=== PATIENT | female | born 1940 | race Caucasian/White ===

== ENCOUNTER 2018-01-15 01:34 | Outpatient (CLI) | payer MEDICARE, BC, SELFPAY ==
[2018-01-15 11:22] LABS: ALT 21 U/L (12-78); AST 21 U/L (15-37); Albumin 3.5 g/dL (3.4-5.0); Alkaline Phosphatase 111 U/L (46-116); Anion Gap 8.7 mmol/L (3-11); BUN 13 mg/dL (7-18); Bilirubin, Total 0.8 mg/dL (0.2-1.0); CO2 27.3 mmol/L (21.0-32.0); CREATININE 0.79 mg/dL (0.55-1.02); Calcium 8.6 mg/dL (8.5-10.1); Chloride 107 mmol/L (98-107); Cholesterol 233 mg/dL (50-200); Glucose 110 mg/dL (70-100); HDL Cholesterol 85 mg/dL (40-60); LDL CHOLESTEROL 132 mg/dL (<100); Sodium 143 mmol/L (136-145); Total Protein 6.5 g/dL (6.4-8.2); Triglyceride 128 mg/dL (30-150)
== END 2018-01-15 01:54 ==
DX: I10 Essential (primary) hypertension (principal)
CPT/HCPCS: 36415; 80053; 80061; 83721

== ENCOUNTER 2018-05-09 16:13 | Emergency (ER) | payer MEDICARE, BC, SELFPAY ==
--- NOTE | 2018-05-09 16:25 | DI.RAD_ITS ---
SYMPTOM/DIAGNOSIS: FELL, PAIN LEFT KNEE: There is a comminuted fracture involving both tibial plateaus. There is significant displacement as well as depression of the lateral tibial plateau. A hemarthrosis is seen. There appears to be involvement of the tibial spines. IMPRESSION: Comminuted tibial plateau fractures.
--- NOTE | 2018-05-09 16:28 | ED.GENADUL_ITS ---
Discharge Plan Disposition Patient Disposition: HOME Condition: Fair Discharge Details Chief Complaint: Orthopedic Clinical Impression: Closed fracture of left tibial plateau Reason For Visit: [place] Primary Care Provider: Tootie Rodriguez ED Provider: Mily Sarabia Home Meds and New Rx's Prescriptions: New oxycodone 5 mg tablet 5 mg PO Q6H PRN (Reason: pain) Qty: 7 RF: 0 Continued sertraline [Zoloft] 50 mg tablet 75 mg PO DAILY Qty: 135 RF: 4 metronidazole [MetroCream] 0.75 % cream 1 applic Topical BID Qty: 1 RF: 3 losartan 25 mg tablet 25 mg PO DAILY Qty: 90 RF: 3 losartan 50 mg tablet 50 mg PO DAILY Qty: 90 RF: 3 betamethasone, augmented 0.05 % cream 1 applic Topical every other day Qty: 1 RF: 0 oxybutynin chloride 10 mg tablet extended release 24hr 10 mg PO DAILY Qty: 90 RF: 3 vitamin B complex [B-Complex] 1 EACH tablet 1 ea PO DAILY PRNRF: 0 multivitamin 1 EACH capsule 1 ea PO DAILY RF: 0 ibuprofen 600 MG tablet 600 mg PO tid prn Qty: 90 RF: 3 levalbuterol tartrate 15 GM HFA aerosol inhaler 2 puff Inhalation Q6H PRN Qty: 1 RF: 3 Discharge Instructions Instructions: Leg Fracture (ED) Additional Instructions: Encourage rest, ice, elevation. Tylenol and/or ibuprofen as needed for discomfort. You may augment this with oxycodone as prescribed. Please take this medication only as prescribed and keep it in a safe place. Keep knee immobilized until reevaluated by orthopedics. Please use walker and remain nonweightbearing. Please call orthopedics tomorrow to schedule follow-up appointment. If you develop new or worsening symptoms seek care urgently once again. Referrals: Tootie Rodriguez NP [Primary Care Provider] - Bernard Kline MD [ [facility] STAFF PHYSICIAN] - Medical Decision Making Patient is a 78 year old female presenting today, brought in via EMS, with c/c of left knee pain. Reports that she was going down stairs and caught my foot. States that the knee went backward and she had a sudden onset of severe left knee pain. States that after this incident she fell, denies other injury at the time of the incident. Remembers the fall, no LOC, no head trauma. Denies pain in neck or back. History of ACL reputure without repair on left knee, no previous surgeries. Endorses nausea initially but associates this with the discomfort. Remaining exam without significant abnormality, ligamentous exam held off at this point secondary to discomfort. Will give Tylenol and Ibuprofen, obtain imaging and reexamine. Patient has history of hypertension, alcohol abuse (drinks about 1 bottle of wine per night), OA, stress incontinence, hypertenisve retinopathy, depression, bilateral hip replacements. XR reviewed by radiologist: FINDINGS: Bones/joints: Comminuted fracture of the proximal tibia with extension into the medial and lateral tibial plateau. The findings are most severe in the lateral tibial plateau where there is a 7 mm of subchondral bone step-off. Soft tissues: Moderate to large lipohemarthrosis. IMPRESSION: Comminuted fracture proximal tibia with extension into the medial and lateral tibial plateaus. Consulted with Dr. Kline. He did do the patient's previous hip replacements and who the patient prefers to follow-up with. He did asked that we obtain a CT scan, I mobilized the patient and have her remain nonweightbearing with follow- up in the office CT reviewed by radiologist: FINDINGS: There is a large lipohemarthrosis. There is a severely comminuted fracture of the lateral tibial plateau with sloped depression of the mid and posterior aspect of the lateral tibial plateau with approximately 6 mm of depression of the posterior lateral tibial plateau rim. The fracture extends into the proximal tibiofibular joint which is otherwise intact. There is extension of fracture into the tibial spines and the lateral aspect of the medial tibial plateau. There is mild generalized osteopenia. There are minimal degenerative arthritic changes within the patellofemoral joint. IMPRESSION: Severely comminuted fracture of the lateral tibial plateau with depression and extension into the proximal tibiofibular joint. There is fracture extension into the tibial spines and the lateral edge of the medial tibial plateau. Discussed these findings with the patient. We will follow the plan as outlined by Dr. Kline with knee immobilizer. She does have access to a walker. 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 Encourage rest, ice, elevation. Tylenol and/or ibuprofen as needed for discomfort. Patient has oxycodone at home that she may take tonight. Reports she only has a few tabs left, I will prescribe her further to help her with her acute pain in the next few days. She will contact Dr. Kline's office tomorrow to schedule follow-up appointment. All of her questions and concerns were addressed and she is in agreement this plan. HPI General Mode of arrival: EMS . Date/Time Provider Initiated Documentation: 05/09/18 16:25 . Limitations to Documentation: no limitations . Information obtained by: patient and EMS . History of Present Illness 78 year old F presents to the emergency department with the chief complaint of left knee pain, described as moderate, Quality is described as aching, and is l ocalized to the left and lower extremity. Patient reports no radiation. Patient started experiencing this minute(s) and it has been constant. Immobilization improves symptom(s), Movement worsens symptoms . Patient notes no other symptoms.; denies chest pain, cough, diaphoresis, fever/chills, headaches, nausea/vomiting (reports initially nauseated, has since resolved), rash, shortness of breath, syncope and weakness. Patient did receive the following treatments prior to arrival, splint (applied by EMS) Related Data Home Medications Medication Instructions Recorded Confirmed multivitamin 1 ea PO DAILY 10/10/12 03/15/18 vitamin B complex [B-Complex] 1 ea PO DAILY PRN 10/10/12 03/15/18 ibuprofen 600 mg PO tid prn #90 tab-cap 11/04/14 03/15/18 levalbuterol tartrate 2 puff INHALATION Q6H PRN #1 01/10/17 03/15/18 inhaler betamethasone, augmented 0.05 % 1 applic TOPICAL every other day 01/16/18 03/15/18 topical cream #1 tube losartan 25 mg tablet 25 mg PO DAILY #90 tab 01/16/18 03/15/18 losartan 50 mg tablet 50 mg PO DAILY #90 tab-cap 01/16/18 03/15/18 metronidazole 0.75 % topical cream 1 applic TOPICAL BID #1 tube 01/16/18 03/15/18 sertraline 50 mg tablet 75 mg PO DAILY #135 tab-cap 01/16/18 03/15/18 oxybutynin chloride ER 10 mg 10 mg PO DAILY #90 tab 03/15/18 03/15/18 tablet,extended release 24 hr oxycodone 5 mg PO Q6H PRN #7 tab 05/09/18 Previous Rx's Medication Instructions Recorded levalbuterol tartrate 2 puff INHALATION Q6H PRN #1 01/10/17 inhaler betamethasone, augmented 0.05 % 1 applic TOPICAL every other day 01/16/18 topical cream #1 tube losartan 25 mg tablet 25 mg PO DAILY #90 tab 01/16/18 losartan 50 mg tablet 50 mg PO DAILY #90 tab-cap 01/16/18 metronidazole 0.75 % topical cream 1 applic TOPICAL BID #1 tube 01/16/18 sertraline 50 mg tablet 75 mg PO DAILY #135 tab-cap 01/16/18 oxybutynin chloride ER 10 mg 10 mg PO DAILY #90 tab 03/15/18 tablet,extended release 24 hr oxycodone 5 mg PO Q6H PRN #7 tab 05/09/18 Allergies Allergy/AdvReac Type Severity Reaction Status Date / Time morphine Allergy Severe ITCHING Verified 03/15/18 13:13 propoxyphene AdvReac Severe HALLUCINATI Verified 03/15/18 13:13 ONS naproxen AdvReac Intermediate RETAINS Verified 03/15/18 13:13 FLUID Review of Systems Constitutional Reports as per HPI, Denies chills, Denies fatigue, Denies fever(s), Denies headache(s) and Denies weakness Eyes Reports as per HPI, Denies blurry vision, Denies change in vision and Denies loss of vision ENT Denies headache(s) Cardiovascular Reports as per HPI Respiratory Reports as per HPI and Denies cough Gastrointestinal Reports as per HPI, Denies abdominal pain, Denies nausea and Denies vomiting Genitourinary Reports urinary incontinence (chronic, unchanged. Hx stress incontinence) Musculoskeletal Reports as per HPI and Denies tingling Integumentary/Breasts Reports as per HPI, Denies rash and Denies wounds Neurologic Denies headache(s), Denies loss of vision, Denies tingling and Denies weakness Endocrine Denies fatigue [facility] Medical History Alcohol abuse Eye Procedure([facility] [place] - Dr. Ruiz) fluid... HTN (hypertension) Osteoarthritis Surgical History Abdominal hysterectomy (~1973) Appendectomy (~1973) Biopsy of breast Colonoscopy - IV Sedation (01/25/16) Tonsillectomy and adenoidectomy Total replacement of hip (07/03/14) Total replacement of hip (11/12/14) Social History household members: other details: 4 current occupational status: retired pets and animals: Yes pets and animals: cat(s) and dog(s) frequency: 5-6 times per week duration: < 15 minutes/day Smoking/Tobacco Use Status: Former Tobacco Use quit date: 05/01/97 passive smoking exposure: No alcohol intake: current alcohol intake frequency: a few times a week Alcohol type: wine substance use type: does not use wendi/lutheran: Anabaptism special wendi needs: No Exam Const General: cooperative, healthy appearing, comfortable, no acute distress, well developed and well groomed Nutritional Appearance: average body habitus and well nourished Orientation: alert and awake [facility] Head: normal to inspection, no palpable skull fracture, normocephalic and atraumatic Ears: hearing grossly normal bilaterally General nose exam: external nose normal Eyes General: appearance normal, both eyes and all related structures Neck Neck: normal visual inspection, full ROM, no lymphadenopathy, no meningeal signs, trachea midline and supple Chest Chest: normal inspection of the chest, normal palpation of entire chest wall, no crepitus and no localized rib tenderness Resp Effort & Inspection: normal respiratory effort, able to speak in complete sentences and no respiratory distress Auscultation: clear to auscultation bilaterally, no rales, no rhonchi and no wheezes Cardio Rate: regular rate Rhythm: regular rhythm Heart Sounds: S1 normal and S2 normal GI Inspection: normal to inspection, no abdominal wall ecchymosis, no edema and non-distended Palpation: soft, no hepatosplenomegaly, not firm, no guarding, no pulsatile masses, not rigid and nontender Auscultation: normal bowel sounds Back/Spine/Pelvis Back: no CVA tenderness Cervical Spine: normal cervical lordosis and cervical ROM normal Thoracic/Lumbar Spine: thoracic and lumbar spine normal to inspection, thoraco- lumbar ROM normal, No thoraco-lumbar ROM limited, No thoraco-lumbar spasm and No thoracic spinal tenderness Pelvis: no pain with anterior-posterior compression and no pain with lateral compression Skin Trauma: abrasion (superficial inferior left knee, appears old. Patient reports 1 month old) Neuro General: alert and awake Cranial Nerves: CN's II-XI intact bilaterally Cognition: normal cognition Speech: speech normal Gait: normal gait Motor: muscle tone normal throughout Sensory Exam: no sensory deficits noted Extrem General: no pedal edema, no calf tenderness and abnormal gait (nonambulatory since fall) Left lower extremity: normal capillary refill, hip/thigh Details: normal ROM (test is limited secondary to knee pain and knee trauma); no tenderness, no swelling and no deformity, knee Details: abnormal to inspection (effusion, no erythema or warmth) Details: knee not obviously dislocated, patella not obviously dislocated and not erythematous, tenderness (diffuse discomfort) and swelling (effusion); ROM abnormal (limited secondary to pain), lower leg Details: normal to inspection, ankle Details: normal to inspection and foot Details: normal capillary refill, normal to inspection, toes with normal ROM, no edema and vascular exam Details: dorsalis pedis pulse present, posterior tibial pulse present and normal capillary refill; no tenderness; abnormal ROM, no edema and joint enlargement noted (effusion left knee) Psych Appearance: grossly normal and well kempt Mental Status: mental status grossly normal Speech and Movement: speech and movement normal
[2018-05-09] MEDS: Acetaminophen 500 MG TAB 1000 MG PO (16:55)
[2018-05-09] MEDS: Ibuprofen 600 MG TAB PO (16:55)
--- NOTE | 2018-05-09 17:34 | DI.VRAD_ITS ---
EXAM: XR Left Knee, 4 or more Views EXAM DATE/TIME: 05/09/2018 4:28 PM CLINICAL HISTORY: 78 years old, female; Injury or trauma; Fall; Initial encounter; Blunt trauma; Knee; Left TECHNIQUE: XR Left knee 4 or more views. COMPARISON: No relevant prior studies available. FINDINGS: Bones/joints: Comminuted fracture of the proximal tibia with extension into the medial and lateral tibial plateau. The findings are most severe in the lateral tibial plateau where there is a 7 mm of subchondral bone step-off. Soft tissues: Moderate to large lipohemarthrosis. IMPRESSION: Comminuted fracture proximal tibia with extension into the medial and lateral tibial plateaus. Dictated and Authenticated by: Amanuel Meade MD. Ordering:LEA Minor MD
--- NOTE | 2018-05-09 18:09 | DI.CT_ITS ---
SYMPTOMS/DIAGNOSIS: TIBIA FRACTURE CT OF THE LEFT KNEE: Comparison is made with plain films performed earlier the same day. There is a markedly comminuted fracture involving both tibial plateaus and the tibial spines. There is significant displacement as well as significant depression of the fracture fragments in the lateral tibial plateau. There is approximately 5-6 mm of depression greatest posteriorly of the lateral tibial plateau. The fracture extends inferiorly to the metaphyseal region of the proximal tibia near the tibiofibular joint. There is some comminution at the tibial spines. There is depression of the medial tibial plateau. The patella and distal femur appear intact. A hematosis is noted. The bones appear osteoporotic. IMPRESSION: Markedly comminuted depressed fracture involving both tibial plateaus, lateral greater than medial as well as tibial spines.
--- NOTE | 2018-05-09 18:26 | DI.VRAD_ITS ---
EXAM: CT Left Lower Extremity Without IV Contrast, Knee EXAM DATE/TIME: 05/09/2018 5:50 PM CLINICAL HISTORY: 78 years old, female; Injury or trauma; Fall; Initial encounter; Fracture, traumatic; Other: Comminuted fracture proximal tibia with extension into the medial and lateral tibial plateaus; Left TECHNIQUE: CT of the Left lower extremity without intravenous contrast was performed. Exam focused on the knee. Coronal and sagittal reformatted images were created and reviewed. COMPARISON: CR XR knee LT 4V AP,lat,robert,pat 05/09/2018 5:03 PM FINDINGS: There is a large lipohemarthrosis. There is a severely comminuted fracture of the lateral tibial plateau with sloped depression of the mid and posterior aspect of the lateral tibial plateau with approximately 6 mm of depression of the posterior lateral tibial plateau rim. The fracture extends into the proximal tibiofibular joint which is otherwise intact. There is extension of fracture into the tibial spines and the lateral aspect of the medial tibial plateau. There is mild generalized osteopenia. There are minimal degenerative arthritic changes within the patellofemoral joint. IMPRESSION: Severely comminuted fracture of the lateral tibial plateau with depression and extension into the proximal tibiofibular joint. There is fracture extension into the tibial spines and the lateral edge of the medial tibial plateau. Dictated and Authenticated by: Amanuel Meade MD. Ordering:LEA Minor MD
== END 2018-05-09 19:50 | disposition home or self-care (01) ==
PROVIDERS: Emergency Provider Physician Assistant
DX: S82.145A Nondisplaced bicondylar fracture of left tibia, initial encounter for closed fracture (principal); W19.XXXA Unspecified fall, initial encounter; I10 Essential (primary) hypertension
CPT/HCPCS: 99284; 73564; 73700; 99283; L1830

== ENCOUNTER → 2018-05-15 12:52 | Outpatient (BNVA) | payer MEDICARE, BC, SELFPAY | PROVIDERS: Visit Provider Orthopaedic Surgery | DX: S82.142A Displaced bicondylar fracture of left tibia, initial encounter for closed fracture (principal); W10.0XXA Fall (on)(from) escalator, initial encounter; I10 Essential (primary) hypertension | CPT/HCPCS: 99211; 99213 ==

== ENCOUNTER 2018-05-16 14:52 | Inpatient (IN) | payer MEDICARE, BC, SELFPAY ==
[2018-05-16] VITALS (13 sets, daily range): BP systolic 137–189; BP diastolic 72–131; PULSE 85–99; RESP 17–23; TEMP 36.5–38.2; O2SAT 93–98
[2018-05-16] MEDS: Lactated Ringers 1,000 ML 80 ML IV ×2 (09:54→15:55)
[2018-05-16] MEDS: Scopolamine 1 MG/3 DAYS PATCH TD (10:57)
[2018-05-16] MEDS: Bupivacaine 0.5% Pres-Free 30 ML VIAL (11:22)
[2018-05-16] MEDS: Bupivacaine LIPOSOME/PF 133 MG/10 ML VIAL IJ (11:22)
--- NOTE | 2018-05-16 13:15 | DI.RAD_ITS ---
SYMPTOMS/DIAGNOSIS: LEFT TIBIAL PLATEAU FRACTURE C-ARM FLUOROSCOPY OF THE LEFT KNEE: Fluoroscopy Time: 105.5 sec Fluoroscopy was provided in the OR for Dr. Kline. Hard copy images show placement of hardware in the proximal tibia for fixation of the previously noted tibial plateau fractures. The alignment is improved.
[2018-05-16] MEDS: fentaNYL 100 MCG/2 ML VIAL IVP ×2 (14:56→15:09)
[2018-05-16] MEDS: Acetaminophen 500 MG TAB 1000 MG PO (15:37)
[2018-05-16] MEDS: Ketorolac 15 MG/ML VIAL IVP (15:39)
[2018-05-16] MEDS: Normal Saline Flush 10 ML SYR IV ×3 (15:50→22:46)
[2018-05-16] MEDS: HYDROmorphone 2 MG/ML VIAL IVP (15:50)
--- NOTE | 2018-05-16 16:11 | ROE_ITS ---
DATE OF PROCEDURE: May 16, 2018 PREOPERATIVE DIAGNOSIS: Comminuted bicondylar tibial plateau fracture. POSTOPERATIVE DIAGNOSIS: Same. PROCEDURE: Open reduction and internal fixation with allograft bone grafting. SURGEON: Bernard Kline M.D. SHEET HEATER HELPER: Vesta Young PA-C ANESTHESIA: Femoral nerve block followed by general via LMA by Jerman Albarran CRNA PREP: ChloraPrep. INDICATIONS: This patient is one week status post a fall in the home where she sustained a bicondyla r tibial plateau fracture. There was significant lateral plateau depression of approximately 9 mm. There was also a minimally displaced fracture of the posterior medial condyle. The patient had a his tory of previous ACL injury many years ago. She was seen in the Emergency Department and had a CT sc an done. I recommended no initial treatment to minimize morbidity associated with surgery in the imm ediate post-fracture period. I saw her in the office yesterday, approximately six days post fracture and she was doing well. She had good skin perfusion. There were no fracture blisters. There was n o unusual swelling. I recommended repair of the fracture. I explained to the patient that this frac ture is associated with posttraumatic arthritis but that the option of allowing the fracture to heal and then performing a total knee arthroplasty had significant complications over a primary arthroplas ty. The risks and benefits were discussed. She understood and wished to proceed. Because of the vo id that would be created by the impaction of the articular surface back to its original position ther e would be a void and, therefore, I have recommended the use of allograft. OPERATIVE PROCEDURE: She was left in the Day Surgery holding area and the left leg was marked. She underwent femoral nerve blockade and then general anesthesia via LMA. Two grams of Ancef were given as a prophylactic antibiotic. The left lower extremity was prepped with ChloraPrep from the toes to the groin and a tourniquet was applied to the proximal thigh. A Carias catheter was inserted under st erile technique. The urine appeared normal. After prepping the left leg and doing the appropriate time-out, the tourniquet was inflated after a p rior exsanguination of the limb using gravity drainage. A standard anterior approach was made to all ow the performance of a total knee arthroplasty through the same incision if she were to require so i n the future. After incising the skin, the subcutaneous tissue was incised as part of the skin incis ion so as to prevent devascularizing subcutaneous tissues. The C-arm image intensifier was brought i nto position and percutaneously I placed a screw over the posterolateral femoral condyle. This was d one from the anterior and posterior direction under image intensifier control. This reduced the frac ture of the posteromedial fragment. I then disimpacted the fracture site by incising through the coronary ligaments of the lateral menisc us. This allowed some visualization of the lateral compartment. I then, under fluoroscopic control, used a bone tamp to tap the depressed articular fragments of the plateau back into their position. This was buttressed with bone grafts harvested from allograft femoral head. This filled the voids. I then used a T-plate which was a 3.5-mm plate with raft screws placed proximally. The plate was fir st precontoured to the lateral tibial condyle and secured into position with two nonlocking screws. Then raft screws which were locking were placed. This reduced the depression. Bone graft was harves ruthann further from the allograft to fill in any voids in addition to the structural allograft that was utilized. The wound was then irrigated. Hemostasis was under control after the tourniquet was defla ruthann. Tranexamic acid was placed topically and intraarticularly. The anterior compartment fascia was repaired with sutures of #1 Vicryl. The IT band and lateral reti naculum were repaired with #1 Vicryl. The subcutaneous tissues were repaired with #2-0 Vicryl and th e skin was closed with nylon suture in near-far far-near retention technique. Sterile bandages were applied consisting of Xeroform gauze, 4x4s, 6-inch conforming gauze bandage, followed by 6-inch Franklin w rap, and a commercial knee immobilizer with a Cryo/Cuff. The patient had an excellent dorsalis pedis pulse. Blood loss was minimal. She was taken to the Recovery Room in satisfactory condition with her knee immobilizer locked in comp lete extension and allowing 30 degrees of flexion.
[2018-05-16] MEDS: POTASSIUM CHLORIDE/0.9% NACL 1,000 ML 100 MEQ IV (16:41)
--- NOTE | 2018-05-16 17:59 | NUR.NOTE ---
Nursing Note: This patient arrived from PACU via stretcher and was admitted to room 208 on Med/Surg at 1612
[2018-05-16] MEDS: oxyCODONE 5 mg/Acetaminophen 325 mg TAB PO ×2 (18:50→20:06)
[2018-05-16] MEDS: Ibuprofen 600 MG TAB PO (22:02)
[2018-05-16] MEDS: fentaNYL 100 MCG/2 ML VIAL 50 MCG IVP (22:45)
[2018-05-17] VITALS (7 sets, daily range): BP systolic 144–176; BP diastolic 70–84; PULSE 87–98; RESP 17–24; TEMP 37.3–37.9; O2SAT 93–99
[2018-05-17] MEDS: oxyCODONE 5 mg/Acetaminophen 325 mg TAB PO ×4 (00:22→16:03)
[2018-05-17] MEDS: Ibuprofen 600 MG TAB PO ×3 (04:47→16:00)
[2018-05-17 06:48] LABS: HCT 35.4 % (36.0-46.0); HGB 11.6 g/dL (12.0-15.5); Mean Corp. HGB Concentration 32.8 g/dL (32.0-36.0); Mean Corpuscular Hemoglobin 30.9 pg (27.0-33.0); Mean Corpuscular Volume 94.1 fL (80-95); Mean Platelet Volume 10.3 fL (8.0-11.0); Platelet Count 203 x1000/uL (130-400); RBC 3.76 m/cumm (4.00-5.20); RBC Distribution Width 13.3 % (11.7-14.6); White Blood Cell Count 7.55 k/cumm (4.4-10.8)
[2018-05-17 07:04] LABS: Anion Gap 9.2 mmol/L (3-11); BUN 13 mg/dL (7-18); CO2 27.8 mmol/L (21.0-32.0); CREATININE 0.98 mg/dL (0.55-1.02); Calcium 8.3 mg/dL (8.5-10.1); Chloride 107 mmol/L (98-107); Estimated GFR 54.89 (mL/min/1.73m2); Glucose 147 mg/dL (70-100); Potassium 3.3 mmol/L (3.5-5.1); Sodium 144 mmol/L (136-145)
--- NOTE | 2018-05-17 08:08 | W.PM.PROGNOT ---
Date of Service Date of service: 05/17/18 Time of Service: 08:08 Assessment and Plan (1) Tibial plateau fracture, left: Current visit: No Status: Acute Overall satisfactory progress following comminuted tibial plateau fracture involving both condyles. No evidence of compartment syndrome. CBC and electrolytes are essentially within normal limits with exception of very mildly depressed potassium level. Surgical findings were reviewed with patient. We will continue with IV fluids until taking p.o. fully. She is also needing 1 more dose of antibiotic she will get up with PT nonweightbearing on the left with a walker Qualifiers: Encounter type: initial encounter Fracture type: closed Qualified Code(s): S82.142A - Displaced bicondylar fracture of left tibia, initial encounter for closed fracture Subjective Interval history since last seen: Patient reports having a difficult night last night mainly because of pain control. Nursing staff advised me that I could not prescribe the higher dose of fentanyl because it was considered conscious sedation. Exam Extrem Other: She has no unusual swelling in left foot or ankle note neurovascular exam of the left foot is intact. There is no increased pain with range of motion of the ankle. Patient is alert oriented and is coherent. Objective Objective Clinical Data: Abnormal lab results 05/17/18 05/17/18 Range/Units 06:20 06:20 RBC 3.76 L (4.00-5.20) m/cumm Hgb 11.6 L (12.0-15.5) g/dL Hct 35.4 L (36.0-46.0) % Potassium 3.3 L (3.5-5.1) mmol/L Glucose 147 H (70-100) mg/dL Calcium 8.3 L (8.5-10.1) mg/dL Vital Signs Temperature 99.1 F 05/17/18 05:20 Temperature Source Tympanic 05/17/18 05:20 Pulse 98 H 05/17/18 05:20 Pulse Rhythm Regular 05/17/18 05:20 Respiratory Rate 20 05/17/18 05:20 Respiratory Effort Non-Labored 05/17/18 05:20 Respiratory Depth Normal 05/17/18 05:20 Respiratory Pattern Normal 05/17/18 05:20 Blood Pressure 171/84 H 05/17/18 05:20 Pulse Oximetry 98 05/17/18 08:06 Respiratory End-tidal CO2 43 05/16/18 16:07 Oxygen Delivery Method Room Air 05/17/18 08:06 Oxygen Flow Rate 0 05/17/18 08:06 Pain Level 3 05/17/18 06:06 Comment 05/16/18 23:36 Intake & Output 05/16/18 05/16/18 05/17/18 11:59 23:59 11:59 Intake Total 100 / 3841.000 3741.000 / 3841.000 139.5 / 139.5 Output Total 1050 / 1700 1450 / 1450 Balance 100 / 2141.000 2691.000 / 2141.000 -1310.5 / -1310.5 Weight 185 lb 3.013 oz Intake: IV 100 / 2521.000 2421.000 / 2521.000 139.5 / 139.5 Oral 1320 / 1320 Output: Urine 1050 / 1700 1450 / 1450 Other: Urine Color Yellow Pale Yellow Yellow Urine Appearance Clear Clear Clear Emesis Description None Laboratory Results WBC 7.55 k/cumm (4.4-10.8) 05/17/18 06:20 RBC 3.76 m/cumm (4.00-5.20) L 05/17/18 06:20 Hgb 11.6 g/dL (12.0-15.5) L 05/17/18 06:20 Hct 35.4 % (36.0-46.0) L 05/17/18 06:20 MCV 94.1 fL (80-95) 05/17/18 06:20 MCH 30.9 pg (27.0-33.0) 05/17/18 06:20 MCHC 32.8 g/dL (32.0-36.0) 05/17/18 06:20 RDW 13.3 % (11.7-14.6) 05/17/18 06:20 Plt Count 203 x1000/uL (130-400) 05/17/18 06:20 MPV 10.3 fL (8.0-11.0) 05/17/18 06:20 Sodium 144 mmol/L (136-145) 05/17/18 06:20 Potassium 3.3 mmol/L (3.5-5.1) L 05/17/18 06:20 Chloride 107 mmol/L (98-107) 05/17/18 06:20 Carbon Dioxide 27.8 mmol/L (21.0-32.0) 05/17/18 06:20 Anion Gap 9.2 mmol/L (3-11) 05/17/18 06:20 BUN 13 mg/dL (7-18) 05/17/18 06:20 Creatinine 0.98 mg/dL (0.55-1.02) 05/17/18 06:20 Estimated GFR/1.73 m2 54.89 (mL/min/1.73m2) 05/17/18 06:20 Glucose 147 mg/dL (70-100) H 05/17/18 06:20 Calcium 8.3 mg/dL (8.5-10.1) L 05/17/18 06:20
[2018-05-17] MEDS: Losartan 25 MG TAB 75 MG PO (08:48)
[2018-05-17] MEDS: Pantoprazole 40 MG TABCR PO (08:48)
[2018-05-17] MEDS: Sertraline 50 MG TAB PO (08:48)
[2018-05-17] MEDS: Multivitamin w/Minerals TAB 1 TAB PO (08:49)
[2018-05-17] MEDS: Hydrochlorothiazide 25 MG TAB PO (08:49)
--- NOTE | 2018-05-17 09:35 | PHARADMIT ---
Addendum entered by Eros Contreras III 05/18/18 12:32: Pharmacy Note Subjective Patient exxperiencing pain post-op, making sleep difficult. Objective VS-OK Pain:01/08 No new labs No BM yet Assessment Ancef post-op completed, no med carmen Plan Working with PT Original Note: Admission Pharmacy Clinical Review L TIBIAL PLATEAU FRACTURE Code Status Full Code Current Weight Wgt- 84 kg Renally Cleared and Narrow Therapeutic Index Meds CrCl~ 62 mL/min Meds-OK QTc Value / Action Taken QTc-440 NA BP Control, Fever BP- 171/84 Meds- OK Electrolytes reviewed Na- 144 K+3.3 DVT Prophylaxis none Opiate Usage / Scheduled Bowel Regimen Ordered Yes Yes Plt/SCr for Heparin / Enoxaparin Plts-203 SCr-0.98 INR for Warfarin NA H/H stable, WBC/Bands H&H- 11.6/35.4 WBC- 7.55 Antibiotic appropriateness Ancef Cultures and Sensitivities none Surgical ABX d/c within 24 hr Yes DM control / Insulin Dosing BG- 147 Heart Failure (Check EF%) (XOCHITL's, B-Block, Diuretics) HCTZ, Losartan IV to PO Switch No Home Meds Reviewed Yes Home Meds Not Ordered Metrocream, Detrol-LA Comments
--- NOTE | 2018-05-17 10:43 | PT.INIE ---
Date of service: 05/17/18 Time of Service: 10:30 PT Notes Inpatient Physical Therapy Evaluation Date: May Referring Doctor: Dr. Kline PT Orders: PT CONSULT: s/p ORIF left tibial plateau fracture. Up in chair today, then non weight bearing on left with walker. Knee immobilizer set from 0 degrees of extension to 30 degrees of flexion Precautions: fall precautions Patient Profile/Admitting Diagnosis: Patient sustained a tibial plateau fracture status post fall down bottom step at home on 09 May. Underwent ORIF on May 16, [address] Kline. Orders for up in chair today than nonweightbearing on left with walker with knee immobilizer set from 0 degrees of extension to 30 degrees flexion. PMHX: ETOH abuse, HTN, OA, bilateral total hip replacements in 2014 Social History/Home Situation: Patient lives in a multilevel home. Currently set up on the first floor. She has 1 step into her bedroom and then 1 step into her dwelling. No grab bars for assistance. She does reside in a multilevel home and her goal is to return to her upper level for her bedroom but currently is able to be set up on the first floor due to limited mobility issues. She resides with her granddaughter and her 2 great grandsons. Current Functional Limitations: Ambulation, functional mobility, bed mobility, stair negotiation Equipment Owned/DME: Entered walker, 4 wheeled walker, shower chair, raised toilet seat. Subjective: 'I have not had my pain medication yet. I anticipate me to be become lightheaded with transfers. Would rather hold off until my pain meds have been administered.' Objective: At start of initial evaluation patient lying supine in hospital bed with head of bed at 40 degrees. Has knee immobilizer in place with Cryo/Cuff on the leg. General Observation: Catheter IV in right dorsal hand. Mental Status: Alert and orientated x3 Person, place and time Pain: 7/10 at rest in bed ROM: Right Upper Extremity: WFL Left Upper Extremity: WFL Right Lower Extremity: WFL Left Lower Extremity: Knee extension 10 degrees from neutral. Knee flexion 20 degrees. Hip abduction 30 degrees AA, ankle PF and DF WFL. Strength: Right Upper Extremity: 4+/5 throughout Left Upper Extremity: 4+/5 throughout Right Lower Extremity: 4/5 throughout Left Lower Extremity: Hip flexion 3+/5 with complaints of knee pain. Quad and hamstring not assessed. Sensation: Intact to light touch throughout the left foot and ankle. Bed Mobility/Transfers: Supine to sit: Min assist x1 with assistance to lower left lower extremity to the floor. Head of bed at 30 degrees. Sit to stand: Min assist x1 with verbal cues for hand placements to a front wheeled walker. Bed mobility: Min assist X1 for repositioning of left lower extremity Stand to sit: Min assist x1 for placement of left lower extremity and verbal cues for hand placement. Gait: To be tested tomorrow Balance: Static Sitting: Normal Dynamic Sitting: Normal Static Standing: Fair Dynamic Standing: Fair Special Tests: Mobility Limitations Standardized Measure [facility] 6 clicks Basic Mobility Inpatient Short Form: Raw Score: 12 Standardized Score: 35.33 CMS Score: 68.66% CMS Modifier: CL Informed Consent/Education: Patient instructed in purpose of PT consult and plan of care. Also educated in home program focusing on ankle pumps, glutes sets and quad sets. She performed 10 repetitions of each 2 sets Assessment: Patient is a 78 year old female referred to physical therapy services with the diagnosis of status post ORIF left tibial plateau fracture. Patient presents with clinical signs and symptoms consistent with this diagnosis, as demonstrated by the following impairment level findings: 1. Decreased LE strength 2. Decreased UE strength 3. Decreased balance 4. Decreased left knee ROM 5. Decreased activity tolerance Impairments are contributing to the following functional limitations: 1. Unable to independently get in/out of bed 2. Unable to stand independently 3. Unable to ambulate 4. Unable to manage stairs AMPA score. Patient is assessed as Moderate [id number] complexity based on the following: History: as per PMH Examination: Functional limitations as noted above Presentation: evolving Decision Making: moderate complexity Goals: Goals X1 week 1. Supine-Sit : supervision 2. Sit-Supine supervision 3. Sit-Stand supervision with FWW 4. Stand-Sit supervision with FWW 5. Bed-Chair supervision with FWW 6. Chair-Bed supervision with FWW 7. Gait supervision with FWW x 100' 8. Stairs ascend and descend x 1 step with bilat rails, supervision Plan of Care/Treatment Plan: 1-2x/day, 7 days/week x 1 week. Plan of care has been reviewed with the [facility] providing the service under Physical Therapy direction. Initiate Physical Therapy intervention for strengthening, bed mobility, transfers, gait, stairs, balance training, use of assistive device. DISCHARGE RECOMMENDATIONS: Discharge to home with HHPT TREATMENT [place]: [place] [address],10:30 G Codes in the area mobility of walking and moving around: current status [id number] CL; projected status GP G8979- CK. Discharge status (if discharging) GP [id number] CK.
--- NOTE | 2018-05-17 10:53 | IN_ITS ---
Date of service: 05/17/18 Time of Service: 10:30 PT Notes Inpatient Physical Therapy Evaluation Date: May Referring Doctor: Dr. Kline PT Orders: PT CONSULT: s/p ORIF left tibial plateau fracture. Up in chair today, then non weight bearing on left with walker. Knee immobilizer set from 0 degrees of extension to 30 degrees of flexion Precautions: fall precautions Patient Profile/Admitting Diagnosis: Patient sustained a tibial plateau fracture status post fall down bottom step at home on 09 May. Underwent ORIF on May 16, [address] Kline. Orders for up in chair today than nonweightbearing on left with walker with knee immobilizer set from 0 degrees of extension to 30 degrees flexion. PMHX: ETOH abuse, HTN, OA, bilateral total hip replacements in 2014 Social History/Home Situation: Patient lives in a multilevel home. Currently set up on the first floor. She has 1 step into her bedroom and then 1 step into her dwelling. No grab bars for assistance. She does reside in a multilevel home and her goal is to return to her upper level for her bedroom but currently is able to be set up on the first floor due to limited mobility issues. She resides with her granddaughter and her 2 great grandsons. Current Functional Limitations: Ambulation, functional mobility, bed mobility, stair negotiation Equipment Owned/DME: Entered walker, 4 wheeled walker, shower chair, raised toilet seat. Subjective: 'I have not had my pain medication yet. I anticipate me to be become lightheaded with transfers. Would rather hold off until my pain meds have been administered.' Objective: At start of initial evaluation patient lying supine in hospital bed with head of bed at 40 degrees. Has knee immobilizer in place with Cryo/Cuff on the leg. General Observation: Catheter IV in right dorsal hand. Mental Status: Alert and orientated x3 Person, place and time Pain: 7/10 at rest in bed ROM: Right Upper Extremity: WFL Left Upper Extremity: WFL Right Lower Extremity: WFL Left Lower Extremity: Knee extension 10 degrees from neutral. Knee flexion 20 degrees. Hip abduction 30 degrees AA, ankle PF and DF WFL. Strength: Right Upper Extremity: 4+/5 throughout Left Upper Extremity: 4+/5 throughout Right Lower Extremity: 4/5 throughout Left Lower Extremity: Hip flexion 3+/5 with complaints of knee pain. Quad and hamstring not assessed. Sensation: Intact to light touch throughout the left foot and ankle. Bed Mobility/Transfers: Supine to sit: Min assist x1 with assistance to lower left lower extremity to the floor. Head of bed at 30 degrees. Sit to stand: Min assist x1 with verbal cues for hand placements to a front wheeled walker. Bed mobility: Min assist X1 for repositioning of left lower extremity Stand to sit: Min assist x1 for placement of left lower extremity and verbal cues for hand placement. Gait: To be tested tomorrow Balance: Static Sitting: Normal Dynamic Sitting: Normal Static Standing: Fair Dynamic Standing: Fair Special Tests: Mobility Limitations Standardized Measure [facility] 6 clicks Basic Mobility Inpatient Short Form: Raw Score: 12 Standardized Score: 35.33 CMS Score: 68.66% CMS Modifier: CL Informed Consent/Education: Patient instructed in purpose of PT consult and plan of care. Also educated in home program focusing on ankle pumps, glutes sets and quad sets. She performed 10 repetitions of each 2 sets Assessment: Patient is a 78 year old female referred to physical therapy services with the diagnosis of status post ORIF left tibial plateau fracture. Patient presents with clinical signs and symptoms consistent with this diagnosis, as demonstrated by the following impairment level findings: 1. Decreased LE strength 2. Decreased UE strength 3. Decreased balance 4. Decreased left knee ROM 5. Decreased activity tolerance Impairments are contributing to the following functional limitations: 1. Unable to independently get in/out of bed 2. Unable to stand independently 3. Unable to ambulate 4. Unable to manage stairs AMPA score. Patient is assessed as Moderate [id number] complexity based on the following: History: as per PMH Examination: Functional limitations as noted above Presentation: evolving Decision Making: moderate complexity Goals: Goals X1 week 1. Supine-Sit : supervision 2. Sit-Supine supervision 3. Sit-Stand supervision with FWW 4. Stand-Sit supervision with FWW 5. Bed-Chair supervision with FWW 6. Chair-Bed supervision with FWW 7. Gait supervision with FWW x 100' 8. Stairs ascend and descend x 1 step with bilat rails, supervision Plan of Care/Treatment Plan: 1-2x/day, 7 days/week x 1 week. Plan of care has been reviewed with the [facility] providing the service under Physical Therapy direction. Initiate Physical Therapy intervention for strengthening, bed mobility, transfers, gait, stairs, balance training, use of assistive device. DISCHARGE RECOMMENDATIONS: Discharge to home with HHPT TREATMENT [place]: [place] [address],10:30 G Codes in the area mobility of walking and moving around: current status [id number] CL; projected status GP G8979- CK. Discharge status (if discharging) GP G8980 CK.
[2018-05-17] MEDS: POTASSIUM CHLORIDE/0.9% NACL 1,000 ML 30 MEQ IV (13:33)
--- NOTE | 2018-05-17 14:15 | CHAPLAIN ---
Cristine was sitting up in bed when I visited. She told me about her fall and her surgery. She sounds like she has good family supports and realizes she will likely be in for much of the winter, and isn't weight-bearing for a while on her left knee. Cristine said she likes to read, and will know be able to do plenty of that. She asked for large print book, as she said she is also having difficulty with her sight. I was able to find only one large print book in our [employer] library.
--- NOTE | 2018-05-17 15:02 | PT.INTREAT ---
Date of service: 05/17/18 Time of Service: 15:02 PT Notes Inpatient Physical Therapy Treatment Note [facility] Date: 05/17/18 PRECAUTIONS: NWB L, knee immobilizer 0-30 degrees SUBJECTIVE: Cristine requests to get back to bed. OBJECTIVE: PAIN: Patient complained of pain in left knee with transfers and ther ex BED MOBILITY/TRANSFERS Sit-supine: Min A of left lower extremity with HOB flat Sit-stand: CGA Stand-sit: CGA Chair-bed: CGA GAIT Assistive Device: FWW Weight bearing: NWB L Assist: CGA Distance: 5 sidesteps THEREX: Patient completed a lower extremity stabilization program which includes ankle pumps, quad sets, glutes sets. Patient ends with cold pack to left knee. ASSESSMENT: Patient tolerated session with complaints of knee pain. Patient was able to demonstrate a progression in sit<> stand transfers requiring CGA only. Patient would benefit from continued strengthening as well as continued gait and transfer training for improved ability to perform daily functional tasks at a more independent level. PLAN: Continue with PTs POC TREATMENT CODE/TIME: 25 minutes; (9711 0 x 1, 9753 0 x 1)
--- NOTE | 2018-05-17 15:06 | PT.INTREAT ---
Date of service: 05/17/18 Time of Service: 15:06 PT Notes Inpatient Physical Therapy Treatment Note [facility] Date: 05/17/18 PRECAUTIONS: Fall SUBJECTIVE: Jessika states that she is having significant pain in her L knee area. She c/o that her leg is numb as she believes the knee immobilizer is too tight. OBJECTIVE: Knee immobilizer checked by me, does not appear to be fitted too tightly. Nursing notified regarding numbness in leg. PAIN: Significant pain in L knee with transfers, gait, and ther ex BED MOBILITY/TRANSFERS Rolling L/R: [] Supine-sit: [] Sit-supine: [] Sit-stand: [] Stand-sit: [] Bed-Chair: [] Chair-bed: [] GAIT Assistive Device: [] Weight bearing: [] Assist: [] Distance: [] Deviation: [] VITALS: [] THEREX: [] STAIRS:[] ASSESSMENT: [] PLAN: [] TREATMENT CODE/TIME: []
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
--- NOTE | 2018-05-17 17:03 | NUR.NOTE ---
Nursing Note: Patient was back to bed after I had addressed concerns with DR. Kline, He will revisit the report of K being 3.3 tomorrow, and dressing is to be reinfoirced if it continues to strike through , as noted in other documentation. Patient was comfortable in bed with ice on her knee, pain was manangerd at that time, she was encouraged to ask for prn if pain became bothersome
[2018-05-17] MEDS: oxyCODONE 5 MG TAB PO (19:29)
[2018-05-18] MEDS: oxyCODONE 5 MG TAB PO ×4 (00:10→22:47)
[2018-05-18 04:55] VITALS: BP 197/99; PULSE 99; RESP 20; TEMP 38.2; O2SAT 94
--- NOTE | 2018-05-18 08:17 | PT.INTREAT ---
Date of service: 05/18/18 Time of Service: 08:18 PT Notes Inpatient Physical Therapy Treatment Note [facility] Date: 05/18/18 PRECAUTIONS: NWB on L, Knee Immobilizer 0-30 degrees SUBJECTIVE: Cristine states that she was having some pain in the night, however is feeling a little better today. She states my goal is to walk to the bathroom today. OBJECTIVE: PAIN: Patient c/o L knee pain BED MOBILITY/TRANSFERS Supine-sit: SBA Sit-stand: SBA Stand-sit: SBA Bed-Chair: SBA GAIT Assistive Device: FWW Weight bearing: NWB on L Assist: SBA Distance: 5 sides steps Deviation: Refused further gait training due to c/o dizziness THEREX: Patient completed a LE strengthening and stabilization program, as per flow sheet. Patient requires assist with SLR and hip abduction exercises. ASSESSMENT: Patient tolerated session with c/o pain in L knee with transfers and gait training. Patient would benefit from continued gait and transfer training as well as strengthening for improved mobility. PLAN: Continue with PT's POC TREATMENT CODE/TIME: 25 minutes; ([id number], [id number])
[2018-05-18 08:34] VITALS: BP 157/82; PULSE 107; RESP 20; TEMP 37.8; O2SAT 94
--- NOTE | 2018-05-18 09:28 | W.PM.PROGNOT ---
Date of Service Date of service: 05/18/18 Time of Service: 09:28 Assessment and Plan (1) Tibial plateau fracture, left: Current visit: No Status: Acute Patient is status post bicondylar tibial Plateau fracture repair. Postoperative course has been complicated by pain control. Part of this is due to her history of alcohol abuse as a binge drinker. She will metabolize his pain medication quite rapidly. Fentanyl really was so no benefit to her as it was only limited pain relief she is doing better on the oxycodone which she has been increased after being contacted last night by the nursing supervisor solder making. I review the current plan which is to allow her to have the brace unbuckled if she is in the recliner or while in bed. She should have it buckled while doing transfers or during PT the nurses are allowed to change her bandage as needed but there is no active drainage. She will be able to take a shower tomorrow and then discontinue her Carias catheter in her IV as IV medications do not seem to be working for her pain. She can be started on aspirin 81 mg twice daily as a DVT prophylaxis. Her blood pressure was up this morning secondary to her pain and also it was taken prior to getting her Hyzaar. We will follow this along. She is taking a reasonably good diet and will possibly recheck her potassium level in a day or 2 I am not concerned about it because she is not on any medication that could be additional agonist on cardiac receptors. Qualifiers: Encounter type: initial encounter Fracture type: closed Qualified Code(s): S82.142A - Displaced bicondylar fracture of left tibia, initial encounter for closed fracture Subjective Interval history since last seen: Patient had a difficult night last night because of pain. She feels part of it was her own problem and that she fell asleep around 2 AM and did not get any pain medication until this morning when she was placed in the recliner in her room by physical therapy Despite her complaints of pain she has no complaints of numbness or tingling in her left foot she is able to move it actively without any evidence of symptoms of compartmental syndrome. She had some mild breakthrough bleeding on her Franklin bandage but this had not increased and I told the nursing staff to leave it alone until this morning I carefully change all of her bandages today she has minimal drainage on the gauze bandages and the Franklin bandage. There is no evidence of any hematoma. The compartments are soft. The incision line looks good. I adjust her brace so that the medial stay is not engaging fleshy portion of her thigh near the perineum. Exam Extrem Other: No active drainage coming from the left knee incision. Any sterile bandages applied. No evidence of compartmental syndrome. Objective Objective Clinical Data: Vital Signs Temperature 100.0 F H 05/18/18 08:34 Temperature Source Tympanic 05/18/18 08:34 Pulse 107 H 05/18/18 08:34 Pulse Rhythm Regular 05/18/18 04:55 Respiratory Rate 20 05/18/18 08:34 Respiratory Effort Non-Labored 05/18/18 04:55 Respiratory Depth Normal 05/18/18 04:55 Respiratory Pattern Normal 05/18/18 04:55 Blood Pressure 157/82 H 05/18/18 08:34 Pulse Oximetry 94 L 05/18/18 08:34 Respiratory End-tidal CO2 43 05/16/18 16:07 Oxygen Delivery Method Room Air 05/18/18 08:34 Oxygen Flow Rate 0 05/18/18 08:34 Pain Level 9 05/18/18 08:16 Comment 05/18/18 04:55 Intake & Output 05/17/18 05/17/18 05/18/18 11:59 23:59 11:59 Intake Total 917.0 / 1483.5 566.5 / 1483.5 Output Total 1450 / 3550 2100 / 3550 1575 / 1575 Balance -533.0 / -2066.5 -1533.5 / -2066.5 -1575 / -1575 Intake: IV 437.0 / 523.5 86.5 / 523.5 Oral 480 / 960 480 / 960 Output: Urine 1450 / 3550 2100 / 3550 1575 / 1575 Other: Urine Color Yellow Pale Yellow Yellow Urine Appearance Clear Clear Clear Comment no complaints of distension, patient and intact Laboratory Results WBC 7.55 k/cumm (4.4-10.8) 05/17/18 06:20 RBC 3.76 m/cumm (4.00-5.20) L 05/17/18 06:20 Hgb 11.6 g/dL (12.0-15.5) L 05/17/18 06:20 Hct 35.4 % (36.0-46.0) L 05/17/18 06:20 MCV 94.1 fL (80-95) 05/17/18 06:20 MCH 30.9 pg (27.0-33.0) 05/17/18 06:20 MCHC 32.8 g/dL (32.0-36.0) 05/17/18 06:20 RDW 13.3 % (11.7-14.6) 05/17/18 06:20 Plt Count 203 x1000/uL (130-400) 05/17/18 06:20 MPV 10.3 fL (8.0-11.0) 05/17/18 06:20 Sodium 144 mmol/L (136-145) 05/17/18 06:20 Potassium 3.3 mmol/L (3.5-5.1) L 05/17/18 06:20 Chloride 107 mmol/L (98-107) 05/17/18 06:20 Carbon Dioxide 27.8 mmol/L (21.0-32.0) 05/17/18 06:20 Anion Gap 9.2 mmol/L (3-11) 05/17/18 06:20 BUN 13 mg/dL (7-18) 05/17/18 06:20 Creatinine 0.98 mg/dL (0.55-1.02) 05/17/18 06:20 Estimated GFR/1.73 m2 54.89 (mL/min/1.73m2) 05/17/18 06:20 Glucose 147 mg/dL (70-100) H 05/17/18 06:20 Calcium 8.3 mg/dL (8.5-10.1) L 05/17/18 06:20
[2018-05-18] MEDS: Ibuprofen 600 MG TAB PO ×3 (09:31→20:23)
[2018-05-18] MEDS: Multivitamin w/Minerals TAB 1 TAB PO (09:31)
[2018-05-18] MEDS: Sertraline 50 MG TAB PO (09:32)
[2018-05-18] MEDS: Tolterodine 2 MG CAPCR 4 MG PO (09:32)
[2018-05-18] MEDS: Hydrochlorothiazide 25 MG TAB PO (09:32)
[2018-05-18] MEDS: Pantoprazole 40 MG TABCR PO (09:32)
[2018-05-18] MEDS: Docusate Sodium 100 MG CAP PO (09:32)
[2018-05-18] MEDS: Losartan 25 MG TAB 75 MG PO (09:32)
[2018-05-18] MEDS: Acetaminophen 325 MG TAB 650 MG PO ×2 (09:32→13:57)
[2018-05-18 12:00] VITALS: BP 126/63; PULSE 99; RESP 18; TEMP 37.6; O2SAT 94
--- NOTE | 2018-05-18 13:52 | PDOC.CMPRO ---
Care Management Progress Note S/O: Cristine reports her pain is managed though she does not yet feel comfortable. She continues to work with PT/OT and is pleasant in interaction. CM will continue to follow. A: Cristine was admitted to [facility] 05/16/18 for (L) Tibial Plateau FX P: Cristine will discharge home with new orders for [facility] RN/PT/OT. Undetermined if she will require SWB1 stay prior to discharge; PT reports this would be an appropriate option for Cristine. CM will continue to follow.
--- NOTE | 2018-05-18 13:56 | CMPROGNOTE_ITS ---
Care Management Progress Note S/O: Cristine reports her pain is managed though she does not yet feel comfortable. She continues to work with PT/OT and is pleasant in interaction. CM will continue to follow. A: Cristine was admitted to [facility] 05/16/18 for (L) Tibial Plateau FX P: Critsine will discharge home with new orders for [facility]NA RN/PT/OT. Undetermined if she will require SWB1 stay prior to discharge; PT reports this would be an appropriate option for Cristine. CM will continue to follow.
--- NOTE | 2018-05-18 14:32 | PT.INTREAT ---
Date of service: 05/18/18 Time of Service: 14:33 PT Notes Inpatient Physical Therapy Treatment Note [facility] Date: May 18, 2018 PRECAUTIONS:NWB L LE, Knee Immobilizer 0-30 degrees SUBJECTIVE: Cristine states that she is doing well however her pain can go from a 2/10 -10/10 very easily. She would like to get up and go to the bathroom for she really needs to pee. OBJECTIVE: PAIN: Patient c/o L knee pain 2/10 at time of treatment BED MOBILITY/TRANSFERS Supine-sit: SBA Sit-stand: SBA Stand-sit: SBA Bed-Chair: SBA GAIT Assistive Device: FWW Weight bearing: NWB on L Assist: SBA Distance: 25' x2 to bathroom and back to bed. THEREX: Patient completed a LE strengthening and stabilization program, as per flow sheet. Patient requires assist with SLR and hip abduction exercises. ASSESSMENT: Patient tolerated session with c/o pain in L knee with transfers and gait training. Patient would benefit from continued gait and transfer training as well as strengthening for improved mobility. PLAN: Continue with PT's POC TREATMENT CODE/TIME: 30 minutes; ([id number], [id number]) Leanna Amaro, TC
[2018-05-18 15:51] VITALS: BP 142/71; PULSE 86; RESP 18; TEMP 37.5; O2SAT 96
[2018-05-18 20:05] VITALS: BP 129/67; PULSE 92; RESP 18; TEMP 37.5; O2SAT 94
[2018-05-18] MEDS: Aspirin 81 MG CHEW PO (20:23)
[2018-05-19] VITALS (7 sets, daily range): BP systolic 131–182; BP diastolic 62–90; PULSE 83–108; RESP 15–20; TEMP 36.7–37.9; O2SAT 95–98
[2018-05-19] MEDS: oxyCODONE 5 MG TAB PO ×2 (06:00→23:49)
--- NOTE | 2018-05-19 08:20 | W.PM.PROGNOT ---
Date of Service Date of service: 05/19/18 Time of Service: 08:21 Assessment and Plan (1) Tibial plateau fracture, left: Current visit: No Status: Acute Left tibial plateau fracture. Patient is having some nausea related to the narcotics Visco pallor mean patch has worn off I would consider using another scopolamine patch but I would consider first using Zofran to see if that controls the nausea and/or possibly Compazine suppository. Patient may be up to the shower today. Incision may get wet with soap and water and pat the sutures dry and then cover with a light layer of gauze and a single 6 inch Franklin Qualifiers: Encounter type: initial encounter Fracture type: closed Qualified Code(s): S82.142A - Displaced bicondylar fracture of left tibia, initial encounter for closed fracture Subjective Interval history since last seen: Patient is sitting up in a chair and is alert and oriented. She has had some reasonable pain control with the use of oxycodone 10 mg. She has had one episode of restless leg syndrome. She is getting some nausea from the narcotics. Exam Extrem Other: No unusual swelling of the left lower extremity. No neurovascular deficits. He is able to flex the knee 30 degrees and is limited by the brace Objective Objective Clinical Data: Vital Signs Temperature 98.6 F 05/19/18 05:57 Temperature Source Tympanic 05/19/18 05:57 Pulse 83 05/19/18 05:57 Pulse Rhythm Regular 05/18/18 21:05 Respiratory Rate 20 05/19/18 05:57 Respiratory Effort Non-Labored 05/18/18 21:05 Respiratory Depth Normal 05/18/18 21:05 Respiratory Pattern Normal 05/18/18 21:05 Blood Pressure 151/82 H 05/19/18 05:57 Pulse Oximetry 96 05/19/18 05:57 Respiratory End-tidal CO2 43 05/16/18 16:07 Oxygen Delivery Method Room Air 05/19/18 05:57 Oxygen Flow Rate 0 05/19/18 05:57 Pain Level 8 05/19/18 06:00 Comment 05/18/18 04:55 Intake & Output 05/18/18 05/18/18 05/19/18 11:59 23:59 11:59 Intake Total 1451 / 2721 1270 / 2721 Output Total 2024 / 2475 450 / 2475 500 / 500 Balance -574 / 246 820 / 246 -500 / -500 Weight 185 lb 3.013 oz Intake: IV 601 / 601 Oral 850 / 2120 1270 / 2120 Output: Urine 2024 450 / 2475 500 / 500 Other: Urine Color Yellow Yellow Light Doris Dark Doris Urine Appearance Clear Clear Clear Urine Odor None Comment Void x1 in the toilet. No hat in the toilet; RN unable to determine urine output amount. Voiding Methods Toilet Bedside Commode Laboratory Results WBC 7.55 k/cumm (4.4-10.8) 05/17/18 06:20 RBC 3.76 m/cumm (4.00-5.20) L 05/17/18 06:20 Hgb 11.6 g/dL (12.0-15.5) L 05/17/18 06:20 Hct 35.4 % (36.0-46.0) L 05/17/18 06:20 MCV 94.1 fL (80-95) 05/17/18 06:20 MCH 30.9 pg (27.0-33.0) 05/17/18 06:20 MCHC 32.8 g/dL (32.0-36.0) 05/17/18 06:20 RDW 13.3 % (11.7-14.6) 05/17/18 06:20 Plt Count 203 x1000/uL (130-400) 05/17/18 06:20 MPV 10.3 fL (8.0-11.0) 05/17/18 06:20 Sodium 144 mmol/L (136-145) 05/17/18 06:20 Potassium 3.3 mmol/L (3.5-5.1) L 05/17/18 06:20 Chloride 107 mmol/L (98-107) 05/17/18 06:20 Carbon Dioxide 27.8 mmol/L (21.0-32.0) 05/17/18 06:20 Anion Gap 9.2 mmol/L (3-11) 05/17/18 06:20 BUN 13 mg/dL (7-18) 05/17/18 06:20 Creatinine 0.98 mg/dL (0.55-1.02) 05/17/18 06:20 Estimated GFR/1.73 m2 54.89 (mL/min/1.73m2) 05/17/18 06:20 Glucose 147 mg/dL (70-100) H 05/17/18 06:20 Calcium 8.3 mg/dL (8.5-10.1) L 05/17/18 06:20
[2018-05-19] MEDS: Ibuprofen 600 MG TAB PO ×2 (08:51→15:33)
[2018-05-19] MEDS: Losartan 25 MG TAB 75 MG PO (08:51)
[2018-05-19] MEDS: Sertraline 50 MG TAB PO (08:51)
[2018-05-19] MEDS: Hydrochlorothiazide 25 MG TAB PO (08:51)
[2018-05-19] MEDS: Tolterodine 2 MG CAPCR 4 MG PO (08:52)
[2018-05-19] MEDS: Multivitamin w/Minerals TAB 1 TAB PO (08:52)
[2018-05-19] MEDS: Acetaminophen 325 MG TAB 650 MG PO ×2 (08:52→15:33)
[2018-05-19] MEDS: Docusate Sodium 100 MG CAP PO ×2 (08:52→12:23)
[2018-05-19] MEDS: Aspirin 81 MG CHEW PO ×2 (08:52→19:47)
[2018-05-19] MEDS: Pantoprazole 40 MG TABCR PO (08:52)
[2018-05-19] MEDS: Ondansetron 0.8 MG/ML Solution 4 MG PO (10:39)
--- NOTE | 2018-05-19 12:51 | PT.INTREAT ---
Date of service: 05/19/18 Time of Service: 12:52 PT Notes Inpatient Physical Therapy Treatment Note [facility] Date: 05/19/18 PRECAUTIONS:NWB L LE OBJECTIVE: Supine-sit: SBA Sit-supine: SBA Sit-stand: SBA Stand-sit: SBA GAIT Assistive Device: FWW Weight bearing: NWB L LE Assist: CGA Distance: 25ftx2 THEREX: Pt completed supine LE strengthening ther ex as per flow sheet with Assist with SLR and hip abd as per flow sheet. ASSESSMENT: Pt tolerated today's session well she was somewhat tired due to already being up and walking before I arrived. PLAN: Cont as per PT POC. TREATMENT CODE/TIME: 9:55-10:20 (25) INO JUNIOR
[2018-05-19] MEDS: Milk of Magnesia 30 ML CUP PO (13:06)
--- NOTE | 2018-05-19 17:17 | PDOC.CMPRO ---
Care Management Progress Note S/O: Cristine was just settling back into bed and having the cryocuff placed back on her L leg. Animated and very talkative sharing tories about her grandchildren. Her 12 yo grandson would be very willing to help her with small chores when she gets home. Feels she can manage when everyone is at work and school. Has a rollator walker, shower bench and grabber. Says she can reach the microwave and sink. Would prefer to go home with HH services but would consider Swing Bed if needed. A: Cristine was admitted to [facility] 05/16/18 for (L) Tibial Plateau FX P: Cristine will return home when medically cleared for discharge. She does not need any new DME. Will need new HH services forPT/OT.
--- NOTE | 2018-05-19 17:32 | CMPROGNOTE_ITS ---
Care Management Progress Note S/O: Cristine was just settling back into bed and having the cryocuff placed back on her L leg. Animated and very talkative sharing tories about her grandchildren. Her 12 yo grandson would be very willing to help her with small chores when she gets home. Feels she can manage when everyone is at work and school. Has a rollator walker, shower bench and grabber. Says she can reach the microwave and sink. Would prefer to go home with HH services but would consider Swing Bed if needed. A: Cristine was admitted to [facility] 05/16/18 for (L) Tibial Plateau FX P: Cristnie will return home when medically cleared for discharge. She does not need any new DME. Will need new HH services forPT/OT.
[2018-05-20] MEDS: oxyCODONE 5 MG TAB PO ×2 (06:58→22:35)
[2018-05-20] MEDS: Milk of Magnesia 30 ML CUP PO ×2 (06:58→15:08)
[2018-05-20 07:15] VITALS: BP 151/74; PULSE 98; RESP 20; TEMP 37.6; O2SAT 93
[2018-05-20] MEDS: Pantoprazole 40 MG TABCR PO (08:53)
[2018-05-20] MEDS: Tolterodine 2 MG CAPCR 4 MG PO (08:53)
[2018-05-20] MEDS: Losartan 25 MG TAB 75 MG PO (08:53)
[2018-05-20] MEDS: Multivitamin w/Minerals TAB 1 TAB PO (08:53)
[2018-05-20] MEDS: Hydrochlorothiazide 25 MG TAB PO (08:53)
[2018-05-20] MEDS: Aspirin 81 MG CHEW PO ×2 (08:53→20:16)
[2018-05-20] MEDS: Ibuprofen 600 MG TAB PO ×2 (08:53→15:07)
[2018-05-20] MEDS: Sertraline 50 MG TAB PO (08:53)
[2018-05-20] MEDS: Docusate Sodium 100 MG CAP PO ×2 (08:53→15:08)
[2018-05-20] MEDS: Acetaminophen 325 MG TAB 650 MG PO ×2 (08:54→15:07)
--- NOTE | 2018-05-20 09:28 | W.PM.PROGNOT ---
Date of Service Date of service: 05/20/18 Time of Service: 09:28 Assessment and Plan (1) Tibial plateau fracture, left: Current visit: No Status: Acute Tibial plateau fracture left lower extremity slow progress because of continued pain we will continue to keep her on oral oxycodone and encouraging her to take supplementary Tylenol and Ibuprin Qualifiers: Encounter type: initial encounter Fracture type: closed Qualified Code(s): S82.142A - Displaced bicondylar fracture of left tibia, initial encounter for closed fracture Subjective Interval history since last seen: Still complaining of constant continuing pain however slept 5 hours through the night without being awakened Exam Extrem Other: No unusual swelling of the lower leg. Patient just completed tennis is a straight leg raises with PT. Objective Objective Clinical Data: Vital Signs Temperature 99.7 F H 05/20/18 07:15 Temperature Source Tympanic 05/20/18 07:15 Pulse 98 H 05/20/18 07:15 Pulse Rhythm Regular 05/20/18 01:15 Respiratory Rate 20 05/20/18 07:15 Respiratory Effort Non-Labored 05/20/18 01:15 Respiratory Depth Normal 05/20/18 01:15 Respiratory Pattern Normal 05/20/18 01:15 Blood Pressure 151/74 H 05/20/18 07:15 Pulse Oximetry 93 L 05/20/18 07:15 Respiratory End-tidal CO2 43 05/16/18 16:07 Oxygen Delivery Method Room Air 05/20/18 07:15 Oxygen Flow Rate 0 05/20/18 07:15 Pain Level 9 05/20/18 08:54 Comment 05/18/18 04:55 Intake & Output 05/19/18 05/19/18 05/20/18 11:59 23:59 11:59 Intake Total 480 / 960 480 / 960 Output Total 500 / 500 Balance -20 / 460 480 / 460 Intake: Oral 480 / 960 480 / 960 Output: Urine 500 / 500 Other: Urine Color Yellow Yellow Yellow Urine Appearance Clear Clear Clear Urine Odor None Normal Normal Comment Void x1 in the toilet. Void x1 in the toilet. Stool Size Small Small Stool Characteristics Hard Hard Voiding Methods Toilet Toilet Toilet Laboratory Results WBC 7.55 k/cumm (4.4-10.8) 05/17/18 06:20 RBC 3.76 m/cumm (4.00-5.20) L 05/17/18 06:20 Hgb 11.6 g/dL (12.0-15.5) L 05/17/18 06:20 Hct 35.4 % (36.0-46.0) L 05/17/18 06:20 MCV 94.1 fL (80-95) 05/17/18 06:20 MCH 30.9 pg (27.0-33.0) 05/17/18 06:20 MCHC 32.8 g/dL (32.0-36.0) 05/17/18 06:20 RDW 13.3 % (11.7-14.6) 05/17/18 06:20 Plt Count 203 x1000/uL (130-400) 05/17/18 06:20 MPV 10.3 fL (8.0-11.0) 05/17/18 06:20 Sodium 144 mmol/L (136-145) 05/17/18 06:20 Potassium 3.3 mmol/L (3.5-5.1) L 05/17/18 06:20 Chloride 107 mmol/L (98-107) 05/17/18 06:20 Carbon Dioxide 27.8 mmol/L (21.0-32.0) 05/17/18 06:20 Anion Gap 9.2 mmol/L (3-11) 05/17/18 06:20 BUN 13 mg/dL (7-18) 05/17/18 06:20 Creatinine 0.98 mg/dL (0.55-1.02) 05/17/18 06:20 Estimated GFR/1.73 m2 54.89 (mL/min/1.73m2) 05/17/18 06:20 Glucose 147 mg/dL (70-100) H 05/17/18 06:20 Calcium 8.3 mg/dL (8.5-10.1) L 05/17/18 06:20
--- NOTE | 2018-05-20 11:28 | PT.INTREAT ---
Date of service: 05/20/18 Time of Service: 11:29 PT Notes Inpatient Physical Therapy Treatment Note [facility] Date: 05/20/18 PRECAUTIONS:NWB L LE SUBJECTIVE: Pt reports that she is discouraged today. She states that she is experiencing a lot of discomfort today and is already tired of her condition she is in. OBJECTIVE: Sit-stand: SBA Stand-sit: SBA GAIT Assistive Device: FWW Weight bearing: NWB L LE Assist: SBA Distance: 25ft x1 to the rest room and was going to call for nursing when she was finished. THEREX: Pt completed LE strengthening as per flow sheet. Pt did require assist with SLR and hip abd. ASSESSMENT: Pt tolerated today's session fairly well considering her discomfort level. PLAN: Cont as per PT POC. TREATMENT CODE/TIME: 8:45-9:10 (25) INO JUNIOR
[2018-05-20 12:28] VITALS: BP 131/79; PULSE 88; RESP 16; TEMP 37.3; O2SAT 94
--- NOTE | 2018-05-20 14:11 | PDOC.CMPRO ---
Care Management Progress Note S/O: Sitting up in recliner enjoying he lunch. Stated she just got up after a very go 2 hour nap and her pain was under control. Dr. Kline had seen her earlier today and suggested that she would be a good candidate for the Swing Bed program to receive further PT before returning home. She would like to consider it as an option. A: Cristine was admitted to [facility] 05/16/18 for (L) Tibial Plateau FX. Remains acute level of care today P: Cristine will return home when medically cleared for discharge. She does not need any new DME. Will consider Swing Bed or will need new services for PT/OT. Family will transport when medically cleared for discharge.
--- NOTE | 2018-05-20 14:18 | CMPROGNOTE_ITS ---
Care Management Progress Note S/O: Sitting up in recliner enjoying he lunch. Stated she just got up after a very go 2 hour nap and her pain was under control. Dr. Kline had seen her earlier today and suggested that she would be a good candidate for the Swing Bed program to receive further PT before returning home. She would like to consider it as an option. A: Cristine was admitted to [facility] 05/16/18 for (L) Tibial Plateau FX. Remains acute level of care today P: Cristine will return home when medically cleared for discharge. She does not need any new DME. Will consider Swing Bed or will need new services for PT/OT. Family will transport when medically cleared for discharge.
[2018-05-20 15:57] VITALS: BP 153/83; PULSE 102; RESP 17; TEMP 37.3; O2SAT 96
[2018-05-20 20:19] VITALS: BP 173/89; PULSE 111; RESP 18; TEMP 37.7; O2SAT 97
[2018-05-20 23:25] VITALS: BP 146/62; PULSE 86; RESP 19; TEMP 37; O2SAT 94
[2018-05-21 06:30] VITALS: BP 155/78; PULSE 84; RESP 16; TEMP 37.4; O2SAT 95
[2018-05-21] MEDS: Acetaminophen 325 MG TAB 650 MG PO ×2 (07:03→12:05)
[2018-05-21] MEDS: Ibuprofen 600 MG TAB PO ×2 (07:03→12:07)
[2018-05-21 07:43] VITALS: BP 139/75; PULSE 91; RESP 17; TEMP 37.6; O2SAT 96
[2018-05-21] MEDS: Losartan 25 MG TAB 75 MG PO (08:23)
[2018-05-21] MEDS: Docusate Sodium 100 MG CAP PO (08:23)
[2018-05-21] MEDS: Hydrochlorothiazide 25 MG TAB PO (08:23)
[2018-05-21] MEDS: Pantoprazole 40 MG TABCR PO (08:23)
[2018-05-21] MEDS: Aspirin 81 MG CHEW PO (08:23)
[2018-05-21] MEDS: Multivitamin w/Minerals TAB 1 TAB PO (08:23)
[2018-05-21] MEDS: Tolterodine 2 MG CAPCR 4 MG PO (08:23)
[2018-05-21] MEDS: Sertraline 50 MG TAB PO (08:23)
--- NOTE | 2018-05-21 09:39 | PDOC.CMPRO ---
Care Management Progress Note Per MD, Cristine will transfer to [facility] for a few more days of recovery prior to returning home with increased supports.
--- NOTE | 2018-05-21 09:41 | CMPROGNOTE_ITS ---
Care Management Progress Note Per MD, Cristine will transfer to [facility] for a few more days of recovery prior to returning home with increased supports.
--- NOTE | 2018-05-21 10:12 | W.PM.PROGNOT ---
Date of Service Date of service: 05/21/18 Time of Service: 10:12 Assessment and Plan (1) Tibial plateau fracture, left: Current visit: No Status: Acute Patient still requiring assistance and PT to get in and out of bed suggest we go to swing bed level 1 for 2-3 days. Patient understands and agrees discussed this with Alondra Johnson of care management she agrees will create a new account and transfer to swing bed level 1 care Qualifiers: Encounter type: initial encounter Fracture type: closed Qualified Code(s): S82.142A - Displaced bicondylar fracture of left tibia, initial encounter for closed fracture Subjective Interval history since last seen: Patient is feeling better still needs some mild assistance getting in and out of bed Exam Extrem Other: No unusual swelling of her left lower extremity is able to flex and extend the toes and the ankle. Objective Objective Clinical Data: Vital Signs Temperature 99.7 F H 05/21/18 07:43 Temperature Source Tympanic 05/21/18 07:43 Pulse 91 H 05/21/18 07:43 Pulse Rhythm Regular 05/20/18 23:39 Respiratory Rate 17 05/21/18 07:43 Respiratory Effort Non-Labored 05/20/18 23:39 Respiratory Depth Normal 05/20/18 23:39 Respiratory Pattern Normal 05/20/18 23:39 Blood Pressure 139/75 05/21/18 07:43 Pulse Oximetry 96 05/21/18 07:43 Respiratory End-tidal CO2 43 05/16/18 16:07 Oxygen Delivery Method Room Air 05/21/18 07:43 Oxygen Flow Rate 0 05/21/18 07:43 Pain Level 8 05/21/18 07:03 Comment 05/18/18 04:55 Intake & Output 05/20/18 05/20/18 05/21/18 11:59 23:59 11:59 Intake Total 910 / 1630 720 / 1630 Balance 910 / 1630 720 / 1630 Intake: Oral 910 / 1630 720 / 1630 Other: Urine Color Yellow Yellow Yellow Urine Appearance Clear Clear Clear Urine Odor None Comment Void x1 in the toilet. was not able to measure. flushed Stool Size Small Small Stool Characteristics Hard Formed Brown Voiding Methods Toilet Toilet Laboratory Results WBC 7.55 k/cumm (4.4-10.8) 05/17/18 06:20 RBC 3.76 m/cumm (4.00-5.20) L 05/17/18 06:20 Hgb 11.6 g/dL (12.0-15.5) L 05/17/18 06:20 Hct 35.4 % (36.0-46.0) L 05/17/18 06:20 MCV 94.1 fL (80-95) 05/17/18 06:20 MCH 30.9 pg (27.0-33.0) 05/17/18 06:20 MCHC 32.8 g/dL (32.0-36.0) 05/17/18 06:20 RDW 13.3 % (11.7-14.6) 05/17/18 06:20 Plt Count 203 x1000/uL (130-400) 05/17/18 06:20 MPV 10.3 fL (8.0-11.0) 05/17/18 06:20 Sodium 144 mmol/L (136-145) 05/17/18 06:20 Potassium 3.3 mmol/L (3.5-5.1) L 05/17/18 06:20 Chloride 107 mmol/L (98-107) 05/17/18 06:20 Carbon Dioxide 27.8 mmol/L (21.0-32.0) 05/17/18 06:20 Anion Gap 9.2 mmol/L (3-11) 05/17/18 06:20 BUN 13 mg/dL (7-18) 05/17/18 06:20 Creatinine 0.98 mg/dL (0.55-1.02) 05/17/18 06:20 Estimated GFR/1.73 m2 54.89 (mL/min/1.73m2) 05/17/18 06:20 Glucose 147 mg/dL (70-100) H 05/17/18 06:20 Calcium 8.3 mg/dL (8.5-10.1) L 05/17/18 06:20
--- NOTE | 2018-05-21 10:13 | PT.INTREAT ---
Date of service: 05/21/18 Time of Service: 10:13 PT Notes Inpatient Physical Therapy Treatment Note [facility] Date: 05/21/18 PRECAUTIONS: NWB L SUBJECTIVE: Cristine states that she feels that she needs just a couple more days before she can safely return home. OBJECTIVE: PAIN: Patient complains of left knee pain with transfers and ther ex BED MOBILITY/TRANSFERS Supine-sit: I with HOB flat Sit-stand: S Stand-sit: S GAIT Assistive Device: FWW Weight bearing: NWB L Assist: SBA Distance: 40' x2 THEREX: Patient completed a lower extremity strengthening and stabilization program in a supine position, as per flow sheet. Patient was able to perform SLR and hip abduction exercises, actively, without assist. ASSESSMENT: Patient tolerated session with complaints of L knee pain with transfers and ther ex. Patient was able to tolerate a progression in gait distance with FWW support, maintaining NWB status without cueing. Patient would benefit from continued gait training as well as strengthening for improved mobility and gait duration tolerance. PLAN: Continue with PTs POC TREATMENT CODE/TIME: 25 minutes; (9711 0 x 1, 9753 0 x 1)
--- NOTE | 2018-05-21 10:18 | PTTR_ITS ---
Date of service: 05/21/18 Time of Service: 10:13 PT Notes Inpatient Physical Therapy Treatment Note [facility] Date: 05/21/18 PRECAUTIONS: NWB L SUBJECTIVE: Cristine states that she feels that she needs just a couple more days before she can safely return home. OBJECTIVE: PAIN: Patient complains of left knee pain with transfers and ther ex BED MOBILITY/TRANSFERS Supine-sit: I with HOB flat Sit-stand: S Stand-sit: S GAIT Assistive Device: FWW Weight bearing: NWB L Assist: SBA Distance: 40' x2 THEREX: Patient completed a lower extremity strengthening and stabilization program in a supine position, as per flow sheet. Patient was able to perform SL R and hip abduction exercises, actively, without assist. ASSESSMENT: Patient tolerated session with complaints of L knee pain with transfers and ther ex. Patient was able to tolerate a progression in gait distance with FWW support, maintaining NWB status without cueing. Patient would benefit from continued gait training as well as strengthening for improved mobility and gait duration tolerance. PLAN: Continue with PTs POC TREATMENT CODE/TIME: 25 minutes; (9711 0 x 1, 9753 0 x 1)
--- NOTE | 2018-05-21 11:43 | NUR.NOTE ---
Nursing Note: 1140: pt transferred to room 208 to room 218. pt ambulatory to room with PT and walker. pt belongings transferred with pt. continue to monitor.
--- NOTE | 2018-05-21 11:46 | PT.INDS ---
Date of service: 05/21/18 Time of Service: 11:15 PT Notes Date: May 21, 2018 Referring Doctor: Dr. Kline PT Orders: PT CONSULT: s/p ORIF left tibial plateau fracture. Up in chair today, then non weight bearing on left with walker. Knee immobilizer set from 0 degrees of extension to 30 degrees of flexion Treatment Dates: 05/17/18 - 05/21/18 Precautions: fall precautions Patient Profile/Admitting Diagnosis: Patient sustained a tibial plateau fracture status post fall down bottom step at home on 09 May. Underwent ORIF on May 16, [address] Kline. Orders for nonweightbearing on left with walker with knee immobilizer set from 0 degrees of extension to 30 degrees flexion. She has participated in PT intervention 1-2x/day for 5 days, and has demonstrated improvements in mobility, although continues to require assistance for household distance ambulation and self-care, requiring continued rehabilitation on Swing Bed status. PMHX: ETOH abuse, HTN, OA, bilateral total hip replacements in 2014 Social History/Home Situation: Patient lives in a multilevel home. Currently set up on the first floor. She has 1 step into her bedroom and then 1 step into her dwelling. No grab bars for assistance. She does reside in a multilevel home and her goal is to return to her upper level for her bedroom but currently is able to be set up on the first floor due to limited mobility issues. She resides with her granddaughter and her 2 great grandsons. Current Functional Limitations: Ambulation, functional mobility, bed mobility, stair negotiation Equipment Owned/DME: Entered walker, 4 wheeled walker, shower chair, raised toilet seat. Subjective: Cristine states that she's feeling well today. Objective: General Observation: No lines. Left LE in XOCHITL wrap and hinged brace locked 0-30 degrees. Mental Status: Alert and orientated x3 Person, place and time Pain: 5/10 at rest in bed ROM: Right Upper Extremity: WFL Left Upper Extremity: WFL Right Lower Extremity: WFL Left Lower Extremity: Knee extension 10 degrees from neutral. Knee flexion 20 degrees. Hip abduction 30 degrees AA, ankle PF and DF WFL. Strength: Right Upper Extremity: 4+/5 throughout Left Upper Extremity: 4+/5 throughout Right Lower Extremity: 4/5 throughout Left Lower Extremity: Resisted strength assessment not performed due to post-op precautions. Sensation: Intact to light touch throughout the left foot and ankle. Bed Mobility/Transfers: Supine to sit: independent with Head of bed at 30 degrees. Sit to stand: independent, NWB LLE Stand to sit: independent, NWB LLE Gait: Independent with WW and brace x 15' for toileting (NWB LLE). Patient tolerates 50' of ambulation with WW and left knee brace with CG, NWB LLE. Balance: Static Sitting: Normal Dynamic Sitting: Normal Static Standing: Fair Dynamic Standing: Fair Special Tests: Mobility Limitations Standardized Measure [facility] AM-PAC 6 clicks Basic Mobility Inpatient Short Form: Raw Score: 22 Standardized Score: 53.28 CMS Score: 21% CMS Modifier: CJ Informed Consent/Education: Patient instructed in purpose of PT consult and plan of care. She was cleared for independent ambulation in her room with use of knee brace and WW, maintaining NWB LLE> Assessment: Patient is a 78 year old female who has been participating in physical therapy intervention 1-2x/day for 5 days for rehabilitation following ORIF due to left tibial plateau fracture. Patient has made gains in mobility, although continues to require assistance with household distance ambulating, and requires continued PT intervention on Swing Bed status for rehabilitation prior to returning to independent living. She currently demonstrates the following impairment level findings: 1. Decreased LE strength 2. Decreased UE strength 3. Decreased balance 4. Decreased left knee ROM 5. Decreased activity tolerance Impairments are contributing to the following functional limitations: 1. Unable to ambulate household distances 2. Unable to manage stairs AMPA score 21% deficit. Patient is assessed as Low 02668 complexity based on the following: History: Healthy and independent 78 year old female, 5 days s/p ORIF for tibial plateau fracture Examination: Functional limitations as noted above Presentation: stable Decision Making: low complexity Goals: Goals X1 week 1. Supine-Sit : supervision (MET) 2. Sit-Supine supervision(MET) 3. Sit-Stand supervision with FWW(MET) 4. Stand-Sit supervision with FWW(MET) 5. Bed-Chair supervision with FWW(MET) 6. Chair-Bed supervision with FWW(MET) 7. Gait supervision with FWW x 100' (PROGRESSING TOWARD) 8. Stairs ascend and descend x 1 step with bilat rails, supervision (NOT MET) Plan of Care/Treatment Plan: Patient to transition to swing bed level of care. She will be discharged from PT services in acute setting, with referral for further PT intervention on Swing Bed status for short term rehabilitation prior to returning home. 1-2x/day, 7 days/week x 1 week. Plan of care has been reviewed with the SALES ORDER ADMINISTRATOR providing the service under Physical Therapy direction. Initiate Physical Therapy intervention for strengthening, bed mobility, transfers, gait, stairs, balance training, use of assistive device. DISCHARGE RECOMMENDATIONS: Discharge to home with HHPT TREATMENT CODE/TIME: 11:15-11:50 (no charges for this document- see SB eval for charges related to evaluation)
--- NOTE | 2018-05-21 14:13 | NUR.NOTE ---
Nursing Note: 1015: pt from acute to SB1 at this time.
--- NOTE | 2018-05-22 10:52 | DSE_ITS ---
DS: Diagnosis Discharge Diagnosis (1) Tibial plateau fracture, left: Start date: 05/16/18 Status: Acute Asessment and Plan: Patient is admitted postoperatively for left tibial plateau fracture. She underwent open reduction internal fixation under spinal anesthesia supplemented with femoral nerve blockade. Allograft was used to fill the void from the fracture. Patient was maintained on intravenous antibiotics for 24 hours consisting of Ancef 2 g every 6 hours. Her Carias catheter was maintained for 48 hours and then discontinued with no dysuria. She made slow progress with difficult pain control for the first 72 hours postoperatively. It was felt by 05/21/2017 that she would need some additional days of physical therapy but she was making progress she was maintained in a hinged knee immobilizer splint with a range of motion from 0 degrees to 30 degrees of flexion. She was maintained on aspirin 81 mg twice daily for DVT prophylaxis. She did not show any signs of infection of her incision. Her blood pressure was under somewhat labile control secondary to her pain elevating it but towards the end of her acute care stay it was relatively stable Discharge Plan Disposition Patient Disposition: [facility] SWING BED LEVEL 1 Condition: Improving Discharge Details Reason For Visit: LEFT TIBIAL PLATEAU FRACTURE Admit Date/Time: 05/21/18 10:31 Admit Provider: Bernard Kline Attending Provider: Bernard Kline Primary Care Provider: Tootie Rodriguez Hospital Course Hospital Course: Postoperative course complicated by pain and the need for antinausea medication. The patient was allergic to morphine and therefore was tried on fentanyl which was ineffective for her she did respond the oxycodone and regular doses she received daily physical therapy nonweightbearing on the left with a walker with her knee immobilizer splint in 0 degrees of extension to 30 degrees of flexion. Home Meds and New Rx's Prescriptions: No Action sertraline [Zoloft] 50 mg tablet 75 mg PO DAILY Qty: 135 RF: 4 metronidazole [MetroCream] 0.75 % cream 1 applic Topical BID Qty: 1 RF: 3 losartan 25 mg tablet 25 mg PO DAILY Qty: 90 RF: 3 losartan 50 mg tablet 50 mg PO DAILY Qty: 90 RF: 3 betamethasone, augmented 0.05 % cream 1 applic Topical every other day Qty: 1 RF: 0 oxybutynin chloride 10 mg tablet extended release 24hr 10 mg PO DAILY Qty: 90 RF: 3 vitamin B complex [B-Complex] 1 EACH tablet 1 ea PO DAILY PRNRF: 0 multivitamin 1 EACH capsule 1 ea PO DAILY RF: 0 ibuprofen 600 MG tablet 600 mg PO tid prn Qty: 90 RF: 3 levalbuterol tartrate 15 GM HFA aerosol inhaler 2 puff Inhalation Q6H PRN Qty: 1 RF: 3 oxycodone 5 mg tablet 5 mg PO Q6H PRN (Reason: pain) Qty: 7 RF: 0 Discharge Instructions Activity:: Activity as Tolerated Equipment/Supplies:: Walker Diet:: As Tolerated DS: Data Vitals/I&O Vitals and I&O: Vital Signs Temperature 98.8 F 05/22/18 08:34 Temperature Source Tympanic 05/22/18 08:34 Pulse 97 H 05/22/18 08:34 Pulse Rhythm Regular 05/22/18 09:07 Respiratory Rate 18 05/22/18 08:34 Respiratory Effort 05/22/18 09:07 Respiratory Depth Normal 05/22/18 09:07 Respiratory Pattern Normal 05/22/18 09:07 Blood Pressure 139/76 05/22/18 08:34 Pulse Oximetry 95 05/22/18 08:34 Oxygen Delivery Method Room Air 05/22/18 08:34 Oxygen Flow Rate 0 05/22/18 08:34 Pain Level 8 05/22/18 09:01 Intake & Output 05/21/18 05/21/18 05/22/18 11:59 23:59 11:59 Intake Total 240 / 240 0 / 0 Balance 240 / 240 0 / 0 Weight 185 lb 3.01 oz Intake: Oral 240 / 240 0 / 0 Other: Urine Appearance Clear Clear Comment pt voids independently Stool Size Large Stool Characteristics Soft Formed Voiding Methods Toilet PFSH Social History household members: other details: 4 current occupational status: retired pets and animals: Yes pets and animals: cat(s) and dog(s) frequency: 5-6 times per week duration: < 15 minutes/day Smoking/Tobacco Use Status: Former Tobacco Use quit date: 05/01/97 passive smoking exposure: No alcohol intake: current alcohol intake frequency: a few times a week Alcohol type: wine substance use type: does not use wendi/spiritism: Pentecostalism special wendi needs: No
--- NOTE | 2018-05-23 10:34 | W.PM.PROGNOT ---
Date of Service Date of service: 05/23/18 Time of Service: 10:34 Assessment and Plan (1) Tibial plateau fracture, left: Current visit: No Status: Acute Satisfactory post op course. Discharge home tomorrow. Continue p.o asa 81 mg for dvt prophylaxis. Qualifiers: Encounter type: initial encounter Fracture type: closed Qualified Code(s): S82.142A - Displaced bicondylar fracture of left tibia, initial encounter for closed fracture Subjective Interval history since last seen: Generally doing well. Brace adjusted by physical therapy Exam Extrem Other: P,T reports no problems with incison. Mild temp to 99.0 Objective Objective Clinical Data: Vital Signs Temperature 99.7 F H 05/21/18 07:43 Temperature Source Tympanic 05/21/18 07:43 Pulse 91 H 05/21/18 07:43 Pulse Rhythm Regular 05/20/18 23:39 Respiratory Rate 17 05/21/18 07:43 Respiratory Effort Non-Labored 05/20/18 23:39 Respiratory Depth Normal 05/20/18 23:39 Respiratory Pattern Normal 05/20/18 23:39 Blood Pressure 139/75 05/21/18 07:43 Pulse Oximetry 96 05/21/18 07:43 Respiratory End-tidal CO2 43 05/16/18 16:07 Oxygen Delivery Method Room Air 05/21/18 07:43 Oxygen Flow Rate 0 05/21/18 07:43 Pain Level 2 05/21/18 12:07 Comment 05/18/18 04:55 Laboratory Results WBC 7.55 k/cumm (4.4-10.8) 05/17/18 06:20 RBC 3.76 m/cumm (4.00-5.20) L 05/17/18 06:20 Hgb 11.6 g/dL (12.0-15.5) L 05/17/18 06:20 Hct 35.4 % (36.0-46.0) L 05/17/18 06:20 MCV 94.1 fL (80-95) 05/17/18 06:20 MCH 30.9 pg (27.0-33.0) 05/17/18 06:20 MCHC 32.8 g/dL (32.0-36.0) 05/17/18 06:20 RDW 13.3 % (11.7-14.6) 05/17/18 06:20 Plt Count 203 x1000/uL (130-400) 05/17/18 06:20 MPV 10.3 fL (8.0-11.0) 05/17/18 06:20 Sodium 144 mmol/L (136-145) 05/17/18 06:20 Potassium 3.3 mmol/L (3.5-5.1) L 05/17/18 06:20 Chloride 107 mmol/L (98-107) 05/17/18 06:20 Carbon Dioxide 27.8 mmol/L (21.0-32.0) 05/17/18 06:20 Anion Gap 9.2 mmol/L (3-11) 05/17/18 06:20 BUN 13 mg/dL (7-18) 05/17/18 06:20 Creatinine 0.98 mg/dL (0.55-1.02) 05/17/18 06:20 Estimated GFR/1.73 m2 54.89 (mL/min/1.73m2) 05/17/18 06:20 Glucose 147 mg/dL (70-100) H 05/17/18 06:20 Calcium 8.3 mg/dL (8.5-10.1) L 05/17/18 06:20
== END 2018-05-21 12:12 | disposition swing bed (61) | DRG 494 ==
LOC: PDS 15:56 → MS 15:57
PROVIDERS: Admitting Provider Orthopaedic Surgery; Visit Provider Orthopaedic Surgery
PROC: 0QUH0KZ Supplement Left Tibia with Nonautologous Tissue Substitute, Open Approach (ICD-10-PCS; CPT 27536; principal; 2018-05-16 10:00)
DX: S82.142A Displaced bicondylar fracture of left tibia, initial encounter for closed fracture (principal); W10.9XXA Fall (on) (from) unspecified stairs and steps, initial encounter; R11.0 Nausea; T40.605A Adverse effect of unspecified narcotics, initial encounter; F32.9 Major depressive disorder, single episode, unspecified; I10 Essential (primary) hypertension
CPT/HCPCS: 27536; 36415; 76000; 76942; 80048; 85027; 97110; 97162; 97530; NC; 73590; 93005; 93010; J0171; J0690; J1100; J1885; J2250; J2405; J3010; J3490; J8597; L1833

== ENCOUNTER 2018-05-21 10:31 | Inpatient (IN) | payer MEDICARE, BC, SELFPAY ==
--- NOTE | 2018-05-21 11:02 | CM.SBPSYCH ---
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 She reports her grand-daughter and two great grandsons reside with her. Her grand-daughter is a student, one grandson is a freshmen at and the other, a seventh grader at [employer]. Cristine is independent with all ADLs prior to fall and tibial fracture and will now be NWB for at least four weeks per her report. - Prior to Admission Living Arrangements/Environment Prior to Admission:: Cristine resides in her own home in [place], [place]. Her grand-daughter and two great grandsons reside with her. - Work History Employment Status:: Retired [employer]:: RN - : No [place] Spouse: No - Benefits Financial: Medicare, Commerical - Latter-Day Religious Affliation: Confucianist - Advance Directives for Healthcare Advance Directives for Healthcare: Advance Directives Advance Directive Agent: Yahaira Wayne, alternate: Anita Sotelo - Medical History PAST MEDICAL HISTORY/PAST SURGICAL HISTORY:: Alcohol abuse, HTN, Osteoarthritis, abdominal hysterectomy, appendectomy, breast biopsy, colonscopy, tonsillectomy and adenoidectomy, bilat total hip replacements. General Health:: Good Past Psychiatric Treatment:: None - Admission Data Reason for Swing Bed Admission:: PT/OT to support safe discharge planning as Cristine will be NWB on L leg for an extended period of time; requires further support with transfers and strengthening Discharge Plan:: Home with VNA supports. Assessment: Few further days of recovery, education and strengthening-prior to home with VNA supports. Cap Inspector: Alondra Johnson Date Assessment was completed:: 05/21/18
--- NOTE | 2018-05-21 13:48 | PHARADMIT ---
Addendum entered by Mihaela Mahoney 05/22/18 10:58: Patient is working with PT and OT HR-97 other VS okay no labs no med changes so far today Original Note: PT CHANGED TO SWINGBED STATUS Patient changed to swingbed to continue working with PT for 2-3days per progress note HR-91 Tmax-37.6 no labs following information is from pt's acute stay: PETER BAE Female : 1940 Emr# [id number] 05/17/18 09:35 - Pharmacy Review by Eros Contreras III Acct Num: [id number] : 1940 Patient Age: 78 Addendum entered by Eros Contreras III 05/18/18 12:32: Pharmacy Note Subjective Patient exxperiencing pain post-op, making sleep difficult. Objective VS-OK Pain:01/08 No new labs No BM yet Assessment Ancef post-op completed, no med chaneges Plan Working with PT Original Note: Admission Pharmacy Clinical Review L TIBIAL PLATEAU FRACTURE Code Status Full Code Current Weight Wgt- 84 kg Renally Cleared and Narrow Therapeutic Index Meds CrCl~ 62 mL/min Meds-OK QTc Value / Action Taken QTc-440 NA BP Control, Fever BP- 171/84 Meds- OK Electrolytes reviewed Na- 144 K+3.3 DVT Prophylaxis none Opiate Usage / Scheduled Bowel Regimen Ordered Yes Yes Plt/SCr for Heparin / Enoxaparin Plts-203 SCr-0.98 INR for Warfarin NA H/H stable, WBC/Bands H&H- 11.6/35.4 WBC- 7.55 Antibiotic appropriateness Ancef Cultures and Sensitivities none Surgical ABX d/c within 24 hr Yes DM control / Insulin Dosing BG- 147 Heart Failure (Check EF%) (XOCHITL's, B-Block, Diuretics) HCTZ, Losartan IV to PO Switch No Home Meds Reviewed Yes Home Meds Not Ordered Metrocream, Detrol-LA Comments
--- NOTE | 2018-05-21 14:33 | CMSA_ITS ---
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 She reports her grand- daughter and two great grandsons reside with her. Her grand-daughter is a student, one grandson is a freshmen at and the other, a seventh grader at [employer]. Cristine is independent with all ADLs prior to fall and tibial fracture and will now be NWB for at least four weeks per her report. - Prior to Admission Living Arrangements/Environment Prior to Admission:: Cristine resides in her own home in [place], [place]. Her grand-daughter and two great grandsons reside with her. 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 General Health:: Good Past Psychiatric Treatment:: None - Admission Data Reason for Swing Bed Admission:: PT/OT to support safe discharge planning as Cristine will be NWB on L leg for an extended period of time; requires further support with transfers and strengthening Discharge Plan:: Home with VNA supports. Assessment: Few further days of recovery, education and strengthening-prior to home with VNA supports. Industrial Mechanic: Alondra Johnson Date Assessment was completed:: 05/21/18
--- NOTE | 2018-05-21 14:33 | CM.SWINGPC ---
- If Service Date Differs Date of service: 05/21/18 Time of Service: 14:33 Swingbed Plan of Care Plan of care: SWING BED PROGRAM ACTIVITIES/DISCHARGE PLAN OF CARE ACTIVITIES PLAN Date: 05/21/18 Identified Need: Gait stability, Strengthening, Transfer education, Practice Self Care needs upon discharge Intervention/Plan: Ongoing PT/OT Initials: [facility] DISCHARGE PLAN Date: 05/21/18 Identified Need: VNA Supports upon discharge-increased service supports. Intervention/Plan: New Orders; notification of pending orders prior to discharge. Initials: ROSIE
--- NOTE | 2018-05-21 15:30 | OT.INIE ---
Occupational Therapy Notes Inpatient Occupational Therapy Evaluation Date: 05/21/18 Referring Doctor: Bernard Kline MD OT Orders: (L) tibial plateau fx ADLs Precautions: Fall Precautions PATIENT PROFILE/ADMITTING DIAGNOSIS: Pt is a 78 year old female who was admitted to [facility] s/p (L) tibial plateau fx. Past Medical History: ETOH abuse, HTN, OA, bilateral total hip replacements in 2014 Social History/Home Situation: Patient sustained a tibial plateau fracture status post fall down bottom step at home on 09 May 2018. Underwent ORIF on May 16, [address] Kline. Orders for nonweightbearing on left with walker with knee immobilizer set from 0 degrees of extension to 30 degrees flexion. 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 She is currently under SWING bed rehabilitation status. Equipment owned/DME: FWW, 4 wheeled walker, shower chair, raised toilet seat. SUBJECTIVE: Pt was sitting in chair when OT arrived she was agreeable to OT session. She reports that she is going later on to have a shower and will wait for bathing routine until then. OBJECTIVE: General Observation: (I) functional mobility in room cleared per PT. Pleasant and answers questions appropriately. Mental Status: A&Ox3 Pain: no c/o pain ROM: RUE AROM WNL L UE AROM WNL STRENGTH: RUE 4+/5 throughout LUE 4+/5 throughout BALANCE: Static sitting Normal Dynamic Sitting Normal SPECIAL TESTS: Daily Activity Limitations Standardized Measure [facility] AM -PAC ?6 clicks? Daily Activity Inpatient Short Form: Raw score: 21 Standardized score: 44.27 CMS score: 32.79% CMS modifier: CJ INFORMED CONSENT/EDUCATION: Pt instructed in purpose of OT Consult and plan of care. ASSESSMENT: Patient is a 78-year-old female referred to occupational therapy services with diagnosis of s/p ORIF left tibial plateau fracture. Patient presents with clinical signs and symptoms consistent with dx, as demonstrated by the following impairment level findings/functional limitations: Decreased functional activity tolerance due to weight bearing status, functional ambulation with FWW, decreased (I) with LE dressing, decreased (I) with bathing routine. AMPAC score 21, CMS score 32.79% Patient is assessed as a Low 87217 complexity based on the following: History: See Above Examination: See Above Presentation: Evolving Decision Making: AMPAC score 21, CMS score 32.79% GOALS Goals x1 week 1. Dressing-Pt will be able to perform LE dressing with min (A) for (B) socks, shoes and pants. 2. Bathing- Pt will be able to perform bathing routine in shower (I) 3. Toileting- Pt will be able to perform toileting routine on toilet (I) PLAN OF CARE/TREATMENT PLAN: 1x/day, 5 days/ week x 1week Initiate Occupational Therapy Services for bathing, dressing, grooming, toileting, eating, transfer training. DISCHARGE RECOMMENDATIONS Discharge home with home OT when medically cleared per MD. TREATMENT TIME/MINUTES/CODES 84249 IE 20 minutes (11:50) G Codes in the area of self- : washing oneself, toileting, dressing, eating and drinking, current status GO [id number] CJ projected status GO [id number]. Discharge status (if discharging) GO [id number]. Roseline Marie OTR/L [facility]
--- NOTE | 2018-05-21 15:38 | OTIE_ITS ---
Occupational Therapy Notes Inpatient Occupational Therapy Evaluation Date: 05/21/18 Referring Doctor: Bernard Kline MD OT Orders: (L) tibial plateau fx ADLs Precautions: Fall Precautions PATIENT PROFILE/ADMITTING DIAGNOSIS: Pt is a 78 year old female who was [facility] s/p (L) tibial plateau fx. Past Medical History: ETOH abuse, HTN, OA, bilateral total hip replacements in 2014 Social History/Home Situation: Patient sustained a tibial plateau fracture status post fall down bottom step at home on 09 May 2018. Underwent ORIF on May 16, [address] Kline. Orders for nonweightbearing on left with walker with knee immobilizer set from 0 degrees of extension to 30 degrees flexion. 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 She is currently under SWING bed rehabilitation status. Equipment owned/DME: FWW, 4 wheeled walker, shower chair, raised toilet seat. SUBJECTIVE: Pt was sitting in chair when OT arrived she was agreeable to OT session. She reports that she is going later on to have a shower and will wait for bathing routine until then. OBJECTIVE: General Observation: (I) functional mobility in room cleared per PT. Pleasant and answers questions appropriately. Mental Status: A&Ox3 Pain: no c/o pain ROM: RUE AROM WNL L UE AROM WNL STRENGTH: RUE 4+/5 throughout LUE 4+/5 throughout BALANCE: Static sitting Normal Dynamic Sitting Normal SPECIAL TESTS: Daily Activity Limitations Standardized Measure [facility] AM -PAC ?6 clicks? Daily Activity Inpatient Short Form: Raw score: 21 Standardized score: 44.27 CMS score: 32.79% CMS modifier: CJ INFORMED CONSENT/EDUCATION: Pt instructed in purpose of OT Consult and plan of care. ASSESSMENT: Patient is a 78-year-old female referred to occupational therapy services with diagnosis of s/p ORIF left tibial plateau fracture. Patient presents with clinical signs and symptoms consistent with dx, as demonstrated by the following impairment level findings/functional limitations: Decreased functional activity tolerance due to weight bearing status, functional ambulation with FWW, decreased (I) with LE dressing, decreased (I) with bathing routine. AMPAC score 21, CMS score 32.79% Patient is assessed as a Low 52683 complexity based on the following: History: See Above Examination: See Above Presentation: Evolving Decision Making: AMPAC score 21, CMS score 32.79% GOALS Goals x1 week 1. Dressing-Pt will be able to perform LE dressing with min (A) for (B) socks, shoes and pants. 2. Bathing- Pt will be able to perform bathing routine in shower (I) 3. Toileting- Pt will be able to perform toileting routine on toilet (I) PLAN OF CARE/TREATMENT PLAN: 1x/day, 5 days/ week x 1week Initiate Occupational Therapy Services for bathing, dressing, grooming, toileting, eating, transfer training. DISCHARGE RECOMMENDATIONS Discharge home with home OT when medically cleared per MD. TREATMENT TIME/MINUTES/CODES 81723 IE 20 minutes (11:50) G Codes in the area of self- : washing oneself, toileting, dressing, eating and drinking, current status GO G8987 CJ projected status GO [id number]. Discharge status (if discharging) GO [id number]. Roseline Marie OTR/L [facility]
[2018-05-21 15:40] VITALS: BP 133/70; PULSE 87; RESP 18; TEMP 37.2; O2SAT 96
[2018-05-21] MEDS: Acetaminophen 325 MG TAB 650 MG PO (17:59)
[2018-05-21] MEDS: Ibuprofen 600 MG TAB PO (18:00)
[2018-05-21] MEDS: Aspirin 81 MG CHEW PO (20:28)
[2018-05-21] MEDS: oxyCODONE 5 MG TAB PO (22:51)
[2018-05-22 03:42] VITALS: BP 161/79; PULSE 83; RESP 16; TEMP 36.4; O2SAT 96
--- NOTE | 2018-05-22 08:03 | PT.INIE ---
Date of service: 05/22/18 Time of Service: 11:50 PT Notes Date: May 21, 2018 Referring Doctor: Dr. Kline PT Orders: PT CONSULT: s/p ORIF left tibial plateau fracture. Up in chair today, then non weight bearing on left with walker. Knee immobilizer set from 0 degrees of extension to 30 degrees of flexion Precautions: fall precautions Patient Profile/Admitting Diagnosis: Patient sustained a tibial plateau fracture status post fall down bottom step at home on 09 May. Underwent ORIF on May 16, [address] Kline. Orders for nonweightbearing on left with walker with knee immobilizer set from 0 degrees of extension to 30 degrees flexion. She has participated in PT intervention 1-2x/day for 5 days, and has demonstrated improvements in mobility, although continues to require assistance for household distance ambulation and self-care, requiring continued rehabilitation on Swing Bed status. PMHX: ETOH abuse, HTN, OA, bilateral total hip replacements in 2014 Social History/Home Situation: Patient lives in a multilevel home. Currently set up on the first floor. She has 1 step into her bedroom and then 1 step into her dwelling. No grab bars for assistance. She does reside in a multilevel home and her goal is to return to her upper level for her bedroom but currently is able to be set up on the first floor due to limited mobility issues. She resides with her granddaughter and her 2 great grandsons. Current Functional Limitations: Ambulation, functional mobility, bed mobility, stair negotiation Equipment Owned/DME: Entered walker, 4 wheeled walker, shower chair, raised toilet seat. Subjective: Cristine states that she's feeling well today. Objective: General Observation: No lines. Left LE in XOCHITL wrap and hinged brace locked 0-30 degrees. Mental Status: Alert and orientated x3 Person, place and time Pain: 5/10 at rest in bed ROM: Right Upper Extremity: WFL Left Upper Extremity: WFL Right Lower Extremity: WFL Left Lower Extremity: Knee extension 10 degrees from neutral. Knee flexion 20 degrees. Hip abduction 30 degrees AA, ankle PF and DF WFL. Strength: Right Upper Extremity: 4+/5 throughout Left Upper Extremity: 4+/5 throughout Right Lower Extremity: 4/5 throughout Left Lower Extremity: Resisted strength assessment not performed due to post-op precautions. Sensation: Intact to light touch throughout the left foot and ankle. Bed Mobility/Transfers: Supine to sit: independent with Head of bed at 30 degrees. Sit to stand: independent, NWB LLE Stand to sit: independent, NWB LLE Gait: Independent with WW and brace x 15' for toileting (NWB LLE). Patient tolerates 50' of ambulation with WW and left knee brace with CG, NWB LLE. Balance: Static Sitting: Normal Dynamic Sitting: Normal Static Standing: Fair Dynamic Standing: Fair Special Tests: Mobility Limitations Standardized Measure [facility] AM-PAC 6 clicks Basic Mobility Inpatient Short Form: Raw Score: 22 Standardized Score: 53.28 CMS Score: 21% CMS Modifier: CJ Informed Consent/Education: Patient instructed in purpose of PT consult and plan of care. She was cleared for independent ambulation in her room with use of knee brace and WW, maintaining NWB LLE> Assessment: Patient is a 78 year old female who has been participating in physical therapy intervention 1-2x/day for 5 days for rehabilitation following ORIF due to left tibial plateau fracture. Patient has made gains in mobility, although continues to require assistance with household distance ambulating, and requires continued PT intervention on Swing Bed status for rehabilitation prior to returning to independent living. She currently demonstrates the following impairment level findings: 1. Decreased LE strength 2. Decreased UE strength 3. Decreased balance 4. Decreased left knee ROM 5. Decreased activity tolerance Impairments are contributing to the following functional limitations: 1. Unable to ambulate household distances 2. Unable to manage stairs AMPA score 21% deficit. Patient is assessed as Low 10018 complexity based on the following: History: Healthy and independent 78 year old female, 5 days s/p ORIF for tibial plateau fracture Examination: Functional limitations as noted above Presentation: stable Decision Making: low complexity Goals: Goals X1 week 1. Supine-Sit : supervision (MET) 2. Sit-Supine supervision(MET) 3. Sit-Stand supervision with FWW(MET) 4. Stand-Sit supervision with FWW(MET) 5. Bed-Chair supervision with FWW(MET) 6. Chair-Bed supervision with FWW(MET) 7. Gait supervision with FWW x 100' (PROGRESSING TOWARD) 8. Stairs ascend and descend x 1 step with bilat rails, supervision (NOT MET) Plan of Care/Treatment Plan: Patient to transition to swing bed level of care. She will be discharged from PT services in acute setting, with referral for further PT intervention on Swing Bed status for short term rehabilitation prior to returning home. 1-2x/day, 7 days/week x 1 week. Plan of care has been reviewed with the [employer] [employer] providing the service under Physical Therapy direction. Initiate Physical Therapy intervention for strengthening, bed mobility, transfers, gait, stairs, balance training, use of assistive device. DISCHARGE RECOMMENDATIONS: Discharge to home with HHPT after short rehab stay TREATMENT CODE/TIME: 11:15-11:50 ([id number])
[2018-05-22 08:34] VITALS: BP 139/76; PULSE 97; RESP 18; TEMP 37.1; O2SAT 95
[2018-05-22] MEDS: Pantoprazole 40 MG TABCR PO (09:00)
[2018-05-22] MEDS: Ibuprofen 600 MG TAB PO ×2 (09:00→15:48)
[2018-05-22] MEDS: Multivitamin w/Minerals TAB 1 TAB PO (09:01)
[2018-05-22] MEDS: Aspirin 81 MG CHEW PO ×2 (09:01→19:27)
[2018-05-22] MEDS: Losartan 25 MG TAB 75 MG PO (09:01)
[2018-05-22] MEDS: Hydrochlorothiazide 25 MG TAB PO (09:01)
[2018-05-22] MEDS: Acetaminophen 325 MG TAB 650 MG PO ×3 (09:01→19:31)
[2018-05-22] MEDS: Tolterodine 2 MG CAPCR 4 MG PO (09:02)
[2018-05-22] MEDS: Sertraline 50 MG TAB PO (09:02)
--- NOTE | 2018-05-22 10:48 | OT.INTREAT ---
Date of service: 05/22/18 Time of Service: 09:50 Occupational Therapy Notes Occupational Therapy Inpatient Treatment Note Date: 05/22/18 PRECAUTIONS: NWB (L) LE, fall risk SUBJECTIVE: Pt was sitting in chair she reports that she is nervous about her showering routine when she returns home. She states that a home health nurse there to (A) would be helpful. OBJECTIVE: PAIN:c/o pain but states her pain medication is kicking in so she doesn't feel as sore. FUNCTIONAL MOBILITY Sit-stand: S, FWW Stand-sit: s, FWW Bathroom-Chair: s, FWW Chair-Bathroom: S, FWW GROOMING: Standing at sink pt was able to perform teeth brushing (I) with min vc for weight bearing. TOILETING: Device: Toilet with grab bars with min vc for functional mobility with walker and movement/ functional activity tolerance within the bathroom Assist: (I) ASSESSMENT: Pt demonstrates increased (I) in toileting and grooming routines. She presents with some anxiety about performing her showering routine at home and OT educated pt on how to perform this while following WB precautions. OT will train pt in technique at next session. Pt would benefit from continued skilled OT intervention for progression of training in showering transfer and routine. PLAN: Progression of transferring into tub/shower combination with increased (I) OT recommends Home Health OT when pt is medically cleared per MD to (A) with showering routine at home. TREATMENT CODES/TIME: [id number], 27 minutes (09:50) Roseline Marie OTR/[facility]
--- NOTE | 2018-05-22 10:58 | DSE_ITS ---
DS: Diagnosis Discharge Diagnosis (1) Tibial plateau fracture, left: Start date: 05/16/18 Status: Acute Asessment and Plan: Patient is admitted postoperatively for left tibial plateau fracture. She underwent open reduction internal fixation under spinal anesthesia supplemented with femoral nerve blockade. Allograft was used to fill the void from the fracture. Patient was maintained on intravenous antibiotics for 24 hours consisting of Ancef 2 g every 6 hours. Her Carias catheter was maintained for 48 hours and then discontinued with no dysuria. She made slow progress with difficult pain control for the first 72 hours postoperatively. It was felt by 05/21/2017 that she would need some additional days of physical therapy but she was making progress she was maintained in a hinged knee immobilizer splint with a range of motion from 0 degrees to 30 degrees of flexion. She was maintained on aspirin 81 mg twice daily for DVT prophylaxis. She did not show any signs of infection of her incision. Her blood pressure was under somewhat labile control secondary to her pain elevating it but towards the end of her acute care stay it was relatively stable Discharge Plan Disposition Patient Disposition: [facility] SWING BED LEVEL 1 Condition: Improving Discharge Details Reason For Visit: LEFT TIBIAL PLATEAU FRACTURE Admit Date/Time: 05/21/18 10:31 Admit Provider: Bernard Kline Attending Provider: Bernard Kline Primary Care Provider: Tootie Rodriguez Hospital Course Hospital Course: Postoperative course complicated by pain and the need for antinausea medication. The patient was allergic to morphine and therefore was tried on fentanyl which was ineffective for her she did respond the oxycodone and regular doses she received daily physical therapy nonweightbearing on the left with a walker with her knee immobilizer splint in 0 degrees of extension to 30 degrees of flexion. Home Meds and New Rx's Prescriptions: No Action sertraline [Zoloft] 50 mg tablet 75 mg PO DAILY Qty: 135 RF: 4 metronidazole [MetroCream] 0.75 % cream 1 applic Topical BID Qty: 1 RF: 3 losartan 25 mg tablet 25 mg PO DAILY Qty: 90 RF: 3 losartan 50 mg tablet 50 mg PO DAILY Qty: 90 RF: 3 betamethasone, augmented 0.05 % cream 1 applic Topical every other day Qty: 1 RF: 0 oxybutynin chloride 10 mg tablet extended release 24hr 10 mg PO DAILY Qty: 90 RF: 3 vitamin B complex [B-Complex] 1 EACH tablet 1 ea PO DAILY PRNRF: 0 multivitamin 1 EACH capsule 1 ea PO DAILY RF: 0 ibuprofen 600 MG tablet 600 mg PO tid prn Qty: 90 RF: 3 levalbuterol tartrate 15 GM HFA aerosol inhaler 2 puff Inhalation Q6H PRN Qty: 1 RF: 3 oxycodone 5 mg tablet 5 mg PO Q6H PRN (Reason: pain) Qty: 7 RF: 0 Discharge Instructions Activity:: Activity as Tolerated Equipment/Supplies:: Walker Diet:: As Tolerated DS: Data Vitals/I&O Vitals and I&O: Vital Signs Temperature 98.8 F 05/22/18 08:34 Temperature Source Tympanic 05/22/18 08:34 Pulse 97 H 05/22/18 08:34 Pulse Rhythm Regular 05/22/18 09:07 Respiratory Rate 18 05/22/18 08:34 Respiratory Effort 05/22/18 09:07 Respiratory Depth Normal 05/22/18 09:07 Respiratory Pattern Normal 05/22/18 09:07 Blood Pressure 139/76 05/22/18 08:34 Pulse Oximetry 95 05/22/18 08:34 Oxygen Delivery Method Room Air 05/22/18 08:34 Oxygen Flow Rate 0 05/22/18 08:34 Pain Level 8 05/22/18 09:01 Intake & Output 05/21/18 05/21/18 05/22/18 11:59 23:59 11:59 Intake Total 240 / 240 0 / 0 Balance 240 / 240 0 / 0 Weight 185 lb 3.01 oz Intake: Oral 240 / 240 0 / 0 Other: Urine Appearance Clear Clear Comment pt voids independently Stool Size Large Stool Characteristics Soft Formed Voiding Methods Toilet PFSH Social History household members: other details: 4 current occupational status: retired pets and animals: Yes pets and animals: cat(s) and dog(s) frequency: 5-6 times per week duration: < 15 minutes/day Smoking/Tobacco Use Status: Former Tobacco Use quit date: 05/01/97 passive smoking exposure: No alcohol intake: current alcohol intake frequency: a few times a week Alcohol type: wine substance use type: does not use wendi/judaism: Denominational special wendi needs: No
--- NOTE | 2018-05-22 11:26 | PT.INTREAT ---
Date of service: 05/22/18 Time of Service: 10:25 PT Notes Inpatient Physical Therapy Treatment Note [facility] Date: May 22, 2018 PRECAUTIONS:NWB L LE SUBJECTIVE: Cristine reports that she has 2 small steps to enter her home. She is nervous in regards to this. Once she is in her home everything is on one level. She reports that she is sick of hurting. OBJECTIVE: PAIN: 07/08 BED MOBILITY/TRANSFERS Supine-sit: I Sit-supine: I Sit-stand:I, FWW Stand-sit: I, FWW Bed-Chair: I, FWW GAIT Assistive Device: FWW Weight bearing: NWB Left LE Assist: CG Distance: 10 ft to wheelchair for did not want to fatigue prior to completing stairs. Deviation: I in room THEREX: Held on therex via patient request. Will complete in pm STAIRS:Completed 3 steps up/down with use of bilateral railing, CG ASSESSMENT: Cristine did very well with stair negotiation however currently does not have railing at home. She had great UE strength to complete the stairs with use of railings. Feel that if she had support at home with one person on each side of her she would be able to get into her home without difficulty. Recommended use of a wheelchair at home however patient notes that this would not be work due to small spaces. PLAN: Continue with current POC keeping her as strong as we can prior to discharge home via MD order. TREATMENT CODE/TIME: 82262; 20 minutes, 10:25-10:45 Leanna Amaro, TC
--- NOTE | 2018-05-22 12:57 | W.PM.PROGNOT ---
Date of Service Date of service: 05/22/18 Time of Service: 12:57 Assessment and Plan (1) Tibial plateau fracture, left: Current visit: No Status: Acute Gradually improving. Discharge 05/24/18. Patient will have home health p.t. Qualifiers: Encounter type: initial encounter Fracture type: closed Qualified Code(s): S82.142A - Displaced bicondylar fracture of left tibia, initial encounter for closed fracture Subjective Interval history since last seen: Generally feeling better. Able to go to the bathroom independently. Exam Extrem Other: No unusual swelling. Knee brace adjusted. Patient took shower yesterday and wound was benign. Objective Objective Clinical Data: Vital Signs Temperature 98.8 F 05/22/18 08:34 Temperature Source Tympanic 05/22/18 08:34 Pulse 97 H 05/22/18 08:34 Pulse Rhythm Regular 05/22/18 09:07 Respiratory Rate 18 05/22/18 08:34 Respiratory Effort 05/22/18 09:07 Respiratory Depth Normal 05/22/18 09:07 Respiratory Pattern Normal 05/22/18 09:07 Blood Pressure 139/76 05/22/18 08:34 Pulse Oximetry 95 05/22/18 08:34 Oxygen Delivery Method Room Air 05/22/18 08:34 Oxygen Flow Rate 0 05/22/18 08:34 Pain Level 8 05/22/18 09:01 Intake & Output 05/21/18 05/22/18 05/22/18 23:59 11:59 23:59 Intake Total 240 / 240 0 / 0 Balance 240 / 240 0 / 0 Intake: Oral 240 / 240 0 / 0 Other: Urine Appearance Clear Clear Comment pt voids independently Stool Size Large Stool Characteristics Soft Formed Voiding Methods Toilet
--- NOTE | 2018-05-22 15:03 | PT.INNT ---
Date of service: 05/22/18 Time of Service: 15:03 PT Notes 05/22/18 Patient refused afternoon PT session stating that she has been up since 8;00 this morning and her leg is starting to bother her.
[2018-05-22 16:07] VITALS: BP 127/71; PULSE 91; RESP 18; TEMP 37.6; O2SAT 96
--- NOTE | 2018-05-22 18:38 | PDOC.CMPRO ---
Care Management Progress Note Cristine continues to make gains and could discharge by the end of the week per MD. She will have new referrals for [facility]/PT/OT, possible RN-undetermined at this time. Cristine reported having family support planned for after , she shared support people and requested coordination support with contacting a friend to place grab bars as well as possible lift assist into her home as she does not yet have railings on her stairs. She reported feeling confident she could manage once inside her home. She will have MOW to begin after discharge as well.
[2018-05-22] MEDS: oxyCODONE 5 MG TAB PO (22:21)
[2018-05-22 23:30] VITALS: BP 133/70; PULSE 92; RESP 17; TEMP 37.3; O2SAT 94
[2018-05-23] MEDS: Ibuprofen 600 MG TAB PO ×3 (02:02→14:21)
[2018-05-23 07:35] VITALS: BP 153/74; PULSE 88; RESP 18; TEMP 36.9; O2SAT 97
[2018-05-23] MEDS: Sertraline 50 MG TAB PO (09:20)
[2018-05-23] MEDS: Losartan 25 MG TAB 75 MG PO (09:20)
[2018-05-23] MEDS: Tolterodine 2 MG CAPCR 4 MG PO (09:20)
[2018-05-23] MEDS: Multivitamin w/Minerals TAB 1 TAB PO (09:20)
[2018-05-23] MEDS: Hydrochlorothiazide 25 MG TAB PO (09:20)
[2018-05-23] MEDS: Acetaminophen 325 MG TAB 650 MG PO ×2 (09:20→18:35)
[2018-05-23] MEDS: Pantoprazole 40 MG TABCR PO (09:20)
[2018-05-23] MEDS: Aspirin 81 MG CHEW PO ×2 (09:21→19:28)
--- NOTE | 2018-05-23 09:30 | OT.INDS ---
Date of service: 05/23/18 Time of Service: 08:50 Occupational Therapy Notes Occupational Therapy Inpatient Discharge Summary Date: 05/23/18 Referring Doctor: Bernard Kline MD OT Orders: (L) tibial plateau fx ADLs Precautions: Fall Precautions Dates of Service: 05/21/18-05/23/18 PATIENT PROFILE/ADMITTING DIAGNOSIS: Pt is a 78 year old female who was admitted to [facility] s/p (L) tibial plateau fx. Past Medical History: ETOH abuse, HTN, OA, bilateral total hip replacements in 2014 Social History/Home Situation: Patient sustained a tibial plateau fracture status post fall down bottom step at home on 09 May 2018. Underwent ORIF on May 16, [address] Kline. Orders for nonweightbearing on left with walker with knee immobilizer set from 0 degrees of extension to 30 degrees flexion. 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 She is currently under SWING bed rehabilitation status. Equipment owned/DME: FWW, 4 wheeled walker, shower chair, raised toilet seat. SUBJECTIVE: Pt was sitting in chair when OT arrived she was agreeable to OT session. She reports that she is going home tomorrow. She has complaints of (R) arm pain which she states is an old injury. She feels that she is feeling (I) with ADLs at this time. OBJECTIVE: General Observation: (I) functional mobility in room cleared per PT. Pleasant and answers questions appropriately. Mental Status: A&Ox3 Pain: c/o pain in (R) arm, (L) knee due to fx ROM: RUE AROM WNL L UE AROM WNL STRENGTH: RUE 4+/5 throughout LUE 4+/5 throughout Dressing: Upper body (I) Lower body Min (A) Hair (I) FWW standing at sink Teeth (I) FWW standing at sink Toileting (I) on toilet Bathing- sitting on shower bench (I) with performing bathing routine. Pt educated and trained in transferring into shower/tub combination. Written and illustrated handouts provided to pt. BALANCE: Static sitting Normal Dynamic Sitting Normal SPECIAL TESTS: Daily Activity Limitations Standardized Measure [facility] ?6 clicks? Daily Activity Inpatient Short Form: Raw score: 21 Standardized score: 44.27 CMS score: 32.79% CMS modifier: CJ INFORMED CONSENT/EDUCATION: Pt instructed in purpose of OT Consult and plan of care. ASSESSMENT: Patient is a 78-year-old female referred to occupational therapy services with diagnosis of s/p ORIF left tibial plateau fracture. She was seen for 3 OT sessions. She is demonstrating increased (I) in ADL/IADL routines and was educated about transferring into tub/shower combination at home with FWW. Pt verbalizes understanding to this. She feels that she is definitely going to need home health OT which OT recommends. OT recommends that pt return home when medically cleared per MD. GOALS Goals x1 week 1. Dressing-Pt will be able to perform LE dressing with min (A) for (B) socks, shoes and pants. (Per pt report she is able to perform this and has hip kit adaptive equipment at home to perform this.) 2. Bathing- Pt will be able to perform bathing routine in shower (I) (MET) 3. Toileting- Pt will be able to perform toileting routine on toilet (I) (MET) PLAN OF CARE/TREATMENT PLAN: Pt to be discharged home when medically cleared per MD. DISCHARGE RECOMMENDATIONS Discharge home with home OT when medically cleared per MD. Recommend Home Health OT home evaluation Grab bars for bathroom TREATMENT TIME/MINUTES/CODES [id number], 21 minutes G Codes in the area of self- : washing oneself, toileting, dressing, eating and drinking, current status GO [id number] CJ projected status GO [id number]. Discharge status (if discharging) GO [id number]. Roseline Marie OTR/[facility]
--- NOTE | 2018-05-23 10:34 | PGE_ITS ---
Date of Service Date of service: 05/23/18 Time of Service: 10:34 Assessment and Plan (1) Tibial plateau fracture, left: Current visit: No Status: Acute Satisfactory post op course. Discharge home tomorrow. Continue p.o asa 81 mg for dvt prophylaxis. Qualifiers: Encounter type: initial encounter Fracture type: closed Qualified Code(s): S82.142A - Displaced bicondylar fracture of left tibia, initial encounter for closed fracture Subjective Interval history since last seen: Generally doing well. Brace adjusted by physical therapy Exam Extrem Other: P,T reports no problems with incison. Mild temp to 99.0 Objective Objective Clinical Data: Vital Signs Temperature 99.7 F H 05/21/18 07:43 Temperature Source Tympanic 05/21/18 07:43 Pulse 91 H 05/21/18 07:43 Pulse Rhythm Regular 05/20/18 23:39 Respiratory Rate 17 05/21/18 07:43 Respiratory Effort Non-Labored 05/20/18 23:39 Respiratory Depth Normal 05/20/18 23:39 Respiratory Pattern Normal 05/20/18 23:39 Blood Pressure 139/75 05/21/18 07:43 Pulse Oximetry 96 05/21/18 07:43 Respiratory End-tidal CO2 43 05/16/18 16:07 Oxygen Delivery Method Room Air 05/21/18 07:43 Oxygen Flow Rate 0 05/21/18 07:43 Pain Level 2 05/21/18 12:07 Comment 05/18/18 04:55 Laboratory Results WBC 7.55 k/cumm (4.4-10.8) 05/17/18 06:20 RBC 3.76 m/cumm (4.00-5.20) L 05/17/18 06:20 Hgb 11.6 g/dL (12.0-15.5) L 05/17/18 06:20 Hct 35.4 % (36.0-46.0) L 05/17/18 06:20 MCV 94.1 fL (80-95) 05/17/18 06:20 MCH 30.9 pg (27.0-33.0) 05/17/18 06:20 MCHC 32.8 g/dL (32.0-36.0) 05/17/18 06:20 RDW 13.3 % (11.7-14.6) 05/17/18 06:20 Plt Count 203 x1000/uL (130-400) 05/17/18 06:20 MPV 10.3 fL (8.0-11.0) 05/17/18 06:20 Sodium 144 mmol/L (136-145) 05/17/18 06:20 Potassium 3.3 mmol/L (3.5-5.1) L 05/17/18 06:20 Chloride 107 mmol/L (98-107) 05/17/18 06:20 Carbon Dioxide 27.8 mmol/L (21.0-32.0) 05/17/18 06:20 Anion Gap 9.2 mmol/L (3-11) 05/17/18 06:20 BUN 13 mg/dL (7-18) 05/17/18 06:20 Creatinine 0.98 mg/dL (0.55-1.02) 05/17/18 06:20 Estimated GFR/1.73 m2 54.89 (mL/min/1.73m2) 05/17/18 06:20 Glucose 147 mg/dL (70-100) H 05/17/18 06:20 Calcium 8.3 mg/dL (8.5-10.1) L 05/17/18 06:20 CC:
--- NOTE | 2018-05-23 12:27 | PT.INTREAT ---
Date of service: 05/23/18 Time of Service: 12:27 PT Notes Inpatient Physical Therapy Treatment Note [facility] Date: 05/23/18 PRECAUTIONS: NWB on L SUBJECTIVE: Cristine states that she is tired today. OBJECTIVE: PAIN: No c/o pain BED MOBILITY/TRANSFERS/GAIT: Refused other Sit-Supine: I with HOB flat THEREX: Patient completed a LE strengthening and stabilization program, as per flow sheet. She tolerated the addition of SAQ from 0-30 degrees, well, without complaint. SELF-CARE: Educated patient in donning/doffing DonJoy brace, as well as in adjusting and positioning brace to fit properly. ASSESSMENT: Patient tolerated session without complaints of pain. Patient demonstrated good understanding in management of DonJoy brace. PLAN: Continue with PTs POC TREATMENT CODE/TIME: 25 minutes; ([id number], [id number])
--- NOTE | 2018-05-23 13:09 | PDOC.CMPRO ---
Care Management Progress Note Cristine was working on transferring back into bed when CM entered the room. Cristine requested this editorial writer to ask PT; Kathleen to observe her transfer; CM agreed. CM relayed coordination information; lift assist scheduled for 1330 05/24/18. Cristine reported her sister was connecting with their rod pointer to place grab bars where needed. CM reviewed discharge plan; Cristine will discharge home with new orders for VNA: [facility]/PT/OT as well as having new MOW. Anticipate Cristine will discharge home as soon as tomorrow; 05/24/18.
--- NOTE | 2018-05-23 15:19 | CMPROGNOTE_ITS ---
Care Management Progress Note Cristine was working on transferring back into bed when CM entered the room. Cristine requested this sba underwriter to ask PT; Kathleen to observe her transfer; CM agreed. CM relayed coordination information; lift assist scheduled for 1330 05/24/18. Cristine reported her sister was connecting with their director of physical education to place grab bars where needed. CM reviewed discharge plan; Cristine will discharge home with new orders for VNA: [facility]/PT/OT as well as having new MOW. Anticipate Cristine will discharge home as soon as tomorrow; 05/24/18.
--- NOTE | 2018-05-23 16:02 | CHAPLAIN ---
Cristine was sitting up in her chair when I visited, and she She was happy to tell me that she's being discharged tomorrow with Care Management making plans for her to have assistance getting into her house. Once she is in, she said she will be fine getting around. She likes to read and said that will help her relax when she is home.
[2018-05-23 16:05] VITALS: BP 148/77; PULSE 84; RESP 18; TEMP 37.4; O2SAT 97
--- NOTE | 2018-05-23 16:09 | PT.INNT ---
Date of service: 05/23/18 Time of Service: 16:09 PT Notes 05/23/18 Refused afternoon PT session, stating that she is very tired and that she is going to take a nap and does not want to be bothered. Will attempt to resume PT services tomorrow morning.
[2018-05-23 19:33] VITALS: TEMP 36.8
[2018-05-24 01:23] VITALS: BP 145/85; PULSE 88; RESP 18; TEMP 37.2; O2SAT 95
[2018-05-24] MEDS: Ibuprofen 600 MG TAB PO ×2 (01:29→07:58)
[2018-05-24] MEDS: oxyCODONE 5 MG TAB PO ×2 (01:29→11:38)
[2018-05-24] MEDS: Losartan 25 MG TAB 75 MG PO (07:58)
[2018-05-24] MEDS: Aspirin 81 MG CHEW PO (07:58)
[2018-05-24] MEDS: Multivitamin w/Minerals TAB 1 TAB PO (07:58)
[2018-05-24] MEDS: Acetaminophen 325 MG TAB 650 MG PO (07:58)
[2018-05-24] MEDS: Tolterodine 2 MG CAPCR 4 MG PO (07:59)
[2018-05-24] MEDS: Hydrochlorothiazide 25 MG TAB PO (07:59)
[2018-05-24] MEDS: Pantoprazole 40 MG TABCR PO (07:59)
[2018-05-24] MEDS: Sertraline 50 MG TAB PO (07:59)
--- NOTE | 2018-05-24 08:03 | W.PM.PROGNOT ---
Date of Service Date of service: 05/24/18 Time of Service: 08:04 Assessment and Plan (1) Tibial plateau fracture, left: Current visit: No Status: Acute S/P orif tibial plateau fracture. Patient will be discharged home today with home health aids and home health physical therapy. Her sister will be picking her up. [facility] will assist in getting her up stairs. She will be havving grab bars placed so that outpatient appointments can be made. Follow-up in 1 week for repeat x-ray and suture removal. Post discharge medications discussed, including citracal with vit D and asa 81 mg bid for DVT prophylaxis. Qualifiers: Encounter type: initial encounter Fracture type: closed Qualified Code(s): S82.142A - Displaced bicondylar fracture of left tibia, initial encounter for closed fracture Subjective Interval history since last seen: Gradually improving. Having a difficult time being comfortable at night while trying to llie on her side. Sh is advised she can loosen the brace or pad it as needed. 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 Exam Extrem Other: Temperatures have ranged from 98.2-99. No unusual pain or swelling. Objective Objective Clinical Data: Vital Signs Temperature 99.0 F 05/24/18 01:23 Temperature Source Tympanic 05/24/18 01:23 Pulse 88 05/24/18 01:23 Pulse Rhythm Regular 05/24/18 05:00 Respiratory Rate 18 05/24/18 01:23 Respiratory Effort Non-Labored 05/24/18 05:00 Respiratory Depth Normal 05/24/18 05:00 Respiratory Pattern Normal 05/24/18 05:00 Blood Pressure 145/85 H 05/24/18 01:23 Pulse Oximetry 95 05/24/18 01:23 Oxygen Delivery Method Room Air 05/24/18 01:23 Oxygen Flow Rate 0 05/24/18 01:23 Pain Level 5 05/24/18 07:58 Comment 05/24/18 01:23 Intake & Output 05/23/18 05/23/18 05/24/18 11:59 23:59 11:59 Intake Total 240 / 720 480 / 720 Balance 240 / 720 480 / 720 Intake: Oral 240 / 720 480 / 720 Other: Comment PT VOIDED INDEP IN ROOM AND FLUSHES pt using the bathroom independently pt using the bathroom independently, urine not measured. Voiding Methods Toilet Toilet Toilet
--- NOTE | 2018-05-24 08:11 | W.PM.DS.N ---
Date of service: 05/24/18 Time of Service: 08:12 DS: Diagnosis Discharge Diagnosis (1) Tibial plateau fracture, left: Status: Acute Discharge Plan Disposition Patient Disposition: HOME Condition: Improving Discharge Details Reason For Visit: LEFT TIBIAL PLATEAU FRACTURE Admit Date/Time: 05/21/18 10:31 Admit Provider: Bernard Kline Attending Provider: Bernard Kline Primary Care Provider: Tootie Rodriguez Hospital Course Hospital Course: Patient was maintained in swing bed level 1 from 05/21/2018 until 05/24/2018, she was maintained on aspirin 81 mg twice daily for DVT prophylaxis. She made gradual progression through activities of daily living including independently able to get out of bed and toilet. She had no signs of urinary tract infection or dysuria. She was able to shower and her wound had a benign appearance. She was maintained in a Donjoy brace set from complete extension to 30 degrees of flexion. As the wound heals will gradually increase her range of motion. She will be nonweightbearing on the left with use of her walker. Home Meds and New Rx's Prescriptions: No Action sertraline [Zoloft] 50 mg tablet 75 mg PO DAILY Qty: 135 RF: 4 metronidazole [MetroCream] 0.75 % cream 1 applic Topical BID Qty: 1 RF: 3 losartan 25 mg tablet 25 mg PO DAILY Qty: 90 RF: 3 losartan 50 mg tablet 50 mg PO DAILY Qty: 90 RF: 3 betamethasone, augmented 0.05 % cream 1 applic Topical every other day Qty: 1 RF: 0 oxybutynin chloride 10 mg tablet extended release 24hr 10 mg PO DAILY Qty: 90 RF: 3 vitamin B complex [B-Complex] 1 EACH tablet 1 ea PO DAILY PRNRF: 0 multivitamin 1 EACH capsule 1 ea PO DAILY RF: 0 ibuprofen 600 MG tablet 600 mg PO tid prn Qty: 90 RF: 3 levalbuterol tartrate 15 GM HFA aerosol inhaler 2 puff Inhalation Q6H PRN Qty: 1 RF: 3 oxycodone 5 mg tablet 5 mg PO Q6H PRN (Reason: pain) Qty: 7 RF: 0 Discharge Instructions Additional Instructions: Use your walker for balance and prevent falls. While standing still you may rest your foot on the ground but do not step through on your left foot. You may loosen the straps of your brace at nighttime for sleeping but while ambulatory always keep the brace on prevent reinjury if he should slip or fall. He may get your wounds wet in the shower with soap and water gently pat the stitches dry and cover with gauze or a layer of dressingnette. Take your regular medications as before. In addition take aspirin 81 mg twice daily with food to help prevent blood clot. Take Citracal with vitamin D 630 mg with 500 international units of vitamin D twice daily. This is available [id number]. Take regular doses of Tylenol and ibuprofen to help control the pain. For more serious pain, take oxycodone 5-10 mg every 6 hours. [facility] regulations limit the amount that may be prescribed. Home health nursing will be checking in on you at your home. Follow-up in [address] Kline for suture removal repeat radiographs and advancement of the range of motion in your brace Activity:: Activity as Tolerated Equipment/Supplies:: Walker Diet:: As Tolerated Discharge Orders Discharge Orders: Discharge Order (Routine); Ordered 05/24/18 Ordered By: Bernard Kline DS: Data Vitals/I&O Vitals and I&O: Vital Signs Temperature 99.0 F 05/24/18 01:23 Temperature Source Tympanic 05/24/18 01:23 Pulse 88 05/24/18 01:23 Pulse Rhythm Regular 05/24/18 05:00 Respiratory Rate 18 05/24/18 01:23 Respiratory Effort Non-Labored 05/24/18 05:00 Respiratory Depth Normal 05/24/18 05:00 Respiratory Pattern Normal 05/24/18 05:00 Blood Pressure 145/85 H 05/24/18 01:23 Pulse Oximetry 95 05/24/18 01:23 Oxygen Delivery Method Room Air 05/24/18 01:23 Oxygen Flow Rate 0 05/24/18 01:23 Pain Level 5 05/24/18 07:58 Comment 05/24/18 01:23 Intake & Output 05/23/18 05/23/18 05/24/18 11:59 23:59 11:59 Intake Total 240 / 720 480 / 720 Balance 240 / 720 480 / 720 Intake: Oral 240 / 720 480 / 720 Other: Comment PT VOIDED INDEP IN ROOM AND FLUSHES pt using the bathroom independently pt using the bathroom independently, urine not measured. Voiding Methods Toilet Toilet Toilet [facility] Social History household members: other details: 4 current occupational status: retired pets and animals: Yes pets and animals: cat(s) and dog(s) frequency: 5-6 times per week duration: < 15 minutes/day Smoking/Tobacco Use Status: Former Tobacco Use quit date: 05/01/97 passive smoking exposure: No alcohol intake: current alcohol intake frequency: a few times a week Alcohol type: wine substance use type: does not use wendi/episcopal: [employer] special wendi needs: No
--- NOTE | 2018-05-24 08:21 | PDOC.HHF2F ---
1. Encounter Date and Reason I certify that PETER BAE was seen by Bernard Kline MD on 05/24/18 and that I had a [id number] encounter with this patient that meets the physician face to face encounter requirements. 2. Clinical Findings Supporting Skilled Need and Homebound Status I certify that home health services are medically necessary, include either intermittent assisted and/or physical/speech therapy, and that this patient is homebound in that absences from the home require considerable and taxing effort and are infrequent or of short duration, or are attributable to the need to receive medical care. [X] (a) Attached documentation from encounter provides clinical findings supporting skilled need and homebound status (including what assistance patient requires to leave the home). The encounter with the patient was in whole, or in part, for the following medical condition, which is the primary reason for home health care: LEFT TIBIAL PLATEAU FRACTURE Penitentiary:Patient has history of etoh abuse and is limited in ADL's from her current injury. Make sure she is compliant in use of 81 mg aspirin and taking her meds properly. Her blood pressures dwere quite labile during her hospital stay. Physical Therapy:Non weight bearing on left with walker in a patient with a new onset tibial plateau fracture and is s/p bilateral total hips Speech Therapy: Homebound: 3. Certification and Authentication I certify that I composed the above information based on my clinical judgement relating to this patient's medical condition and, if applicable, clinical findings communicated to me by the NPP or inpatient physician who performed the Home Health Referral. All further orders will be obtained through (Community Based Physician - PCP)
--- NOTE | 2018-05-24 08:24 | HHF2F_ITS ---
1. Encounter Date and Reason I certify that PETER BAE was seen by Bernard Kline MD on 05/24/18 and that I had a [id number] encounter with this patient that meets the physician face to face encounter requirements. 2. Clinical Findings Supporting Skilled Need and Homebound Status I certify that home health services are medically necessary, include either intermittent chcf and/or physical/speech therapy, and that this patient is homebound in that absences from the home require considerable and taxing effort and are infrequent or of short duration, or are attributable to the need to receive medical care. [X] (a) Attached documentation from encounter provides clinical findings supporting skilled need and homebound status (including what assistance patient requires to leave the home). The encounter with the patient was in whole, or in part, for the following medical condition, which is the primary reason for home health care: LEFT TIBIAL PLATEAU FRACTURE Residential:Patient has history of etoh abuse and is limited in ADL's from her current injury. Make sure she is compliant in use of 81 mg aspirin and taking her meds properly. Her blood pressures dwere quite labile during her hospital stay. Physical Therapy:Non weight bearing on left with walker in a patient with a new onset tibial plateau fracture and is s/p bilateral total hips Speech Therapy: Homebound: 3. Certification and Authentication I certify that I composed the above information based on my clinical judgement relating to this patient's medical condition and, if applicable, clinical findings communicated to me by the NPP or inpatient physician who performed the Home Health Referral. All further orders will be obtained through (Community Based Physician - PCP)
[2018-05-24 08:25] VITALS: BP 158/74; PULSE 93; RESP 18; TEMP 37; O2SAT 95
--- NOTE | 2018-05-24 09:41 | PDOC.CMDIS ---
LACE Index Scoring Tool - Questions: Length of Stay (in days): 4 - 6 Acuity (Admit via E.D.?): No E.D. Visits: 1 - Answers: Total Score: 5 Risk of Readmission: Low Risk Care Management Discharge Reason for Hospitalization: Left Tibial Plateau Fracture Discharge Plan: Cristine will discharge home with new orders for VNA RN/PT/OT. She will follow up with Dr. Kline and her PCP as well as her plan of care including activity restrictions and medication recommendations. Cristine will have MOW to begin after discharge as well as family support. She has contacted a private contractor to help with grab bar installation. CM supported coordination of lift assist with [facility] [employer] at Cristine's home at 1330. She will transport via private vehicle with her sister. Patient/Family Education Needs: Review discharge instructions, discuss Ask Me Three. Services Needed at Discharge: Home Delivered Meals, Home Health Care Services (RN/PT/OT)
--- NOTE | 2018-05-24 11:16 | PT.INDS ---
Date of service: 05/24/18 Time of Service: 10:00 PT Notes Date: May 21, 2018 Referring Doctor: Dr. Kline PT Orders: PT CONSULT: s/p ORIF left tibial plateau fracture. Up in chair today, then non weight bearing on left with walker. Knee immobilizer set from 0 degrees of extension to 30 degrees of flexion Precautions: fall precautions Treatment dates: 05/21? Patient Profile/Admitting Diagnosis: Patient sustained a tibial plateau fracture status post fall down bottom step at home on 09 May. Underwent ORIF on May 16, [address] Kline. Orders for nonweightbearing on left with walker with knee immobilizer set from 0 degrees of extension to 30 degrees flexion. She has participated in PT intervention 1-2x/day for 4 days, and has demonstrated improvements in mobility and safety, sufficient to allow for safe return home. PMHX: ETOH abuse, HTN, OA, bilateral total hip replacements in 2014 Social History/Home Situation: Patient lives in a multilevel home. Currently set up on the first floor. She has 1 step into her bedroom and then 1 step into her dwelling. No grab bars for assistance. She does reside in a multilevel home and her goal is to return to her upper level for her bedroom but currently is able to be set up on the first floor due to limited mobility issues. She resides with her granddaughter and her 2 great grandsons. Current Functional Limitations: Ambulation, functional mobility, bed mobility, stair negotiation Equipment Owned/DME: Entered walker, 4 wheeled walker, shower chair, raised toilet seat. Subjective: Cristine states that her knee is feeling good. She is having problems with her right elbow, stating that using her walker seems to be exacerbated an old issue. She is anxious to return home later today. Objective: General Observation: No lines. Left LE in XOCHITL wrap and hinged brace locked 0-30 degrees. Mental Status: Alert and orientated x3 Person, place and time ROM: Right Upper Extremity: WFL Left Upper Extremity: WFL Right Lower Extremity: WFL Left Lower Extremity: Knee extension 10 degrees from neutral. Knee flexion 20 degrees. Hip abduction 30 degrees AA, ankle PF and DF WFL. Strength: Right Upper Extremity: 4+/5 throughout Left Upper Extremity: 4+/5 throughout Right Lower Extremity: 4/5 throughout Left Lower Extremity: Resisted strength assessment not performed due to post-op precautions. Bed Mobility/Transfers: Supine to sit: independent with Head of bed at 30 degrees. Sit to stand: independent, NWB LLE Stand to sit: independent, NWB LLE Gait: Independent with WW and brace x 15' for toileting (NWB LLE). Patient tolerates 50' of ambulation with WW and left knee brace with CG, NWB LLE (performed 05/21/18; patient has ambulated only short distances since then due to refusal of longer distance ambulation) Balance: Static Sitting: Normal Dynamic Sitting: Normal Static Standing: Fair Dynamic Standing: Fair STAIRS: Patient was instructed in stair management with bilat rails, NWB LLE, which she performed with CG. Treatment: Today's session consisted of review of patient's home exercise program. Patient completed 10 repetitions of each of the following: Ankle pumps, quad sets, glutes sets, pelvic tilts. She is instructed in home completion of each. She demonstrates a single SLR, which she was also encouraged to continue independently at home. She declines further therex or ambulation. Total treatment time: 15 minutes Assessment: Patient is a 78 year old female who has been participating in physical therapy intervention 1-2x/day for 4 days for rehabilitation following ORIF due to left tibial plateau fracture. Patient has made gains in mobility and independence, sufficient to allow for safe transition back home. At this point, she is appropriate for DC from PT services in acute care setting, with recommendation for further intervention through home health services. Goals: Goals X1 week 1. Supine-Sit : supervision (MET) 2. Sit-Supine supervision(MET) 3. Sit-Stand supervision with FWW(MET) 4. Stand-Sit supervision with FWW(MET) 5. Bed-Chair supervision with FWW(MET) 6. Chair-Bed supervision with FWW(MET) 7. Gait supervision with FWW x 100' (Patient refuses) 8. Stairs ascend and descend x 1 step with bilat rails, supervision (progressing toward, with patient performing with CG only) Plan of Care/Treatment Plan: DC from PT in acute setting DISCHARGE RECOMMENDATIONS: Discharge to home with HHPT TREATMENT CODE/TIME: 15 minutes ([id number])
== END 2018-05-24 13:05 | disposition home or self-care (01) | DRG 561 ==
PROVIDERS: Admitting Provider Orthopaedic Surgery; Visit Provider Orthopaedic Surgery
DX: S82.142D Displaced bicondylar fracture of left tibia, subsequent encounter for closed fracture with routine healing (principal); W10.9XXD Fall (on) (from) unspecified stairs and steps, subsequent encounter; I10 Essential (primary) hypertension; F32.9 Major depressive disorder, single episode, unspecified; Z98.890 Other specified postprocedural states
CPT/HCPCS: 97110; 97116; 97161; 97165; 97530; 97535; NC

== ENCOUNTER 2018-06-07 10:48 | Outpatient (CLI) | payer MEDICARE, BC, SELFPAY ==
--- NOTE | 2018-06-07 10:44 | DI.RAD_ITS ---
SYMPTOMS/DIAGNOSIS: S/P SURGERY LEFT KNEE: Two views were obtained and show plate and screw fixation of the proximal tibia with no gross interval change in alignment of the fracture fragments in comparison with examination of May 16, which was an intraoperative study.
== END 2018-06-07 11:08 ==
PROVIDERS: Visit Provider Orthopaedic Surgery
DX: S82.142D Displaced bicondylar fracture of left tibia, subsequent encounter for closed fracture with routine healing (principal); X58.XXXD Exposure to other specified factors, subsequent encounter
CPT/HCPCS: 73560

== ENCOUNTER 2018-06-21 15:57 | Outpatient (CLI) | payer MEDICARE, BC, SELFPAY ==
--- NOTE | 2018-06-21 11:35 | DI.RAD_ITS ---
SYMPTOMS/DIAGNOSIS: F/U SURGERY LEFT KNEE: Two views. Comparison is 06/07/18. There is again seen a sideplate and screws transfixing the tibial plateau fractures. No change in alignment of the orthopedic hardware or fracture components is noted. No new fractures or dislocations are appreciated.
== END 2018-06-21 16:17 ==
PROVIDERS: Visit Provider Orthopaedic Surgery
DX: S82.142D Displaced bicondylar fracture of left tibia, subsequent encounter for closed fracture with routine healing; W10.9XXD Fall (on) (from) unspecified stairs and steps, subsequent encounter
CPT/HCPCS: 73560

== ENCOUNTER 2018-07-19 14:40 | Outpatient (CLI) | payer MEDICARE, BC, SELFPAY ==
--- NOTE | 2018-07-19 10:49 | DI.RAD_ITS ---
SYMPTOMS/DIAGNOSIS: F/U SURGERY LEFT KNEE: The patient is status post plate and screw fixation of a fracture of the proximal tibia. When compared with the previous images, the fracture fragments remain in excellent position. Orthopedic hardware in place.
== END 2018-07-19 15:00 ==
PROVIDERS: Visit Provider Orthopaedic Surgery
DX: S82.142A Displaced bicondylar fracture of left tibia, initial encounter for closed fracture (principal); X58.XXXA Exposure to other specified factors, initial encounter
CPT/HCPCS: 73560

== ENCOUNTER → 2018-08-23 10:14 | Outpatient (BNVA) | payer MEDICARE, BC, SELFPAY | PROVIDERS: Visit Provider Orthopaedic Surgery | DX: S82.142A Displaced bicondylar fracture of left tibia, initial encounter for closed fracture (principal); X58.XXXA Exposure to other specified factors, initial encounter | CPT/HCPCS: 99211; 99213 ==

== ENCOUNTER → 2018-11-06 10:39 | Outpatient (BNVA) | payer MEDICARE, BC, SELFPAY | PROVIDERS: Visit Provider Orthopaedic Surgery | DX: S82.142D Displaced bicondylar fracture of left tibia, subsequent encounter for closed fracture with routine healing; X58.XXXD Exposure to other specified factors, subsequent encounter | CPT/HCPCS: 99211; 99212 ==

== ENCOUNTER 2020-02-07 03:47 | Outpatient (CLI) | payer MEDICARE, BC, SELFPAY ==
[2020-02-07 13:18] LABS: ALT 24 U/L (14-59); AST 20 U/L (15-37); Albumin 3.6 g/dL (3.4-5.0); Alkaline Phosphatase 116 U/L (46-116); Anion Gap 9.5 mmol/L (3-11); BUN 17 mg/dL (7-18); Bilirubin, Total 0.9 mg/dL (0.2-1.0); CO2 28.5 mmol/L (21.0-32.0); CREATININE 0.86 mg/dL (0.55-1.02); Chloride 106 mmol/L (98-107); GGT 35 U/L (5-55); Glucose 111 mg/dL (74-106); Sodium 144 mmol/L (136-145); Total Protein 6.5 g/dL (6.4-8.2)
[2020-02-07 14:38] LABS: Hemoglobin A1C 5.7 % (<5.7)
== END 2020-02-07 04:07 ==
DX: I10 Essential (primary) hypertension (principal); R73.09 Other abnormal glucose; F10.20 Alcohol dependence, uncomplicated; M19.90 Unspecified osteoarthritis, unspecified site; N39.3 Stress incontinence (female) (male)
CPT/HCPCS: 36415; 80053; 82977; 83036

== ENCOUNTER 2021-02-02 03:24 | Outpatient (CLI) | payer MEDICARE, BC, SELFPAY ==
[2021-02-02 12:37] LABS: Hemoglobin A1C 5.8 % (<5.7)
[2021-02-02 12:40] LABS: ALT 23 U/L (14-59); AST 21 U/L (15-37); Albumin 3.5 g/dL (3.4-5.0); Alkaline Phosphatase 103 U/L (46-116); Anion Gap 5.7 mmol/L (3-11); BUN 16 mg/dL (7-18); Bilirubin, Total 0.7 mg/dL (0.2-1.0); CO2 30.3 mmol/L (21.0-32.0); CREATININE 0.9 mg/dL (0.55-1.02); Calcium 8.8 mg/dL (8.5-10.1); Chloride 107 mmol/L (98-107); Glucose 108 mg/dL (74-106); Potassium 4.3 mmol/L (3.5-5.1); Sodium 143 mmol/L (136-145); Total Protein 6.5 g/dL (6.4-8.2)
== END 2021-02-02 03:25 | disposition home or self-care (01) ==
LOC: LOS 03:25
DX: I10 Essential (primary) hypertension (principal); R73.01 Impaired fasting glucose; F10.10 Alcohol abuse, uncomplicated; F32.9 Major depressive disorder, single episode, unspecified
CPT/HCPCS: 36415; 80053; 83036

== ENCOUNTER 2021-03-26 18:43 | Outpatient (REF) | payer MEDICARE, BC, SELFPAY ==
[2021-03-26 19:33] LABS: Bilirubin Negative (Negative); Blood Large (Negative); Clarity Cloudy (Clear); Glucose Negative (Negative); Ketones Trace mg/dL (Negative); Leukocyte Esterase Small (Negative); Nitrite Positive (Negative); Specific Gravity 1.025 (1.005-1.025)
[2021-03-26 19:43] LABS: Bacteria Many HPF (Negative); C & S Indicated? Yes; Crystals Negative HPF (Negative); Epithelial Cells Negative HPF (Negative); Mucus Negative (Negative); RBC >50 HPF (0-2); WBC >50 HPF (0-5)
== END 2021-03-26 18:44 | disposition home or self-care (01) ==
LOC: LBN 18:43
PROVIDERS: Visit Provider Nurse Practitioner Family
DX: N39.0 Urinary tract infection, site not specified (principal)
CPT/HCPCS: 87077; 81003; 81015; 87086; 87186

== ENCOUNTER 2021-06-14 14:20 | Emergency (ER) | payer MEDICARE, BC, SELFPAY ==
[2021-06-14 14:34] VITALS: BP 184/89; PULSE 89; RESP 16; TEMP 36.2; O2SAT 98
--- NOTE | 2021-06-14 14:45 | DI.RAD_ITS ---
Exam(s) XR HAND RT COMPLETE EXAM: XR HAND RT COMPLETE CLINICAL HISTORY: fall with lateral injury. TECHNIQUE: 2D digital imaging was performed. COMPARISON: CR RIGHT HAND COMPLETE from 01/15/2013 FINDINGS: There is a subacute appearing fracture in the proximal half of the proximal phalanx of the 5th finger with mild angulation. No radiopaque foreign body. Advanced degenerative changes are noted in the DIP joints. IMPRESSION: There is a fracture in the proximal half of the proximal phalanx of the 5th finger. This may not be acute. Probable subacute. DATA REPOSITORY: RADIATION DOSE DELIVERED:
--- NOTE | 2021-06-14 15:49 | ED.GENADUL_ITS ---
Discharge Plan Disposition Patient Disposition: HOME Condition: Stable Discharge Details Clinical Impression: Fracture of proximal phalanx of digit of right hand Primary Care Provider: Tootie Rodriguez ED Provider: Phillip Sam Home Meds and New Rx's Prescriptions: Continued betamethasone, augmented 0.05 % cream 1 applic Topical every other day Qty: 1 3RF Rx Instructions: Apply sparingly to forehead eruption every other day as needed to reduce inflammation. losartan 100 mg tablet 100 mg PO DAILY Qty: 90 3RF acamprosate 333 mg tablet,delayed release (DR/EC) 333 mg PO BID Qty: 60 6RF Rx Instructions: administer with mid-day and evening meals nystatin 100,000 unit/gram powder 1 applic topical QID Qty: 60 1RF phenazopyridine [Pyridium] 100 mg tablet 100 mg PO TID PRN (Reason: pain) Qty: 6 0RF Rx Instructions: May take 1 tab every 8 hours for bladder spasms metronidazole [MetroCream] 0.75 % cream 1 applic Topical BID Qty: 1 3RF amlodipine 2.5 mg tablet 2.5 mg PO BID Qty: 180 3RF vitamin B complex [B-Complex] 1 EACH tablet 1 ea PO DAILY PRN0RF Label Comments: 11/12/14 takes when drinking multivitamin 1 EACH capsule 1 ea PO DAILY 0RF ibuprofen 600 MG tablet 600 mg PO tid prn Qty: 90 3RF sertraline [Zoloft] 50 mg tablet 75 mg PO DAILY Qty: 135 4RF Discharge Instructions Instructions: Finger Fracture (ED) Additional Instructions: Please keep splinting on until you see orthopedist. You have been placed on the orthopedic follow-up list but if you do not hear from them in the next couple days please call their office for arrangement of follow-up appointment. You may continue to take ibuprofen as needed for discomfort and feel free to return for any new or significant worsening of your symptoms. Referrals: [facility] [Provider Group] Discharge Data Discharge Date/Time-TO BE ENTERED AT DEPARTURE: 06/14/21 16:07 Medical Decision Making Patient reports slip and fall with right hand injury 10 days ago. Physical exam shows no to minimal rotation but angulation towards the ulnar aspect. Patient does have tenderness to the proximal fifth phalanx Radiological imaging shows proximal phalanx fracture with radiologist stating that subacute which correlates to injury 10 days ago. Patient placed in boxer splint and placed on orthopedic list for follow-up. HPI General Mode of arrival: ambulatory . Date/Time Provider Initiated Documentation: 06/14/21 14:41 . Limitations to Documentation: no limitations . Information obtained by: patient . History of Present Illness 81 year old F presents to the emergency department with the chief complaint of Fall with injury to hand little finger, described as moderate, with intensity rated at 5. Quality is described as aching, and is localized to the right and upper extremity. Patient reports no radiation. Patient started experiencing this day(s) (10) and it has been constant. improves with Rest improves symptom(s), Movement worsens symptoms . Patient notes no other symptoms.. Patient did receive the following treatments prior to arrival, NSAID Related Data Home Medications Medication Instructions Recorded Confirmed multivitamin 1 ea PO DAILY 10/10/12 06/14/21 vitamin B complex (B-Complex) 1 ea PO DAILY PRN 10/10/12 06/14/21 ibuprofen 600 mg tablet 600 mg PO tid prn #90 tab-cap 11/04/14 06/14/21 metronidazole 0.75 % topical cream 1 applic TOPICAL BID #1 tube 01/15/19 06/14/21 (MetroCream) betamethasone, augmented 0.05 % 1 applic TOPICAL every other day 01/23/20 06/14/21 topical cream #1 tube sertraline 50 mg tablet (Zoloft) 75 mg PO DAILY #135 tab-cap 01/13/21 06/14/21 losartan 100 mg tablet 100 mg PO DAILY #90 tab 01/25/21 06/14/21 acamprosate 333 mg tablet,delayed 333 mg PO BID #60 tab 02/06/21 06/14/21 release phenazopyridine 100 mg tablet 100 mg PO TID PRN #6 tab 03/26/21 06/14/21 (Pyridium) nystatin 100,000 unit/gram topical 1 applic TOPICAL QID #60 g 04/13/21 06/14/21 powder amlodipine 2.5 mg tablet 2.5 mg PO BID #180 tab 05/25/21 06/14/21 Previous Rx's Medication Instructions Recorded metronidazole 0.75 % topical cream 1 applic TOPICAL BID #1 tube 01/15/19 (MetroCream) betamethasone, augmented 0.05 % 1 applic TOPICAL every other day 01/23/20 topical cream #1 tube sertraline 50 mg tablet (Zoloft) 75 mg PO DAILY #135 tab-cap 01/13/21 losartan 100 mg tablet 100 mg PO DAILY #90 tab 01/25/21 acamprosate 333 mg tablet,delayed 333 mg PO BID #60 tab 02/06/21 release phenazopyridine 100 mg tablet 100 mg PO TID PRN #6 tab 03/26/21 (Pyridium) nystatin 100,000 unit/gram topical 1 applic TOPICAL QID #60 g 04/13/21 powder amlodipine 2.5 mg tablet 2.5 mg PO BID #180 tab 05/25/21 Allergies Allergy/AdvReac Type Severity Reaction Status Date / Time morphine Allergy Severe ITCHING Verified 06/14/21 14:38 propoxyphene AdvReac Severe HALLUCINATI Verified 06/14/21 14:38 ONS naproxen AdvReac Intermediate RETAINS Verified 06/14/21 14:38 FLUID General Stated Complaint: Orthopedic JAELYN: 4 Review of Systems Cardiovascular Cardiovascular: Denies syncope Musculoskeletal Musculoskeletal: Reports as per HPI, Denies numbness and Denies tingling Integumentary/Breasts Skin/Breast: Denies rash, Denies sores and Denies wounds Neurologic Neurologic: Denies syncope, Denies numbness and Denies tingling PFSH All Active Problems (Updated 06/14/21 @ 15:52 by Phillip Sam NP) Fracture of proximal phalanx of digit of right hand (Acute) Grief (Chronic) Vaginitis and vulvovaginitis in diseases classified elsewhere (Acute) Immunization due (Acute) Vulval edema (Acute) Elevated fasting glucose (Acute) Alcohol intake above recommended sensible limits (Acute) Breast lump (Acute 01/09/12) History of appendectomy (Acute) History of total right hip replacement (Acute 11/12/14) Status post abdominal hysterectomy (Acute) Status post breast biopsy (Acute) Status post tonsillectomy and adenoidectomy (Acute) Sensory hearing loss, bilateral (Acute) Macular edema (Acute ~09/14/18) 09/14/18 [facility] [place]- Tibial plateau fracture, left (Acute 05/10/18) Osteoarthritis (Acute) RIGHT HAND AND EROSIONS MEDIAL ASPECT 5TH MCP right hip-mild to moderate-03/2009 Stress incontinence (Acute) Rosacea (Acute) Hypertensive retinopathy of both eyes (Acute) 04/28/15; [facility] Hypertension goal BP (blood pressure) < 140/80 (Acute 08/10/15) Family hx-breast malignancy (Acute) HX of right breast biopsy-neg. Depressive disorder (Acute 01/09/12) Taking Sertraline 75mg QD for her depression. Symptoms are stable. Denies SI. She agrees to reach out if symptoms change. F/U in 2 months as this time of year is often difficult. Cystoid macular degeneration of right eye (Acute) 04/28/15; [facility] Cough (Acute 04/26/17) Central retinal vein occlusion of right eye (Acute) 04/28/15; [facility] Alcohol abuse (Acute 08/10/15) No change. Weeks of abstinence rotating with binges. We have discussed the long term acute care registered nurse affect on many occasions. She has resources to call upon if she chooses. Monitor. Age-related nuclear cataract, bilateral (Acute) 04/28/15; [facility] Osteoarthritis of left hip (Acute 07/02/14) Hip joint replacement status (Acute 07/02/14) H/O surgical procedure (Chronic) A. Abdominal hysterectomy with subsequent appendectomy (ovaries spared) B. T&A C. Right breast lumpectomy (benign) Depression (Chronic) Alcohol dependence (Chronic) Screening for colorectal cancer (Acute) Medical History Alcohol abuse Eye Procedure([facility] [place] - Dr. Ruiz) fluid... fluid where it should not be HTN (hypertension) Osteoarthritis Surgical History Abdominal hysterectomy (~1973) HAS OVARIES H/O UTERINE FIBROIDS Appendectomy (~1973) Biopsy of breast Colonoscopy - IV Sedation (01/25/16) Tonsillectomy and adenoidectomy Total replacement of hip (07/03/14) Left Total replacement of hip (11/12/14) DR. MATUTE; RIGHT Family History Mother , AGE 93 Myocardial infarction Heart disease Father , age 84 Cancer Sister Essential hypertension Hyperlipidemia Breast cancer X 3 Maternal Grandfather , age 80 Heart disease Paternal Grandfather , AGE 58 No problems noted. Maternal Grandmother , age 68 Stroke Paternal Grandmother , AGE 84 No problems noted. Social History Smoking/Tobacco Use Status: Former Tobacco Use Quit Date: 05/01/97 Second Hand Exposure: Yes Smoking risk assessment performed?: Yes Alcohol Intake: current Alcohol Intake frequency: 3 or more drinks per day Alcohol type: wine Drug use: Never Substance use type: does not use Caregiver/Support person: No Household members: none Housing: house Communication Needs: Hard of Hearing and Corrective Lenses Do you need help understanding health information?: Rarely Pets and animals: Yes Pets and animals: cat(s) Sexually active: No Do you think of yourself as: straight/heterosexual Current gender identity: female What is your relationship status?: How often do you talk on the phone with friends or family?: three or more times per week How often do you get together with friends or relatives?: twice per week How often do you attend jehovah's witness or mosque services?: 4 or more times per year Do you belong to any clubs or organized social groups?: no Panel score (0-1 are the most socially isolated patients): 2 Duration: 15-30 minutes/day Frequency: 5-6 times per week Nan/Zoroastrianism: Mu-Ism Special ann needs: No Seatbelt use: always Drive intox or ride w/intox pickup driver: No Exam Const General: cooperative, no acute distress and not ill appearing Orientation: alert, awake and oriented x3 Resp Effort & Inspection: normal respiratory effort, able to speak in complete sentences and no respiratory distress Cardio Rate: regular rate Rhythm: regular rhythm Pulses: radial pulses present Skin General skin exam: no rashes or lesions noted Neuro General: patient alert, patient awake and patient oriented x3 Sensory Exam: no sensory deficits noted Extrem General: normal exam except as noted Right upper extremity: hand Details: normal capillary refill, neuromotor exam normal, neurosensory exam normal, tenderness Location: of the 5th digit Location: at the proximal phalanx, abnormal ROM of finger Details: unable to flex Location: of the 5th digit (Partial flexion is noted but not full rom), swelling Location: of the dorsal hand Location: over the ulnar aspect and of the 5th digit and ecchymosis Location: of the dorsal hand Location: over the ulnar aspect and of the 5th digit Course Vital Signs Vital signs: Vital Signs Temperature 36.2 C L 06/14/21 14:34 Pulse 89 06/14/21 14:34 Respiratory Rate 16 06/14/21 14:34 Blood Pressure 184/89 H 06/14/21 14:34 Pulse Oximetry 98 06/14/21 14:34 Temperature 36.2 C L 06/14/21 14:34 Temperature Source Skin 06/14/21 14:34 Pulse 89 06/14/21 14:34 Respiratory Rate 16 06/14/21 14:34 Respiratory Effort 06/14/21 14:34 Blood Pressure 184/89 H 06/14/21 14:34 Blood Pressure Position Sitting 06/14/21 14:34 Pulse Oximetry 98 06/14/21 14:34 Oxygen Delivery Method Room Air 06/14/21 14:34 Oxygen Flow Rate 0 06/14/21 14:34 Pain Level 4 06/14/21 14:34 PAWSS Have you Been Recently Intoxicated or Drunk Within the Last 30 days?: Yes Have you Ever Experienced Previous Episodes of Alcohol Withdrawal?: No Have you ever Experienced Withdrawal Seizures?: No Have you ever Experienced Delirium Tremens(DT)s?: No Have you ever undergone Alcohol Rehabilitation Treatment (i.e, inpt ot outpatient treatment programs)?: No Have you ever Experienced Blackouts?: Yes Have you ever Combined Alcohol with other Downers within the last 90 days?: No Have you ever Combined Alcohol with any other Substance of Abuse during the last 90 days?: No Positive Blood Alcohol level on Presentation? [PCS.BAL]: No Evidence of Increased Autonomic Activity (i.e. HR>120, tremor, sweating, agitation, nausea)?: No Result: 2
[2021-06-14] MEDS: Ibuprofen 600 MG TAB PO (15:55)
--- NOTE | 2021-06-14 17:34 | NUR.NOTE ---
splint put on by provider.Nursing Note:
== END 2021-06-14 16:07 | disposition home or self-care (01) ==
PROVIDERS: Emergency Provider Nurse Practitioner Family
DX: S62.616A Displaced fracture of proximal phalanx of right little finger, initial encounter for closed fracture (principal); W18.39XA Other fall on same level, initial encounter
CPT/HCPCS: 29125; 99283; 73130

== ENCOUNTER 2021-06-23 09:19 | Outpatient (CLI) | payer MEDICARE, BC, SELFPAY ==
--- NOTE | 2021-06-23 09:00 | DI.RAD_ITS ---
Exam(s) XR FINGER RT LITTLE EXAM: XR FINGER RT LITTLE CLINICAL HISTORY: right little finger fracture. TECHNIQUE: 2D digital imaging was performed. COMPARISON: CR XR HAND RT COMPLETE from 06/14/2021 FINDINGS: BONES: No change in the alignment of the fracture of the proximal phalanx. Mild callus formation. N o bony destructive lesion is seen. JOINTS: No dislocation present. Degenerative changes greatest at the distal interphalangeal joint. SOFT TISSUE: No foreign body. IMPRESSION: Healing fracture of the proximal phalanx. No change in alignment. DATA REPOSITORY: RADIATION DOSE DELIVERED:
== END 2021-06-23 09:20 | disposition home or self-care (01) ==
LOC: DIORS 09:20
PROVIDERS: Visit Provider Physician Assistant
DX: S62.619D Displaced fracture of proximal phalanx of unspecified finger, subsequent encounter for fracture with routine healing (principal); W19.XXXA Unspecified fall, initial encounter
CPT/HCPCS: 99213; 73140

== ENCOUNTER 2021-06-26 11:38 | Emergency (ER) | payer MEDICARE, BC, SELFPAY ==
[2021-06-26 11:47] VITALS: BP 173/95; PULSE 82; RESP 14; TEMP 36.8; O2SAT 97
--- NOTE | 2021-06-26 12:00 | DI.RAD_ITS ---
Exam(s) XR TIB/FIB LT XR ANKLE LT COMPLETE XR KNEE LT 3V AP,LAT,JOANNA EXAM: XR TIB/FIB LT and XR ankle left complete and XR knee left CLINICAL HISTORY: fall, pain, hardware. TECHNIQUE: 2D digital imaging was performed of the left tibia and fibula. Eight images were obtained . AP and lateral views were obtained. COMPARISON: CR XR knee LT 2V AP,lat from 07/19/2018 FINDINGS: BONES: There is an acute nondisplaced fracture of the tip of the medial malleolus. There is an obliq ue nondisplaced fracture of the lateral malleolus. The ankle mortise appears well maintained. There is an old healed lateral tibial plateau fracture. Side plates and screws are seen in the proximal t ibia. No bony destructive lesion is seen. There is a small knee joint effusion. There is an entheso phyte at the superior patella. SOFT TISSUE: There is soft tissue swelling about the ankle, lateral greater than medial. IMPRESSION: 1. Acute nondisplaced fractures involving both the medial and lateral malleoli. There is associated soft tissue swelling about the ankle. 2. No other acute fracture or dislocation. 3. Small knee joint effusion. DATA REPOSITORY: RADIATION DOSE DELIVERED:
--- NOTE | 2021-06-26 14:29 | DI.VRAD_ITS ---
PROCEDURE INFORMATION: Exam: XR Left Tibia and Fibula Exam date and time: 06/26/2021 12:08 PM Age: 81 years old Clinical indication: Other: Fall, pain; Prior surgery; Surgery date: 6+ months; Surgery type: Orif left tib fib may 2017; Additional info: Didn't repeat images to include ankle joint due to having ankle exam too. TECHNIQUE: Imaging protocol: XR Left tibia and fibula. Views: 2 views. COMPARISON: OT XR tib/fib LT 05/16/2018 1:13 PM FINDINGS: Bones/joints: Status post ORIF proximal tibia. The distal tibia and fibula are not completely included on this exam. See separate ankle report. There is no evidence for acute fracture. Lateral compartment degenerative changes noted. Soft tissues: Normal. IMPRESSION: Status post ORIF proximal tibia. No evidence for fracture. Dictated and Authenticated by: Mahi Caldera MD. Ordering:NGUYỄN Gregory MD
--- NOTE | 2021-06-26 14:31 | DI.VRAD_ITS ---
PROCEDURE INFORMATION: Exam: XR Left Ankle Exam date and time: 06/26/2021 12:08 PM Age: 81 years old Clinical indication: Other: Fall, pain; Additional info: Didn't repeat images to include ankle joint due to having ankle exam too. TECHNIQUE: Imaging protocol: XR Left ankle. Views: 3 or more views. COMPARISON: CR XR TIB/FIB LT 06/26/2021 2:02 PM FINDINGS: Bones/joints: See Soft tissues finding. Soft tissues: There appears to be a subtle avulsion fracture of the medial malleolus with soft tissue swelling. There is lateral malleolar soft tissue swelling with a nondisplaced distal fibular fracture. There may be some very mild widening of the ankle mortise, uncertain chronicity. There are mild degenerative changes present. IMPRESSION: Distal fibular and tibial fractures, nondisplaced. Dictated and Authenticated by: Mahi Caldera MD. Ordering:NGUYỄN Gregory MD
--- NOTE | 2021-06-26 14:34 | DI.VRAD_ITS ---
PROCEDURE INFORMATION: Exam: XR Left Knee Exam date and time: 06/26/2021 12:08 PM Age: 81 years old Clinical indication: Other: Pain, fall; Prior surgery; Surgery date: 6+ months; Surgery type: Orif left tib fib may 2017; Additional info: Didn't repeat images to include ankle joint due to having ankle exam too. TECHNIQUE: Imaging protocol: XR Left knee. Views: 3 views. COMPARISON: CR XR knee LT 2V AP,lat 07/19/2018 10:54 AM FINDINGS: Bones/joints: Status post ORIF lateral tibia. There are associated lateral degenerative changes. Alignment is anatomic without evidence for acute fracture. Minimal joint effusion present. Soft tissues: Normal. IMPRESSION: No evidence for fracture. Dictated and Authenticated by: Mahi Caldera MD. Ordering:NGUYỄN Gregory MD
--- NOTE | 2021-06-26 14:57 | W.ED.GENAD ---
Discharge Plan Disposition Patient Disposition: HOME Condition: Stable Discharge Details Clinical Impression: Bimalleolar ankle fracture Primary Care Provider: Tootie Rodriguez ED Provider: Bri Simmons Home Meds and New Rx's Prescriptions: New hydrocodone-acetaminophen 5-325 mg tablet 1 tab PO Q12H PRNQty: 8 0RF Continued betamethasone, augmented 0.05 % cream 1 applic Topical every other day Qty: 1 3RF Rx Instructions: Apply sparingly to forehead eruption every other day as needed to reduce inflammation. losartan 100 mg tablet 100 mg PO DAILY Qty: 90 3RF nystatin 100,000 unit/gram powder 1 applic topical QID Qty: 60 1RF metronidazole [MetroCream] 0.75 % cream 1 applic Topical BID Qty: 1 3RF amlodipine 2.5 mg tablet 2.5 mg PO BID Qty: 180 3RF vitamin B complex [B-Complex] 1 EACH tablet 1 ea PO DAILY PRN0RF Label Comments: 11/12/14 takes when drinking multivitamin 1 EACH capsule 1 ea PO DAILY 0RF ibuprofen 600 MG tablet 600 mg PO tid prn Qty: 90 3RF sertraline [Zoloft] 50 mg tablet 75 mg PO DAILY Qty: 135 4RF Discharge Instructions Instructions: Leg Fracture (ED) Additional Instructions: You must follow-up with orthopedics on Monday Ambulates with your walking boot Take pain medication as needed, use caution as this medication is addictive, do not drive while taking this medication Ice, elevate Return earlier should you have new or worsening complaints Referrals: Wilfredo Nova MD [ [facility] STAFF PHYSICIAN] - Discharge Data Discharge Date/Time-TO BE ENTERED AT DEPARTURE: 06/26/21 15:58 Medical Decision Making Patient has a rolling walker at home, she feels comfortable discharge home and requests discharge home She is placed in a long boot after discussion with Dr. Nova, orthopedist given patient bimalleolar fracture on x-ray At this time I think patient is stable for discharge home, she is ambulatory with steady gait with assistive devices and feels comfortable with discharge She is given a very small amount of opiate analgesia and will return immediately should she have new or worsening complaints She is placed on orthopedic follow-up list and instructed to call them on Monday if she does not hear from them at that time Her tib-fib x-ray does not show evidence of acute abnormality and her knee x-ray is within normal limits with operative hardware previously placed intact her radiology interpretation in my review She is not under the influence of any alcohol at time of my clinical assessment stable for discharge Medical Records Medical records reviewed: Yes I reviewed the patient's medical records. HPI General Date/Time Provider Initiated Documentation: 06/26/21 11:59. HPI Narrative: This 81-year female with history of alcoholism, hypertension, depression presents status post fall on ice yesterday. Patient states she was able to ambulate her injury. She is that she woke this morning she has pain into her left lower leg and ankle. She denies any additional injuries. She specifically denies any head injury or loss of consciousness. She denies any diminished sensation to the affected extremity. She has had prior surgery to her lower leg. Denies history of coagulopathy. Was not under the influence of alcohol when the event occurred per patient. Denies any abdominal pain, chest pain, shortness of breath, dizziness, head injury, loss of consciousness, nausea, vomiting. Related Data Home Medications Medication Instructions Recorded Confirmed multivitamin 1 ea PO DAILY 10/10/12 06/26/21 vitamin B complex (B-Complex) 1 ea PO DAILY PRN 10/10/12 06/26/21 ibuprofen 600 mg tablet 600 mg PO tid prn #90 tab-cap 11/04/14 06/26/21 metronidazole 0.75 % topical cream 1 applic TOPICAL BID #1 tube 01/15/19 06/26/21 (MetroCream) betamethasone, augmented 0.05 % 1 applic TOPICAL every other day 01/23/20 06/26/21 topical cream #1 tube sertraline 50 mg tablet (Zoloft) 75 mg PO DAILY #135 tab-cap 01/13/21 06/26/21 losartan 100 mg tablet 100 mg PO DAILY #90 tab 01/25/21 06/26/21 nystatin 100,000 unit/gram topical 1 applic TOPICAL QID #60 g 04/13/21 06/26/21 powder amlodipine 2.5 mg tablet 2.5 mg PO BID #180 tab 05/25/21 06/26/21 hydrocodone 5 mg-acetaminophen 325 1 tab PO Q12H PRN #8 tab 06/26/21 mg tablet Previous Rx's Medication Instructions Recorded metronidazole 0.75 % topical cream 1 applic TOPICAL BID #1 tube 01/15/19 (MetroCream) betamethasone, augmented 0.05 % 1 applic TOPICAL every other day 01/23/20 topical cream #1 tube sertraline 50 mg tablet (Zoloft) 75 mg PO DAILY #135 tab-cap 01/13/21 losartan 100 mg tablet 100 mg PO DAILY #90 tab 01/25/21 nystatin 100,000 unit/gram topical 1 applic TOPICAL QID #60 g 04/13/21 powder amlodipine 2.5 mg tablet 2.5 mg PO BID #180 tab 05/25/21 hydrocodone 5 mg-acetaminophen 325 1 tab PO Q12H PRN #8 tab 06/26/21 mg tablet Allergies Allergy/AdvReac Type Severity Reaction Status Date / Time morphine Allergy Severe ITCHING Verified 06/26/21 11:50 propoxyphene AdvReac Severe HALLUCINATI Verified 06/26/21 11:50 ONS naproxen AdvReac Intermediate RETAINS Verified 06/26/21 11:50 FLUID General Stated Complaint: Orthopedic JAELYN: 3 Review of Systems All systems reviewed & are unremarkable except as noted in HPI and below PFSH All Active Problems (Updated 06/26/21 @ 15:16 by NATAN Dale) Fracture of proximal phalanx of digit of right hand (Acute) Bimalleolar ankle fracture (Acute) Grief (Chronic) Vaginitis and vulvovaginitis in diseases classified elsewhere (Acute) Immunization due (Acute) Vulval edema (Acute) Elevated fasting glucose (Acute) Alcohol intake above recommended sensible limits (Acute) Breast lump (Acute 01/09/12) History of appendectomy (Acute) History of total right hip replacement (Acute 11/12/14) Status post abdominal hysterectomy (Acute) Status post breast biopsy (Acute) Status post tonsillectomy and adenoidectomy (Acute) Sensory hearing loss, bilateral (Acute) Macular edema (Acute ~09/14/18) 09/14/18 [facility] Tibial plateau fracture, left (Acute 05/10/18) Osteoarthritis (Acute) RIGHT HAND AND EROSIONS MEDIAL ASPECT 5TH MCP right hip-mild to moderate-03/2009 Stress incontinence (Acute) Rosacea (Acute) Hypertensive retinopathy of both eyes (Acute) 04/28/15; [facility] Hypertension goal BP (blood pressure) < 140/80 (Acute 08/10/15) Family hx-breast malignancy (Acute) HX of right breast biopsy-neg. Depressive disorder (Acute 01/09/12) Taking Sertraline 75mg QD for her depression. Symptoms are stable. Denies SI. She agrees to reach out if symptoms change. F/U in 2 months as this time of year is often difficult. Cystoid macular degeneration of right eye (Acute) 04/28/15; [facility] Cough (Acute 04/26/17) Central retinal vein occlusion of right eye (Acute) 04/28/15; [facility] Alcohol abuse (Acute 08/10/15) No change. Weeks of abstinence rotating with binges. We have discussed the alf affect on many occasions. She has resources to call upon if she chooses. Monitor. Age-related nuclear cataract, bilateral (Acute) 04/28/15; [facility] Osteoarthritis of left hip (Acute 07/02/14) Hip joint replacement status (Acute 07/02/14) H/O surgical procedure (Chronic) A. Abdominal hysterectomy with subsequent appendectomy (ovaries spared) B. T&A C. Right breast lumpectomy (benign) Depression (Chronic) Alcohol dependence (Chronic) Screening for colorectal cancer (Acute) Medical History Alcohol abuse Eye Procedure([facility] - Dr. Ruiz) fluid... fluid where it should not be HTN (hypertension) Osteoarthritis Surgical History Abdominal hysterectomy (~1973) HAS OVARIES H/O UTERINE FIBROIDS Appendectomy (~1973) Biopsy of breast Colonoscopy - IV Sedation (01/25/16) Tonsillectomy and adenoidectomy Total replacement of hip (07/03/14) Left Total replacement of hip (11/12/14) DR. MATUTE; RIGHT Family History Mother , AGE 93 Myocardial infarction Heart disease Father , age 84 Cancer Sister Essential hypertension Hyperlipidemia Breast cancer X 3 Maternal Grandfather , age 80 Heart disease Paternal Grandfather , AGE 58 No problems noted. Maternal Grandmother , age 68 Stroke Paternal Grandmother , AGE 84 No problems noted. Social History Smoking/Tobacco Use Status: Former Tobacco Use Quit Date: 05/01/97 Second Hand Exposure: Yes Smoking risk assessment performed?: Yes Alcohol Intake: current Alcohol Intake frequency: 3 or more drinks per day Alcohol type: wine Drug use: Never Substance use type: does not use Caregiver/Support person: No Household members: none Housing: house Communication Needs: Hard of Hearing and Corrective Lenses Do you need help understanding health information?: Rarely Pets and animals: Yes Pets and animals: cat(s) Sexually active: No Do you think of yourself as: straight/heterosexual Current gender identity: female What is your relationship status?: How often do you talk on the phone with friends or family?: three or more times per week How often do you get together with friends or relatives?: twice per week How often do you attend jainism or restorationist services?: 4 or more times per year Do you belong to any clubs or organized social groups?: no Panel score (0-1 are the most socially isolated patients): 2 Duration: 15-30 minutes/day Frequency: 5-6 times per week Ann/Taoism: Shinto Special ann needs: No Seatbelt use: always Drive intox or ride w/intox horse and wagon driver: No Do you feel safe at home: Yes Exam Const General: cooperative, no acute distress and does not appear intoxicated Orientation: alert and oriented x3 HENMT Head: normal to inspection Other: Uvula midline, no hemotympanum, no visible evidence of trauma, no scalp or bony tenderness Eyes Pupils: PERRL EOM: EOM intact bilaterally Neck Other: No midline tenderness, no visible evidence of trauma Chest Chest: normal inspection of the chest Other: No palpable tenderness or ecchymosis Resp Effort & Inspection: normal respiratory effort Other: No evidence of trauma, no crepitus Cardio Rate: regular rate Rhythm: regular rhythm GI Other: No abdominal tenderness or visible evidence of trauma Back/Spine/Pelvis Other: No visible evidence of trauma, no tenderness to thoracic or lumbar spine Skin General skin exam: no rashes or lesions noted Neuro General: patient alert and patient oriented x3 Other: GCS 15, alert and oriented x4, strength and sensation intact distally Extrem Other: Tenderness, ecchymosis to left lateral ankle, swelling, distal pulses intact, sensation intact Mild tenderness to proximal knee, no visible evidence of trauma No tenderness to left foot Course Vital Signs Vital signs: Vital Signs Temperature 36.8 C 06/26/21 11:47 Pulse 82 06/26/21 11:47 Respiratory Rate 14 06/26/21 11:47 Blood Pressure 173/95 H 06/26/21 11:47 Pulse Oximetry 97 06/26/21 11:47 Temperature 36.8 C 06/26/21 11:47 Temperature Source Temporal Artery Scan 06/26/21 11:47 Pulse 82 06/26/21 11:47 Respiratory Rate 14 06/26/21 11:47 Respiratory Effort Non-Labored 06/26/21 11:52 Blood Pressure 173/95 H 06/26/21 11:47 Blood Pressure Position Sitting 06/26/21 11:47 Pulse Oximetry 97 06/26/21 11:47 Oxygen Delivery Method Room Air 06/26/21 11:47 Oxygen Flow Rate 0 06/26/21 11:47 Pain Level 6 06/26/21 11:47 PAWSS Have you Been Recently Intoxicated or Drunk Within the Last 30 days?: No Have you Ever Experienced Previous Episodes of Alcohol Withdrawal?: No Have you ever Experienced Withdrawal Seizures?: No Have you ever Experienced Delirium Tremens(DT)s?: No Have you ever undergone Alcohol Rehabilitation Treatment (i.e, inpt ot outpatient treatment programs)?: No Have you ever Experienced Blackouts?: Yes Have you ever Combined Alcohol with other Downers within the last 90 days?: No Have you ever Combined Alcohol with any other Substance of Abuse during the last 90 days?: No Positive Blood Alcohol level on Presentation? [PCS.BAL]: No Evidence of Increased Autonomic Activity (i.e. HR>120, tremor, sweating, agitation, nausea)?: No Result: 1
--- NOTE | 2021-06-26 18:31 | NUR.NOTE ---
consult request faxed to [facility]/Bri Villalobos also spoken to Dr. Nova
--- NOTE | 2021-07-04 13:53 | NUR.NOTE ---
Nursing Note: Accessed patient chart to get more information for [facility]. Lisbeth Dia
== END 2021-06-26 15:58 | disposition home or self-care (01) ==
PROVIDERS: Emergency Provider Physician Assistant
DX: S82.842A Displaced bimalleolar fracture of left lower leg, initial encounter for closed fracture (principal); M25.562 Pain in left knee; W00.0XXA Fall on same level due to ice and snow, initial encounter
CPT/HCPCS: 29125; 73562; 99284; 73590; 73610; 99283

== ENCOUNTER 2021-07-05 14:34 | Outpatient (CLI) | payer MEDICARE, BC, SELFPAY ==
--- NOTE | 2021-07-05 13:30 | DI.RAD_ITS ---
Exam(s) XR ANKLE LT 2V EXAM: XR ANKLE LT 2V INDICATION: follow up. COMPARISON: CR,XR XR ANKLE LT COMPLETE from 06/26/2021 TECHNIQUE: 2D digital imaging was performed. AP and lateral views. FINDINGS: There has been no change in the alignment of the distal fibular fracture and fracture at the tip of t he medial malleolus. No new abnormalities. DATA REPOSITORY: RADIATION DOSE DELIVERED:
--- NOTE | 2021-07-05 13:45 | DI.RAD_ITS ---
Exam(s) XR FINGER RT LITTLE EXAM: XR FINGER RT LITTLE INDICATION: follow up. COMPARISON: No exams were available for comparison TECHNIQUE: 2D digital imaging was performed. Three views. FINDINGS: There has been no change in the alignment of the previously noted fracture at the base of the proxima l phalanx of the little finger. There is increased callus formation indicating continued healing. A dvanced degenerative changes of the interphalangeal joints of the fingers are again noted. No new ab normalities. DATA REPOSITORY: RADIATION DOSE DELIVERED:
== END 2021-07-05 14:35 | disposition home or self-care (01) ==
LOC: DIORS 14:35
PROVIDERS: Visit Provider Physician Assistant Surgical
DX: S62.616D Displaced fracture of proximal phalanx of right little finger, subsequent encounter for fracture with routine healing (principal); S82.842D Displaced bimalleolar fracture of left lower leg, subsequent encounter for closed fracture with routine healing; W00.9XXD Unspecified fall due to ice and snow, subsequent encounter
CPT/HCPCS: 99214; 73140; 73600

== ENCOUNTER 2021-08-02 15:48 | Outpatient (CLI) | payer MEDICARE, BC, SELFPAY ==
--- NOTE | 2021-08-02 13:45 | DI.RAD_ITS ---
Exam(s) XR ANKLE LT 2V EXAM: XR ANKLE LT 2V CLINICAL HISTORY: fu L BIMALLEOLAR ANKLE FRACTURE. TECHNIQUE: 2D digital imaging was performed. COMPARISON: CR XR ANKLE LT 2V from 07/05/2021 FINDINGS: Two views Previously described fractures of the medial and lateral malleoli are again noted. Minimal healing. No further displacement. Talar dome unremarkable. Inferior calcaneal spur again noted. IMPRESSION: DATA REPOSITORY: RADIATION DOSE DELIVERED:
--- NOTE | 2021-08-02 13:45 | DI.RAD_ITS ---
Exam(s) XR FINGER RT LITTLE EXAM: XR FINGER RT LITTLE CLINICAL HISTORY: F/U R LITTLE FINGER FRACTURE. TECHNIQUE: 2D digital imaging was performed. COMPARISON: CR XR FINGER RT LITTLE from 07/05/2021 FINDINGS: 3 views There is no change in the alignment at the fracture site at the base of the proximal phalanx of the 5 th finger. Further increase callus formation is noted at the fracture site. Original fracture line is barely visible. No further displacement nor angulation. Degenerative changes in the interphalang eal joints again noted. IMPRESSION: DATA REPOSITORY: RADIATION DOSE DELIVERED:
== END 2021-08-02 15:49 | disposition home or self-care (01) ==
LOC: DIORS 15:49
PROVIDERS: Referring Provider Student in an Organized Health Care Education/Training Program; Visit Provider Physician Assistant Surgical
DX: S82.842D Displaced bimalleolar fracture of left lower leg, subsequent encounter for closed fracture with routine healing; W00.9XXD Unspecified fall due to ice and snow, subsequent encounter; S62.616D Displaced fracture of proximal phalanx of right little finger, subsequent encounter for fracture with routine healing; X58.XXXD Exposure to other specified factors, subsequent encounter
CPT/HCPCS: 99214; 73140; 73600

== ENCOUNTER 2022-01-12 11:06 | Outpatient (REF) | payer MEDICARE, BC, SELFPAY ==
--- NOTE | 2022-01-12 10:50 | CER_PTH ---
PATIENT: Cristine Pinon LOC: [facility] U#:[id number] AGE/SX: 81/F ROOM: RE01/12/[address]: Karen Lux : 1940 BED: DIS: 01/12/2022 SPEC #: [id number] RECD: 01/12/22 12:48 STATUS: CITLALY REQ #: [id number] JESSE: 01/12/22 10:[address]: Karen Lux DEPT: Surgical Specimen RECD BY: Bri Driscoll ENTERED: 01/12/22 12:49 SP TYPE: BUDDY OSORIO DR: Tootie Rodriguez APRN Tissues: 1 - CERVICAL BIOPSY 2 - CERVICAL BIOPSY Procedures: SKIN LEVEL 4 Comments: [id number]
== END 2022-01-12 11:07 | disposition home or self-care (01) ==
LOC: LBN 11:06
PROVIDERS: Visit Provider Obstetrics & Gynecology Gynecology
DX: L98.8 Other specified disorders of the skin and subcutaneous tissue (principal); N76.89 Other specified inflammation of vagina and vulva; L28.0 Lichen simplex chronicus
CPT/HCPCS: 88305

== ENCOUNTER 2022-02-14 20:03 | Inpatient (IN) | payer MEDICARE, BC, SELFPAY ==
[2022-02-14] VITALS (159 sets, daily range): BP systolic 76–130; BP diastolic 36–69; PULSE 88–111; RESP 19–40; TEMP 37.1; O2SAT 92–98
--- NOTE | 2022-02-14 20:15 | DI.CT_ITS ---
Exam(s) CT ABDOMEN PELVIS W EXAM: CT ABDOMEN PELVIS W CLINICAL HISTORY: n/v and abdominal pain TECHNIQUE: Imaging Protocol: Axial computed tomography images with coronal and sagittal reformatted images were created and reviewed CONTRAST MATERIAL: Intravenous: Omnipaque 350 Contrast volume:100 mL Oral: No COMPARISON: No exams were available for comparison FINDINGS: ABDOMEN: Lung Bases: Small hiatal hernia. Liver: Normal density. There is a tiny hypodensity in the posterior segment of the right lobe of the liver. It is too small for further characterization but likely reflects a small cyst. Portal, Superior Mesenteric, and Splenic Veins: Unremarkable. Gallbladder and Biliary Tract: No radiodense calculus or dilation. Pancreas: Normal density, no abnormal calcifications or inflammatory process. Spleen: Normal. Adrenals: No masses seen. Kidneys: There is a 2 x 1.9 cm hypodense nodule in the medial aspect of the midpole of the right kidn ey. It does not meet the criteria for a simple cysts. The left kidney is enlarged and shows delayed enhancement. There is infiltration of the perirenal soft tissues. There is dilatation of the left renal collecting system down to the level of the urinary bladder. The bladder is obscured by artifac t from the patient's bilateral total hip replacements. There is a question of a stone near the left UVJ. No intrarenal stones are seen. Abdominal Aorta: Abdominal portion non-dilated. Atherosclerosis is present. Bowel: No evidence of bowel obstruction. There is mild wall thickening in loops of proximal small gracy wel and mild fluid-filled loops of distal small bowel are noted. This may represent an infectious or inflammatory enteritis. There is no evidence of appendicitis. There is diverticulosis seen in the descending and sigmoid colon, but no evidence of acute diverticulitis. Peritoneal Cavity: No ascites, collection or mesenteric inflammatory response. No free air. Lymph Nodes: Within normal limits. Bones: Within normal limits for the patient's age. There are bilateral total hip arthroplasties. Soft Tissues: Unremarkable. PELVIS: Bladder: There is diffuse thickening of the wall of the urinary bladder. Large portions of the bladd er are obscured due to artifact from the patient's bilateral total hip arthroplasties. Reproductive Organs: There is a 5.3 x 3.5 cm cyst in the right adnexa. It appears to be ovarian in o rigin. Lymph Nodes: Within normal limits. Bones: Within normal limits for the patient's age. IMPRESSION: 1. Moderate left hydroureteronephrosis. Obstructing stone, mass or stricture at the distal left uret er is suspected. This area is obscured by artifact from the patient's bilateral total hip arthroplas ties. 2. Thickening of the wall of the urinary bladder. This may be due to underdistention. Inflammatory infectious cystitis cannot be excluded. Please correlate clinically. 3. Mild wall thickening in loops of small bowel with fluid-filled small bowel loops which are mildly dilated. No transition point is seen. Infectious or inflammatory enteritis should be considered. P lease correlate clinically. 4. 5.3 x 3.5 cm right adnexal cyst which is likely ovarian. Ultrasound follow-up in 6-12 months is r ecommended. (Linares et al, 2020). 5. 2.1 x 1.9 hypodense nodule in the medial aspect of the right kidney. It is not be in the criteria for a simple cyst. Follow-up with renal ultrasound and or MRI of the kidneys without and with contr ast is recommended. This is an unexpected finding. Unexpected findings RADIATION DOSE DELIVERED: 850.62mGy.cm Total DLP DATA REPOSITORY: All CT scans at this facility are submitted to the National Radiology Data Registry (NRDR) Dose Index Registry (DIR) with the [employer] (ACR). RADIATION OPTIMIZATION: All CT scans at this facility use at least one of these dose optimization te chniques: automated exposure control; mA and/or kV adjustment per patient size (includes targeted exa ms where dose is matched to clinical indication); or iterative reconstruction.
[2022-02-14 20:28] LABS: BE (Venous) -4 mmol/L (-2-3); HCO3 (Venous) 22 mmol/L (23-28); O2 Sat (Venous) 74 %; TCO2 (Venous) 20 mmol/L (24-29); pCO2 (Venous) 37 mmHg (41-51); pH (Venous) 7.37 (7.31-7.41); pO2 (Venous) 41 mmHg
--- NOTE | 2022-02-14 20:29 | W.ED.GENAD ---
Discharge Plan Disposition Patient Disposition: HOME Condition: Stable Discharge Details Chief Complaint: Nausea/Vomit/Diar Clinical Impression: Hypokalemia, Hydronephrosis, left, Hypomagnesemia, Nausea & vomiting Primary Care Provider: Tootie Rodriguez ED Provider: Gavino Cruz Home Meds and New Rx's Prescriptions: No Action sertraline 100 mg tablet 100 mg PO DAILY Qty: 90 3RF naltrexone 50 mg tablet 50 mg PO DAILY Qty: 90 0RF betamethasone dipropionate 0.05 % ointment 1 applic topical BID PRN (Reason: skin irritation) Qty: 45 4RF Rx Instructions: apply tiny amount to tip of middle finger. apply that amount on entire vulva. metronidazole [MetroCream] 0.75 % cream 1 applic Topical BID Qty: 1 3RF amlodipine 2.5 mg tablet 2.5 mg PO BID Qty: 180 3RF vitamin B complex [B-Complex] 1 EACH tablet 1 ea PO DAILY PRN Label Comments: 11/12/14 takes when drinking multivitamin 1 EACH capsule 1 ea PO DAILY ibuprofen 600 MG tablet 600 mg PO tid prn Qty: 90 clotrimazole-betamethasone 1-0.05 % cream See Rx Instructions .ROUTE .COMPLEX Qty: 15 2RF Dose Instruction: APPLY 1 GRAM TOPICALLY TWO TIMES A DAY Rx Instructions: APPLY 1 GRAM TOPICALLY TWO TIMES A DAY losartan 100 mg tablet 100 mg PO DAILY Qty: 90 3RF Medical Decision Making 81 yo female with prior hysterectomy, htn, who comes in with ems with n/v and abdominal pain since Monday. She states she has not been able to keep anything down and feels dehydrated prompting her to come to the ED tonight. She denies chest pain, dyspnea, can't think of anything that makes the symptoms better or worse. She arrives stable speaking in full sentences caox4. She has a distended appearing abdomen and she states she feels more distended then usual, has llq tenderness, no ruq tenderness. Given her n/v and pain will obtain labs to evaluate for pancreatitis and also ct to evaluate for possible sbo among other pathologies. labs show gfr just over 30, mag 1.6, Na 132, K of 2.7. CT shows enteritis vs colitis and also left hydronephrosis with likely stone and possible stricture left distal ureter. Nursing just obtain catheter urine specimen, no fever or leukocytosis so doubt sepsis. She is still not taking po and doesn't feel comfortable going home which I feel is reasonable given electrolyte abnormalities and not taking po along with kidney stone. Will discuss with hospitalist about admission Differential Diagnosis Differential Diagnosis: sbo, gastroenteritis, pancreatitis Medical Records Medical records reviewed: Yes I reviewed the patient's medical records. Imaging Data Radiologic Study: Attestation: I personally reviewed and interpreted this imaging study as follows: Imaging: CT Scan Radiologist's impression: IMPRESSION: 1. Moderate left hydroureteronephrosis. 2. Obstructing stone or stricture at the distal left ureter suspected, obscured by streak artifact. 3. Collapsed urinary bladder. Correlate for any concern of urinary tract infection. 4. Borderline dilated loops of small bowel, without a distinct transition point. Ileus/enteritis suspected. 5. Right ovarian cyst. Ultrasound follow-up in 6-12 months is recommended. (Reference: Vijay) Lab Data Lab results reviewed: Yes I reviewed the patient's lab results. HPI General Mode of arrival: EMS. Date/Time Provider Initiated Documentation: 02/14/22 20:22. Limitations to Documentation: no limitations. Information obtained by: patient. History of Present Illness 81 year old F presents to the emergency department with the chief complaint of n/v, described as moderate, Patient started experiencing this day(s) (2) and it has been intermittent. No relieving factors improve symptom(s), No exacerbating factors reported . Patient notes denies chest pain. Patient did receive the following treatments prior to arrival, none Related Data Home Medications Medication Instructions Recorded Confirmed multivitamin 1 ea PO DAILY 10/10/12 02/14/22 vitamin B complex (B-Complex 1 ea PO DAILY PRN 10/10/12 02/14/22 tablet) ibuprofen 600 mg tablet 600 mg PO tid prn #90 tab-caps 11/04/14 02/14/22 metronidazole 0.75 % topical cream 1 applic topical BID #1 tube 01/15/19 02/14/22 (MetroCream) amlodipine 2.5 mg tablet 2.5 mg PO BID #180 tabs 05/25/21 02/14/22 betamethasone dipropionate 0.05 % 1 applic topical BID PRN skin 10/01/21 02/14/22 topical ointment irritation #45 grams clotrimazole-betamethasone 1 See Rx Instructions .Route 12/29/21 02/14/22 %-0.05 % topical cream .COMPLEX #15 grams losartan 100 mg tablet 100 mg PO DAILY #90 tabs 01/10/22 02/14/22 naltrexone 50 mg tablet 50 mg PO DAILY #90 tabs 01/27/22 02/14/22 sertraline 100 mg tablet 100 mg PO DAILY #90 tab-caps 01/27/22 02/14/22 Previous Rx's Medication Instructions Recorded metronidazole 0.75 % topical cream 1 applic topical BID #1 tube 01/15/19 (MetroCream) amlodipine 2.5 mg tablet 2.5 mg PO BID #180 tabs 05/25/21 betamethasone dipropionate 0.05 % 1 applic topical BID PRN skin 10/01/21 topical ointment irritation #45 grams clotrimazole-betamethasone 1 See Rx Instructions .Route 12/29/21 %-0.05 % topical cream .COMPLEX #15 grams losartan 100 mg tablet 100 mg PO DAILY #90 tabs 01/10/22 naltrexone 50 mg tablet 50 mg PO DAILY #90 tabs 01/27/22 sertraline 100 mg tablet 100 mg PO DAILY #90 tab-caps 01/27/22 Allergies Allergy/AdvReac Type Severity Reaction Status Date / Time morphine Allergy Severe ITCHING Verified 02/14/22 20:15 propoxyphene AdvReac Severe HALLUCINATI Verified 02/14/22 20:15 ONS naproxen AdvReac Intermediate RETAINS Verified 02/14/22 20:15 FLUID General Stated Complaint: Nausea/Vomit/Diar JAELYN: 3 Review of Systems All systems reviewed & are unremarkable except as noted in HPI and below Constitutional Constitutional: Denies chills, Denies fever(s) and Denies weakness Cardiovascular Cardiovascular: Denies chest pain and Denies dyspnea Respiratory Respiratory: Denies cough and Denies dyspnea Genitourinary Genitourinary: Denies dysuria Musculoskeletal Musculoskeletal: Denies joint swelling Neurologic Neurologic: Denies weakness PFSH All Active Problems (Updated 01/27/22 @ 15:24 by Mala Clark NP) Essential hypertension (Acute) History of biopsy (Acute) 12/2021. 2 punch biopsies of vulva obtained. Grief (Chronic) Vaginitis and vulvovaginitis in diseases classified elsewhere (Acute) Immunization due (Acute) Vulval edema (Acute) Elevated fasting glucose (Acute) Alcohol intake above recommended sensible limits (Acute) Breast lump (Acute 01/09/12) History of appendectomy (Acute) History of total right hip replacement (Acute 11/12/14) Status post abdominal hysterectomy (Acute) Status post breast biopsy (Acute) Status post tonsillectomy and adenoidectomy (Acute) Sensory hearing loss, bilateral (Acute) Macular edema (Acute ~09/14/18) 09/14/18 [facility]- Tibial plateau fracture, left (Acute 05/10/18) Osteoarthritis (Acute) RIGHT HAND AND EROSIONS MEDIAL ASPECT 5TH MCP right hip-mild to moderate-03/2009 Stress incontinence (Acute) Rosacea (Acute) Hypertensive retinopathy of both eyes (Acute) 04/28/15; [facility] Hypertension goal BP (blood pressure) < 140/80 (Acute 08/10/15) Family hx-breast malignancy (Acute) HX of right breast biopsy-neg. Depressive disorder (Acute 01/09/12) Taking Sertraline 75mg QD for her depression. Symptoms are stable. Denies SI. She agrees to reach out if symptoms change. F/U in 2 months as this time of year is often difficult. Cystoid macular degeneration of right eye (Acute) 04/28/15; [facility] Cough (Acute 04/26/17) Central retinal vein occlusion of right eye (Acute) 04/28/15; [facility] Alcohol abuse (Acute 08/10/15) No change. Weeks of abstinence rotating with binges. We have discussed the [place] [facility] affect on many occasions. She has resources to call upon if she chooses. Monitor. Age-related nuclear cataract, bilateral (Acute) 04/28/15; [facility] Osteoarthritis of left hip (Acute 07/02/14) Hip joint replacement status (Acute 07/02/14) H/O surgical procedure (Chronic) A. Abdominal hysterectomy with subsequent appendectomy (ovaries spared) B. T&A C. Right breast lumpectomy (benign) Depression (Chronic) Alcohol dependence (Chronic) Screening for colorectal cancer (Acute) Medical History Alcohol abuse Eye Procedure([facility] - Dr. Weissgold) fluid... fluid where it should not be HTN (hypertension) Osteoarthritis Surgical History Abdominal hysterectomy (~1973) HAS OVARIES H/O UTERINE FIBROIDS Appendectomy (~1973) Biopsy of breast Colonoscopy - IV Sedation (01/25/16) Tonsillectomy and adenoidectomy Total replacement of hip (07/03/14) Left Total replacement of hip (11/12/14) DR. MATUTE; RIGHT Family History Mother , AGE 93 Myocardial infarction Heart disease Father , age 84 Cancer Sister Essential hypertension Hyperlipidemia Breast cancer X 3 Maternal Grandfather , age 80 Heart disease Paternal Grandfather , AGE 58 No problems noted. Maternal Grandmother , age 68 Stroke Paternal Grandmother , AGE 84 No problems noted. Social History Smoking/Tobacco Use Status: Former Tobacco Use Quit Date: 05/01/97 Second Hand Exposure: Yes Smoking risk assessment performed?: Yes Alcohol Intake: current Alcohol Intake frequency: 0-2 drinks per day Alcohol type: wine Drug use: Never Substance use type: does not use Details: drinks a bottle of wine every night Caregiver/Support person: No Household members: none Housing: house Communication Needs: Hard of Hearing and Corrective Lenses Do you need help understanding health information?: Rarely Pets and animals: Yes Pets and animals: cat(s) Sexually active: No Do you think of yourself as: straight/heterosexual Current gender identity: female What is your relationship status?: How often do you talk on the phone with friends or family?: three or more times per week How often do you get together with friends or relatives?: twice per week How often do you attend taoist or muslim services?: 4 or more times per year Do you belong to any clubs or organized social groups?: no Panel score (0-1 are the most socially isolated patients): 2 Duration: 15-30 minutes/day Frequency: 5-6 times per week Ann/Orthodox: Scientology Special ann needs: No Seatbelt use: always Drive intox or ride w/intox [employer] hazmat tanker driver: No Do you feel safe at home: Yes History History 3 Para 1 Hx # Term Pregnancies Multiple births Hx # Pregnancies Ectopic pregnancies AB induced Hx Number of Living Children AB spontaneous 2 Exam Const General: no acute distress Orientation: alert HENMT Head: normal to inspection Ears: external ears normal General nose exam: external nose normal Mouth: moist mucous membranes Eyes General: appearance normal, both eyes and all related structures Neck Neck: normal visual inspection Resp Effort & Inspection: normal respiratory effort and able to speak in complete sentences Cardio Rate: regular rate GI Palpation: tender Skin General skin exam: no rashes or lesions noted Neuro General: patient alert and patient oriented x3 Extrem General: normal to inspection Psych Mental Status: mental status grossly normal Course Vital Signs Vital signs: Vital Signs Temperature 37.1 C 02/14/22 20:00 Pulse 111 H 02/14/22 20:00 Respiratory Rate 34 H 02/14/22 20:00 Pulse Oximetry 97 02/14/22 20:00 Temperature 37.1 C 02/14/22 20:00 Temperature Source Oral 02/14/22 20:00 Pulse 111 H 02/14/22 20:00 Respiratory Rate 34 H 02/14/22 20:00 Respiratory Effort 02/14/22 20:00 Pulse Oximetry 97 02/14/22 20:00 Oxygen Delivery Method Room Air 02/14/22 20:00 Oxygen Flow Rate 0 02/14/22 20:00 Pain Level 3 02/14/22 20:00 Lab/Test Results Lab/Test Results: 02/14/22 19:55 Blood Blood Culture - Pending 02/14/22 19:55 Blood Blood Culture - Pending PAWSS Have you Ever Experienced Previous Episodes of Alcohol Withdrawal?: No Have you ever Experienced Withdrawal Seizures?: No Have you ever Experienced Delirium Tremens(DT)s?: No Have you ever undergone Alcohol Rehabilitation Treatment (i.e, inpt ot outpatient treatment programs)?: No Have you ever Experienced Blackouts?: Yes Have you ever Combined Alcohol with other Downers within the last 90 days?: No Have you ever Combined Alcohol with any other Substance of Abuse during the last 90 days?: No Positive Blood Alcohol level on Presentation? [PCS.BAL]: No Evidence of Increased Autonomic Activity (i.e. HR>120, tremor, sweating, agitation, nausea)?: No Result: 1
[2022-02-14 20:30] LABS: Abs Immature Grans 0.04 10^3/uL (0.0-0.06); HCT 35.8 % (36.0-46.0); HGB 12.2 g/dL (11.2-15.7); MCH 31.6 pg (27.0-33.0); MCHC 34.1 % (32.0-36.0); MCV 93 fL (80-95); MPV 10.2 fL (8.0-11.0); Platelet Count 104 10^3/uL (130-400); RBC 3.86 10^6/uL (3.93-5.22); RDW 12.5 % (11.7-14.6); RDW-SD 43.3 fL; WBC 6.49 10^3/uL (4.4-10.8)
[2022-02-14] MEDS: Normal Saline 1,000 ML 1000 ML IV ×2 (20:35→23:08)
[2022-02-14 20:54] LABS: ALT 24 U/L (14-59); AST 28 U/L (15-37); Albumin 2.5 g/dL (3.4-5.0); Alkaline Phosphatase 248 U/L (46-116); Anion Gap 11.6 mmol/L (3-11); BUN 25 mg/dL (7-18); CO2 22.4 mmol/L (21.0-32.0); CREATININE 1.6 mg/dL (0.55-1.02); Calcium 8.7 mg/dL (8.5-10.1); Chloride 98 mmol/L (98-107); Glucose 174 mg/dL (74-106); Lipase 68 U/L (73-393); Magnesium 1.6 mg/dL (1.8-2.4); Sodium 132 mmol/L (136-145); Total Protein 6.5 g/dL (6.4-8.2)
[2022-02-14 20:57] LABS: Potassium 2.7 mmol/L (3.5-5.1)
[2022-02-14 21:03] LABS: COVID-19 PCR Negative (Negative); Influenza A PCR Negative (Negative); Influenza B PCR Negative (Negative); RSV PCR Negative (Negative)
[2022-02-14 21:08] LABS: Bilirubin, Direct 0.6 mg/dL (0.0-0.2)
[2022-02-14 21:11] LABS: Absolute Lymphocyte Count 0.13 10^3/uL (1.2-3.4); Absolute Monocyte Count 0.19 10^3/uL (0.1-0.8); Bands % 14; Diff Comment Manual Differential; Metamyelocytes % 1; RBC Morphology Normal
[2022-02-14] MEDS: Omnipaque 350 MG/ML 100 ML BTL IJ (21:16)
[2022-02-14] MEDS: ACETAMINOPHEN 1,000 MG/100 ML BTL 400 MG IVPB (21:23)
--- NOTE | 2022-02-14 21:50 | DI.VRAD_ITS ---
PROCEDURE INFORMATION: Exam: CT Abdomen And Pelvis With Contrast Exam date and time: 02/14/2022 9:10 PM Age: 81 years old Clinical indication: Other: N/v abdominal pain TECHNIQUE: Imaging protocol: Computed tomography of the abdomen and pelvis with contrast. Radiation optimization: All CT scans at this facility use at least one of these dose optimization techniques: automated exposure control; mA and/or kV adjustment per patient size (includes targeted exams where dose is matched to clinical indication); or iterative reconstruction. Contrast material: OMNIPAQUE 350; Contrast volume: 100 ml; Contrast route: INTRAVENOUS (IV); COMPARISON: CR PELVIS AP 02/19/2015 2:01 PM FINDINGS: Lungs: Lung bases are clear. Liver: Normal. No mass. Gallbladder and bile ducts: Normal. No calcified stones. No ductal dilation. Pancreas: Normal. No ductal dilation. Spleen: Normal. No splenomegaly. Adrenal glands: Normal. No mass. Kidneys and ureters: Moderate left hydronephrosis and perinephric fat stranding. Delayed enhancement noted in the left kidney, compared to the right. Left ureter is mildly dilated. Stomach and bowel: Collapsed stomach. Fluid-filled loops of small bowel measure up to 3.0 cm diameter. Unremarkable terminal ileum. Moderate diverticulosis noted in the colon. Appendix: No evidence of appendicitis. Intraperitoneal space: Unremarkable. No free air. No significant fluid collection. Vasculature: Moderate vascular calcifications noted. Moderate plaque and stenosis noted in the left renal artery. Lymph nodes: Unremarkable. No enlarged lymph nodes. Urinary bladder: Collapsed. Gant appear thick and irregular. Reproductive: The uterus is surgically absent. A 5.2 x 3.8 cm cyst is present in the right ovary. Bones/joints: Bilateral hip replacements are noted, causing extensive streak artifact observed at the pelvis, and obscuring the ureteral vesicular junctions. No compression fractures are observed. No anterolisthesis or retrolisthesis. Moderate multilevel degenerative disc disease and facet arthropathy noted. Soft tissues: Unremarkable. IMPRESSION: 1. Moderate left hydroureteronephrosis. 2. Obstructing stone or stricture at the distal left ureter suspected, obscured by streak artifact. 3. Collapsed urinary bladder. Correlate for any concern of urinary tract infection. 4. Borderline dilated loops of small bowel, without a distinct transition point. Ileus/enteritis suspected. 5. Right ovarian cyst. Ultrasound follow-up in 6-12 months is recommended. (Reference: Vijay) REFERENCES: Vijay et al. Management of Incidental Adnexal Findings on CT and MRI: A White Paper of the ACR Incidental Findings Committee, J Am [facility] Radiol. 2019;17(2):248-254. Dictated and Authenticated by: Gavino Parekh MD. Ordering:SAIMA Mancia MD
--- NOTE | 2022-02-14 22:19 | HPE_ITS ---
Date of service: 02/14/22 Time of Service: 22:19 Assessment and Plan Assessment and plan (1) Hydronephrosis due to obstruction of ureter: Start date: 02/14/22 Status: Acute Assessment and plan: This is an 81-year-old lady with a couple day history of abdominal discomfort which appears to be secondary to hydronephrosis and renal lithiasis though she was not having true renal colic by history. She will be admitted for IV hydration and Flomax orally along with Rocephin IV pending urology consultation if she does not pass the left distal ureteral stone. Also there is some concern of possible stricture and not having a stone which also will require urology evaluation. She is a full code. (2) Acute dehydration: Start date: 02/14/22 Status: Acute Assessment and plan: Gentle IV hydration watch for fluid overload. This may also help patient passed stone in left distal ureter. Trend labs. (3) Hypokalemia: Start date: 02/14/22 Status: Acute (4) Hypomagnesemia: Status: Acute Assessment and plan: Replete potassium and trend labs. (5) Alcohol abuse: Status: Chronic Assessment and plan: Patient has history of alcohol use and does drink daily which may contribute to her electrolyte abnormalities. History of Present Illness History of Present Illness Chief Complaint: Nausea and vomiting with diarrhea and abdominal pain Narrative: This is an 81-year-old female patient came to the ED after having a couple days of abdominal discomfort with nausea and vomiting as well as loose stools. She was unable to keep any down that this prompted her to report to the ED for e valuation. She does not have any chest pain or shortness of breath and had no hematemesis. She denies any fever. Her abdomen was a bit distended and has some left lower quadrant tenderness. She had no upper abdominal discomfort. She also endorses some slight flank discomfort though no true renal colic. Evaluation in the ED did reveal left hydronephrosis with likely stone possible stricture in the left distal ureter. She was placed on Rocephin and IV hydration with admission for further evaluation and possible urology consultation. She does not have any fever or increased WBC and urinalysis was pending at admission. She denies any previous kidney stones. She denies any dysuria or gross hematuria. Review of Systems Narrative: 13 point review of systems otherwise unrevealing or stable. Patient did have some slight sweatiness though no fever and also did have some slight rigors. PFSH All Active Problems Urinary tract infection (Acute) Gram-negative bacteremia (Acute) Hypokalemia (Acute) Hydronephrosis due to obstruction of ureter (Acute) Hypomagnesemia (Acute) Hypoglycemia (Acute) Acute dehydration (Acute) Essential hypertension (Acute) History of biopsy (Acute) 12/2021. 2 punch biopsies of vulva obtained. Grief (Chronic) Vaginitis and vulvovaginitis in diseases classified elsewhere (Acute) Immunization due (Acute) Vulval edema (Acute) Elevated fasting glucose (Acute) Alcohol intake above recommended sensible limits (Acute) Breast lump (Acute 01/09/12) History of appendectomy (Acute) History of total right hip replacement (Acute 11/12/14) Status post abdominal hysterectomy (Acute) Status post breast biopsy (Acute) Status post tonsillectomy and adenoidectomy (Acute) Sensory hearing loss, bilateral (Acute) Macular edema (Acute ~09/14/18) 09/14/18 [facility] [place] Tibial plateau fracture, left (Acute 05/10/18) Osteoarthritis (Acute) RIGHT HAND AND EROSIONS MEDIAL ASPECT 5TH MCP right hip-mild to moderate-03/2009 Stress incontinence (Acute) Rosacea (Acute) Hypertensive retinopathy of both eyes (Acute) 04/28/15; [facility] Hypertension goal BP (blood pressure) < 140/80 (Acute 08/10/15) Family hx-breast malignancy (Acute) HX of right breast biopsy-neg. Depressive disorder (Acute 01/09/12) Taking Sertraline 75mg QD for her depression. Symptoms are stable. Denies SI. She agrees to reach out if symptoms change. F/U in 2 months as this time of year is often difficult. 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 Weeks of abstinence rotating with binges. 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 She has resources to call upon if she chooses. Monitor. Age-related nuclear cataract, bilateral (Acute) 04/28/15; [facility] Osteoarthritis of left hip (Acute 07/02/14) Hip joint replacement status (Acute 07/02/14) H/O surgical procedure (Chronic) A. Abdominal hysterectomy with subsequent appendectomy (ovaries spared) B. T&A C. Right breast lumpectomy (benign) Depression (Chronic) Alcohol dependence (Chronic) Screening for colorectal cancer (Acute) Medical History Alcohol abuse Eye Procedure([facility] - Dr. Ruiz) fluid... fluid where it should not be HTN (hypertension) Osteoarthritis Surgical History Abdominal hysterectomy (~1973) HAS OVARIES H/O UTERINE FIBROIDS Appendectomy (~1973) Biopsy of breast Colonoscopy - IV Sedation (01/25/16) Tonsillectomy and adenoidectomy Total replacement of hip (07/03/14) Left Total replacement of hip (11/12/14) DR. MATUTE; RIGHT Family History Mother , AGE 93 Myocardial infarction Heart disease Father , age 84 Cancer Sister Essential hypertension Hyperlipidemia Breast cancer X 3 Maternal Grandfather , age 80 Heart disease Paternal Grandfather , AGE 58 No problems noted. Maternal Grandmother , age 68 Stroke Paternal Grandmother , AGE 84 No problems noted. Social History Smoking/Tobacco Use Status: Former Tobacco Use Quit Date: 05/01/97 Second Hand Exposure: Yes Smoking risk assessment performed?: Yes Alcohol Intake: current Alcohol Intake frequency: 0-2 drinks per day Alcohol type: wine Drug use: Never Substance use type: does not use Details: drinks a bottle of wine every night Caregiver/Support person: No Household members: none Housing: house Communication Needs: Hard of Hearing and Corrective Lenses Do you need help understanding health information?: Rarely Pets and animals: Yes Pets and animals: cat(s) Sexually active: No Do you think of yourself as: straight/heterosexual Current gender identity: female What is your relationship status?: How often do you talk on the phone with friends or family?: three or more times per week How often do you get together with friends or relatives?: twice per week How often do you attend rastafari or episcopal services?: 4 or more times per year Do you belong to any clubs or organized social groups?: no Panel score (0-1 are the most socially isolated patients): 2 Duration: 15-30 minutes/day Frequency: 5-6 times per week Ann/Religious: Gnosticism Special ann needs: No Seatbelt use: always Drive intox or ride w/intox starting gate driver: No Do you feel safe at home: Yes History History 3 Para 1 Hx # Term Pregnancies Multiple births Hx # Pregnancies Ectopic pregnancies AB induced Hx Number of Living Children AB spontaneous 2 Meds Allergies and Home Medications Allergies Allergy/AdvReac Type Severity Reaction Status Date / Time morphine Allergy Severe ITCHING Verified 02/14/22 20:15 propoxyphene AdvReac Severe HALLUCINATI Verified 02/14/22 20:15 ONS naproxen AdvReac Intermediate RETAINS Verified 02/14/22 20:15 FLUID Home Medications Medication Instructions Recorded Confirmed Type multivitamin 1 ea PO DAILY 10/10/12 02/14/22 History vitamin B complex (B-Complex 1 ea PO DAILY PRN 10/10/12 02/14/22 History tablet) ibuprofen 600 mg tablet 600 mg PO tid prn #90 tab-caps 11/04/14 02/14/22 History metronidazole 0.75 % topical cream 1 applic topical BID #1 tube 01/15/19 02/14/22 Rx ([facility]) amlodipine 2.5 mg tablet 2.5 mg PO BID #180 tabs 05/25/21 02/14/22 Rx betamethasone dipropionate 0.05 % 1 applic topical BID PRN skin 10/01/21 02/14/22 Rx topical ointment irritation #45 grams clotrimazole-betamethasone 1 See Rx Instructions .Route 12/29/21 02/14/22 Rx %-0.05 % topical cream .COMPLEX #15 grams losartan 100 mg tablet 100 mg PO DAILY #90 tabs 01/10/22 02/14/22 Rx naltrexone 50 mg tablet 50 mg PO DAILY #90 tabs 01/27/22 02/14/22 Rx sertraline 100 mg tablet 100 mg PO DAILY #90 tab-caps 01/27/22 02/14/22 Rx Exam Narrative Exam Narrative: General: Patient appears older than stated age, alert and oriented x3 and in m oderate distress being sweaty but having no discomfort. HEENT: Normocephalic, eyes with pupils equal and reactive to light symmetrically with sclera anicteric. Oropharynx with dry mucosa. Neck: Supple without JVD. Back: Kyphotic without CVA tenderness. Lungs: Fair aeration and clear to auscultation and percussion. Breast: Exam deferred. Heart: Tachycardic rate and regular rhythm with no appreciable murmur or gallop. Abdomen: Obese contour, soft and nontender to palpation with only slight discom fort to palpation of the left lower quadrant without guarding or rebound. No palpable hepatosplenomegaly. Bowel sounds positive in all quadrants. Genitalia/rectal: Exam deferred. Extremities: Without clubbing, cyanosis or grossly pitting edema. Skin: Normal color, warm and dry. Neuro: Cranial nerves II to XII grossly intact, no focal motor deficits and no tremor. Psych: Normal affect and mood. No abnormal thought processes. Remote and recent memory grossly intact. Results Imaging Imaging Studies: Exam: CT Abdomen And Pelvis With Contrast Exam date and time: 02/14/2022 9:10 PM Age: 81 years old Clinical indication: Other: N/v abdominal pain TECHNIQUE: Imaging protocol: Computed tomography of the abdomen and pelvis with contrast. Radiation optimization: All CT scans at this facility use at least one of these dose optimization techniques: automated exposure control; mA and/or kV adjustment per patient size (includes targeted exams where dose is matched to clinical indication); or iterative reconstruction. Contrast material: OMNIPAQUE 350; Contrast volume: 100 ml; Contrast route: INTRAVENOUS (IV);? COMPARISON: CR PELVIS AP 02/19/2015 2:01 PM FINDINGS: Lungs: Lung bases are clear. Liver: Normal. No mass. Gallbladder and bile ducts: Normal. No calcified stones. No ductal dilation. Pancreas: Normal. No ductal dilation. Spleen: Normal. No splenomegaly. Adrenal glands: Normal. No mass. Kidneys and ureters: Moderate left hydronephrosis and perinephric fat stranding. Delayed enhancement noted in the left kidney, compared to the right. Left ureter is mildly dilated. Stomach and bowel: Collapsed stomach. Fluid-filled loops of small bowel measure up to 3.0 cm diameter. Unremarkable terminal ileum. Moderate diverticulosis noted in the colon. Appendix: No evidence of appendicitis. Intraperitoneal space: Unremarkable. No free air. No significant fluid collection. Vasculature: Moderate vascular calcifications noted. Moderate plaque and stenosis noted in the left renal artery. Lymph nodes: Unremarkable. No enlarged lymph nodes. Urinary bladder: Collapsed. Gant appear thick and irregular. Reproductive: The uterus is surgically absent. A 5.2 x 3.8 cm cyst is present in the right ovary. Bones/joints: Bilateral hip replacements are noted, causing extensive streak artifact observed at the pelvis, and obscuring the ureteral vesicular junctions. No compression fractures are observed. No anterolisthesis or retrolisthesis. Moderate multilevel degenerative disc disease and facet arthropathy noted. Soft tissues: Unremarkable. IMPRESSION: 1. Moderate left hydroureteronephrosis. 2. Obstructing stone or stricture at the distal left ureter suspected, obscured by streak artifact. 3. Collapsed urinary bladder. Correlate for any concern of urinary tract infection. 4. Borderline dilated loops of small bowel, without a distinct transition point. Ileus/enteritis suspected. 5. Right ovarian cyst. Ultrasound follow-up in 6-12 months is recommended. (Reference: Vijay) Labs Result diagrams: 02/15/22 05:20 02/15/22 13:10 Labs: Laboratory Results - last 24 hr 02/14/22 02/14/22 02/14/22 20:15 20:15 20:15 WBC RBC Hgb Hct MCV MCH MCHC RDW Plt Count MPV Immature Gran % Neutrophils % Band Neutrophils % Lymphocytes % Monocytes % Eosinophils % Basophils % Metamyelocytes % Nucleated RBC % Absolute Neutrophils Absolute Lymphocytes Absolute Monocytes Absolute Eosinophils Absolute Basophils RBC Morphology VBG pH VBG pCO2 VBG pO2 VBG HCO3 VBG Total CO2 VBG O2 Saturation VBG Base Excess VBG Lactate 3.0 H* Sodium 132 L Potassium 2.7 L* Chloride 98 Carbon Dioxide 22.4 Anion Gap 11.6 H BUN 25 H Creatinine 1.6 H Est GFR (CKD-EPI 2020) 32.20 Glucose 174 H Calcium 8.7 Magnesium 1.6 L Total Bilirubin 1.0 Conjugated Bilirubin AST 28 ALT 24 Alkaline Phosphatase 248 H Total Protein 6.5 Albumin 2.5 L Lipase 68 COVID-19 Source Not Applicable SARS-CoV-2 (PCR) Negative Influenza Type A (PCR) Negative Influenza Type B (PCR) Negative RSV (PCR) Negative 02/14/22 02/14/22 02/14/22 20:15 20:15 20:15 WBC 6.49 RBC 3.86 L Hgb 12.2 Hct 35.8 L MCV 93 MCH 31.6 MCHC 34.1 RDW 12.5 Plt Count 104 L MPV 10.2 Immature Gran % 0.0 Neutrophils % 80.0 Band Neutrophils % 14 Lymphocytes % 2.0 Monocytes % 3.0 Eosinophils % 0.0 Basophils % 0.0 Metamyelocytes % 1 Nucleated RBC % 0.0 Absolute Neutrophils 6.10 Absolute Lymphocytes 0.13 L Absolute Monocytes 0.19 Absolute Eosinophils 0.00 Absolute Basophils 0.00 RBC Morphology Normal VBG pH 7.37 VBG pCO2 37 L VBG pO2 41 VBG HCO3 22 L VBG Total CO2 20 L VBG O2 Saturation 74 VBG Base Excess -4 L VBG Lactate Sodium Potassium Chloride Carbon Dioxide Anion Gap BUN Creatinine Est GFR (CKD-EPI 2020) Glucose Calcium Magnesium Total Bilirubin 1.0 Conjugated Bilirubin 0.6 H AST ALT Alkaline Phosphatase Total Protein Albumin Lipase COVID-19 Source SARS-CoV-2 (PCR) Influenza Type A (PCR) Influenza Type B (PCR) RSV (PCR) Last Vital Signs Temp 37.1 C 02/14/22 20:00 Pulse 103 H 02/14/22 21:48 Resp 30 H 02/14/22 21:59 BP 110/67 02/14/22 21:48 Pulse Ox 93 02/14/22 21:59 PAWSS Have you Ever Experienced Previous Episodes of Alcohol Withdrawal?: No Have you ever Experienced Withdrawal Seizures?: No Have you ever Experienced Delirium Tremens(DT)s?: No Have you ever undergone Alcohol Rehabilitation Treatment (i.e, inpt ot outpatient treatment programs)?: No Have you ever Experienced Blackouts?: Yes Have you ever Combined Alcohol with other Downers within the last 90 days?: No Have you ever Combined Alcohol with any other Substance of Abuse during the last 90 days?: No Positive Blood Alcohol level on Presentation? [PCS.BAL]: No Evidence of Increased Autonomic Activity (i.e. HR>120, tremor, sweating, agitation, nausea)?: No Result: 1
[2022-02-14] MEDS: POTASSIUM CHLORIDE 10 MEQ/100 ML BAG 100 MEQ IVPB (22:27)
[2022-02-14 22:35] LABS: Bilirubin Negative (Negative); Blood Moderate (Negative); Clarity Cloudy (Clear); Glucose Negative (Negative); Ketones Negative (Negative); Leukocyte Esterase Small (Negative); Nitrite Negative (Negative)
[2022-02-14 22:37] LABS: ETHANOL BLOOD < 3.0 mg/dL (<10)
[2022-02-14 22:42] LABS: INR 1.2 (0.9-1.1); Prothrombin Time 12.3 sec (9.3-11.0)
[2022-02-14 22:44] LABS: Bacteria Moderate HPF (Negative); C & S Indicated? C&S Done As Ordered; Casts 0-2 Fine Granular LPF (Negative); Crystals Negative HPF (Negative); Epithelial Cells Rare HPF (Negative); Mucus Negative (Negative); Other Cells Rare Renal (Negative); WBC 20-50 HPF (0-5)
[2022-02-14] MEDS: Ondansetron 4 MG/2 ML VIAL IVP (22:47)
[2022-02-14] MEDS: MAGNESIUM SULFATE 4 GM/100 ML BAG IVPB (22:49)
[2022-02-14] MEDS: cefTRIAXone 2 GM/50 ML BAG IVPB (23:24)
[2022-02-15] VITALS (268 sets, daily range): BP systolic 91–139; BP diastolic 46–98; PULSE 82–133; RESP 14–35; TEMP 36.6–37.8; O2SAT 80–98; BMI 33.3
[2022-02-15] MEDS: POTASSIUM CHLORIDE 10 MEQ/100 ML BAG 100 MEQ IVPB (00:18)
--- NOTE | 2022-02-15 00:23 | SUR.PHASEI ---
Pt w/ transient episodes of hypotension s/p initial 1L NS bolus (SBP <90mmHg and MAP <55) MD Roxana aware. Per MD another 1L NS bolus administered and will continue to monitor in ER to determine if pt suitable for placement on Med/surg floor or requires further escalation of care for stabilization.
[2022-02-15] MEDS: Prochlorperazine 10 MG/2 ML VIAL 5 MG IVP (02:27)
[2022-02-15] MEDS: POTASSIUM CHLORIDE/0.9% NACL 1,000 ML 125 MEQ IV ×3 (03:45→20:39)
[2022-02-15] MEDS: ACETAMINOPHEN 1,000 MG/100 ML BTL 400 MG IVPB (04:04)
[2022-02-15] MEDS: Ondansetron 4 MG/2 ML VIAL IM ×2 (04:08→20:44)
[2022-02-15] MEDS: Normal Saline Flush 10 ML SYR IVP ×2 (04:09→14:14)
[2022-02-15 06:24] LABS: Abs Immature Grans 0.03 10^3/uL (0.0-0.06); Absolute Lymphocyte Count 0.06 10^3/uL (1.2-3.4); HCT 32.6 % (36.0-46.0); MCH 31.3 pg (27.0-33.0); MCHC 33.7 % (32.0-36.0); MCV 93 fL (80-95); MPV 11.4 fL (8.0-11.0); RBC 3.51 10^6/uL (3.93-5.22); RDW 12.8 % (11.7-14.6); RDW-SD 43.9 fL; WBC 2.87 10^3/uL (4.4-10.8)
[2022-02-15 06:34] LABS: INR 1.2 (0.9-1.1); Prothrombin Time 11.9 sec (9.3-11.0)
[2022-02-15 06:53] LABS: ALT 21 U/L (14-59); AST 29 U/L (15-37); Albumin 2.2 g/dL (3.4-5.0); Alkaline Phosphatase 278 U/L (46-116); Anion Gap 12.3 mmol/L (3-11); BUN 27 mg/dL (7-18); CO2 19.7 mmol/L (21.0-32.0); CREATININE 1.8 mg/dL (0.55-1.02); Calcium 8.2 mg/dL (8.5-10.1); Chloride 100 mmol/L (98-107); Estimated GFR 27.78 (mL/min/1.73m2); Glucose 154 mg/dL (74-106); Magnesium 2.4 mg/dL (1.8-2.4); PHOSPHORUS 2.9 mg/dL (2.6-4.7); Potassium 3.3 mmol/L (3.5-5.1); Sodium 132 mmol/L (136-145)
[2022-02-15 07:03] LABS: *AMPHETAMINES SCREEN URINE Negative (Negative); *BARBITURATES SCREEN URINE Negative (Negative); *BENZODIAZEPINES SCREEN URINE Negative (Negative); Cannabinoids THC Negative (Negative); Cocaine Screen,Urine Negative (Negative); METHADONE URINE SCREEN Negative (Negative); OPIATES URINE SCREEN Negative (Negative)
[2022-02-15 07:07] LABS: Tricyclic Antidepressants Negative (Negative)
[2022-02-15 07:46] LABS: Absolute Monocyte Count 0.06 10^3/uL (0.1-0.8); Absolute Neutrophil Count 2.38 10^3/uL (1.2-6.7); Bands % 17; Diff Comment Manual Differential; Metamyelocytes % 10; Myelocytes % 3; RBC Morphology Normal
[2022-02-15 07:49] LABS: Platelet Count 68 10^3/uL (130-400)
--- NOTE | 2022-02-15 07:53 | UCONE_ITS ---
Date of service: 02/15/22 Time of Service: 07:53 Assessment and Plan Assessment and plan (1) Hydronephrosis due to obstruction of ureter: Status: Acute Assessment and plan: With her temperature increasing overnight I am concerned that she may be moving toward sepsis. I am recommending that we place a left ureteral stent to relieve her obstruction/hydronephrosis. Once her acute illness has improved, we can make a return to the operating room for ureteroscopy to address the stone. History of Present Illness History of Present Illness Chief Complaint: Left hydronephrosis Narrative: This is an 82-year-old woman who presented to the emergency department with a complaint of lower abdominal and back pain for the past 4 days. She began having nausea and vomiting over the past 24 hours which prompted her visit to the emergency department. As part of her evaluation, she was found to be hypokalemic. A CT scan demonstrates left hydronephrosis and hydroureter. She has bilateral hip prostheses, so imaging of the distal ureter was difficult. It is suspected that she has an obstructing lesion such as a stone in the left distal ureter. At the time of admission, she was afebrile, but overnight her temperature has gone up and she has become more tachycardic. She is on ceftriaxone and blood and urine cultures are pending. Review of Systems Constitutional Constitutional: Denies chills Cardiovascular Cardiovascular: Denies chest pain at rest, Denies syncope and Denies irregular heart rhythm Respiratory Respiratory: Denies hemoptysis Gastrointestinal Gastrointestinal: Reports abdominal pain, Reports bloating, Reports nausea and Reports vomiting Neurologic Neurologic: Denies syncope and Denies convulsions PFSH All Active Problems (Updated 02/14/22 @ 22:25 by Brien Kyle) Hypokalemia (Acute) Hydronephrosis due to obstruction of ureter (Acute) Hypomagnesemia (Acute) Hypoglycemia (Acute) Acute dehydration (Acute) Essential hypertension (Acute) History of biopsy (Acute) 12/2021. 2 punch biopsies of vulva obtained. Grief (Chronic) Vaginitis and vulvovaginitis in diseases classified elsewhere (Acute) Immunization due (Acute) Vulval edema (Acute) Elevated fasting glucose (Acute) Alcohol intake above recommended sensible limits (Acute) Breast lump (Acute 01/09/12) History of appendectomy (Acute) History of total right hip replacement (Acute 11/12/14) Status post abdominal hysterectomy (Acute) Status post breast biopsy (Acute) Status post tonsillectomy and adenoidectomy (Acute) Sensory hearing loss, bilateral (Acute) Macular edema (Acute ~09/14/18) 09/14/18 [facility] Tibial plateau fracture, left (Acute 05/10/18) Osteoarthritis (Acute) RIGHT HAND AND EROSIONS MEDIAL ASPECT 5TH MCP right hip-mild to moderate-03/2009 Stress incontinence (Acute) Rosacea (Acute) Hypertensive retinopathy of both eyes (Acute) 04/28/15; [facility] Hypertension goal BP (blood pressure) < 140/80 (Acute 08/10/15) Family hx-breast malignancy (Acute) HX of right breast biopsy-neg. Depressive disorder (Acute 01/09/12) Taking Sertraline 75mg QD for her depression. Symptoms are stable. Denies SI. She agrees to reach out if symptoms change. F/U in 2 months as this time of year is often difficult. Cystoid macular degeneration of right eye (Acute) 04/28/15; [facility] Cough (Acute 04/26/17) Central retinal vein occlusion of right eye (Acute) 04/28/15; [facility] Alcohol abuse (Acute 08/10/15) No change. Weeks of abstinence rotating with binges. We have discussed the [place] affect on many occasions. She has resources to call upon if she chooses. Monitor. Age-related nuclear cataract, bilateral (Acute) 04/28/15; [facility] Osteoarthritis of left hip (Acute 07/02/14) Hip joint replacement status (Acute 07/02/14) H/O surgical procedure (Chronic) A. Abdominal hysterectomy with subsequent appendectomy (ovaries spared) B. T&A C. Right breast lumpectomy (benign) Depression (Chronic) Alcohol dependence (Chronic) Screening for colorectal cancer (Acute) Medical History Alcohol abuse Eye Procedure([facility] - Dr. Ruiz) fluid... fluid where it should not be HTN (hypertension) Osteoarthritis Surgical History Abdominal hysterectomy (~1973) HAS OVARIES H/O UTERINE FIBROIDS Appendectomy (~1973) Biopsy of breast Colonoscopy - IV Sedation (01/25/16) Tonsillectomy and adenoidectomy Total replacement of hip (07/03/14) Left Total replacement of hip (11/12/14) DR. MATUTE; RIGHT Family History Mother , AGE 93 Myocardial infarction Heart disease Father , age 84 Cancer Sister Essential hypertension Hyperlipidemia Breast cancer X 3 Maternal Grandfather , age 80 Heart disease Paternal Grandfather , AGE 58 No problems noted. Maternal Grandmother , age 68 Stroke Paternal Grandmother , AGE 84 No problems noted. Social History Smoking/Tobacco Use Status: Former Tobacco Use Quit Date: 05/01/97 Second Hand Exposure: Yes Smoking risk assessment performed?: Yes Alcohol Intake: current Alcohol Intake frequency: 0-2 drinks per day Alcohol type: wine Drug use: Never Substance use type: does not use Details: drinks a bottle of wine every night Caregiver/Support person: No Household members: none Housing: house Communication Needs: Hard of Hearing and Corrective Lenses Do you need help understanding health information?: Rarely Pets and animals: Yes Pets and animals: cat(s) Sexually active: No Do you think of yourself as: straight/heterosexual Current gender identity: female What is your relationship status?: How often do you talk on the phone with friends or family?: three or more times per week How often do you get together with friends or relatives?: twice per week How often do you attend yazdanism or bahai services?: 4 or more times per year Do you belong to any clubs or organized social groups?: no Panel score (0-1 are the most socially isolated patients): 2 Duration: 15-30 minutes/day Frequency: 5-6 times per week Ann/Quaker: Buddhism Special ann needs: No Seatbelt use: always Drive intox or ride w/intox bus van driver: No Do you feel safe at home: Yes History History 3 Para 1 Hx # Term Pregnancies Multiple births Hx # Pregnancies Ectopic pregnancies AB induced Hx Number of Living Children AB spontaneous 2 Exam Const General: cooperative Orientation: alert, awake and oriented x3 GI Palpation: soft, not rigid and tender (left lower quadrant) Results Last Vital Signs Temp 37.8 C H 02/15/22 04:04 Pulse 99 H 02/15/22 03:25 Resp 23 02/15/22 03:25 BP 114/70 02/15/22 03:11 Pulse Ox 95 02/15/22 03:25 Labs Result diagrams: 02/15/22 05:20 02/15/22 05:20 Labs: Laboratory Results - last 24 hr 02/14/22 02/14/22 02/14/22 20:15 20:15 20:15 WBC RBC Hgb Hct MCV MCH MCHC RDW Plt Count MPV Immature Gran % Neutrophils % Band Neutrophils % Lymphocytes % Monocytes % Eosinophils % Basophils % Metamyelocytes % Myelocytes % Nucleated RBC % Absolute Neutrophils Absolute Lymphocytes Absolute Monocytes Absolute Eosinophils Absolute Basophils RBC Morphology PT INR VBG pH VBG pCO2 VBG pO2 VBG HCO3 VBG Total CO2 VBG O2 Saturation VBG Base Excess VBG Lactate 3.0 H* Sodium 132 L Potassium 2.7 L* Chloride 98 Carbon Dioxide 22.4 Anion Gap 11.6 H BUN 25 H Creatinine 1.6 H Est GFR (CKD-EPI 2020) 32.20 Glucose 174 H Calcium 8.7 Phosphorus Magnesium 1.6 L Total Bilirubin 1.0 Conjugated Bilirubin AST 28 ALT 24 Alkaline Phosphatase 248 H Total Protein 6.5 Albumin 2.5 L Lipase 68 Urine Color Urine Clarity Urine pH Ur Specific [place] Urine Protein Urine Ketones Urine Blood Urine Nitrite Urine Bilirubin Urine Urobilinogen Ur Leukocyte Esterase Urine RBC Urine WBC Ur Epithelial Cells Urine Crystals Urine Bacteria Urine Casts Urine Mucus Urine Other Ur Culture Indicated? Urine Glucose Urine Opiates Screen Urine Methadone Screen Ur Barbiturates Screen Ur Tricyclics Screen Ur Amphetamines Screen U Benzodiazepines Scrn Urine Cocaine Screen Ur THC Screen Ethyl Alcohol COVID-19 Source Not Applicable SARS-CoV-2 (PCR) Negative Influenza Type A (PCR) Negative Influenza Type B (PCR) Negative RSV (PCR) Negative 02/14/22 02/14/22 02/14/22 20:15 20:15 20:15 WBC 6.49 RBC 3.86 L Hgb 12.2 Hct 35.8 L MCV 93 MCH 31.6 MCHC 34.1 RDW 12.5 Plt Count 104 L MPV 10.2 Immature Gran % 0.0 Neutrophils % 80.0 Band Neutrophils % 14 Lymphocytes % 2.0 Monocytes % 3.0 Eosinophils % 0.0 Basophils % 0.0 Metamyelocytes % 1 Myelocytes % Nucleated RBC % 0.0 Absolute Neutrophils 6.10 Absolute Lymphocytes 0.13 L Absolute Monocytes 0.19 Absolute Eosinophils 0.00 Absolute Basophils 0.00 RBC Morphology Normal PT INR VBG pH 7.37 VBG pCO2 37 L VBG pO2 41 VBG HCO3 22 L VBG Total CO2 20 L VBG O2 Saturation 74 VBG Base Excess -4 L VBG Lactate Sodium Potassium Chloride Carbon Dioxide Anion Gap BUN Creatinine Est GFR (CKD-EPI 2020) Glucose Calcium Phosphorus Magnesium Total Bilirubin 1.0 Conjugated Bilirubin 0.6 H AST ALT Alkaline Phosphatase Total Protein Albumin Lipase Urine Color Urine Clarity Urine pH Ur Specific [place] Urine Protein Urine Ketones Urine Blood Urine Nitrite Urine Bilirubin Urine Urobilinogen Ur Leukocyte Esterase Urine RBC Urine WBC Ur Epithelial Cells Urine Crystals Urine Bacteria Urine Casts Urine Mucus Urine Other Ur Culture Indicated? Urine Glucose Urine Opiates Screen Urine Methadone Screen Ur Barbiturates Screen Ur Tricyclics Screen Ur Amphetamines Screen U Benzodiazepines Scrn Urine Cocaine Screen Ur THC Screen Ethyl Alcohol COVID-19 Source SARS-CoV-2 (PCR) Influenza Type A (PCR) Influenza Type B (PCR) RSV (PCR) 02/14/22 02/14/22 02/14/22 20:15 22:19 22:21 WBC RBC Hgb Hct MCV MCH MCHC RDW Plt Count MPV Immature Gran % Neutrophils % Band Neutrophils % Lymphocytes % Monocytes % Eosinophils % Basophils % Metamyelocytes % Myelocytes % Nucleated RBC % Absolute Neutrophils Absolute Lymphocytes Absolute Monocytes Absolute Eosinophils Absolute Basophils RBC Morphology PT 12.3 H INR 1.2 H VBG pH VBG pCO2 VBG pO2 VBG HCO3 VBG Total CO2 VBG O2 Saturation VBG Base Excess VBG Lactate Sodium Potassium Chloride Carbon Dioxide Anion Gap BUN Creatinine Est GFR (CKD-EPI 2020) Glucose Calcium Phosphorus Magnesium Total Bilirubin Conjugated Bilirubin AST ALT Alkaline Phosphatase Total Protein Albumin Lipase Urine Color Yellow Urine Clarity Cloudy Urine pH 6.0 Ur Specific [place] 1.010 Urine Protein 30 H Urine Ketones Negative Urine Blood Moderate H Urine Nitrite Negative Urine Bilirubin Negative Urine Urobilinogen 2.0 H Ur Leukocyte Esterase Small H Urine RBC 5-10 H Urine WBC 20-50 H Ur Epithelial Cells Rare Urine Crystals Negative Urine Bacteria Moderate Urine Casts 0-2 Fine Granular Urine Mucus Negative Urine Other Rare Renal Ur Culture Indicated? C&S Done As Ordered Urine Glucose Negative Urine Opiates Screen Urine Methadone Screen Ur Barbiturates Screen Ur Tricyclics Screen Ur Amphetamines Screen U Benzodiazepines Scrn Urine Cocaine Screen Ur THC Screen Ethyl Alcohol < 3.0 COVID-19 Source SARS-CoV-2 (PCR) Influenza Type A (PCR) Influenza Type B (PCR) RSV (PCR) 02/15/22 02/15/22 02/15/22 04:00 05:20 05:20 WBC 2.87 L RBC 3.51 L Hgb 11.0 L Hct 32.6 L MCV 93 MCH 31.3 MCHC 33.7 RDW 12.8 Plt Count 68 L MPV 11.4 H Immature Gran % See Differential Neutrophils % 66.0 Band Neutrophils % 17 Lymphocytes % 2.0 Monocytes % 2.0 Eosinophils % 0.0 Basophils % 0.0 Metamyelocytes % 10 Myelocytes % 3 Nucleated RBC % 0.0 Absolute Neutrophils 2.38 Absolute Lymphocytes 0.06 L Absolute Monocytes 0.06 L Absolute Eosinophils 0.00 Absolute Basophils 0.00 RBC Morphology Normal PT INR VBG pH VBG pCO2 VBG pO2 VBG HCO3 VBG Total CO2 VBG O2 Saturation VBG Base Excess VBG Lactate Sodium 132 L Potassium 3.3 L Chloride 100 Carbon Dioxide 19.7 L Anion Gap 12.3 H BUN 27 H Creatinine 1.8 H Est GFR (CKD-EPI 2020) 27.78 Glucose 154 H Calcium 8.2 L Phosphorus Magnesium 2.4 Total Bilirubin 1.0 Conjugated Bilirubin AST 29 ALT 21 Alkaline Phosphatase 278 H Total Protein 6.0 L Albumin 2.2 L Lipase Urine Color Urine Clarity Urine pH Ur Specific [place] Urine Protein Urine Ketones Urine Blood Urine Nitrite Urine Bilirubin Urine Urobilinogen Ur Leukocyte Esterase Urine RBC Urine WBC Ur Epithelial Cells Urine Crystals Urine Bacteria Urine Casts Urine Mucus Urine Other Ur Culture Indicated? Urine Glucose Urine Opiates Screen Negative Urine Methadone Screen Negative Ur Barbiturates Screen Negative Ur Tricyclics Screen Negative Ur Amphetamines Screen Negative U Benzodiazepines Scrn Negative Urine Cocaine Screen Negative Ur THC Screen Negative Ethyl Alcohol COVID-19 Source SARS-CoV-2 (PCR) Influenza Type A (PCR) Influenza Type B (PCR) RSV (PCR) 02/15/22 02/15/22 05:20 05:20 WBC RBC Hgb Hct MCV MCH MCHC RDW Plt Count MPV Immature Gran % Neutrophils % Band Neutrophils % Lymphocytes % Monocytes % Eosinophils % Basophils % Metamyelocytes % Myelocytes % Nucleated RBC % Absolute Neutrophils Absolute Lymphocytes Absolute Monocytes Absolute Eosinophils Absolute Basophils RBC Morphology PT 11.9 H INR 1.2 H VBG pH VBG pCO2 VBG pO2 VBG HCO3 VBG Total CO2 VBG O2 Saturation VBG Base Excess VBG Lactate Sodium Potassium Chloride Carbon Dioxide Anion Gap BUN Creatinine Est GFR (CKD-EPI 2020) Glucose Calcium Phosphorus 2.9 Magnesium Total Bilirubin Conjugated Bilirubin AST ALT Alkaline Phosphatase Total Protein Albumin Lipase Urine Color Urine Clarity Urine pH Ur Specific [place] Urine Protein Urine Ketones Urine Blood Urine Nitrite Urine Bilirubin Urine Urobilinogen Ur Leukocyte Esterase Urine RBC Urine WBC Ur Epithelial Cells Urine Crystals Urine Bacteria Urine Casts Urine Mucus Urine Other Ur Culture Indicated? Urine Glucose Urine Opiates Screen Urine Methadone Screen Ur Barbiturates Screen Ur Tricyclics Screen Ur Amphetamines Screen U Benzodiazepines Scrn Urine Cocaine Screen Ur THC Screen Ethyl Alcohol COVID-19 Source SARS-CoV-2 (PCR) Influenza Type A (PCR) Influenza Type B (PCR) RSV (PCR)
[2022-02-15] MEDS: Thiamine 100 MG TAB PO (09:06)
[2022-02-15] MEDS: amLODIPine 2.5 MG TAB PO (09:06)
[2022-02-15] MEDS: Folic Acid 1 MG TAB PO (09:06)
[2022-02-15] MEDS: Losartan 50 MG TAB PO (09:06)
--- NOTE | 2022-02-15 09:44 | INITIAL_ITS ---
- If Service Date Differs Date of service: 02/15/22 Time of Service: 09:44 Care Management Initial Assess REASON FOR HOSPITALIZATION:: Hydronephrosis with stone, dehydration, hypokalemia PAST MEDICAL HISTORY/PAST SURGICAL HISTORY:: Medical History . Alcohol abuse. Eye Procedure([facility] - Dr. Ruiz) fluid... fluid where it should not be. HTN (hypertension). Osteoarthritis. Surgical History . Abdominal hysterectomy (~1973). HAS OVARIES H/O UTERINE FIBROIDS. Appendectomy (~1973). Biopsy of breast. Colonoscopy - IV Sedation ( 01/25/16). Tonsillectomy and adenoidectomy. Total replacement of hip (07/03/14). Left. Total replacement of hip (11/12/14). DR. 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 She reports her grand- daughter and two great grandsons reside with her. Her grandchildren reside with her and are supportive. Cristine is independent with all ADLs CURRENT FUNCTIONAL STATUS:: Cristine was brought to the OR with Dr. Parekh for left ureteral stent placement. ADVANCE DIRECTIVES:: [employer] on file: Anita Sotelo: [phone] as agent. Has patient been provided with info about the portal/API?: Yes Did the patient sign up for the portal?: Yes CODE STATUS:: DNR/DNI INSURANCE COVERAGE / FINANCIAL ISSUES:: Medicare. [facility] PRIMARY CARE PHYSICIAN:: [facility] POTENTIAL DISCHARGE NEEDS:: PT evaluation, follow up appointments. PATIENT/FAMILY EDUCATION NEEDS:: Review discharge instructions, discuss Ask Me Three. ANTICIPATED BARRIERS TO DISCHARGE:: None identified. TRANSPORTATION:: Via private vehicle with family. PLAN:: Anticipate Cristine will return home when ready per MD. She will follow up with her PCP and plan of care as prescribed.
--- NOTE | 2022-02-15 09:52 | ANES.PREOP_ITS ---
General Info Date of Service Date Performed: 02/15/22 Height: 5 ft 4 in Weight: 88 kg Body Mass Index (BMI): 33.3 Surgical Procedure: Operation Date: 02/15/22 11:10 Proposed Procedure Side Surgeon p Cystoscopy/Retrograde/ Stent Placement Left Nicola Parekh MD Meds Allergies and Home Medications Allergies Allergy/AdvReac Type Severity Reaction Status Date / Time morphine Allergy Severe ITCHING Verified 02/14/22 20:15 propoxyphene AdvReac Severe HALLUCINATI Verified 02/14/22 20:15 ONS naproxen AdvReac Intermediate RETAINS Verified 02/14/22 20:15 FLUID Home Medication Medication Instructions Recorded multivitamin 1 ea PO DAILY 10/10/12 vitamin B complex (B-Complex 1 ea PO DAILY PRN 10/10/12 tablet) ibuprofen 600 mg tablet 600 mg PO tid prn #90 tab-caps 11/04/14 metronidazole 0.75 % topical cream 1 applic topical BID #1 tube 01/15/19 (MetroCream) amlodipine 2.5 mg tablet 2.5 mg PO BID #180 tabs 05/25/21 betamethasone dipropionate 0.05 % 1 applic topical BID PRN skin 10/01/21 topical ointment irritation #45 grams clotrimazole-betamethasone 1 See Rx Instructions .Route 12/29/21 %-0.05 % topical cream .COMPLEX #15 grams losartan 100 mg tablet 100 mg PO DAILY #90 tabs 01/10/22 naltrexone 50 mg tablet 50 mg PO DAILY #90 tabs 01/27/22 sertraline 100 mg tablet 100 mg PO DAILY #90 tab-caps 01/27/22 Current Visit Medications: Current Medications Generic Name Dose Route Start Last Admin Trade Name Freq PRN Reason Stop Dose Admin Al Hydrox/Mg Hydrox/Simethicone 30 ml 02/14/22 22:30 Mylanta Suspension 30 Ml Cup PO Q2H PRN PRN Amlodipine Besylate 2.5 mg 02/15/22 08:30 02/15/22 09:06 Amlodipine 2.5 Mg Tab PO 2.5 mg BID CASH Administration Dimethicone/Zinc Oxide 0 gm 02/14/22 22:25 Rylee Protect Cream 142 Gm Tube TP PRN PRN Docusate Sodium 100 mg 02/14/22 22:30 Docusate Sodium 100 Mg Cap PO TID PRN PRN Folic Acid 1 mg 02/15/22 08:30 02/15/22 09:06 Folic Acid 1 Mg Tab PO 02/21/22 08:31 1 mg QAM CASH Administration Potassium Chloride/Sodium Chloride 1,000 mls @ 125 mls/hr 02/14/22 22:30 02/15/22 03:45 Kcl 20meq/Ns IV 125 mls/hr INFUSION CASH Administration Ceftriaxone Sodium/Dextrose 1 gm in 50 mls @ 100 mls/hr 02/14/22 22:45 Rocephin IVPB Q24H CASH Acetaminophen 1,000 mg in 100 mls @ 400 mls/hr 02/14/22 22:43 02/15/22 04:20 Ofirmev IVPB Infused Q6H PRN PRN Infusion IV Miscellaneous Supplies 1 each 02/14/22 20:00 Iv Access IV DIRECTED [facility] Ibuprofen 600 mg 02/14/22 23:00 02/15/22 04:00 Ibuprofen 600 Mg Tab PO Not Given tid prn CASH Iohexol 100 ml 02/14/22 21:30 02/14/22 21:16 Omnipaque 350 Mg/Ml 100 Ml Btl IJ 03/16/22 23:59 100 ml DIRECTED CASH Administration Lorazepam 0 mg 02/14/22 22:34 Lorazepam 1 Mg Tab PO/SL DIRECTED PRN Losartan Potassium 50 mg 02/15/22 08:30 02/15/22 09:06 Losartan 50 Mg Tab PO 50 mg DAILY CASH Administration Magnesium Hydroxide 30 ml 02/14/22 22:30 Milk Of Magnesia 30 Ml Cup PO DAILY PRN PRN Multivitamins 1 tab 02/15/22 08:30 Multivitamin Tab PO 02/21/22 08:31 QAM [facility] Ondansetron HCl 4 mg 02/14/22 22:34 02/15/22 04:08 Ondansetron 4 Mg/2 Ml Vial IM 4 mg Q6H PRN PRN Administration Polyethylene Glycol 17 gm 02/14/22 22:30 Polyethylene Glycol 3350 17 Gm Packet PO DAILY PRN PRN Constipation Sodium Chloride 0 ml 02/14/22 19:54 02/15/22 04:09 Normal Saline Flush 10 Ml Syr IVP 20 ml PRN PRN Administration Sodium Chloride 50 ml 02/14/22 21:30 02/14/22 21:17 Normal Saline 250 Ml Bag IJ 250 ml DIRECTED CASH Administration Tamsulosin HCl 0.4 mg 02/15/22 22:00 Tamsulosin 0.4 Mg Capcr PO HS [facility] Thiamine HCl 100 mg 02/15/22 08:30 02/15/22 09:06 Thiamine 100 Mg Tab PO 02/21/22 08:31 100 mg QAM CASH Administration Vitamin B Complex/Vitamin C 1 tab 02/15/22 02:28 Vitamins B Comp W/C Tab PO DAILY PRN PFSH Active Problems Active Problems: Problem Status Onset Code Hypokalemia E87.6 Hydronephrosis due to obstruction of ureter N13.1 Hypomagnesemia E83.42 Hypoglycemia E16.2 Acute dehydration E86.0 Essential hypertension I10 History of biopsy Z98.890 Grief F43.21 Vaginitis and vulvovaginitis in diseases classified elsewhere N77.1 Immunization due Z23 Vulval edema N90.89 Elevated fasting glucose R73.01 Alcohol intake above recommended sensible limits Z72.89 Breast lump 01/09/12 N63.0 History of appendectomy Z90.49 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 Z96.641 Status post abdominal hysterectomy Z90.710 Status post breast biopsy Z98.890 Status post tonsillectomy and adenoidectomy Z90.89 Sensory hearing loss, bilateral H90.3 Macular edema ~09/14/18 H35.81 Tibial plateau fracture, left 05/10/18 S82.142A Osteoarthritis M19.90 Stress incontinence N39.3 Rosacea L71.9 Hypertensive retinopathy of both eyes H35.033 Hypertension goal BP (blood pressure) < 140/80 08/10/15 I10 Family hx-breast malignancy Z80.3 Depressive disorder 01/09/12 F32.9 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 Ruiz) fluid... fluid where it should not be HTN (hypertension) Osteoarthritis Surgical History Surgical History Abdominal hysterectomy (~1973) HAS OVARIES H/O UTERINE FIBROIDS Appendectomy (~1973) Biopsy of breast Colonoscopy - IV Sedation (01/25/16) Tonsillectomy and adenoidectomy Total replacement of hip (07/03/14) Left Total replacement of hip (11/12/14) DR. MATUTE; RIGHT Tobacco Smoking/Tobacco Use Status: Former Tobacco Use Passive smoking exposure: No Second hand exposure: Yes Alcohol Alcohol Intake: current Alcohol intake frequency: 0-2 drinks per day Alcohol type: wine Substance Use Substance use: Never Substance use type: does not use Details: drinks a bottle of wine every night Prental History History 3 Para 1 Hx # Term Pregnancies Multiple births Hx # Pregnancies Ectopic pregnancies AB induced Hx Number of Living Children AB spontaneous 2 Vital Signs and Lab Results Vital Signs Most Recent Vital Signs in EMR: Most Recent Vital Signs Temp Pulse Resp BP Pulse Ox 37.8 C H 104 H 16 113/58 L 97 02/15/22 09:19 02/15/22 09:19 02/15/22 09:19 02/15/22 09:19 02/15/22 09:19 Point of Care Results Point of Care Results: Finger Stick Blood Glucose 169 02/14/22 20:15 Lab Results Result Diagrams: 02/15/22 05:20 02/15/22 05:20 Blood Type / Crossmatch: No Data to Display Complete Blood Count: White Blood Count 2.87 10^3/uL (4.4-10.8) L 02/15/22 05:20 Red Blood Count 3.51 10^6/uL (3.93-5.22) L 02/15/22 05:20 Hemoglobin 11.0 g/dL (11.2-15.7) L 02/15/22 05:20 Hematocrit 32.6 % (36.0-46.0) L 02/15/22 05:20 Platelet Count 68 10^3/uL (130-400) L 02/15/22 05:20 Venous Blood Lactate 3.0 mmol/L (0.9-1.7) H* 02/14/22 20:15 Complete Metabolic Panel: Sodium 132 mmol/L (136-145) L 02/15/22 05:20 Potassium 3.3 mmol/L (3.5-5.1) L 02/15/22 05:20 Chloride 100 mmol/L (98-107) 02/15/22 05:20 Carbon Dioxide 19.7 mmol/L (21.0-32.0) L 02/15/22 05:20 BUN 27 mg/dL (7-18) H 02/15/22 05:20 Creatinine 1.8 mg/dL (0.55-1.02) H 02/15/22 05:20 Est GFR (CKD-EPI 2020) 27.78 (mL/min/1.73m2) 02/15/22 05:20 Magnesium 2.4 mg/dL (1.8-2.4) 02/15/22 05:20 Calcium 8.2 mg/dL (8.5-10.1) L 02/15/22 05:20 Albumin 2.2 g/dL (3.4-5.0) L 02/15/22 05:20 Glucose 154 mg/dL (74-106) H 02/15/22 05:20 Liver Function Panel: Alanine Aminotransferase (ALT/SGPT) 21 U/L (14-59) 02/15/22 05: 20 Aspartate Amino Transf (AST/SGOT) 29 U/L (15-37) 02/15/22 05:20 Coagulation Panel: INR International Normalized Ratio 1.2 (0.9-1.1) H 02/15/22 05 :20 Prothrombin Time 11.9 sec (9.3-11.0) H 02/15/22 05:20 Cardiac Panel: No Data to Display Arterial Blood Gas: No Data to Display Venous Blood Gas: Venous Blood pH 7.37 (7.31-7.41) 02/14/22 20:15 Venous Blood Partial Pressure O2 41 mmHg 02/14/22 20:15 Venous Blood Partial Pressure CO2 37 mmHg (41-51) L 02/14/22 20 :15 Venous Blood Oxygen Saturation 74 % 02/14/22 20:15 Venous Blood HCO3 22 mmol/L (23-28) L 02/14/22 20:15 Venous Blood Base Excess -4 mmol/L (-2-3) L 02/14/22 20:15 Venous Blood Total Carbon Dioxide 20 mmol/L (24-29) L 02/14/22 20:15 Pancreas Panel: Lipase 68 U/L (73-393) 02/14/22 20:15 Thyroid Panel: No Data to Display Infectious Disease: Coronavirus (COVID-19)(PCR) Negative (Negative) 02/14/22 20:15 Coronavirus 2019 Source Not Applicable 02/14/22 20:15 Influenza Virus Type A (PCR) Negative (Negative) 02/14/22 20:1 5 Influenza Virus Type B (PCR) Negative (Negative) 02/14/22 20:1 5 Respiratory Syncytial Virus (PCR) Negative (Negative) 02/14/22 20:15 Blood Cultures: No Data to Display Toxicology Panel: Ethyl Alcohol Level < 3.0 mg/dL (<10) 02/14/22 20:15 Urine Amphetamines Screen Negative (Negative) 02/15/22 04:00 Urine Benzodiazepines Screen Negative (Negative) 02/15/22 04:0 0 Urine Barbiturates Screen Negative (Negative) 02/15/22 04:00 Urine Cocaine Screen Negative (Negative) 02/15/22 04:00 Urine Methadone Screen Negative (Negative) 02/15/22 04:00 Urine Opiates Screen Negative (Negative) 02/15/22 04:00 Ur Tricyclic Antidepressants Screen Negative (Negative) 04:00 Ur Tetrahydrocannabinol (THC) Scrn Negative (Negative) 2 04:00 Anesthesia Assessment and Plan Anesthesia History Personal History: No History of Anesthesia Complications Family History: No Family History of Anesthesia Complications Exercise Tolerance Exercise Tolerance: Metabolic Equivalents>4 Pertinent Negatives Pertinent Negatives: No Symptoms of GERD, No Major Cardiovascular Symptoms or Complaints and No Major Pulmonary Symptoms or Complaints Cardiac & Pulmonary Exam Cardiac Exam: Normal S1/S2 Heart Sounds Pulmonary Exam: Clear Bilateral Breath Sounds Implantable Cardiac Device Does patient have a Pacemaker or an ICD?: No Airway Exam Known Difficult Airway: No Mallampati Class: 4 Mouth Opening: Narrow (< 3cm) Thyromental Distance: Greater than 3 cm Neck Range of Motion: Full ROM Neck Circumference: Normal Teeth Condition: Normal Dentition ASA Classification ASA Score: ASA 3 Emergency Case?: Yes NPO Status NPO Status: NPO Clear Liquids>2 hours Anesthesia Plan Resuscitation Status: Full Code Anesthesia Technique: General Anesthesia Airway Planned: Natural Airway Monitors Used: Standard Monitors Preoperative Comments:: 82 yo female with hydronephrosis due to obstruction of ureter. Currently in the ICU with increasing temperatures. low K+, has been receiving repalacment. on ceftriaxone last dose 232302/14/22 Sig PMHx: HTN, hydronephrosis, depression, macular edema/retinopathy, ? daily EtOH Previous Anes: Igel 4 (? supreme 4 failure prior), difficult mask - two hand and oral airway. 200 mL volumes on PSV PIP 15.
--- NOTE | 2022-02-15 10:11 | NUR.NOTE ---
Patient can ambulate well, independently. encouraging the patient to use call chan for safety measures with the wires, but did put bedside commode close to bed just in case patient could not wait for us to get there to help since she has had urgent bowel movements. RN aware. Nursing Note:
[2022-02-15] MEDS: Lidocaine 2% Jelly 6 ML SYR (11:41)
--- NOTE | 2022-02-15 11:46 | DI.RAD_ITS ---
Exam(s) XR RETROGRADE IN OR EXAM: XR RETROGRADE IN OR CLINICAL HISTORY: Hydronephrosis due to obstruction of ureter TECHNIQUE: 2D and realtime digital imaging was performed. CONTRAST MATERIAL: Refer to procedure report. COMPARISON: No exams were available for comparison FINDINGS: Fluoroscopy was provided for Dr. Parekh during the performance of a retrograde evaluation of the teja l collecting system. Please refer to the procedure report for complete details. Ka,r=3.02 mGy IMPRESSION: RADIATION DOSE DELIVERED:
--- NOTE | 2022-02-15 11:47 | ROE_ITS ---
Date of service: 02/15/22 Time of Service: 11:48 Operative Note Operative Note DATE OF PROCEDURE: 02/15/22 PRE-OP DIAGNOSIS: Left hydronephrosis PROCEDURE: cystoscopy, insert left ureteral stent SURGEON: Nicola Parekh ANESTHESIA TYPE: General LMA/ETT Refer to Anesthesia Record ESTIMATED BLOOD LOSS: 0 PATHOLOGY: none sent COMPLICATIONS: None Patient was transported to: PACU Patient's condition: critical Implants: 7 armenian by 22 to 30 cm left ureteral stent Indications: An 82-year-old woman who presented to the emergency department last evening with lower abdominal pain, nausea and vomiting. On evaluation, she was found to have a left hydronephrosis. A left distal ureteral stone was suspected, but the patient has bilateral hip prostheses which made visibility of the distal ureters on CT scan compromised. At the time of her presentation, she was not febrile but overnight, she developed a fever. Initial blood cultures are now showing gram-negative rods. She presents for stent placement emergently. Findings: persistent nephrogram with contrast down to left distal ureteral stone purulent urine obtained from left kidney once ureteral stent placed Procedure Description: The patient was brought to the operating room on 02/15/2022. After successful induction of general anesthesia, she was placed in the dorsal lithotomy position. Her genitalia were prepped and draped. Fluoroscopy was utilized and there was a delayed nephrogram on the left side. Contrast was seen throughout a distended ureter all the way down to a filling defect in the left distal ureter. No contrast was seen on the right side. 2% Xylocaine jelly was instilled into the urethra to act as a local anesthetic. A 22 [place]alan rigid cystoscope was then passed through the urethra into the bladder. The bladder was inspected with a 30 degree lens. The left ureteral orifice was identified and was cannulated with a 6 [place]alan access catheter. No retrograde pyelogram was performed as contrast was still in the left collecting system and ureter. A Glidewire was then advanced through the access catheter and maneuvered up the left ureter. The access catheter was removed leaving the wire in place. Purulent urine was draining around the guidewire. I then passed a 7 [place]alan variable length stent over the wire. The proximal end of the stent was curled in the renal pelvis and the distal end was curled within the bladder. The positioning of the stent was confirmed both fluoroscopically and cystoscopically. The bladder was drained and the cystoscope was removed. The patient tolerated the procedure well with no complications.
--- NOTE | 2022-02-15 12:43 | NUR.NOTE ---
Recieved from OR at 1220 awake, alert and oriented. Harjinder Nichole and Rea RN in attendance. Maintaining O2 sats on 10l/venti mask. Changed over to 2l/nc with resulting O2 sats 94%. VS stable. Norepi drip infusing at 0.25 mcg/kg/min via right forearm #18 IV. Bowel sounds positive. Afebrile. Nursing Note:
[2022-02-15 13:30] LABS: Anion Gap 14.9 mmol/L (3-11); BUN 32 mg/dL (7-18); CO2 19.1 mmol/L (21.0-32.0); CREATININE 2.3 mg/dL (0.55-1.02); Calcium 8.5 mg/dL (8.5-10.1); Chloride 101 mmol/L (98-107); Glucose 195 mg/dL (74-106); Potassium 3.4 mmol/L (3.5-5.1); Sodium 135 mmol/L (136-145)
--- NOTE | 2022-02-15 13:35 | W.PM.PROGNOT ---
Date of Service Date of service: 02/15/22 Time of Service: 14:13 Assessment and Plan Assessment and plan (1) Hydronephrosis due to obstruction of ureter: Status: Acute Assessment and plan: Now s/p ureteral stenting. + nephrolithiasis. + purulent drainage noted. Urology plans stent removal in the very near future as outpt. (2) Acute dehydration: Status: Acute Assessment and plan: Receiving IV fluids. Has not desired any significant oral intake. Post-stent placement requiring pressor but being weaned off. (3) Hypokalemia: Status: Acute Assessment and plan: Receiving replacement in IV fluids: improved from 2.7 to 3.4 Monitor. (4) Hypomagnesemia: Status: Acute Assessment and plan: Corrected. (5) Alcohol abuse: Status: Acute Assessment and plan: Will watch for signs/sxs of withdrawal. CIWA monitoring if does show indications. (6) Gram-negative bacteremia: Status: Acute Assessment and plan: Both aerobic and anaerobic bottles showing growth. Cont Ceftriaxone. Alter antibiotic choice if final cx and sensitivities dictate. (7) Urinary tract infection: Status: Acute Assessment and plan: UA positive for blood, L.E., WBC's, bacteria. Cx Pending. WBC count suppressed to 2.87. Cont Ceftriaxone. Subjective Subjective Patient reports: feels better (s/p ureteral stenting.), nausea and afebrile; denies vomiting Exam Narrative Exam Narrative: Prior to ureteral stenting she report having some discomfort but better. No rigors. No SOA. Const General: cooperative and no acute distress Orientation: alert and oriented x3 HENMT Head: normal to inspection Ears: external ears normal General nose exam: external nose normal Mouth: moist mucous membranes Eyes General: appearance normal, both eyes and all related structures Sclera: sclerae normal Resp Effort & Inspection: normal respiratory effort and able to speak in complete sentences Auscultation: clear to auscultation bilaterally Cardio Rate: regular rate Rhythm: regular rhythm Heart Sounds: S1 normal and S2 normal GI Palpation: soft and nontender Skin General skin exam: no rashes or lesions noted Neuro General: no focal motor deficits Extrem General: no pedal edema and no calf tenderness Psych Mental Status: mental status grossly normal Affect: normal affect Objective Last Vital Signs Temp 36.6 C 02/15/22 12:34 Pulse 94 H 02/15/22 12:34 Resp 32 H 02/15/22 12:34 BP 105/63 02/15/22 12:34 Pulse Ox 97 02/15/22 12:34 Laboratory Results - last 24 hr 02/14/22 02/14/22 02/14/22 20:15 20:15 20:15 WBC RBC Hgb Hct MCV MCH MCHC RDW Plt Count MPV Immature Gran % Neutrophils % Band Neutrophils % Lymphocytes % Monocytes % Eosinophils % Basophils % Metamyelocytes % Myelocytes % Nucleated RBC % Absolute Neutrophils Absolute Lymphocytes Absolute Monocytes Absolute Eosinophils Absolute Basophils RBC Morphology PT INR VBG pH VBG pCO2 VBG pO2 VBG HCO3 VBG Total CO2 VBG O2 Saturation VBG Base Excess VBG Lactate 3.0 H* Sodium 132 L Potassium 2.7 L* Chloride 98 Carbon Dioxide 22.4 Anion Gap 11.6 H BUN 25 H Creatinine 1.6 H Est GFR (CKD-EPI 2020) 32.20 Glucose 174 H Calcium 8.7 Phosphorus Magnesium 1.6 L Total Bilirubin 1.0 Conjugated Bilirubin AST 28 ALT 24 Alkaline Phosphatase 248 H Total Protein 6.5 Albumin 2.5 L Lipase 68 Urine Color Urine Clarity Urine pH Ur Specific [place] Urine Protein Urine Ketones Urine Blood Urine Nitrite Urine Bilirubin Urine Urobilinogen Ur Leukocyte Esterase Urine RBC Urine WBC Ur Epithelial Cells Urine Crystals Urine Bacteria Urine Casts Urine Mucus Urine Other Ur Culture Indicated? Urine Glucose Urine Opiates Screen Urine Methadone Screen Ur Barbiturates Screen Ur Tricyclics Screen Ur Amphetamines Screen U Benzodiazepines Scrn Urine Cocaine Screen Ur THC Screen Ethyl Alcohol COVID-19 Source Not Applicable SARS-CoV-2 (PCR) Negative Influenza Type A (PCR) Negative Influenza Type B (PCR) Negative RSV (PCR) Negative 02/14/22 02/14/22 02/14/22 20:15 20:15 20:15 WBC 6.49 RBC 3.86 L Hgb 12.2 Hct 35.8 L MCV 93 MCH 31.6 MCHC 34.1 RDW 12.5 Plt Count 104 L MPV 10.2 Immature Gran % 0.0 Neutrophils % 80.0 Band Neutrophils % 14 Lymphocytes % 2.0 Monocytes % 3.0 Eosinophils % 0.0 Basophils % 0.0 Metamyelocytes % 1 Myelocytes % Nucleated RBC % 0.0 Absolute Neutrophils 6.10 Absolute Lymphocytes 0.13 L Absolute Monocytes 0.19 Absolute Eosinophils 0.00 Absolute Basophils 0.00 RBC Morphology Normal PT INR VBG pH 7.37 VBG pCO2 37 L VBG pO2 41 VBG HCO3 22 L VBG Total CO2 20 L VBG O2 Saturation 74 VBG Base Excess -4 L VBG Lactate Sodium Potassium Chloride Carbon Dioxide Anion Gap BUN Creatinine Est GFR (CKD-EPI 2020) Glucose Calcium Phosphorus Magnesium Total Bilirubin 1.0 Conjugated Bilirubin 0.6 H AST ALT Alkaline Phosphatase Total Protein Albumin Lipase Urine Color Urine Clarity Urine pH Ur Specific [place] Urine Protein Urine Ketones Urine Blood Urine Nitrite Urine Bilirubin Urine Urobilinogen Ur Leukocyte Esterase Urine RBC Urine WBC Ur Epithelial Cells Urine Crystals Urine Bacteria Urine Casts Urine Mucus Urine Other Ur Culture Indicated? Urine Glucose Urine Opiates Screen Urine Methadone Screen Ur Barbiturates Screen Ur Tricyclics Screen Ur Amphetamines Screen U Benzodiazepines Scrn Urine Cocaine Screen Ur THC Screen Ethyl Alcohol COVID-19 Source SARS-CoV-2 (PCR) Influenza Type A (PCR) Influenza Type B (PCR) RSV (PCR) 02/14/22 02/14/22 02/14/22 20:15 22:19 22:21 WBC RBC Hgb Hct MCV MCH MCHC RDW Plt Count MPV Immature Gran % Neutrophils % Band Neutrophils % Lymphocytes % Monocytes % Eosinophils % Basophils % Metamyelocytes % Myelocytes % Nucleated RBC % Absolute Neutrophils Absolute Lymphocytes Absolute Monocytes Absolute Eosinophils Absolute Basophils RBC Morphology PT 12.3 H INR 1.2 H VBG pH VBG pCO2 VBG pO2 VBG HCO3 VBG Total CO2 VBG O2 Saturation VBG Base Excess VBG Lactate Sodium Potassium Chloride Carbon Dioxide Anion Gap BUN Creatinine Est GFR (CKD-EPI 2020) Glucose Calcium Phosphorus Magnesium Total Bilirubin Conjugated Bilirubin AST ALT Alkaline Phosphatase Total Protein Albumin Lipase Urine Color Yellow Urine Clarity Cloudy Urine pH 6.0 Ur Specific [place] 1.010 Urine Protein 30 H Urine Ketones Negative Urine Blood Moderate H Urine Nitrite Negative Urine Bilirubin Negative Urine Urobilinogen 2.0 H Ur Leukocyte Esterase Small H Urine RBC 5-10 H Urine WBC 20-50 H Ur Epithelial Cells Rare Urine Crystals Negative Urine Bacteria Moderate Urine Casts 0-2 Fine Granular Urine Mucus Negative Urine Other Rare Renal Ur Culture Indicated? C&S Done As Ordered Urine Glucose Negative Urine Opiates Screen Urine Methadone Screen Ur Barbiturates Screen Ur Tricyclics Screen Ur Amphetamines Screen U Benzodiazepines Scrn Urine Cocaine Screen Ur THC Screen Ethyl Alcohol < 3.0 COVID-19 Source SARS-CoV-2 (PCR) Influenza Type A (PCR) Influenza Type B (PCR) RSV (PCR) 02/15/22 02/15/22 02/15/22 04:00 05:20 05:20 WBC 2.87 L RBC 3.51 L Hgb 11.0 L Hct 32.6 L MCV 93 MCH 31.3 MCHC 33.7 RDW 12.8 Plt Count 68 L MPV 11.4 H Immature Gran % See Differential Neutrophils % 66.0 Band Neutrophils % 17 Lymphocytes % 2.0 Monocytes % 2.0 Eosinophils % 0.0 Basophils % 0.0 Metamyelocytes % 10 Myelocytes % 3 Nucleated RBC % 0.0 Absolute Neutrophils 2.38 Absolute Lymphocytes 0.06 L Absolute Monocytes 0.06 L Absolute Eosinophils 0.00 Absolute Basophils 0.00 RBC Morphology Normal PT INR VBG pH VBG pCO2 VBG pO2 VBG HCO3 VBG Total CO2 VBG O2 Saturation VBG Base Excess VBG Lactate Sodium 132 L Potassium 3.3 L Chloride 100 Carbon Dioxide 19.7 L Anion Gap 12.3 H BUN 27 H Creatinine 1.8 H Est GFR (CKD-EPI 2020) 27.78 Glucose 154 H Calcium 8.2 L Phosphorus Magnesium 2.4 Total Bilirubin 1.0 Conjugated Bilirubin AST 29 ALT 21 Alkaline Phosphatase 278 H Total Protein 6.0 L Albumin 2.2 L Lipase Urine Color Urine Clarity Urine pH Ur Specific [place] Urine Protein Urine Ketones Urine Blood Urine Nitrite Urine Bilirubin Urine Urobilinogen Ur Leukocyte Esterase Urine RBC Urine WBC Ur Epithelial Cells Urine Crystals Urine Bacteria Urine Casts Urine Mucus Urine Other Ur Culture Indicated? Urine Glucose Urine Opiates Screen Negative Urine Methadone Screen Negative Ur Barbiturates Screen Negative Ur Tricyclics Screen Negative Ur Amphetamines Screen Negative U Benzodiazepines Scrn Negative Urine Cocaine Screen Negative Ur THC Screen Negative Ethyl Alcohol COVID-19 Source SARS-CoV-2 (PCR) Influenza Type A (PCR) Influenza Type B (PCR) RSV (PCR) 02/15/22 02/15/22 02/15/22 05:20 05:20 13:10 WBC RBC Hgb Hct MCV MCH MCHC RDW Plt Count MPV Immature Gran % Neutrophils % Band Neutrophils % Lymphocytes % Monocytes % Eosinophils % Basophils % Metamyelocytes % Myelocytes % Nucleated RBC % Absolute Neutrophils Absolute Lymphocytes Absolute Monocytes Absolute Eosinophils Absolute Basophils RBC Morphology PT 11.9 H INR 1.2 H VBG pH VBG pCO2 VBG pO2 VBG HCO3 VBG Total CO2 VBG O2 Saturation VBG Base Excess VBG Lactate Sodium 135 L Potassium 3.4 L Chloride 101 Carbon Dioxide 19.1 L Anion Gap 14.9 H BUN 32 H Creatinine 2.3 H Est GFR (CKD-EPI 2020) 20.70 Glucose 195 H Calcium 8.5 Phosphorus 2.9 Magnesium Total Bilirubin Conjugated Bilirubin AST ALT Alkaline Phosphatase Total Protein Albumin Lipase Urine Color Urine Clarity Urine pH Ur Specific [place] Urine Protein Urine Ketones Urine Blood Urine Nitrite Urine Bilirubin Urine Urobilinogen Ur Leukocyte Esterase Urine RBC Urine WBC Ur Epithelial Cells Urine Crystals Urine Bacteria Urine Casts Urine Mucus Urine Other Ur Culture Indicated? Urine Glucose Urine Opiates Screen Urine Methadone Screen Ur Barbiturates Screen Ur Tricyclics Screen Ur Amphetamines Screen U Benzodiazepines Scrn Urine Cocaine Screen Ur THC Screen Ethyl Alcohol COVID-19 Source SARS-CoV-2 (PCR) Influenza Type A (PCR) Influenza Type B (PCR) RSV (PCR) PAWSS Have you Ever Experienced Previous Episodes of Alcohol Withdrawal?: No Have you ever Experienced Withdrawal Seizures?: No Have you ever Experienced Delirium Tremens(DT)s?: No Have you ever undergone Alcohol Rehabilitation Treatment (i.e, inpt ot outpatient treatment programs)?: No Have you ever Experienced Blackouts?: Yes Have you ever Combined Alcohol with other Downers within the last 90 days?: No Have you ever Combined Alcohol with any other Substance of Abuse during the last 90 days?: No Positive Blood Alcohol level on Presentation? [PCS.BAL]: No Evidence of Increased Autonomic Activity (i.e. HR>120, tremor, sweating, agitation, nausea)?: No Result: 1
--- NOTE | 2022-02-15 14:16 | NUR.NOTE ---
Norepinephrine titrated to off without incident. VS remain stable. Nursing Note:
--- NOTE | 2022-02-15 16:31 | W.ANESPOSTOP ---
Postoperative Evaluation Date, Time and Location Date Performed: 02/15/22 Time Performed: 16:31 Patient Location: Intensive Care Unit Vital Signs Most Recent Imported Vital Signs: Most Recent Vital Signs Temp Pulse Resp BP Pulse Ox 36.7 C 97 H 21 120/57 L 96 02/15/22 14:18 02/15/22 14:31 02/15/22 14:40 02/15/22 14:31 02/15/22 14:40 Pain Score Most Recent Pain Score: Most Recent Pain Score Pain Level 8 02/15/22 14:18 Assessment Mental Status: Awake (Alert & Oriented to Patient Baseline) Airway and Respiratory Function: Patent airway with normal (patient baseline) respiratory exam Cardiovascular Function: Hemodynamically Stable Hydration Status: Adequately Hydrated Nausea & Vomiting: No Nausea or Vomiting Pain: Pain is tolerable per patient Peripheral Nerve Block: Patient did not receive a nerve block
[2022-02-15] MEDS: cefTRIAXone 1 GM/50 ML BAG IVPB (22:39)
[2022-02-15] MEDS: Tamsulosin 0.4 MG CAPCR PO (22:41)
[2022-02-15] MEDS: Ibuprofen 600 MG TAB PO (22:41)
[2022-02-16] VITALS (74 sets, daily range): BP systolic 105–160; BP diastolic 53–85; PULSE 83–105; RESP 16–30; TEMP 36.5–37.9; O2SAT 91–96
--- NOTE | 2022-02-16 08:15 | PDOC.CMPRO ---
- If Service Date Differs Date of service: 02/16/22 Time of Service: 08:15 Care Management Progress Note S/O: A: 82 year old female admitted to [facility] on 02/14/22 with Hydronephrosis with stone, dehydration, hypokalemia P: Anticipate Cristine will return home when ready per MD. She will follow up with her PCP and plan of care as prescribed.
[2022-02-16 08:53] LABS: HCT 31.3 % (36.0-46.0); HGB 10.7 g/dL (11.2-15.7); MCH 31.8 pg (27.0-33.0); MCHC 34.2 % (32.0-36.0); MCV 93 fL (80-95); MPV 11.7 fL (8.0-11.0); RBC 3.36 10^6/uL (3.93-5.22); RDW 13.2 % (11.7-14.6); RDW-SD 45.2 fL; WBC 17.69 10^3/uL (4.4-10.8)
[2022-02-16] MEDS: Normal Saline Flush 10 ML SYR IVP ×3 (09:01→23:22)
[2022-02-16] MEDS: Ondansetron 4 MG/2 ML VIAL IV (09:01)
[2022-02-16 09:19] LABS: Absolute Lymphocyte Count 0.35 10^3/uL (1.2-3.4); Absolute Monocyte Count 0.53 10^3/uL (0.1-0.8); Absolute Neutrophil Count 16.81 10^3/uL (1.2-6.7); Bands % 5; Diff Comment Manual Differential; Platelet Count 69 10^3/uL (130-400); RBC Morphology Normal
[2022-02-16 09:23] LABS: Anion Gap 10.7 mmol/L (3-11); BUN 41 mg/dL (7-18); CO2 18.3 mmol/L (21.0-32.0); Chloride 104 mmol/L (98-107); Estimated GFR 24.48 (mL/min/1.73m2); Glucose 121 mg/dL (74-106); Potassium 3.9 mmol/L (3.5-5.1); Sodium 133 mmol/L (136-145)
--- NOTE | 2022-02-16 13:08 | PHA.REVIEW2 ---
Pharmacy Admission Review - Admission Clinical Review (Last Reviewed 02/15/22 @ 22:17 by Brien Kyle) Urinary tract infection (Acute) Gram-negative bacteremia (Acute) Hypokalemia (Acute) Hydronephrosis due to obstruction of ureter (Acute) Hypomagnesemia (Acute) Acute dehydration (Acute) morphine Allergy (Severe, Verified 02/14/22 20:15) ITCHING propoxyphene Adverse Reaction (Severe, Verified 02/14/22 20:15) HALLUCINATIONS naproxen Adverse Reaction (Intermediate, Verified 02/14/22 20:15) RETAINS FLUID Resuscitation Status Full Code Height 5 ft 4 in Weight 88.9 kg - Renal Dosing Renal Dosing: BUN 41 mg/dL (7-18) H 02/16/22 08:37 Creatinine 2.0 mg/dL (0.55-1.02) H 02/16/22 08:37 Medications needing adjustments: Intervened List of meds needing interventions: eCrCl 23 ml/min; levaquin dose adjusted to q48h, all other orders ok - Anticoagulation Anticoagulation: Hgb 10.7 g/dL (11.2-15.7) L 02/16/22 08:37 Hct 31.3 % (36.0-46.0) L 02/16/22 08:37 Plt Count 69 10^3/uL (130-400) L 02/16/22 08:37 INR 1.2 (0.9-1.1) H 02/15/22 05:20 Creatinine 2.0 mg/dL (0.55-1.02) H 02/16/22 08:37 Therapeutic Anticoagulation: Intervened (will notify MD about restarting lmwh now that it's been 24 hours postop) - Opiate Usage Evaluate Pain Scale/Pains Meds: N/A - Relevant Labs Sodium 133 mmol/L (136-145) L 02/16/22 08:37 Potassium 3.9 mmol/L (3.5-5.1) 02/16/22 08:37 Chloride 104 mmol/L (98-107) 02/16/22 08:37 Phosphorus 2.9 mg/dL (2.6-4.7) 02/15/22 05:20 Magnesium 2.4 mg/dL (1.8-2.4) 02/15/22 05:20 Electrolytes, C-Reactive P, ESR: Reviewed - DM Control DM Control: Glucose 121 mg/dL (74-106) H 02/16/22 08:37 DM Control: N/A - Cardiac Review BP, HR, EF%: N/A - Qtc Review QTc: N/A - IV to PO Switch IV Medications: Reviewed - Home Meds Home Med List reviewed: Reviewed Relevent Home Meds Not ordered & why?: all ordered - Current meds Current Medication Order Review: Reviewed (ceftriaxone continues, blood and urine cultures grew gram - rods)
[2022-02-16] MEDS: POTASSIUM CHLORIDE/0.9% NACL 1,000 ML 125 MEQ IV ×2 (13:26→23:22)
[2022-02-16] MEDS: Thiamine 100 MG TAB PO (13:27)
[2022-02-16] MEDS: Losartan 50 MG TAB PO (13:27)
[2022-02-16] MEDS: Multivitamin TAB 1 TAB PO (13:27)
[2022-02-16] MEDS: amLODIPine 2.5 MG TAB PO (13:27)
[2022-02-16] MEDS: Folic Acid 1 MG TAB PO (13:28)
--- NOTE | 2022-02-16 13:33 | W.PM.PROGNOT ---
Date of Service Date of service: 02/16/22 Time of Service: 13:35 Assessment and Plan Assessment and plan (1) Hydronephrosis due to obstruction of ureter: Status: Acute Assessment and plan: Now s/p ureteral stenting. + nephrolithiasis. + purulent drainage noted. Urology plans stent removal in the very near future as outpt. (2) Acute dehydration: Status: Acute Assessment and plan: Receiving IV fluids. Nausea resulting in low oral intake. Cont NS with K. Post-stent placement requiring pressor but now weaned off.. (3) Hypokalemia: Status: Acute Assessment and plan: Receiving replacement in IV fluids: improved from 2.7 to 3.9 Monitor. (4) Hypomagnesemia: Status: Acute Assessment and plan: Corrected. (5) Alcohol abuse: Status: Chronic Assessment and plan: Will watch for signs/sxs of withdrawal. Has not scored on CIWA; stop CIWA. (6) Gram-negative bacteremia: Status: Acute Assessment and plan: Both aerobic and anaerobic bottles showing growth. Cont Ceftriaxone. WBC count increased significantly. Add Levquin in event the E.Coli is resistant to ceftriaxone. Alter antibiotic choice if final cx and sensitivities dictate. (7) Urinary tract infection: Status: Acute Assessment and plan: UA positive for blood, L.E., WBC's, bacteria. Cx Pending. WBC count suppressed to 2.87 but now elevated at 17.69. Cont Ceftriaxone and levaquin until final sensitivities known. Subjective Subjective Patient reports: no new complaints, nausea and afebrile; denies shortness of breath Exam Narrative Exam Narrative: Tired; sleeping much of the day Const General: cooperative and no acute distress [facility] Head: normal to inspection Ears: external ears normal General nose exam: external nose normal Mouth: moist mucous membranes Eyes General: appearance normal, both eyes and all related structures Sclera: sclerae normal Resp Effort & Inspection: normal respiratory effort and able to speak in complete sentences Auscultation: clear to auscultation bilaterally Cardio Rate: regular rate Rhythm: regular rhythm Heart Sounds: S1 normal and S2 normal GI Palpation: soft and nontender Skin General skin exam: no rashes or lesions noted Neuro General: no focal motor deficits Extrem General: no pedal edema and no calf tenderness Psych Mental Status: mental status grossly normal Affect: normal affect Objective Last Vital Signs Temp 36.7 C 02/16/22 13:15 Pulse 93 H 02/16/22 13:15 Resp 26 H 02/16/22 13:15 BP 131/65 02/16/22 13:15 Pulse Ox 95 02/16/22 13:15 Laboratory Results - last 24 hr 02/16/22 02/16/22 08:37 08:37 WBC 17.69 H RBC 3.36 L Hgb 10.7 L Hct 31.3 L MCV 93 MCH 31.8 MCHC 34.2 RDW 13.2 Plt Count 69 L MPV 11.7 H Immature Gran % 0.0 Neutrophils % 90.0 Band Neutrophils % 5 Lymphocytes % 2.0 Monocytes % 3.0 Eosinophils % 0.0 Basophils % 0.0 Nucleated RBC % 0.0 Absolute Neutrophils 16.81 H Absolute Lymphocytes 0.35 L Absolute Monocytes 0.53 Absolute Eosinophils 0.00 Absolute Basophils 0.00 RBC Morphology Normal Sodium 133 L Potassium 3.9 Chloride 104 Carbon Dioxide 18.3 L Anion Gap 10.7 BUN 41 H Creatinine 2.0 H Est GFR (CKD-EPI 2020) 24.48 Glucose 121 H Calcium 8.0 L PAWSS Have you Ever Experienced Previous Episodes of Alcohol Withdrawal?: No Have you ever Experienced Withdrawal Seizures?: No Have you ever Experienced Delirium Tremens(DT)s?: No Have you ever undergone Alcohol Rehabilitation Treatment (i.e, inpt ot outpatient treatment programs)?: No Have you ever Experienced Blackouts?: Yes Have you ever Combined Alcohol with other Downers within the last 90 days?: No Have you ever Combined Alcohol with any other Substance of Abuse during the last 90 days?: No Positive Blood Alcohol level on Presentation? [PCS.BAL]: No Evidence of Increased Autonomic Activity (i.e. HR>120, tremor, sweating, agitation, nausea)?: No Result: 1
[2022-02-16] MEDS: Enoxaparin 30 MG/0.3 ML SYR SC (14:19)
[2022-02-16] MEDS: levoFLOXacin 750 MG/150 ML BAG 100 MG IVPB (15:06)
--- NOTE | 2022-02-16 15:08 | NUR.NOTE ---
Patient moved from ICU 219 to Med surg 208 @ 1427. Patient complains of nausea but was given promethazine 12.5 @ 1418. Patient ambulated with a walker from ICU 219 to MS 208. Patients Lungs clear, HR- sinus. Patient content in bed resting at this time.
--- NOTE | 2022-02-16 16:41 | PDOC.CMPRO ---
- If Service Date Differs Date of service: 02/16/22 Time of Service: 16:41 Care Management Progress Note S/O: Cristine continues to struggle with nausea and has not had adequate oral intake, as of today. She remains on IVF and IV ABX (UTI) and remains acute at this time. A: 82 year old female admitted to [facility] 02/14/22 Hydronephrosis with stone, dehydration, hypokalemia P: Cristine will return home when ready per MD. She will follow up with her PCP and plan of care as prescribed including follow up with urology for outpatient stent removal, per MD. She will transport via private vehicle with family.
[2022-02-16] MEDS: ACETAMINOPHEN 1,000 MG/100 ML BTL 400 MG IVPB (18:25)
[2022-02-16] MEDS: cefTRIAXone 1 GM/50 ML BAG IVPB (21:51)
[2022-02-16] MEDS: Tamsulosin 0.4 MG CAPCR PO (21:52)
[2022-02-17] VITALS (7 sets, daily range): BP systolic 136–176; BP diastolic 61–93; PULSE 83–108; RESP 16–20; TEMP 36.7–37.4; O2SAT 94–97
--- NOTE | 2022-02-17 | DI.RAD_ITS ---
Exam(s) XR ABDOMEN FLAT PLATE EXAM: XR ABDOMEN FLAT PLATE CLINICAL HISTORY: abd pain, nausea, distension TECHNIQUE: COMPARISON: CT CT ABDOMEN PELVIS W from 02/14/2022 FINDINGS: Two views of the abdomen were obtained. There is a left ureteral stent in position. Prior abdominal CT of February 14 showed calcification of the distal left ureter. Multiple phleboliths overlie thi s area and I am uncertain whether there is a persistent left ureteral stone. IMPRESSION: RADIATION DOSE DELIVERED: Total DLP
[2022-02-17 06:27] LABS: Abs Immature Grans 0.18 10^3/uL (0.0-0.06); HCT 34.5 % (36.0-46.0); HGB 11.7 g/dL (11.2-15.7); Immature Grans % 1.2; MCH 31.6 pg (27.0-33.0); MCHC 33.9 % (32.0-36.0); MCV 93 fL (80-95); MPV 12.3 fL (8.0-11.0); RDW 13.2 % (11.7-14.6); RDW-SD 45.5 fL; WBC 15.13 10^3/uL (4.4-10.8)
[2022-02-17 07:05] LABS: Anion Gap 10.4 mmol/L (3-11); BUN 30 mg/dL (7-18); CO2 18.6 mmol/L (21.0-32.0); CREATININE 1.4 mg/dL (0.55-1.02); Calcium 8.3 mg/dL (8.5-10.1); Chloride 110 mmol/L (98-107); Estimated GFR 37.56 (mL/min/1.73m2); Glucose 147 mg/dL (74-106); Sodium 139 mmol/L (136-145)
[2022-02-17] MEDS: POTASSIUM CHLORIDE/0.9% NACL 1,000 ML 125 MEQ IV (07:06)
[2022-02-17 07:19] LABS: Absolute Lymphocyte Count 1.21 10^3/uL (1.2-3.4); Absolute Monocyte Count 0.61 10^3/uL (0.1-0.8); Absolute Neutrophil Count 13.31 10^3/uL (1.2-6.7); Atypical Lymphocytes % 0; Bands % 0; Diff Comment Manual Differential; Platelet Count 86 10^3/uL (130-400); RBC Morphology Normal
[2022-02-17] MEDS: Thiamine 100 MG TAB PO (08:25)
[2022-02-17] MEDS: Folic Acid 1 MG TAB PO (08:25)
[2022-02-17] MEDS: Losartan 50 MG TAB PO (08:26)
--- NOTE | 2022-02-17 09:17 | PDOC.CMPRO ---
- If Service Date Differs Date of service: 02/17/22 Time of Service: 09:17 Care Management Progress Note S/O: Cristine was sitting up in her chair when CM met with her. She is alert, oriented and easy to engage in conversation. She is watching the News, which she has reportedly been to weak to to in recent days. CM brought her a News Paper, at her request. Cristine shares that she is feeling better than yesterday, but states I am not well. Cristine c/o nausea and vomiting and has an emesis bag on her lap. Cristine did tolerate lunch, and took at nap soon after. A: 82 year old female admitted to [facility] 02/14/22 Hydronephrosis with stone, dehydration, hypokalemia P: Anticipate, Cristine will return home when ready per MD. She will follow up with her PCP and plan of care as prescribed including follow up with urology for outpatient stent removal, per MD. She will transport via private vehicle with family.
[2022-02-17] MEDS: amLODIPine 2.5 MG TAB PO ×2 (11:09→19:07)
--- NOTE | 2022-02-17 11:32 | PGE_ITS ---
Date of Service Date of service: 02/17/22 Time of Service: 11:32 Assessment and Plan Assessment and plan (1) Hydronephrosis due to obstruction of ureter: Status: Acute (2) Gram-negative bacteremia: Status: Acute Assessment and plan: With her positive blood cultures, we will need her to complete her antibiotics before we address her ureteral stone. We will plan to do a cystoscopy, remove the left ureteral stent, do a left ureteroscopy and stone extraction following her discharge. She does have an indeterminate right renal mass that can also be worked up as an outpatient. Subjective Subjective Interval history since last seen: Chief Complaint: Left hydronephrosis Clinically, she is improving following stent placement. Her blood and urine cultures are growing gram negatives. She has less flank pain and her voided vo lumes are increasing. Exam Narrative Exam Narrative: Her vital signs are documented elsewhere in this chart Objective Last Vital Signs Temp 37.4 C 02/17/22 11:24 Pulse 99 H 02/17/22 11:24 Resp 16 02/17/22 11:24 BP 165/81 H 02/17/22 11:24 Pulse Ox 94 02/17/22 11:24 Laboratory Results - last 24 hr 02/14/22 02/17/22 02/17/22 22:19 05:55 05:55 WBC 15.13 H RBC 3.70 L Hgb 11.7 Hct 34.5 L MCV 93 MCH 31.6 MCHC 33.9 RDW 13.2 Plt Count 86 L MPV 12.3 H Immature Gran % 1.2 Neutrophils % 88.0 Band Neutrophils % 0 Lymphocytes % 8.0 Atypical Lymphs % 0 Monocytes % 4.0 Eosinophils % 0.0 Basophils % 0.0 Nucleated RBC % 0.0 Absolute Neutrophils 13.31 H Absolute Lymphocytes 1.21 Absolute Monocytes 0.61 Absolute Eosinophils 0.00 Absolute Basophils 0.00 RBC Morphology Normal Sodium 139 Potassium 4.0 Chloride 110 H Carbon Dioxide 18.6 L Anion Gap 10.4 BUN 30 H Creatinine 1.4 H Est GFR (CKD-EPI 2020) 37.56 Glucose 147 H Calcium 8.3 L Urine Color Yellow Urine Clarity Cloudy Urine pH 6.[address] [place] 1.010 Urine Protein 30 H Urine Ketones Negative Urine Blood Moderate H Urine Nitrite Negative Urine Bilirubin Negative Urine Urobilinogen 2.0 H Ur Leukocyte Esterase Small H Urine RBC 5-10 H Urine WBC 20-50 H Ur Epithelial Cells Rare Urine Crystals Negative Urine Bacteria Moderate Urine Casts 0-2 Fine Granular Urine Mucus Negative Urine Other Rare Renal Ur Culture Indicated? C&S Done As Ordered Urine Glucose Negative PAWSS Have you Ever Experienced Previous Episodes of Alcohol Withdrawal?: No Have you ever Experienced Withdrawal Seizures?: No Have you ever Experienced Delirium Tremens(DT)s?: No Have you ever undergone Alcohol Rehabilitation Treatment (i.e, inpt ot outpatient treatment programs)?: No Have you ever Experienced Blackouts?: Yes Have you ever Combined Alcohol with other Downers within the last 90 days?: No Have you ever Combined Alcohol with any other Substance of Abuse during the last 90 days?: No Positive Blood Alcohol level on Presentation? [PCS.BAL]: No Evidence of Increased Autonomic Activity (i.e. HR>120, tremor, sweating, agitation, nausea)?: No Result: 1
--- NOTE | 2022-02-17 13:33 | PGE_ITS ---
Date of Service Date of service: 02/17/22 Time of Service: 13:33 Assessment and Plan Assessment and plan (1) Hydronephrosis due to obstruction of ureter: Status: Acute Assessment and plan: Now s/p ureteral stenting. + nephrolithiasis. + purulent drainage noted. Urology plans stent removal in the very near future as outpt; after antibiotic treatment for bacteremia. (2) Acute dehydration: Status: Acute Assessment and plan: Receiving IV fluids. Nausea resulting in low oral intake; persists but somewhat better. Cont NS with K at lower rate. Post-stent placement requiring pressor but now weaned off.. (3) Hypokalemia: Status: Acute Assessment and plan: Receiving replacement in IV fluids: improved from 2.7 to 4.0 Monitor. (4) Hypomagnesemia: Status: Acute Assessment and plan: Corrected. (5) Alcohol abuse: Status: Chronic Assessment and plan: Will watch for signs/sxs of withdrawal. Has not scored on CIWA; stop CIWA. (6) Gram-negative bacteremia: Status: Acute Assessment and plan: Blood and urine cultures growing E.Coli. Will continue Levaquin 750mg IV Q48 hours (renal dosing). WBC count improved. Monitor. (7) Urinary tract infection: Status: Acute Assessment and plan: E.Coli UTI Levaquin as above. Subjective Subjective Patient reports: nausea (has poor appetite. No abd pain. ) and afebrile; denies diarrhea, vomiting or shortness of breath Interval history since last seen: Not complaining of flank or abd pain. Feels tired/weak. Exam Narrative Exam Narrative: Siting upright in bed. Looks less fatigued. Const General: cooperative and no acute distress Orientation: alert and oriented x3 HENMT Head: normal to inspection Ears: external ears normal General nose exam: external nose normal Mouth: moist mucous membranes Eyes General: appearance normal, both eyes and all related structures Sclera: sclerae normal Resp Effort & Inspection: normal respiratory effort and able to speak in complete sentences Auscultation: clear to auscultation bilaterally Cardio Rate: regular rate Rhythm: regular rhythm Heart Sounds: S1 normal and S2 normal GI Palpation: soft and nontender Skin General skin exam: no rashes or lesions noted Neuro General: no focal motor deficits Extrem General: no pedal edema and no calf tenderness Psych Mental Status: mental status grossly normal Affect: normal affect Objective Last Vital Signs Temp 37.4 C 02/17/22 11:24 Pulse 99 H 02/17/22 11:24 Resp 16 02/17/22 11:24 BP 165/81 H 02/17/22 11:24 Pulse Ox 94 02/17/22 11:24 Laboratory Results - last 24 hr 02/14/22 02/17/22 02/17/22 22:19 05:55 05:55 WBC 15.13 H RBC 3.70 L Hgb 11.7 Hct 34.5 L MCV 93 MCH 31.6 MCHC 33.9 RDW 13.2 Plt Count 86 L MPV 12.3 H Immature Gran % 1.2 Neutrophils % 88.0 Band Neutrophils % 0 Lymphocytes % 8.0 Atypical Lymphs % 0 Monocytes % 4.0 Eosinophils % 0.0 Basophils % 0.0 Nucleated RBC % 0.0 Absolute Neutrophils 13.31 H Absolute Lymphocytes 1.21 Absolute Monocytes 0.61 Absolute Eosinophils 0.00 Absolute Basophils 0.00 RBC Morphology Normal Sodium 139 Potassium 4.0 Chloride 110 H Carbon Dioxide 18.6 L Anion Gap 10.4 BUN 30 H Creatinine 1.4 H Est GFR (CKD-EPI 2020) 37.56 Glucose 147 H Calcium 8.3 L Urine Color Yellow Urine Clarity Cloudy Urine pH 6.0 Ur Specific [place] 1.010 Urine Protein 30 H Urine Ketones Negative Urine Blood Moderate H Urine Nitrite Negative Urine Bilirubin Negative Urine Urobilinogen 2.0 H Ur Leukocyte Esterase Small H Urine RBC 5-10 H Urine WBC 20-50 H Ur Epithelial Cells Rare Urine Crystals Negative Urine Bacteria Moderate Urine Casts 0-2 Fine Granular Urine Mucus Negative Urine Other Rare Renal Ur Culture Indicated? C&S Done As Ordered Urine Glucose Negative PAWSS Have you Ever Experienced Previous Episodes of Alcohol Withdrawal?: No Have you ever Experienced Withdrawal Seizures?: No Have you ever Experienced Delirium Tremens(DT)s?: No Have you ever undergone Alcohol Rehabilitation Treatment (i.e, inpt ot outpatient treatment programs)?: No Have you ever Experienced Blackouts?: Yes Have you ever Combined Alcohol with other Downers within the last 90 days?: No Have you ever Combined Alcohol with any other Substance of Abuse during the last 90 days?: No Positive Blood Alcohol level on Presentation? [PCS.BAL]: No Evidence of Increased Autonomic Activity (i.e. HR>120, tremor, sweating, agitation, nausea)?: No Result: 1
[2022-02-17] MEDS: Enoxaparin 40 MG/0.4 ML SYR SC (14:50)
[2022-02-17] MEDS: Normal Saline Flush 10 ML SYR IVP (16:01)
[2022-02-17] MEDS: Polyethylene Glycol 3350 17 GM PACKET PO (19:06)
[2022-02-17] MEDS: Docusate Sodium 100 MG CAP PO (19:07)
[2022-02-17] MEDS: Ibuprofen 600 MG TAB PO (19:07)
[2022-02-17] MEDS: Simethicone 80 MG CHEW 160 MG PO (19:07)
[2022-02-17] MEDS: Tamsulosin 0.4 MG CAPCR PO (19:07)
[2022-02-17] MEDS: ACETAMINOPHEN 1,000 MG/100 ML BTL 400 MG IVPB (19:08)
[2022-02-17] MEDS: POTASSIUM CHLORIDE/0.9% NACL 1,000 ML 75 MEQ IV (21:57)
[2022-02-18] VITALS (8 sets, daily range): BP systolic 152–181; BP diastolic 75–100; PULSE 96–108; RESP 14–20; TEMP 36.6–38.4; O2SAT 96–98
[2022-02-18 07:15] LABS: HCT 34.9 % (36.0-46.0); HGB 11.7 g/dL (11.2-15.7); MCH 31.3 pg (27.0-33.0); MCHC 33.5 % (32.0-36.0); MCV 93 fL (80-95); MPV 11.3 fL (8.0-11.0); RBC 3.74 10^6/uL (3.93-5.22); RDW 13.3 % (11.7-14.6); RDW-SD 45.6 fL; WBC 14.37 10^3/uL (4.4-10.8)
[2022-02-18 07:23] LABS: Anion Gap 11.2 mmol/L (3-11); BUN 18 mg/dL (7-18); CO2 20.8 mmol/L (21.0-32.0); CREATININE 1.2 mg/dL (0.55-1.02); Calcium 8.4 mg/dL (8.5-10.1); Chloride 109 mmol/L (98-107); Estimated GFR 45.19 (mL/min/1.73m2); Glucose 111 mg/dL (74-106); Potassium 3.8 mmol/L (3.5-5.1); Sodium 141 mmol/L (136-145)
[2022-02-18] MEDS: Polyethylene Glycol 3350 17 GM PACKET PO (07:47)
[2022-02-18] MEDS: Folic Acid 1 MG TAB PO (07:47)
[2022-02-18] MEDS: Thiamine 100 MG TAB PO (07:47)
[2022-02-18] MEDS: ACETAMINOPHEN 1,000 MG/100 ML BTL 400 MG IVPB (07:47)
[2022-02-18] MEDS: amLODIPine 2.5 MG TAB PO ×2 (07:47→21:26)
[2022-02-18] MEDS: Losartan 50 MG TAB PO (07:47)
[2022-02-18] MEDS: Normal Saline Flush 10 ML SYR IVP ×2 (07:47→14:38)
[2022-02-18 07:56] LABS: Absolute Lymphocyte Count 0.86 10^3/uL (1.2-3.4); Absolute Monocyte Count 1.15 10^3/uL (0.1-0.8); Absolute Neutrophil Count 12.36 10^3/uL (1.2-6.7); Atypical Lymphocytes % 1; Bands % 2; Diff Comment Manual Differential; Platelet Count 92 10^3/uL (130-400); RBC Morphology Normal
[2022-02-18] MEDS: POTASSIUM CHLORIDE/0.9% NACL 1,000 ML 75 MEQ IV (10:18)
--- NOTE | 2022-02-18 12:32 | CMPROGNOTE_ITS ---
- If Service Date Differs Date of service: 02/18/22 Time of Service: 12:32 Care Management Progress Note S/O: Cristine is sitting up on the side of her bed eating lunch when CM met with her. She is alert, oriented and easy to engage in conversation. Per Cristine her nausea is getting a bit better and her appetite is coming back. In fact, this is the first meal in days she looked forward to. Per Cristine, she has received wonderful care at [facility]. 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 Cristine shares that she volunteers at the [employer] in [place] and enjoys giving back to her community. Cristine feels very supported by her buddhist. Members sent her a beautiful bouquet of alvarado. Cristine is looking forward to discharging home, when she is medically ready. A: 82 year old female admitted to [facility] 02/14/22 Hydronephrosis with stone, dehydration, hypokalemia P: Anticipate, Cristine will return home when ready per MD. She will follow up with her PCP and plan of care as prescribed including follow up with urology for outpatient stent removal, per MD. She will transport via private vehicle with family.
--- NOTE | 2022-02-18 12:44 | W.PM.PROGNOT ---
Date of Service Date of service: 02/18/22 Time of Service: 12:44 Assessment and Plan Assessment and plan (1) Hydronephrosis due to obstruction of ureter: Status: Acute Assessment and plan: Now s/p ureteral stenting. + nephrolithiasis. + purulent drainage noted. Urology plans stent removal in the very near future as outpt; after antibiotic treatment for bacteremia. (2) Acute dehydration: Status: Acute Assessment and plan: Much improved with IV fluids. Cr now 1.2 (2.3 earlier this admission). Stop IV fluids and encourage po intake. (3) Hypokalemia: Status: Acute Assessment and plan: Receiving replacement in IV fluids: improved from 2.7 to 4.0. Now 3.8. Stopped IV fluids that included K+. Did not initiate oral supplementation d/t low grade nausea and poor dietary intake. Monitor. (4) Hypomagnesemia: Status: Acute Assessment and plan: Corrected. (5) Alcohol abuse: Status: Chronic Assessment and plan: Drinks 0-2 glasses of wine daily. No withdrawal has been noted. She endorsed no Etoh since 1 week prior to this admission. (6) Gram-negative bacteremia: Status: Acute Assessment and plan: Blood and urine cultures growing E.Coli. Will continue Levaquin 750mg IV Q48 hours (renal dosing). WBC count improved. Monitor. (7) Urinary tract infection: Status: Acute Assessment and plan: E.Coli UTI Levaquin as above. (8) Discharge planning issues: Status: Acute Assessment and plan: Home to finish course of antibiotics. Will schedule f/u with Dr Parekh, Urology. PT requested to evaluate and treat for generalized weakness/deconditioned state d/t illness and diminished mobility while in the hospital. Subjective Subjective Patient reports: nausea and fever (38.1 this AM; asymptomatic); denies vomiting Interval history since last seen: Some improvement in dietary intake. Feels weak in general. Exam Narrative Exam Narrative: Siting upright in bed. Continues to look less fatigued than earlier in the course of this hospitalization. Smiling / conversant. Const General: cooperative and no acute distress Orientation: alert and oriented x3 HENMT Head: normal to inspection Ears: external ears normal General nose exam: external nose normal Mouth: moist mucous membranes Eyes General: appearance normal, both eyes and all related structures Sclera: sclerae normal Resp Effort & Inspection: normal respiratory effort and able to speak in complete sentences Auscultation: clear to auscultation bilaterally Cardio Rate: regular rate Rhythm: regular rhythm Heart Sounds: S1 normal and S2 normal GI Palpation: soft and nontender Skin General skin exam: no rashes or lesions noted Neuro General: no focal motor deficits Extrem General: no pedal edema and no calf tenderness Psych Mental Status: mental status grossly normal Affect: normal affect Objective Last Vital Signs Temp 37.2 C 02/18/22 11:43 Pulse 96 H 02/18/22 11:43 Resp 18 02/18/22 11:43 BP 159/77 H 02/18/22 11:43 Pulse Ox 97 02/18/22 11:43 Laboratory Results - last 24 hr 02/18/22 02/18/22 06:35 06:35 WBC 14.37 H RBC 3.74 L Hgb 11.7 Hct 34.9 L MCV 93 MCH 31.3 MCHC 33.5 RDW 13.3 Plt Count 92 L MPV 11.3 H Immature Gran % 0.0 Neutrophils % 84.0 Band Neutrophils % 2 Lymphocytes % 5.0 Atypical Lymphs % 1 Monocytes % 8.0 Eosinophils % 0.0 Basophils % 0.0 Nucleated RBC % 0.0 Absolute Neutrophils 12.36 H Absolute Lymphocytes 0.86 L Absolute Monocytes 1.15 H Absolute Eosinophils 0.00 Absolute Basophils 0.00 RBC Morphology Normal Sodium 141 Potassium 3.8 Chloride 109 H Carbon Dioxide 20.8 L Anion Gap 11.2 H BUN 18 Creatinine 1.2 H Est GFR (CKD-EPI 2020) 45.19 Glucose 111 H Calcium 8.4 L PAWSS Have you Ever Experienced Previous Episodes of Alcohol Withdrawal?: No Have you ever Experienced Withdrawal Seizures?: No Have you ever Experienced Delirium Tremens(DT)s?: No Have you ever undergone Alcohol Rehabilitation Treatment (i.e, inpt ot outpatient treatment programs)?: No Have you ever Experienced Blackouts?: Yes Have you ever Combined Alcohol with other Downers within the last 90 days?: No Have you ever Combined Alcohol with any other Substance of Abuse during the last 90 days?: No Positive Blood Alcohol level on Presentation? [PCS.BAL]: No Evidence of Increased Autonomic Activity (i.e. HR>120, tremor, sweating, agitation, nausea)?: No Result: 1
[2022-02-18] MEDS: Losartan 25 MG TAB 50 MG PO (14:37)
[2022-02-18] MEDS: levoFLOXacin 750 MG/150 ML BAG 100 MG IVPB (14:38)
--- NOTE | 2022-02-18 15:30 | PT.INIE ---
Date of service: 02/18/22 Time of Service: 10:48 PT Notes Visit Reasons: Hydronephrosis with Stone,Dehydration,Hypokalemia, Physical Therapy Inpatient Initial Evaluation Date: 02/18/2022 Referring Doctor: Blake Flynn MD PT Orders: PT CONSULT: Eval/Treat Precautions: Fall. Standard. Activity as tolerated. Patient Profile/Admitting Diagnosis: Cristine is an 82-year-old female who presened to the ED on 02/14/2022 due to nausea, vomiting, and abdominal pain. Patient is diagnosed with hydronephorosis, acute dehydration, hypokalemia, and ETOH abuse. PMHX: All Active Problems? Urinary tract infection (Acute) Gram-negative bacteremia (Acute) Hypokalemia (Acute) Hydronephrosis due to obstruction of ureter (Acute) Hypomagnesemia (Acute) Hypoglycemia (Acute) Acute dehydration (Acute) Essential hypertension (Acute) History of biopsy (Acute) 12/2021.? 2 punch biopsies of vulva obtained. Grief (Chronic) Vaginitis and vulvovaginitis in diseases classified elsewhere (Acute) Immunization due (Acute) Vulval edema (Acute) Elevated fasting glucose (Acute) Alcohol intake above recommended sensible limits (Acute) Breast lump (Acute 01/09/12) History of appendectomy (Acute) History of total right hip replacement (Acute 11/12/14) Status post abdominal hysterectomy (Acute) Status post breast biopsy (Acute) Status post tonsillectomy and adenoidectomy (Acute) Sensory hearing loss, bilateral (Acute) Macular edema (Acute ~09/14/18) 09/14/18 [facility]- Tibial plateau fracture, left (Acute 05/10/18) Osteoarthritis (Acute) RIGHT HAND AND EROSIONS MEDIAL ASPECT 5TH MCP right hip-mild to moderate-03/2009 Stress incontinence (Acute) Rosacea (Acute) Hypertensive retinopathy of both eyes (Acute) 04/28/15; [facility] Hypertension goal BP (blood pressure) < 140/80 (Acute 08/10/15) Family hx-breast malignancy (Acute) HX of right breast biopsy-neg. Depressive disorder (Acute 01/09/12) Taking Sertraline 75mg QD for her depression.? Symptoms are stable. ? Denies SI.? She agrees to reach out if symptoms change. F/U in 2 months as this time of year is often difficult. 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 Weeks of abstinence rotating with binges.? We have discussed the detention affect on many occasions.? She has resources to call upon if she chooses. Monitor. Age-related nuclear cataract, bilateral (Acute) 04/28/15; [facility] Osteoarthritis of left hip (Acute 07/02/14) Hip joint replacement status (Acute 07/02/14) H/O surgical procedure (Chronic) A.? Abdominal hysterectomy with subsequent appendectomy (ovaries spared) B.? T&A C.? Right breast lumpectomy (benign)Depression (Chronic) Alcohol dependence (Chronic) Screening for colorectal cancer (Acute) Medical History? Alcohol abuse Eye Procedure([facility] - Dr. Ruiz) fluid... fluid where it should not be HTN (hypertension) Osteoarthritis Surgical History? Abdominal hysterectomy (~1973) HAS OVARIES? H/O UTERINE FIBROIDSAppendectomy (~1973) Biopsy of breast Colonoscopy - IV Sedation (01/25/16) Tonsillectomy and adenoidectomy Total replacement of hip (07/03/14) LeftTotal replacement of hip (11/12/14) DR. MATUTE; RIGHT Social History/Home Situation: Lives alone in a private home. Independent with all aspects of ADLs prior to admission. 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 Equipment Owned/DME: None Subjective: Wanted to be seen a little later as she has been having diarrhea episodes. Nurse Chay bejarano. Feels stable walking without AD. Needs exercises she can do on her own while here. Agreeable to using pull up should bowel incontinence recurs. Objective: General Observation: Supine in bed. IV access in L UE. Mental Status: Alert and oriented as to person, place, time, and purpose. Able to pay attention, focus, and respond appropriately. Pain: Denies Vital Signs: WNL as closely monitored by nursing staff ROM: Right Upper Extremity: Shoulder Flexion WFL. Shoulder abduction WFL. Elbow flexion WFL. Wrist flexion WFL. Functional opening and closing of hand WFL. Left Upper Extremity: Shoulder Flexion WFL. Shoulder abduction WFL. Elbow flexion WFL. Wrist flexion WFL. Functional opening and closing of hand WFL. Right Lower Extremity: Hip flexion WFL. Hip abduction WFL. Knee flexion WFL. Ankle dorsiflexion WFL. Ankle plantarflexion WFL. Left Lower Extremity: Hip flexion WFL. Hip abduction WFL. Knee flexion WFL. Ankle dorsiflexion WFL. Ankle plantarflexion WFL. Strength: Right Upper Extremity: Shoulder flexors 4+/5. Shoulder abductors 4+/5. Elbow flexors 5/5. Elbow extensors 5/5. Insurance Licensing Supervisor strong. Left Upper Extremity: Shoulder flexors 4+/5. Shoulder abductors 4+/5. Elbow flexors 5/5. Elbow extensors 5/5. Insurance Licensing Supervisor strong. Right Lower Extremity: Hip flexors 4+/5. Hip abductors 4+/5. Knee flexors 5/5. Knee extensors 5/5. Ankle dorsiflexors 5/5. Ankle plantarflexors 5/5. Left Lower Extremity: Hip flexors 4+/5. Hip abductors 4+/5. Knee flexors 5/5. Knee extensors 5/5. Ankle dorsiflexors 5/5. Ankle plantarflexors 5/5. Bed Mobility/Transfers: Supine to sit independent Sit to supine independent Sit to stand independent Stand to sit independent Bed to reclining chair independent Reclining chair to bed independent Gait: Instructed patient with level surface ambulation of 100 feet requiring supervision for IV pole management only. Soraya decreased. Did not want to go too far for fear of needing the toilet soon. No loss of balance. With mild shortness of breath that resolved with rest. Balance: Static Sitting: Normal Dynamic Sitting: Normal Static Standing: Normal Dynamic Standing: Good Special Tests: Mobility Limitations Standardized Measure [facility] AM-PAC 6 clicks Basic Mobility Inpatient Short Form: Raw Score: 24 CMS Score: 0% deficit Informed Consent/Education: Patient was instructed in purpose of PT consult. Assessment: Independent in room without assistive device. Only needed supervision in hallway due to ongoing diarrhea and for IV pole management. No skilled services are needed at this time. Patient was educated and trained on room exercises and was provided with written instructions for accuracy. Blue theraband was also given for patient to use during UE exercises. Patient is assessed as a 50500 low complexity based on the following: History: 82-year-old female with past medical history as indicated above Examination: Demonstrable impairment in strength, balance, and mobility level with underlying impairments and functional limitations as exhibited above as well as deficit score of 0% utilizing the [facility] Mobility Inpatient Short Form Presentation: Stable Decision Makin low complexity Goals: N/A. PT evaluation and one treatment session only for exercise instruction. Plan of Care/Treatment Plan: N/A. PT evaluation only. DISCHARGE RECOMMENDATIONS: [X] Home with no services. Home when medically cleared by hospitalist. [] Home with services [specify] [] Home with outpatient PT [] [] SNF for continued rehabilitation [] [] Intermediate Care [] [] SNF versus LTC based on ability to participate and progress [] TREATMENT CODE/TIME: 10471 x 27 minutes beginning at 10:48 AM and and 03453 for 10 minutes beginning at 15:30 PM. Thank you for the opportunity to participate in the care of this patient. Clara Crum PT, DPT, CLT [facility] [place], [place]
[2022-02-18] MEDS: Milk of Magnesia 30 ML CUP PO (21:25)
[2022-02-18] MEDS: Docusate Sodium 100 MG CAP PO (21:26)
[2022-02-18] MEDS: Simethicone 80 MG CHEW 240 MG PO (21:26)
[2022-02-18] MEDS: Tamsulosin 0.4 MG CAPCR PO (21:26)
[2022-02-19] VITALS (7 sets, daily range): BP systolic 144–178; BP diastolic 71–85; PULSE 93–103; RESP 16–19; TEMP 37.1–38; O2SAT 95–98
[2022-02-19 06:41] LABS: Abs Immature Grans 0.83 10^3/uL (0.0-0.06); HCT 31.7 % (36.0-46.0); HGB 10.7 g/dL (11.2-15.7); MCH 31.2 pg (27.0-33.0); MCHC 33.8 % (32.0-36.0); MCV 92 fL (80-95); MPV 11.3 fL (8.0-11.0); RBC 3.43 10^6/uL (3.93-5.22); RDW 13.2 % (11.7-14.6); RDW-SD 45.4 fL; WBC 11.08 10^3/uL (4.4-10.8)
[2022-02-19 06:55] LABS: Anion Gap 9.1 mmol/L (3-11); BUN 16 mg/dL (7-18); CO2 23.9 mmol/L (21.0-32.0); Calcium 8.4 mg/dL (8.5-10.1); Chloride 106 mmol/L (98-107); Estimated GFR 56.25 (mL/min/1.73m2); Glucose 115 mg/dL (74-106); Potassium 3.5 mmol/L (3.5-5.1); Sodium 139 mmol/L (136-145)
[2022-02-19 07:15] LABS: Absolute Neutrophil Count 7.76 10^3/uL (1.2-6.7); Platelet Count 133 10^3/uL (130-400)
[2022-02-19 07:16] LABS: Absolute Basophil Count 0.22 10^3/uL (0.0-0.2); Absolute Eosinophil Count 0.11 10^3/uL (0.0-0.7); Absolute Lymphocyte Count 1.88 10^3/uL (1.2-3.4); Absolute Monocyte Count 1.11 10^3/uL (0.1-0.8); Diff Comment Manual Differential; Polychromasia Present
[2022-02-19] MEDS: Folic Acid 1 MG TAB PO (07:31)
[2022-02-19] MEDS: amLODIPine 2.5 MG TAB PO ×2 (07:31→19:58)
[2022-02-19] MEDS: Thiamine 100 MG TAB PO (07:31)
[2022-02-19] MEDS: Losartan 50 MG TAB 100 MG PO (07:39)
[2022-02-19] MEDS: Polyethylene Glycol 3350 17 GM PACKET PO (07:39)
--- NOTE | 2022-02-19 09:26 | W.PM.PROGNOT ---
Date of Service Date of service: 02/19/22 Time of Service: 09:26 Assessment and Plan Assessment and plan (1) Hydronephrosis due to obstruction of ureter: Status: Acute Assessment and plan: Now s/p ureteral stenting. + nephrolithiasis. + purulent drainage noted. Urology plans stent removal in the very near future as outpt; after antibiotic treatment for bacteremia. Professional time spent interviewing and examining patient, discussion of goals of care with hospital team (care management, nursing and consulting professionals) was 30 minutes. (2) Acute dehydration: Status: Acute Assessment and plan: Resolved after IV fluids. Patient had prerenal azotemia With a creatinine that peaked at 2.3 now down to 1.0. BUN had peaked at 41 and is now down to 16. IV fluids were discontinued yesterday. She took a 100 mL of fluid yesterday and continues to tolerate her diet. We will keep her off IV fluids monitor renal function and correct her potassium. Ibuprofen had been ordered last dose was given on 02/17/2022. In light of her recent renal dysfunction she should not be on ibuprofen. I also question her being on losartan, however, she had been on this at home for her BP and now her renal fxn has recovered, I think that this can be safely administered. (3) Hypokalemia: Status: Acute Assessment and plan: Improving. Will place her on daily oral supplement. Monitor. (4) Hypomagnesemia: Status: Acute Assessment and plan: Corrected. will recheck on this morning labs (5) Gram-negative bacteremia: Status: Acute Assessment and plan: Blood and urine cultures growing E.Coli. Will continue Levaquin 750mg IV Q48 hours (renal dosing). WBC count improved. Monitor Needs repeat blood cultures checked. I have ordered this for today. If no growth after 24h then she can be dc home w/ continued oral Levaquin x one week. (6) Urinary tract infection: Status: Acute Assessment and plan: E.Coli UTI Levaquin as above. (7) Discharge planning issues: Status: Acute Assessment and plan: I would dc her home today but no repeat blood cultures were done. I will recheck this and if no growth by tomorrow, then she can be dc home. P.T. saw her yesterday and feel that she is at her baseline and does not require further P.T. services upon discharge. Patient will follow up as outpatient w/ Dr. Parekh for removal of her stents. Subjective Subjective Interval history since last seen: Patient is beginning to feel better. No nausea or vomiting overnight. She is tolerating small bites. She had been constipated but now is starting to have bowel movements that are loose. She has been afebrile. I would send her home today as she is now tolerating a diet and did well with physical therapy however repeat blood cultures were never obtained. We will repeat her blood cultures today and if there is no growth she could potentially go home tomorrow morning. I would continue Levaquin 750 mg daily for at least another week. She should follow-up with Dr. Parekh as an outpatient to have her urinary stent removed. Exam Narrative Exam Narrative: Cristine is lying in bed watching TV she just finished breakfast. She is alert and oriented person place time circumstance Lungs are clear to auscultation, heart regular rate and rhythm Abdomen is soft slightly distended but nontender normal bowel sounds. Objective Last Vital Signs Temp 37.4 C 02/19/22 06:49 Pulse 93 H 02/19/22 06:49 Resp 18 02/19/22 06:49 BP 145/71 H 02/19/22 06:49 Pulse Ox 96 02/19/22 06:49 Laboratory Results - last 24 hr 02/19/22 02/19/22 06:07 06:07 WBC 11.08 H RBC 3.43 L Hgb 10.7 L Hct 31.7 L MCV 92 MCH 31.2 MCHC 33.8 RDW 13.2 Plt Count 133 MPV 11.3 H Immature Gran % See Differential Neutrophils % 70.0 Lymphocytes % 17.0 Monocytes % 10.0 Eosinophils % 1.0 Basophils % 2.0 Nucleated RBC % 0.0 Absolute Neutrophils 7.76 H Absolute Lymphocytes 1.88 Absolute Monocytes 1.11 H Absolute Eosinophils 0.11 Absolute Basophils 0.22 H RBC Morphology See Below Polychromasia Present Sodium 139 Potassium 3.5 Chloride 106 Carbon Dioxide 23.9 Anion Gap 9.1 BUN 16 Creatinine 1.0 Est GFR (CKD-EPI 2020) 56.25 Glucose 115 H Calcium 8.4 L PAWSS Have you Ever Experienced Previous Episodes of Alcohol Withdrawal?: No Have you ever Experienced Withdrawal Seizures?: No Have you ever Experienced Delirium Tremens(DT)s?: No Have you ever undergone Alcohol Rehabilitation Treatment (i.e, inpt ot outpatient treatment programs)?: No Have you ever Experienced Blackouts?: Yes Have you ever Combined Alcohol with other Downers within the last 90 days?: No Have you ever Combined Alcohol with any other Substance of Abuse during the last 90 days?: No Positive Blood Alcohol level on Presentation? [PCS.BAL]: No Evidence of Increased Autonomic Activity (i.e. HR>120, tremor, sweating, agitation, nausea)?: No Result: 1
[2022-02-19] MEDS: Potassium Chloride 10 MEQ CAPCR 20 MEQ PO (09:56)
[2022-02-19 10:39] LABS: Lab Add On Test DONE
[2022-02-19 10:55] LABS: Magnesium 1.7 mg/dL (1.8-2.4)
[2022-02-19] MEDS: Magnesium Gluconate 500 MG TAB PO ×2 (12:22→19:58)
[2022-02-19] MEDS: Enoxaparin 40 MG/0.4 ML SYR SC (13:08)
[2022-02-19] MEDS: Acetaminophen 325 MG TAB 650 MG PO (19:58)
[2022-02-19] MEDS: Milk of Magnesia 30 ML CUP PO (19:58)
[2022-02-19] MEDS: Docusate Sodium 100 MG CAP PO (19:58)
[2022-02-19] MEDS: Normal Saline Flush 10 ML SYR IVP (19:59)
[2022-02-19] MEDS: Mylanta Suspension 30 ML CUP PO (19:59)
[2022-02-19] MEDS: Tamsulosin 0.4 MG CAPCR PO (21:34)
[2022-02-20 03:07] VITALS: BP 150/72; PULSE 93; RESP 16; TEMP 37.6; O2SAT 96
[2022-02-20 05:54] VITALS: PULSE 97; RESP 18; TEMP 37.6; O2SAT 95
[2022-02-20 06:53] LABS: Abs Immature Grans 0.71 10^3/uL (0.0-0.06); HGB 10.5 g/dL (11.2-15.7); MCH 31.2 pg (27.0-33.0); MCHC 33.9 % (32.0-36.0); MCV 92 fL (80-95); RBC 3.37 10^6/uL (3.93-5.22); RDW 13.3 % (11.7-14.6); WBC 10.91 10^3/uL (4.4-10.8)
[2022-02-20 06:57] LABS: BUN 15 mg/dL (7-18); Calcium 8.5 mg/dL (8.5-10.1); Chloride 106 mmol/L (98-107); Estimated GFR 56.25 (mL/min/1.73m2); Glucose 115 mg/dL (74-106); Potassium 3.5 mmol/L (3.5-5.1); Sodium 141 mmol/L (136-145)
[2022-02-20 07:25] LABS: Platelet Count 172 10^3/uL (130-400)
[2022-02-20 07:26] LABS: Absolute Basophil Count 0.22 10^3/uL (0.0-0.2); Absolute Eosinophil Count 0.55 10^3/uL (0.0-0.7); Absolute Lymphocyte Count 1.09 10^3/uL (1.2-3.4); Absolute Monocyte Count 0.87 10^3/uL (0.1-0.8); Absolute Neutrophil Count 8.18 10^3/uL (1.2-6.7); Bands % 2; Diff Comment Manual Differential; Polychromasia Present
[2022-02-20 07:41] VITALS: BP 179/72; PULSE 108; RESP 19; TEMP 37.5; O2SAT 96
[2022-02-20] MEDS: Polyethylene Glycol 3350 17 GM PACKET PO (07:51)
[2022-02-20] MEDS: Folic Acid 1 MG TAB PO (07:51)
[2022-02-20] MEDS: Losartan 50 MG TAB 100 MG PO (07:51)
[2022-02-20] MEDS: Magnesium Gluconate 500 MG TAB PO (07:51)
[2022-02-20] MEDS: amLODIPine 2.5 MG TAB PO (07:51)
[2022-02-20] MEDS: Potassium Chloride 10 MEQ CAPCR 20 MEQ PO (07:51)
[2022-02-20] MEDS: Thiamine 100 MG TAB PO (07:52)
[2022-02-20 11:13] VITALS: BP 168/91; PULSE 94; RESP 18; TEMP 37; O2SAT 98
--- NOTE | 2022-02-20 11:57 | DSE_ITS ---
Date of service: 02/20/22 Time of Service: 11:57 DS: Diagnosis Discharge Diagnosis (1) Hydronephrosis due to obstruction of ureter: Status: Resolved Asessment and Plan: Left hydroureteronephrosis secondary to a stone in the left ureterovesical junction. Status post cystoscopy and stent placement. Patient to return in the next week to have stent removed by Dr. Parekh. Patient is to remain on Levaquin until removal of the stent. (2) Acute dehydration: Status: Resolved Asessment and Plan: Patient present with a potassium of 2.7 and elevated BUN and creatinine of 25 1.6 and a magnesium of 1.6. Electrolyte abnormalities were treated with parenteral and oral replacement. Potassium level was 3.5 on discharge. BUN/creatinine had resolved to 15 and 1.0 at discharge after IV fluid hydration. (3) Hypokalemia: Status: Resolved (4) Hypomagnesemia: Status: Resolved (5) Gram-negative bacteremia: Status: Acute Asessment and Plan: E. coli bacteremia now resolved after a week of antibiotics with ceftriaxone and Levaquin. Patient will remain on Levaquin 750 mg orally daily for another 7 days until after her stent has been removed (6) Urinary tract infection: Status: Resolved Asessment and Plan: E. coli bacteremia secondary to obstructive uropathy from nephrolithiasis. Bacteremia has resolved. Patient will finish out 7 more days of Levaquin pending removal of her urinary stent. (7) Adnexal cyst: Status: Acute Asessment and Plan: 5.3 x 3.5 cm right adnexal cyst which is likely ovarian.? Ultrasound follow-up in 6-12 months is recommended per radiologist. I advised the patient to follow up w/ exterior designer to discuss proper management Discharge Plan Disposition Patient Disposition: HOME Condition: Improving Discharge Details Reason For Visit: Hydronephrosis with Stone,Dehydration,Hypokalemia, Admit Date/Time: 02/14/22 22:25 Admit Provider: Brien Kyle Attending Provider: Brien Kyle Primary Care Provider: Tootie Rodriguez Hospital Course Hospital Course: Patient is an 82-year-old female who presented with a couple days of abdominal discomfort nausea and vomiting and loose stools. Evaluation included a CT scan of the abdomen pelvis which demonstrated moderate left hydroureteronephrosis with an obstructing stone at the distal left ureter. Thickening of the urinary bladder wall. Initial labs did not show a leukocytosis but later she developed a white count of 17,000 and blood and urine cultures grew E. coli. E. coli was resistant to ampicillin and cefazolin but otherwise was sensitive to ceftriaxone. She was initially treated with ceftriaxone and then transition to Levaquin. Chemistry profile showed azotemia with a BUN of 25 creatinine 1.6 which peaked at 41 and 2.0 on 02/16/2022 but with IV fluid hydration improved at the time of discharge her renal function is back to its normal baseline of 15 and 1.0 respectively. Patient had hypokalemia on admission with a potassium of 2.7 which was supplemented with IV and later with oral potassium. At the time of discharge her potassium was normal at 3.5. Urology consultation was obtained with Dr. Nicola Parekh who performed cystoscopy and stent placement on 02/15/2022 a left ureteral stent was placed to alleviate her left hydronephrosis. Pain was managed with narcotic analgesics and once her renal function recovered she was treated with Tylenol and ibuprofen. Patient was discharged home after repeat blood cultures were obtained on February 19, 2022 which came back no growth after 24 hours. Patient will be discharged home on 7 more days of Levaquin 750 mg orally daily. Should have a follow-up with Dr. Parekh next week to have the stents removed. Of note on her CT scan of her abdomen pelvis and incidental finding demonstrate a 5.3 x 3.5 cm right adnexal cyst which is felt to be an ovarian cyst for which a follow-up ultrasound in 6 to 12 months is recommended. Patient is advised to follow-up with gynecology for further evaluation. Home Meds and New Rx's Prescriptions: New levofloxacin 750 mg tablet 750 mg PO DAILY 7 Days Qty: 7 0RF Probiotic Acidophilus 1.5 mg (250 million cell) capsule 2,000 mmu cells PO DAILY Qty: 14 0RF Continued sertraline 100 mg tablet 100 mg PO DAILY Qty: 90 3RF naltrexone 50 mg tablet 50 mg PO DAILY Qty: 90 0RF betamethasone dipropionate 0.05 % ointment 1 applic topical BID PRN (Reason: skin irritation) Qty: 45 4RF Rx Instructions: apply tiny amount to tip of middle finger. apply that amount on entire vulva. metronidazole [MetroCream] 0.75 % cream 1 applic Topical BID Qty: 1 3RF amlodipine 2.5 mg tablet 2.5 mg PO BID Qty: 180 3RF vitamin B complex [B-Complex] 1 EACH tablet 1 ea PO DAILY PRN Label Comments: 11/12/14 takes when drinking multivitamin 1 EACH capsule 1 ea PO DAILY ibuprofen 600 MG tablet 600 mg PO tid prn Qty: 90 clotrimazole-betamethasone 1-0.05 % cream See Rx Instructions .ROUTE .COMPLEX Qty: 15 2RF Dose Instruction: APPLY 1 GRAM TOPICALLY TWO TIMES A DAY Rx Instructions: APPLY 1 GRAM TOPICALLY TWO TIMES A DAY Changed losartan 100 mg tablet 150 mg PO DAILY Qty: 90 3RF Discharge Instructions Instructions: Levofloxacin (By mouth), Ovarian Cyst (DC), Kidney Stones (DC), Ureteroscopy (DC) Additional Instructions: Finish all of your antibiotics (levofloxacin) and take a probiotic to restore normal bacterial wes of your gut. if you develope severe watery diarrhea, call your provider. Call Dr. Parekh's office tomorrow to set follow up to have the urinary stent removed. Follow a low sodium diet to prevent future kidney stones As part of your work-up of your knee stones CT scan of your abdomen pelvis showed a 5.3 x 3.5 cm cyst in the pelvis there is suspected ovarian cyst which should be followed up by exterior designer with repeat ultrasound within 6 months to ascertain stability of the cyst to be sure that its not a cancerous lesion. Stand Alone Forms: Nursing Discharge Form Referrals: Tootie Rodriguez NP [Primary Care Provider] - (Please call on Monday for an Appointment ) Nicola Parekh MD [ [facility] STAFF PHYSICIAN] - (call the office to set follow up for removal of urinary stent) Activity:: Activity as Tolerated Equipment/Supplies:: No Equipment Needed Diet:: Low Sodium Discharge Orders Discharge Orders: Discharge Order (Routine); Ordered 02/20/22 Ordered By: Moises Barton DS: Summary Time Spent with Patient providing and/or coordinating discharge services: Greater than 30 minutes Specific discharge activities: Interview/exam of patient; review of discharge instructions, completion of prescriptions/discharge instructions; discussion w/ nursing and CM; documentation of hospital visit Status at Discharge Functional status at discharge: independent ambulation Overall status at discharge: patient is back to baseline Mental Status: mental status grossly normal Speech and Movement: speech and movement normal Mood: congruent mood Affect: normal affect Exam Narrative Exam Narrative: Cristine is alert and oriented [place] place time circumstance. She still having some loose bowel movements but not watery stools. She is not nauseated she is eating a regular diet now. She has no abdominal pain and no flank pain. Lungs are clear to auscultation Heart is regular rate and rhythm No CVA tenderness Abdomen soft nontender nondistended with normal bowel sounds Psych Mental Status: mental status grossly normal Speech and Movement: speech and movement normal Mood: congruent mood Affect: normal affect DS: Data Vitals/I&O Vitals and I&O: Vital Signs Temperature 37.0 C 02/20/22 11:13 Temperature Source Tympanic 02/20/22 11:13 Pulse 94 H 02/20/22 11:13 Pulse Rhythm Regular 02/20/22 07:45 Pulse 97 H 02/16/22 07:01 Respiratory Rate 18 02/20/22 11:13 Respiratory Effort Non-Labored 02/20/22 07:45 Respiratory Depth Normal 02/20/22 07:45 Respiratory Pattern Normal 02/20/22 07:45 Blood Pressure 168/91 H 02/20/22 11:13 Blood Pressure Mean 81 02/16/22 13:14 Blood Pressure Position Supine 02/16/22 07:30 Pulse Oximetry 98 02/20/22 11:13 Oxygen Delivery Method Room Air 02/20/22 11:13 Oxygen Flow Rate 0 02/20/22 11:13 Pain Level 1 02/20/22 03:45 Comment nurse notified bout vitals. 02/18/22 07:33 Intake & Output 02/19/22 02/19/22 02/20/22 11:59 23:59 11:59 Intake Total 820 / 820 210 / 210 Balance 820 / 820 210 / 210 Weight 87.2 kg 85.9 kg Intake: IV Oral 810 / 810 200 / 200 Other: Urine Color Yellow Yellow Urine Appearance Clear Clear Clear Urine Odor None Normal Normal Comment unmeasured Stool Size Moderate Stool Characteristics Soft Brown Voiding Methods Toilet Toilet Toilet Data Completed and Pending Labs on day of discharge: Labs from last 24 hours 02/20/22 02/20/22 06:11 06:11 WBC 10.91 H RBC 3.37 L Hgb 10.5 L Hct 31.0 L MCV 92 MCH 31.2 MCHC 33.9 RDW 13.3 Plt Count 172 MPV 11.0 Immature Gran % See Differential Neutrophils % 73.0 Band Neutrophils % 2 Lymphocytes % 10.0 Monocytes % 8.0 Eosinophils % 5.0 Basophils % 2.0 Nucleated RBC % 0.0 Absolute Neutrophils 8.18 H Absolute Lymphocytes 1.09 L Absolute Monocytes 0.87 H Absolute Eosinophils 0.55 Absolute Basophils 0.22 H RBC Morphology See Below Polychromasia Present Sodium 141 Potassium 3.5 Chloride 106 Carbon Dioxide 27.0 Anion Gap 8.0 BUN 15 Creatinine 1.0 Est GFR (CKD-EPI 2020) 56.25 Glucose 115 H Calcium 8.5 02/19/22 10:10 Blood Blood Culture - Pending 02/19/22 09:55 Blood Blood Culture - Pending Preliminary micro results at discharge 02/19/22 10:10 Blood Culture - Pending Blood 02/19/22 09:55 Blood Culture - Pending Blood PFSH All Active Problems (Updated 02/20/22 @ 12:31 by Moises Barton MD) Adnexal cyst (Acute) Gram-negative bacteremia (Acute) Hypoglycemia (Acute) Essential hypertension (Acute) History of biopsy (Acute) 12/2021. 2 punch biopsies of vulva obtained. Grief (Chronic) Vaginitis and vulvovaginitis in diseases classified elsewhere (Acute) Immunization due (Acute) Vulval edema (Acute) Elevated fasting glucose (Acute) Alcohol intake above recommended sensible limits (Acute) Breast lump (Acute 01/09/12) History of appendectomy (Acute) History of total right hip replacement (Acute 11/12/14) Status post abdominal hysterectomy (Acute) Status post breast biopsy (Acute) Status post tonsillectomy and adenoidectomy (Acute) Sensory hearing loss, bilateral (Acute) Macular edema (Acute ~09/14/18) 09/14/18 [facility] [place] Tibial plateau fracture, left (Acute 05/10/18) Osteoarthritis (Acute) RIGHT HAND AND EROSIONS MEDIAL ASPECT 5TH MCP right hip-mild to moderate-03/2009 Stress incontinence (Acute) Rosacea (Acute) Hypertensive retinopathy of both eyes (Acute) 04/28/15; [facility] Hypertension goal BP (blood pressure) < 140/80 (Acute 08/10/15) Family hx-breast malignancy (Acute) HX of right breast biopsy-neg. Depressive disorder (Acute 01/09/12) Taking Sertraline 75mg QD for her depression. Symptoms are stable. Denies SI. She agrees to reach out if symptoms change. F/U in 2 months as this time of year is often difficult. 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 Weeks of abstinence rotating with binges. We have discussed the mcc affect on many occasions. She has resources to call upon if she chooses. Monitor. Age-related nuclear cataract, bilateral (Acute) 04/28/15; [facility] Osteoarthritis of left hip (Acute 07/02/14) Hip joint replacement status (Acute 07/02/14) H/O surgical procedure (Chronic) A. Abdominal hysterectomy with subsequent appendectomy (ovaries spared) B. T&A C. Right breast lumpectomy (benign) Depression (Chronic) Alcohol dependence (Chronic) Screening for colorectal cancer (Acute) Medical History Alcohol abuse Eye Procedure([facility] [place] - Dr. Ruiz) fluid... fluid where it should not be HTN (hypertension) Osteoarthritis Surgical History Abdominal hysterectomy (~1973) HAS OVARIES H/O UTERINE FIBROIDS Appendectomy (~1973) Biopsy of breast Colonoscopy - IV Sedation (01/25/16) Tonsillectomy and adenoidectomy Total replacement of hip (07/03/14) Left Total replacement of hip (11/12/14) DR. MATUTE; RIGHT Family History Mother , AGE 93 Myocardial infarction Heart disease Father , age 84 Cancer Sister Essential hypertension Hyperlipidemia Breast cancer X 3 Maternal Grandfather , age 80 Heart disease Paternal Grandfather , AGE 58 No problems noted. Maternal Grandmother , age 68 Stroke Paternal Grandmother , AGE 84 No problems noted. Social History Smoking/Tobacco Use Status: Former Tobacco Use Quit Date: 05/01/97 Second Hand Exposure: Yes Smoking risk assessment performed?: Yes Alcohol Intake: current Alcohol Intake frequency: 0-2 drinks per day Alcohol type: wine Drug use: Never Substance use type: does not use Details: drinks a bottle of wine every night Caregiver/Support person: No Household members: none Housing: house Communication Needs: Hard of Hearing and Corrective Lenses Do you need help understanding health information?: Rarely Pets and animals: Yes Pets and animals: cat(s) Sexually active: No Do you think of yourself as: straight/heterosexual Current gender identity: female What is your relationship status?: How often do you talk on the phone with friends or family?: three or more times per week How often do you get together with friends or relatives?: twice per week How often do you attend taoist or sabianism services?: 4 or more times per year Do you belong to any clubs or organized social groups?: no Panel score (0-1 are the most socially isolated patients): 2 Duration: 15-30 minutes/day Frequency: 5-6 times per week Ann/Advent: [employer]ational Special ann needs: No Seatbelt use: always Drive intox or ride w/intox motor driver: No Do you feel safe at home: Yes History History 3 Para 1 Hx # Term Pregnancies Multiple births Hx # Pregnancies Ectopic pregnancies AB induced Hx Number of Living Children AB spontaneous 2
[2022-02-20] MEDS: Losartan 25 MG TAB 50 MG PO (12:13)
--- NOTE | 2022-02-20 16:40 | PDOC.CMDIS ---
- If Service Date Differs Date of service: 02/20/22 Time of Service: 16:40 LACE Index Scoring Tool - Questions: Length of Stay (in days): 4 - 6 Acuity (Admit via E.D.?): Yes E.D. Visits: 3 - Answers: Total Score: 10 Risk of Readmission: High Risk Care Management Discharge Reason for Hospitalization: Hydronephrosis with stone, dehydration, hypokalemia Discharge Plan: Cristine will return home with no new services. She will follow up with her PCP and plan of care as prescribed including follow up with urology for outpatient stent removal, per MD. She will transport via private vehicle with family. Patient/Family Education Needs: Review of discharge instructions, activity, limitations, follow up plan, discuss Ask Me Three
== END 2022-02-20 14:46 | disposition home or self-care (01) | DRG 690 ==
LOC: ER 02-15 01:18 → ICU 02-15 02:08 → MS 02-17 09:33
PROVIDERS: Emergency Medicine; Family Medicine; Internal Medicine; Urology; Admitting Provider Family Medicine; Emergency Provider Student in an Organized Health Care Education/Training Program; Visit Provider Family Medicine
PROC: (CPT 74450; principal; 2022-02-15 11:00)
DX: N13.6 Pyonephrosis (principal); E87.6 Hypokalemia; E86.0 Dehydration; E83.42 Hypomagnesemia; I10 Essential (primary) hypertension; N39.3 Stress incontinence (female) (male); F32.A Depression, unspecified; F10.20 Alcohol dependence, uncomplicated; Z96.643 Presence of artificial hip joint, bilateral; Z87.891 Personal history of nicotine dependence; H35.033 Hypertensive retinopathy, bilateral; B96.20 Unspecified Escherichia coli [E. coli] as the cause of diseases classified elsewhere; N83.201 Unspecified ovarian cyst, right side
CPT/HCPCS: 52332; 36415; 36416; 51701; 80048; 80053; 80307; 82805; 82962; 83690; 87040; 87077; 87637; 97110; 97161; 99222; 99232; 99285; J1650; 74018; 74177; 74420; 80320; 81003; 81015; 82247; 82248; 83605; 83735; 84100; 85025; 85610; 87086; 87186; 99223; 99233; 99239; J0131; J0696; J0780; J1956; J2370; J2405; J3475; J3480; J3490

== ENCOUNTER 2022-03-17 08:14 | Day surgery (SDC) | payer MEDICARE, BC, SELFPAY ==
[2022-03-17] VITALS (7 sets, daily range): BP systolic 103–143; BP diastolic 53–87; PULSE 77–92; RESP 10–23; TEMP 36.4–36.7; O2SAT 95–100; BMI 29.9
[2022-03-17] MEDS: Lactated Ringers 1,000 ML 80 ML IV (08:58)
--- NOTE | 2022-03-17 09:51 | HPE_ITS ---
Date of service: 03/17/22 Time of Service: 09:51 Assessment and Plan Assessment and plan (1) Hydronephrosis, left: Status: Acute Assessment and plan: Ureteral stent, retrograde pyelogram and ureteroscopy. We suspect a left distal ureteral stone. We will move forward with removal of her the left History of Present Illness History of Present Illness Chief Complaint: Left hydronephrosis Narrative: 82-year-old woman who recently presented to the emergency department with lower abdominal pain and fevers. She was found to have E. coli sepsis. A CT scan demonstrated a left hydronephrosis with ureteral dilation all the way down toward the bladder. She has a hip prosthesis, so there was some scatter artifact in the pelvis. We suspect a distal ureteral stone is causing the hydronephrosis. She underwent placement of a ureteral stent along with antibiotics. She has not passed a stone as far as she is aware. Review of Systems Narrative: No fevers or chills No vision change or dysphasia No diabetes or thyroid No shortness of breath, cough or hemoptysis No chest pain or palpitations No nausea, vomiting, hepatitis, ulcers, jaundice, diarrhea or constipation No seizures, strokes or peripheral neuropathy No bleeding disorders or anemia No gout PFSH All Active Problems (Updated 03/17/22 @ 09:57 by Nicola Parekh MD) Hydronephrosis, left (Acute) Osteoarthritis of left hip (Acute 07/02/14) Hip joint replacement status (Acute 07/02/14) Depression (Chronic) Alcohol dependence (Chronic) Screening for colorectal cancer (Acute) Age-related nuclear cataract, bilateral (Acute) 04/28/15; [facility], Central retinal vein occlusion of right eye (Acute) 04/28/15; [facility] Cough (Acute 04/26/17) 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 Symptoms are stable. Denies SI. She agrees to reach out if symptoms change. F/U in 2 months as this time of year is often difficult. Family hx-breast malignancy (Acute) HX of right breast biopsy-neg. Hypertension goal BP (blood pressure) < 140/80 (Acute 08/10/15) Hypertensive retinopathy of both eyes (Acute) 04/28/15; [facility] Rosacea (Acute) Stress incontinence (Acute) Osteoarthritis (Acute) RIGHT HAND AND EROSIONS MEDIAL ASPECT 5TH MCP right hip-mild to moderate-03/2009 Tibial plateau fracture, left (Acute 05/10/18) Macular edema (Acute ~09/14/18) 09/14/18 [facility] Sensory hearing loss, bilateral (Acute) Status post tonsillectomy and adenoidectomy (Acute) Status post breast biopsy (Acute) History of total right hip replacement (Acute 11/12/14) Alcohol intake above recommended sensible limits (Acute) Elevated fasting glucose (Acute) Immunization due (Acute) Grief (Chronic) Essential hypertension (Acute) Hypoglycemia (Acute) Adnexal cyst (Acute) Lichen simplex chronicus (Chronic) since 2019. Bx proven in 2021. Rx with Clobetasol ointment. Medical History (Updated 03/17/22 @ 09:57 by Nicola Parekh MD) Alcohol abuse Breast lump (01/09/12) Eye Procedure([facility] [place] - Dr. Ruiz) fluid... fluid where it should not be HTN (hypertension) Lichen simplex Osteoarthritis Renal calculi Rosacea Surgical History Abdominal hysterectomy (~1973) HAS OVARIES H/O UTERINE FIBROIDS Appendectomy (~1973) Biopsy of breast Colonoscopy - IV Sedation (01/25/16) H/O surgical procedure A. Abdominal hysterectomy with subsequent appendectomy (ovaries spared) B. T&A C. Right breast lumpectomy (benign) History of appendectomy History of biopsy 12/2021. 2 punch biopsies of vulva obtained. History of surgery on lower extremity ORIF left leg, [place] and 7 screws placed per patient Tonsillectomy and adenoidectomy Total replacement of hip (07/03/14) Left Total replacement of hip (11/12/14) DR. MATUTE; RIGHT Family History Mother , AGE 93 Myocardial infarction Heart disease Father , age 84 Cancer Sister Essential hypertension Hyperlipidemia Breast cancer X 3 Maternal Grandfather , age 80 Heart disease Paternal Grandfather , AGE 58 No problems noted. Maternal Grandmother , age 68 Stroke Paternal Grandmother , AGE 84 No problems noted. Social History Smoking/Tobacco Use Status: Former Tobacco Use Quit Date: 05/01/97 Second Hand Exposure: Yes Smoking risk assessment performed?: Yes Alcohol Intake: current Alcohol Intake frequency: 0-2 drinks per day Alcohol type: wine Drug use: Never Substance use type: does not use Details: drinks a bottle of wine every night Caregiver/Support person: No Household members: none Housing: house Communication Needs: Hard of Hearing and Corrective Lenses Do you need help understanding health information?: Rarely Pets and animals: Yes Pets and animals: cat(s) Sexually active: No Do you think of yourself as: straight/heterosexual Current gender identity: female What is your relationship status?: How often do you talk on the phone with friends or family?: three or more times per week How often do you get together with friends or relatives?: twice per week How often do you attend mu-ism or jehovah's witness services?: 4 or more times per year Do you belong to any clubs or organized social groups?: no Panel score (0-1 are the most socially isolated patients): 2 Duration: 15-30 minutes/day Frequency: 5-6 times per week Ann/Pentecostal: Yazidism Special ann needs: No Seatbelt use: always Drive intox or ride w/intox m48/m60 tank driver: No Do you feel safe at home: Yes History History 3 Para 1 Hx # Term Pregnancies Multiple births Hx # Pregnancies Ectopic pregnancies AB induced Hx Number of Living Children AB spontaneous 2 Meds Allergies and Home Medications Allergies Allergy/AdvReac Type Severity Reaction Status Date / Time morphine Allergy Severe ITCHING, Verified 03/17/22 08:24 rash propoxyphene AdvReac Severe HALLUCINATI Verified 03/17/22 08:24 ONS naproxen AdvReac Intermediate RETAINS Verified 03/17/22 08:24 FLUID Home Medications Medication Instructions Recorded Confirmed Type multivitamin 1 ea PO DAILY 10/10/12 03/17/22 History vitamin B complex (B-Complex 1 ea PO DAILY PRN 10/10/12 03/17/22 History tablet) ibuprofen 600 mg tablet 600 mg PO tid prn #90 tab-caps 11/04/14 03/17/22 History amlodipine 2.5 mg tablet 2.5 mg PO BID #180 tabs 05/25/21 03/17/22 Rx betamethasone dipropionate 0.05 % 1 applic topical BID PRN skin 10/01/21 03/17/22 Rx topical ointment irritation #45 grams clotrimazole-betamethasone 1 See Rx Instructions .Route 12/29/21 03/16/22 Rx %-0.05 % topical cream .COMPLEX #15 grams naltrexone 50 mg tablet 50 mg PO DAILY #90 tabs 01/27/22 03/17/22 Rx sertraline 100 mg tablet 100 mg PO DAILY #90 tab-caps 01/27/22 03/17/22 Rx Lactobacillus acidophilus 1.5 mg 2,000 mmu cells PO DAILY #14 caps 02/20/22 03/17/22 Rx (250 million cell) capsule (Probiotic Acidophilus) losartan 100 mg tablet 100 mg PO DAILY 03/15/22 03/17/22 History Exam Const General: cooperative and no acute distress Neck Neck: supple Resp Effort & Inspection: normal respiratory effort Auscultation: clear to auscultation bilaterally Cardio Rate: regular rate Rhythm: regular rhythm GI Palpation: soft and no masses Neuro General: patient alert, patient awake and patient oriented x3 Results Last Vital Signs Temp 36.4 C L 03/17/22 08:30 Pulse 92 H 03/17/22 08:30 Resp 16 03/17/22 08:30 BP 129/87 03/17/22 08:30 Pulse Ox 99 03/17/22 08:30
--- NOTE | 2022-03-17 10:27 | ANES.PREOP_ITS ---
General Info Date of Service Date Performed: 03/17/22 Height: 5 ft 4 in Weight: 79.3 kg Body Mass Index (BMI): 29.9 Surgical Procedure: Operation Date: 03/17/22 09:10 Proposed Procedure Side Surgeon p Cystoscopy/Possible Laser/Retrograde/Ureteroscopy/Stent Removal Left Nicola Parekh MD Meds Allergies and Home Medications Allergies Allergy/AdvReac Type Severity Reaction Status Date / Time morphine Allergy Severe ITCHING, Verified 03/17/22 08:24 rash propoxyphene AdvReac Severe HALLUCINATI Verified 03/17/22 08:24 ONS naproxen AdvReac Intermediate RETAINS Verified 03/17/22 08:24 FLUID Home Medication Medication Instructions Recorded multivitamin 1 ea PO DAILY 10/10/12 vitamin B complex (B-Complex 1 ea PO DAILY PRN 10/10/12 tablet) ibuprofen 600 mg tablet 600 mg PO tid prn #90 tab-caps 11/04/14 amlodipine 2.5 mg tablet 2.5 mg PO BID #180 tabs 05/25/21 betamethasone dipropionate 0.05 % 1 applic topical BID PRN skin 10/01/21 topical ointment irritation #45 grams clotrimazole-betamethasone 1 See Rx Instructions .Route 12/29/21 %-0.05 % topical cream .COMPLEX #15 grams naltrexone 50 mg tablet 50 mg PO DAILY #90 tabs 01/27/22 sertraline 100 mg tablet 100 mg PO DAILY #90 tab-caps 01/27/22 Lactobacillus acidophilus 1.5 mg 2,000 mmu cells PO DAILY #14 caps 02/20/22 (250 million cell) capsule (Probiotic Acidophilus) losartan 100 mg tablet 100 mg PO DAILY 03/15/22 Current Visit Medications: Current Medications Generic Name Dose Route Start Last Admin Trade Name Freq PRN Reason Stop Dose Admin Ringer's Solution 1,000 mls @ 80 mls/hr 03/17/22 06:00 03/17/22 08:58 IV 04/15/22 23:59 80 mls/hr INFUSION CASH Administration Cefazolin Sodium/Dextrose 2 gm in 50 mls @ 100 mls/hr 03/17/22 06:00 Ancef Duplex IVPB 03/17/22 16:00 PREOP CASH IV Miscellaneous Supplies 1 each 03/17/22 06:00 Iv Access IV 04/15/22 23:59 DIRECTED CASH Sodium Chloride 0 ml 03/17/22 06:00 Normal Saline Flush 10 Ml Syr IV 04/15/22 23:59 PRN PRN Sodium Chloride 0 ml 03/17/22 06:00 Normal Saline 10 Ml Vial IJ 04/15/22 23:59 DIRECTED PRN Sterile Water 0 ml 03/17/22 06:00 Water,Injection,Sterile 10 Ml Vial IJ 04/15/22 23:59 DIRECTED PRN PFSH Active Problems Active Problems: Problem Status Onset Code Hydronephrosis, left N13.30 Osteoarthritis of left hip 07/02/14 M16.12 Hip joint replacement status 07/02/14 Z96.649 Depression F32.9 Alcohol dependence F10.20 Screening for colorectal cancer Z12.11, Z12.12 Age-related nuclear cataract, bilateral H25.13 Central retinal vein occlusion of right eye H34.8112 Cough 04/26/17 R05 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 Depressive disorder 01/09/12 F32.9 Family hx-breast malignancy Z80.3 Hypertension goal BP (blood pressure) < 140/80 08/10/15 I10 Hypertensive retinopathy of both eyes H35.033 Rosacea L71.9 Stress incontinence N39.3 Osteoarthritis M19.90 Tibial plateau fracture, left 05/10/18 S82.142A Macular edema ~09/14/18 H35.81 Sensory hearing loss, bilateral H90.3 Status post tonsillectomy and adenoidectomy Z90.89 Status post breast biopsy Z98.890 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 Z96.641 Alcohol intake above recommended sensible limits Z72.89 Elevated fasting glucose R73.01 Immunization due Z23 Grief F43.21 Essential hypertension I10 Hypoglycemia E16.2 Adnexal cyst N94.9 Lichen simplex chronicus L28.0 Medical History Medical History (Updated 03/17/22 @ 09:57 by Nicola Parekh MD) Alcohol abuse Breast lump (01/09/12) Eye Procedure([facility] - Dr. Ruiz) fluid... fluid where it should not be HTN (hypertension) Lichen simplex Osteoarthritis Renal calculi Rosacea Surgical History Surgical History Abdominal hysterectomy (~1973) HAS OVARIES H/O UTERINE FIBROIDS Appendectomy (~1973) Biopsy of breast Colonoscopy - IV Sedation (01/25/16) H/O surgical procedure A. Abdominal hysterectomy with subsequent appendectomy (ovaries spared) B. T&A C. Right breast lumpectomy (benign) History of appendectomy History of biopsy 12/2021. 2 punch biopsies of vulva obtained. History of surgery on lower extremity ORIF left leg, [place] and 7 screws placed per patient Tonsillectomy and adenoidectomy Total replacement of hip (07/03/14) Left Total replacement of hip (11/12/14) DR. MATUTE; RIGHT Tobacco Smoking/Tobacco Use Status: Former Tobacco Use Passive smoking exposure: No Second hand exposure: Yes Alcohol Alcohol Intake: current Alcohol intake frequency: 0-2 drinks per day Alcohol type: wine Substance Use Substance use: Never Substance use type: does not use Details: drinks a bottle of wine every night Prental History History 3 Para 1 Hx # Term Pregnancies Multiple births Hx # Pregnancies Ectopic pregnancies AB induced Hx Number of Living Children AB spontaneous 2 Vital Signs and Lab Results Vital Signs Most Recent Vital Signs in EMR: Most Recent Vital Signs Temp Pulse Resp BP Pulse Ox 36.4 C L 92 H 16 129/87 99 03/17/22 08:30 03/17/22 08:30 03/17/22 08:30 03/17/22 08:30 03/17/22 08:30 Lab Results Blood Type / Crossmatch: No Data to Display Complete Blood Count: White Blood Count 10.91 10^3/uL (4.4-10.8) H 02/20/22 06:11 Red Blood Count 3.37 10^6/uL (3.93-5.22) L 02/20/22 06:11 Hemoglobin 10.5 g/dL (11.2-15.7) L 02/20/22 06:11 Hematocrit 31.0 % (36.0-46.0) L 02/20/22 06:11 Platelet Count 172 10^3/uL (130-400) 02/20/22 06:11 Complete Metabolic Panel: Sodium 141 mmol/L (136-145) 02/20/22 06:11 Potassium 3.5 mmol/L (3.5-5.1) 02/20/22 06:11 Chloride 106 mmol/L (98-107) 02/20/22 06:11 Carbon Dioxide 27.0 mmol/L (21.0-32.0) 02/20/22 06:11 BUN 15 mg/dL (7-18) 02/20/22 06:11 Creatinine 1.0 mg/dL (0.55-1.02) 02/20/22 06:11 Est GFR (CKD-EPI 2020) 56.25 (mL/min/1.73m2) 02/20/22 06:11 Magnesium 1.7 mg/dL (1.8-2.4) L 02/19/22 06:07 Calcium 8.5 mg/dL (8.5-10.1) 02/20/22 06:11 Glucose 115 mg/dL (74-106) H 02/20/22 06:11 Liver Function Panel: No Data to Display Coagulation Panel: No Data to Display Cardiac Panel: No Data to Display Arterial Blood Gas: No Data to Display Venous Blood Gas: No Data to Display Pancreas Panel: No Data to Display Thyroid Panel: No Data to Display Infectious Disease: No Data to Display Blood Cultures: No Data to Display Toxicology Panel: No Data to Display Anesthesia Assessment and Plan Anesthesia History Personal History: No History of Anesthesia Complications Family History: No Family History of Anesthesia Complications Exercise Tolerance Exercise Tolerance: Metabolic Equivalents>4 Pertinent Negatives Pertinent Negatives: No Symptoms of GERD and No Major Pulmonary Symptoms or Complaints Cardiac & Pulmonary Exam Cardiac Exam: Normal S1/S2 Heart Sounds Pulmonary Exam: Clear Bilateral Breath Sounds Implantable Cardiac Device Does patient have a Pacemaker or an ICD?: No Airway Exam Known Difficult Airway: No Mallampati Class: 4 Mouth Opening: Narrow (< 3cm) Thyromental Distance: Greater than 3 cm Neck Range of Motion: Full ROM Neck Circumference: Normal Teeth Condition: Normal Dentition ASA Classification ASA Score: ASA 3 Emergency Case?: No NPO Status NPO Status: NPO Clears >2 hours, Solids >8 hours Anesthesia Plan Resuscitation Status: Full Code Anesthesia Technique: General Anesthesia Airway Planned: Endotracheal Tube Monitors Used: Standard Monitors
[2022-03-17] MEDS: ceFAZolin 2 GM/50 ML BAG IVPB (10:33)
[2022-03-17] MEDS: Lidocaine 2% Jelly 6 ML SYR (10:49)
[2022-03-17] MEDS: Omnipaque 300 MG/ML 50 ML BTL (11:00)
--- NOTE | 2022-03-17 11:12 | W.PM.DSUDISC ---
Date of service: 03/17/22 Time of Service: 11:13 Discharge Plan Disposition Patient Disposition: HOME Condition: Good Discharge Details Reason For Visit: ureteroscopy Attending Provider: Nicola Parekh Primary Care Provider: Mala Clark Home Meds and New Rx's Prescriptions: No Action sertraline 100 mg tablet 100 mg PO DAILY Qty: 90 3RF naltrexone 50 mg tablet 50 mg PO DAILY Qty: 90 0RF betamethasone dipropionate 0.05 % ointment 1 applic topical BID PRN (Reason: skin irritation) Qty: 45 4RF Rx Instructions: apply tiny amount to tip of middle finger. apply that amount on entire vulva. amlodipine 2.5 mg tablet 2.5 mg PO BID Qty: 180 3RF vitamin B complex [B-Complex] 1 EACH tablet 1 ea PO DAILY PRN Label Comments: 11/12/14 takes when drinking multivitamin 1 EACH capsule 1 ea PO DAILY ibuprofen 600 MG tablet 600 mg PO tid prn Qty: 90 clotrimazole-betamethasone 1-0.05 % cream See Rx Instructions .ROUTE .COMPLEX Qty: 15 2RF Dose Instruction: APPLY 1 GRAM TOPICALLY TWO TIMES A DAY Rx Instructions: APPLY 1 GRAM TOPICALLY TWO TIMES A DAY Probiotic Acidophilus 1.5 mg (250 million cell) capsule 2,000 mmu cells PO DAILY Qty: 14 0RF losartan 100 mg tablet 100 mg PO DAILY Discharge Instructions Additional Instructions: No need to strain urine Followup 6 weeks with renal US Activity:: Activity as Tolerated Shower/Bathe:: 24 hours Activity:: Activity as Tolerated Equipment/Supplies:: No Equipment Needed Diet:: As Tolerated DS: Diagnosis Discharge Diagnosis (1) Hydronephrosis, left: Status: Acute
--- NOTE | 2022-03-17 11:15 | DI.RAD_ITS ---
Exam(s) XR RETROGRADE IN OR EXAM: XR RETROGRADE IN OR CLINICAL HISTORY: LEFT HYDRONEPHROSIS TECHNIQUE: 2D and realtime digital imaging was performed. COMPARISON: No exams were available for comparison FINDINGS: C-arm fluoroscopy was utilized by Dr. Parekh during retrograde ureterography . Please see the procedu re note. IMPRESSION: RADIATION DOSE DELIVERED: missael Mejia=1.69 mGy
--- NOTE | 2022-03-17 11:16 | ROE_ITS ---
Date of service: 03/17/22 Time of Service: 11:16 Operative Note Operative Note DATE OF PROCEDURE: 03/17/22 PRE-OP DIAGNOSIS: left hydronephrosis POST-OP DIAGNOSIS: same left ureteral stone PROCEDURE: cystoscopy, remove left ureteral stent, left retrograde pyelogram, left ureteroscopy with stone extraction SURGEON: Nicola Parekh ANESTHESIA TYPE: General LMA/ETT Refer to Anesthesia Record ESTIMATED BLOOD LOSS: 0 PATHOLOGY: other (stone for chemical analysis) Patient was transported to: PACU Patient's condition: stable Implants: none Indications: This is an 82-year-old woman who initially presented to the emergency department with abdominal pain and fevers. She was found to have a left hydronephrosis with what was suspected to be a left distal ureteral stone. She grew E. coli in both her urine and her blood. She was initially treated with a stent placement and antibiotics. She has compl eted her course of antibiotics and presents now for ureteroscopy and treatment of her ureteral stone. Findings: Left distal ureteral stone Procedure Description: The patient was given preoperative IV antibiotics. She was brought to the operating room on 03/17/2022. After successful induction of general anesthesia, she was placed in the dorsal lithotomy position. Her genitalia was prepped and draped. 2% Xylocaine jelly was instilled into the urethra to act as a local anesthetic. A 22 [place] rigid cystoscope was passed through the urethra into the bladder. The bladder was inspected using a 30 degree lens. A stent could be seen protruding from the left ureteral orifice. The stent was grasped with alligator forceps and brought out to the level of the urethral meatus. A Glidewire was advanced through the lumen of the stent and the stent was removed. A 5 [place] access catheter was advanced over the wire and the wire was removed. We then performed a retrograde pyelogram by injecting Omnipaque through the access catheter under fluoroscopic guidance. A left distal filling defect was identified. I replaced the wire through the lumen of the access catheter and removed the catheter. I then passed a semirigid ureteroscope through the urethra and into the bladder. I was able to move the scope up the ureter until a stone was seen. The stone was grasped in a [place]ham stone basket and removed in its entirety. Because of the minimal trauma involved with the stone extraction, we elected to not replace the ureteral stent. The guidewire was removed. The stone was sent to the laboratory for chemical analysis. The patient tolerated the procedure with no complications. She was taken to the recovery room in stable condition.
--- NOTE | 2022-03-18 15:53 | W.ANESPOSTOP ---
Postoperative Evaluation Date, Time and Location Date Performed: 03/18/22 Time Performed: 11:38 Patient Location: Day Surgery Unit Vital Signs Most Recent Imported Vital Signs: Most Recent Vital Signs Temp Pulse Resp BP Pulse Ox 36.4 C L 81 16 103/75 98 03/17/22 12:11 03/17/22 12:11 03/17/22 12:11 03/17/22 12:11 03/17/22 12:11 Pain Score Most Recent Pain Score: Most Recent Pain Score Pain Level 0 03/17/22 12:11 Assessment Mental Status: Awake (Alert & Oriented to Patient Baseline) Airway and Respiratory Function: Patent airway with normal (patient baseline) respiratory exam Cardiovascular Function: Hemodynamically Stable Hydration Status: Adequately Hydrated Nausea & Vomiting: No Nausea or Vomiting Pain: Pt. Denies Any Pain Peripheral Nerve Block: Patient did not receive a nerve block
[2022-03-22 23:11] LABS: Source: Left Ureter
== END 2022-03-17 12:50 | disposition home or self-care (01) ==
PROVIDERS: PCP Nurse Practitioner Family; Visit Provider Urology
PROC: (CPT 52320; principal; 2022-03-17 09:00)
DX: N13.2 Hydronephrosis with renal and ureteral calculous obstruction (principal)
CPT/HCPCS: 52320; 74420; 82365; J0690; J1100; J2370; J2405; J2704; Q9967

== ENCOUNTER 2022-04-29 00:08 | Outpatient (CLI) | payer MEDICARE, BC, SELFPAY ==
--- NOTE | 2022-04-29 07:45 | DI.US_ITS ---
Exam(s) US RENAL EXAM: US RENAL CLINICAL HISTORY: r/o hydro postoperatively,KIDNEY STONE, N20.0. TECHNIQUE: Cagle scale, color and spectral Doppler were used. COMPARISON: CT CT ABDOMEN PELVIS W from 02/14/2022 XR RETROGRADE IN OR from 02/15/2022 CR XR ABDOMEN FLAT PLATE from 02/17/2022 XA XR RETROGRADE IN OR from 03/17/2022 FINDINGS: Renal size in cm: Right: 10.5 left: 8.7 Echogenicity: Normal Hydronephrosis: No Cyst or mass: 1.6 x 1.5 x 1 centimeters simple cyst superior pole right kidney. Nephrolithiasis: No Bladder:Not well evaluated due to lack of distention. Prevoid vol:46 Postvoid vol:9 IMPRESSION: No evidence of hydronephrosis. Simple appearing cyst right kidney. DATA REPOSITORY:
== END 2022-04-29 00:28 ==
LOC: DI 00:10
PROVIDERS: PCP Nurse Practitioner Family; Visit Provider Urology
DX: N20.0 Calculus of kidney (principal); N28.1 Cyst of kidney, acquired
CPT/HCPCS: 76770

== ENCOUNTER → 2022-05-03 13:37 | Outpatient (BNVA) | payer MEDICARE, BC, SELFPAY | PROVIDERS: PCP Nurse Practitioner Family; Referring Provider Nurse Practitioner Family; Visit Provider Urology | DX: Z09 Encounter for follow-up examination after completed treatment for conditions other than malignant neoplasm (principal); Z87.442 Personal history of urinary calculi | CPT/HCPCS: 99213 ==

== ENCOUNTER → 2022-09-13 15:22 | Outpatient (BNVA) | payer MEDICARE, BC, SELFPAY | PROVIDERS: PCP Nurse Practitioner Family; Referring Provider Nurse Practitioner Family; Visit Provider Urology | DX: N39.46 Mixed incontinence (principal) | CPT/HCPCS: 81003; 99213 ==

== ENCOUNTER 2022-12-15 05:32 | Outpatient (CLI) | payer MEDICARE, BC, SELFPAY ==
[2022-12-15] MEDS: Albuterol HFA 18 GM 200 PUFF INH IH (16:11)
[2022-12-15] MEDS: Inhaler, Assist Device 1 EACH MC (16:11)
--- NOTE | 2022-12-16 12:51 | W.PFT ---
Date of service: 12/15/22 Time of Service: 15:02 Pulmonary Function Test Result Indications: Dyspnea Interpretation Spirometry: There is no airflow limitation. There is no bronchodilator response. Impression Normal spirometry Clinical Correlation therefore is recommended.
== END 2022-12-15 05:33 | disposition home or self-care (01) ==
LOC: RT 05:32
PROVIDERS: PCP Nurse Practitioner Family; Visit Provider Nurse Practitioner Family
DX: R06.02 Shortness of breath (principal)
CPT/HCPCS: 94060

== ENCOUNTER → 2022-12-22 01:01 | Outpatient (CLI) | payer MEDICARE, BC, SELFPAY ==
[2022-12-22 12:23] LABS: Estimated GFR 56.25 (mL/min/1.73m2)
[2022-12-22] MEDS: Normal Saline - Diluent 50 ML VIAL IJ (13:48)
[2022-12-22] MEDS: Omnipaque 350 MG/ML 500 ML BTL-Imaging package 70 ML IJ (13:50)
--- NOTE | 2022-12-22 13:55 | DI.CT_ITS ---
Exam(s) CT CHEST W EXAM: CT CHEST W CLINICAL HISTORY: SOB and pursed lip breathing,R06.02,R09.89. TECHNIQUE: Multi planar reconstructions were performed. CONTRAST MATERIAL: Omnipaque 350; 75 cc COMPARISON: CT CT ABDOMEN PELVIS W from 02/14/2022 FINDINGS: CHEST: LUNGS: There is a 5 millimeter nodule in the right middle lobe. Also some atelectasis in the right m iddle lobe and in the superior lingular segment of the left lung. There are no significant focal fin dings in the right lower lobe. There is mild subpleural infiltrate in the lateral basal segment of t he left lower lobe. There are no pleural effusions. No findings in trachea and mainstem bronchi. MEDIASTINUM: There is no hilar nor mediastinal adenopathy. Visualized thyroid unremarkable. CARDIAC: Heart size is normal. There is no pericardial effusion.Caliber of the thoracic aorta is wit hin normal limits. VISUALIZED UPPER ABDOMEN:No adrenal masses. No splenomegaly. Lower most image of this study reveals a partially included density in the medial cortex of the right kidney measuring approximately 2 by 1 .5 cm and denser than a typical cyst. May represent a hemorrhagic cyst but cannot exclude neoplasm, particularly since this is not completely included in the field of view of this chest study. OSSEOUS: No significant osseous lesions.Fractures.. IMPRESSION: 1. There is atelectasis in the right middle lobe and lingular segment of the left lung. There is als o a small 1 cm area of subpleural infiltrate in the lateral basal segment of the left lower lobe. Th ere is also 5 millimeter nodular density in the right middle lobe. There are no pleural effusions no r intrathoracic adenopathy. 2. Recommend repeat CT scan in 6 months, earlier if clinically indicated. 3. RADIATION DOSE DELIVERED: 592.7mGy.cm Total DLP DATA REPOSITORY: All CT scans at this facility are submitted to the National Radiology Data Registry (NRDR) Dose Index Registry (DIR) with the [employer] ([employer]). RADIATION OPTIMIZATION: All CT scans at this facility use at least one of these dose optimization te chniques: automated exposure control; mA and/or kV adjustment per patient size (includes targeted exa ms where dose is matched to clinical indication); or iterative reconstruction.
== END ==
PROVIDERS: PCP Nurse Practitioner Family; Visit Provider Nurse Practitioner Family
DX: Z01.812 Encounter for preprocedural laboratory examination (principal); R06.02 Shortness of breath; R09.89 Other specified symptoms and signs involving the circulatory and respiratory systems
CPT/HCPCS: 71260; 82565

== ENCOUNTER 2023-05-12 15:36 | Outpatient (REF) | payer MEDICARE, BC, SELFPAY | END 2023-05-12 15:37 | disposition home or self-care (01) | LOC: NCHCN 15:36 | PROVIDERS: PCP Nurse Practitioner Family; Visit Provider Physician Assistant | DX: J02.9 Acute pharyngitis, unspecified (principal) | CPT/HCPCS: 87070 ==

== ENCOUNTER → 2023-06-23 00:02 | Outpatient (CLI) | payer MEDICARE, BC, SELFPAY ==
--- NOTE | 2023-06-23 14:34 | DI.CT_ITS ---
Exam(s) CT CHEST W EXAM: CT CHEST W CLINICAL HISTORY: 6 month f/u pulmonary nodule,r91.1 TECHNIQUE: Imaging Protocol: Axial computed tomography images with coronal and sagittal reformatted images were created and reviewed CONTRAST MATERIAL: Intravenous: Omnipaque 350Contrast volume:70 mL. COMPARISON: CT CT CHEST W from 12/22/2022 FINDINGS: Tracheobronchial tree: Patent where visualized. Pulmonary parenchyma: No consolidation or dominant measurable mass. There is a 5 mm area of nodularit y in the periphery of the right middle lobe (series 3, image 337). No other pulmonary nodules are see n. There are stable areas of scarring in the right upper lobe and the left upper lobe medially. No ne w infiltrates are seen. Mediastinum and Radha: No dominant adenopathy or fluid collection. The esophagus is unremarkable. Thyroid gland: Unremarkable. Pleura: No effusion or pneumothorax. Heart: The heart is not dilated. Mild coronary artery calcification. No pericardial effusion. Aorta: Thoracic aorta non-dilated. No evidence of dissection. Atherosclerotic calcification. Pulmonary arteries: Due to the timing of the bolus, opacification of the pulmonary arteries are subop timal for evaluation of pulmonary emboli. No large central pulmonary embolus is seen. Upper abdomen: Stable incidental findings in the abdomen. Lymph nodes: Within normal limits. Bones: Within normal limits for the patient's age. Soft tissues: Unremarkable. IMPRESSION: 1. Stable right middle lobe pulmonary nodularity. 2. No acute pulmonary process. RADIATION DOSE DELIVERED: 524.9mGy.cm Total DLP DATA REPOSITORY: All CT scans at this facility are submitted to the National Radiology Data Registry (NRDR) Dose Index Registry (DIR) with the [employer] ([employer]). RADIATION OPTIMIZATION: All CT scans at this facility use at least one of these dose optimization te chniques: automated exposure control; mA and/or kV adjustment per patient size (includes targeted exa ms where dose is matched to clinical indication); or iterative reconstruction.
== END ==
PROVIDERS: PCP Nurse Practitioner Family; Visit Provider Nurse Practitioner Family
DX: R91.1 Solitary pulmonary nodule (principal); J98.4 Other disorders of lung; Z01.812 Encounter for preprocedural laboratory examination
CPT/HCPCS: 71260; 82565

== ENCOUNTER 2024-07-09 17:12 | Outpatient (CLI) | payer MEDICARE, BC, SELFPAY ==
--- NOTE | 2024-07-09 | DI.RAD_ITS ---
Exam(s) XR CHEST 2V PA LATERAL EXAM: XR CHEST 2V PA LATERAL CLINICAL HISTORY: COUGH, SOB. TECHNIQUE: 2D digital imaging was performed. COMPARISON: CR CHEST 2 VIEWS PA,LAT from 09/02/[address] CHEST W from 06/23/2023 FINDINGS: 2 views: Heart size is normal. The mediastinum is not widened. Right lung is clear. There is some platelike atelectasis in the lower left lung field. No confluent infiltrates. No pleural effusions. IMPRESSION: There is subsegmental platelike atelectasis in left lung base. No pleural effusions DATA REPOSITORY: RADIATION DOSE DELIVERED:
== END 2024-07-09 17:32 ==
PROVIDERS: PCP Nurse Practitioner Family; Visit Provider Nurse Practitioner Family
DX: J98.11 Atelectasis (principal)
CPT/HCPCS: 71046

== ENCOUNTER → 2024-11-14 08:43 | Outpatient (BNVA) | payer MEDICARE, BC, SELFPAY | PROVIDERS: PCP Nurse Practitioner Family; Referring Provider Nurse Practitioner Family; Visit Provider Nurse Practitioner Gerontology | DX: R35.0 Frequency of micturition (principal); N39.46 Mixed incontinence; R39.9 Unspecified symptoms and signs involving the genitourinary system | CPT/HCPCS: 99214; 81002; 51798 ==

== ENCOUNTER 2024-12-19 07:01 | Day surgery (SDC) | payer MEDICARE, BC, SELFPAY ==
[2024-12-19 07:16] VITALS: BP 189/85; PULSE 78; RESP 19; TEMP 36.4; O2SAT 96
[2024-12-19] MEDS: Lactated Ringers 1,000 ML 80 ML IV (07:52)
--- NOTE | 2024-12-19 09:02 | HPE_ITS ---
Date of service: 12/19/24 Time of Service: 09:02 Assessment and Plan Assessment and plan (1) Overactive bladder: Status: Acute Assessment and plan: She has tried and failed behavioral modification, pelvic floor physical therapy and antimuscarinic therapy. 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 She is neurologically intact, so we will use a total of 100 units of Botox and inject in 20 different locations in the bladder. History of Present Illness History of Present Illness Chief Complaint: Overactive bladder Narrative: This is an 84-year-old woman who has a history of mixed urinary incontinence. She is most bothered by the urgency incontinence due to overactive bladder. She describes bladder spasms and difficulty getting to the restroom in time. She has tried behavioral modifications with no significant improvement. She has tried and failed pelvic floor physical therapy. She had no improvement with beta 3 agonists. She did improve with anticholinergics, but was unable to tolerate the medications due to side effects. 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 She has no current dysuria or gross hematuria. Review of Systems Narrative: No fevers or chills Decreased hearing acuity. Retinopathy/macular degeneration. No diabetes or thyroid Shortness of breath with exertion. Stable pulmonary nodules. No hemoptysis No chest pain or palpitations No nausea, vomiting, hepatitis, ulcers, jaundice No seizures, strokes or peripheral neuropathy No bleeding disorders or anemia Arthralgia. No gout PFSH All Active Problems (Updated 12/19/24 @ 09:21 by Nicola Parekh MD) Overactive bladder (Acute) Pulmonary nodule 1 cm or greater in diameter (Acute) on CT scan 11/2022 Mixed stress and urge urinary incontinence (Acute) Frequency of urination (Acute) Lichen simplex chronicus (Chronic) since 2019. Bx proven in 2021. Rx with Clobetasol ointment. Adnexal cyst (Acute) Hypoglycemia (Acute) Essential hypertension (Acute) Sensory hearing loss, bilateral (Acute) Macular edema (Acute ~09/14/18) 09/14/18 [facility] Osteoarthritis (Acute) RIGHT HAND AND EROSIONS MEDIAL ASPECT 5TH MCP right hip-mild to moderate-03/2009 Stress incontinence (Acute) Hypertensive retinopathy of both eyes (Acute) 04/28/15; [facility] Depressive disorder (Acute 01/09/12) Taking Sertraline 75mg QD for her depression. Symptoms are stable. Denies SI. She agrees to reach out if symptoms change. F/U in 2 months as this time of year is often difficult. 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 Age-related nuclear cataract, bilateral 04/28/15; [facility], HTN (hypertension) Osteoarthritis Alcohol abuse Eye Procedure([facility] - Dr. Ruiz) fluid... fluid where it should not be Screening for colorectal cancer Osteoarthritis of left hip (07/02/14) Surgical History History of surgery on lower extremity ORIF left leg, Cachorro and 7 screws placed per patient History of biopsy 12/2021. 2 punch biopsies of vulva obtained. 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 MATUTE; RIGHT Tonsillectomy and adenoidectomy Total replacement of hip (07/03/14) Left Abdominal hysterectomy (~1973) HAS OVARIES H/O UTERINE FIBROIDS Colonoscopy - IV Sedation (01/25/16) Biopsy of breast Appendectomy (~1973) H/O surgical procedure A. Abdominal hysterectomy with subsequent appendectomy (ovaries spared) B. T&A C. Right breast lumpectomy (benign) Hip joint replacement status (07/02/14) Family History Mother , AGE 93 Myocardial infarction Heart disease Father , age 84 Cancer Sister Essential hypertension Hyperlipidemia Breast cancer X 3 Maternal Grandfather , age 80 Heart disease Paternal Grandfather , AGE 58 No problems noted. Maternal Grandmother , age 68 Stroke Paternal Grandmother , AGE 84 No problems noted. Social History Smoking/Tobacco Use Status: Former Tobacco Use tobacco type: cigarettes Quit Date: 05/01/87 Tobacco: How many years used: 10 Quit status: quit date established Second Hand Exposure: Yes Smoking risk assessment performed?: Yes Alcohol Intake: former Drug use: Never Substance use type: does not use Counseling given: No Caregiver/Support person: No Household members: none Housing: house Communication Needs: Hard of Hearing and Corrective Lenses Do you need help understanding health information?: Rarely Pets and animals: Yes Pets and animals: cat(s) Sexually active: No Do you think of yourself as: straight/heterosexual Current gender identity: female What is your relationship status?: How often do you talk on the phone with friends or family?: three or more times per week How often do you get together with friends or relatives?: twice per week How often do you attend jain or denominational services?: 4 or more times per year Do you belong to any clubs or organized social groups?: yes Panel score (0-1 are the most socially isolated patients): 3 What type of physical activity do you participate in: walking and yoga Duration: 45-60 minutes/day Frequency: 1-2 times per week Ann/Roman Catholic: Anabaptist Special ann needs: No Seatbelt use: always Drive intox or ride w/intox interstate bus driver: No Do you feel safe at home: Yes Do you feel safe in your relationship?: Yes History History 3 Para 1 Hx # Term Pregnancies Multiple births Hx # Pregnancies Ectopic pregnancies AB induced Hx Number of Living Children AB spontaneous 2 Meds Allergies and Home Medications Allergies Allergy/AdvReac Type Severity Reaction Status Date / Time morphine Allergy Severe ITCHING, Verified 12/19/24 07:24 rash propoxyphene AdvReac Severe HALLUCINATI Verified 12/19/24 07:24 ONS naproxen AdvReac Intermediate RETAINS Verified 12/19/24 07:24 FLUID Home Medications ?Medication ?Instructions ?Recorded ?Confirmed ?Type multivitamin 1 ea PO DAILY 10/10/1212/19 History vitamin B complex (B-Complex 1 ea PO DAILY PRN 3 12/19/24 History tablet) ibuprofen 600 mg tablet 600 mg PO tid prn #90 tab-ca ps 11/04/14 12/19/24 History clotrimazole-betamethasone 1 1 applic topical BID 2 we eks #45 01/10/23 12/19/24 Rx %-0.05 % topical cream grams amlodipine 2.5 mg tablet See Rx Instructions .Route 0 05/14/24 12/19/24 Rx .COMPLEX #180 tabs albuterol sulfate 90 mcg/actuation 2 inh inhalation Q6 H PRN shortness 07/09/24 12/19/24 Rx aerosol inhaler of breath or wheezing #8.5 g leonid spirometers and accessories #1 ea 07/10/24 09/05/24 Rx betamethasone dipropionate 0.05 % 1 applic topical BID PRN skin 09/05/24 12/19/24 Rx topical ointment irritation #45 grams oxybutynin chloride 5 mg 5 mg PO DAILY #90 tabs 09/0512/19/24 Rx tablet,extended release 24 hr losartan 100 mg tablet See Rx Instructions .Route 0 11/11/24 12/19/24 Rx .COMPLEX #90 tabs sertraline 100 mg tablet See Rx Instructions .Route 0 11/11/24 12/19/24 Rx .COMPLEX #135 tabs loratadine 10 mg tablet (Allergy 10 mg PO Q24H 5 12/19/24 History Relief (loratadine)) Exam Const General: cooperative Neck Neck: supple Resp Effort & Inspection: normal respiratory effort Auscultation: clear to auscultation bilaterally Cardio Rate: regular rate Rhythm: regular rhythm GI Palpation: soft and no masses Neuro General: patient alert, patient awake and patient oriented x3 Results Last Vital Signs Temp 36.4 C L 12/19/24 07:16 Pulse 78 12/19/24 07:16 Resp 19 12/19/24 07:16 BP 189/85 H 12/19/24 07:16 Pulse Ox 96 12/19/24 07:16 Time Spent Time spent with Patient: <40 minutes Time was spent: other
--- NOTE | 2024-12-19 09:38 | W.ANESPRE ---
General Info Date of Service Date Performed: 12/19/24 Height: 5 ft 4 in Weight: 86.9 kg Body Mass Index (BMI): 32.8 Surgical Procedure: Operation Date: 12/19/24 08:40 Proposed Procedure Side Surgeon p Cystoscopy/Injection of Botox to Bladder Nicola Parekh MD Meds Allergies and Home Medications Allergies Allergy/AdvReac Type Severity Reaction Status Date / Time morphine Allergy Severe ITCHING, Verified 12/19/24 07:24 rash propoxyphene AdvReac Severe HALLUCINATI Verified 12/19/24 07:24 ONS naproxen AdvReac Intermediate RETAINS Verified 12/19/24 07:24 FLUID Home Medication ?Medication ?Instructions ?Recorded multivitamin 1 ea PO DAILY 10/10/12 vitamin B complex (B-Complex 1 ea PO DAILY PRN 10/10/12 tablet) ibuprofen 600 mg tablet 600 mg PO tid prn #90 tab-caps 11/04/14 clotrimazole-betamethasone 1 1 applic topical BID 2 weeks #45 01/10/23 %-0.05 % topical cream grams amlodipine 2.5 mg tablet See Rx Instructions .Route 05/14/24 .COMPLEX #180 tabs albuterol sulfate 90 mcg/actuation 2 inh inhalation Q6H PRN shortness 07/09/24 aerosol inhaler of breath or wheezing #8.5 grams spirometers and accessories #1 ea 07/10/24 betamethasone dipropionate 0.05 % 1 applic topical BID PRN skin 09/05/24 topical ointment irritation #45 grams oxybutynin chloride 5 mg 5 mg PO DAILY #90 tabs 09/05/24 tablet,extended release 24 hr losartan 100 mg tablet See Rx Instructions .Route 11/11/24 .COMPLEX #90 tabs sertraline 100 mg tablet See Rx Instructions .Route 11/11/24 .COMPLEX #135 tabs loratadine 10 mg tablet (Allergy 10 mg PO Q24H 12/19/24 Relief (loratadine)) Current Visit Medications: Current Medications Generic Name Dose Route Start Last Admin Trade Name Freq PRN Reason Stop Dose Admin OnabotulinumtoxinA 100 units/ 0 units 12/19/24 06:00 Sodium Chloride 20 ml IJ 12/19/24 23:59 DIRECTED CASH Ringer's Solution 1,000 mls @ 80 mls/hr 12/19/24 06:00 12/19/24 08:49 IV 12/19/24 23:59 80 mls/hr INFUSION CASH Infusion IV Miscellaneous Supplies 1 each 12/19/24 06:00 Iv Access IV 12/19/24 23:59 DIRECTED CASH Sodium Chloride 0 ml 12/19/24 06:00 Normal Saline Flush 10 Ml Syr IV 12/19/24 23:59 PRN PRN Sodium Chloride 0 ml 12/19/24 06:00 Normal Saline 10 Ml Vial IJ 12/19/24 23:59 DIRECTED PRN Sterile Water 0 ml 12/19/24 06:00 Water,Injection,Sterile 10 Ml Vial IJ 12/19/24 23:59 DIRECTED PRN PFSH Active Problems Active Problems: Problem Status Onset Code Overactive bladder Acute N32.81 Pulmonary nodule 1 cm or greater in diameter Acute R91.1 Mixed stress and urge urinary incontinence Acute N39.46 Frequency of urination Acute R35.0 Lichen simplex chronicus Chronic L28.0 Adnexal cyst Acute N94.9 Hypoglycemia Acute E16.2 Essential hypertension Acute I10 Sensory hearing loss, bilateral Acute H90.3 Macular edema Acute ~09/14/18 H35.81 Osteoarthritis Acute M19.90 Stress incontinence Acute N39.3 Hypertensive retinopathy of both eyes Acute H35.033 Depressive disorder Acute 01/09/12 F32.9 Cystoid macular degeneration of right eye Acute H35.351 Central retinal vein occlusion of right eye Acute H34.8112 Alcohol dependence Chronic F10.20 Medical History Medical History (Updated 12/19/24 @ 09:21 by Nicola Parekh MD) Left ureteral stone Renal calculi Lichen simplex Rosacea Grief Elevated fasting glucose Breast lump (01/09/12) Tibial plateau fracture, left (05/10/18) metal plate and pins in situ Rosacea Family hx-breast malignancy HX of right breast biopsy-neg. Age-related nuclear cataract, bilateral 04/28/15; [facility], HTN (hypertension) Osteoarthritis Alcohol abuse Eye Procedure([facility] - Dr. Ruiz) fluid... fluid where it should not be Screening for colorectal cancer Osteoarthritis of left hip (07/02/14) Surgical History Surgical History History of surgery on lower extremity ORIF left leg, Cachorro and 7 screws placed per patient History of biopsy 12/2021. 2 punch biopsies of vulva obtained. 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 MATUTE; RIGHT Tonsillectomy and adenoidectomy Total replacement of hip (07/03/14) Left Abdominal hysterectomy (~1973) HAS OVARIES H/O UTERINE FIBROIDS Colonoscopy - IV Sedation (01/25/16) Biopsy of breast Appendectomy (~1973) H/O surgical procedure A. Abdominal hysterectomy with subsequent appendectomy (ovaries spared) B. T&A C. Right breast lumpectomy (benign) Hip joint replacement status (07/02/14) Tobacco Smoking/Tobacco Use Status: Former Tobacco Use Passive smoking exposure: Yes ( was heavy smoker... 1990) Second hand exposure: Yes Alcohol Alcohol Intake: former Substance Use Substance use: Never Substance use type: does not use Prental History History 3 Para 1 Hx # Term Pregnancies Multiple births Hx # Pregnancies Ectopic pregnancies AB induced Hx Number of Living Children AB spontaneous 2 Vital Signs and Lab Results Vital Signs Most Recent Vital Signs in EMR: Most Recent Vital Signs Temp Pulse Resp BP Pulse Ox 36.4 C L 78 19 189/85 H 96 12/19/24 07:16 12/19/24 07:16 12/19/24 07:16 12/19/24 07:16 12/19/24 07:16 Anesthesia Assessment and Plan Anesthesia History Personal History: No History of Anesthesia Complications Family History: No Family History of Anesthesia Complications Exercise Tolerance Exercise Tolerance: Metabolic Equivalents>4 Pertinent Negatives Pertinent Negatives: No Symptoms of GERD Cardiac & Pulmonary Exam Cardiac Exam: Normal S1/S2 Heart Sounds Pulmonary Exam: Clear Bilateral Breath Sounds Implantable Cardiac Device Does patient have a Pacemaker or an ICD?: No Airway Exam Known Difficult Airway: No Mallampati Class: 3 Mouth Opening: Normal (> 3cm) Thyromental Distance: Greater than 3 cm Neck Range of Motion: Full ROM Neck Circumference: Normal Teeth Condition: Normal Dentition ASA Classification ASA Score: ASA 3 Emergency Case?: No NPO Status NPO Status: NPO Clears >2 hours, Solids >8 hours Anesthesia Plan Resuscitation Status: Full Code Anesthesia Technique: General Anesthesia Airway Planned: Natural Airway Monitors Used: Standard Monitors
[2024-12-19 09:39] VITALS: BMI 32.8
[2024-12-19] MEDS: BOTULINUM TOXIN TYPE A 100 UNITS, Normal Saline 20 ML IJ (10:13)
[2024-12-19] MEDS: Lidocaine 2% Jelly 11 ML SYR (10:16)
--- NOTE | 2024-12-19 10:23 | W.PM.DSUDISC ---
Date of service: 12/19/24 Discharge Plan Disposition Patient Disposition: Home Condition: Stable Discharge Details Reason For Visit: Cystoscopy with injection of Botox into detrusor Attending Provider: Nicola Parekh Primary Care Provider: Michelle Lisa Home Meds and New Rx's Prescriptions: No Action albuterol sulfate 90 mcg/actuation HFA aerosol inhaler 2 inh inhalation Q6H PRN (Reason: shortness of breath or wheezing) Qty: 8.5 1RF clotrimazole-betamethasone 1-0.05 % cream 1 applic topical BID 14 Days Qty: 45 1RF betamethasone dipropionate 0.05 % ointment 1 applic topical BID PRN (Reason: skin irritation) Qty: 45 4RF Rx Instructions: apply tiny amount to tip of middle finger. apply that amount on entire vulva. oxybutynin chloride 5 mg tablet extended release 24hr 5 mg PO DAILY Qty: 90 1RF vitamin B complex [B-Complex] 1 EACH tablet 1 ea PO DAILY PRN Patient Comments: 11/12/14 takes when drinking multivitamin 1 EACH capsule 1 ea PO DAILY ibuprofen 600 MG tablet 600 mg PO tid prn Qty: 90 amlodipine 2.5 mg tablet See Rx Instructions .ROUTE .COMPLEX Qty: 180 3RF Dose Instruction: TAKE ONE TABLET BY MOUTH TWICE A DAY Rx Instructions: TAKE ONE TABLET BY MOUTH TWICE A DAY (DME) spirometers and accessories Device See Rx Instructions .Route Qty: 1 0RF Rx Instructions: q 1-2 hours sertraline 100 mg tablet See Rx Instructions .ROUTE .COMPLEX Qty: 135 3RF Dose Instruction: TAKE ONE AND ONE-HALF TABLETS BY MOUTH EVERY DAY FOR DEPRESSION Rx Instructions: TAKE ONE AND ONE-HALF TABLETS BY MOUTH EVERY DAY FOR DEPRESSION losartan 100 mg tablet See Rx Instructions .ROUTE .COMPLEX Qty: 90 3RF Dose Instruction: TAKE ONE TABLET BY MOUTH EVERY DAY Rx Instructions: TAKE ONE TABLET BY MOUTH EVERY DAY loratadine [Allergy Relief (loratadine)] 10 mg tablet 10 mg PO Q24H Discharge Instructions Additional Instructions: Please ask patient to call us in about a week to give us a progress report She will need a follow-up appointment in our office in 5-1/2 to 6 months. Stand Alone Forms: Anesthesia Discharge Inst., [facility] Vangie Montgomery ([facility]) Referrals: Nicola Parekh MD [ [facility] STAFF PHYSICIAN, Urology] Activity:: Activity as Tolerated Shower/Bathe:: 24 hours Diet:: As Tolerated Discharge Orders Discharge Orders: Discharge Order (Routine); Ordered 12/19/24 Ordered By: Nicola Parekh DS: Diagnosis Discharge Diagnosis (1) Overactive bladder: Status: Acute
[2024-12-19 10:25] VITALS: BP 115/55; PULSE 80; RESP 16; TEMP 36.1; O2SAT 92
--- NOTE | 2024-12-19 10:26 | W.PM.OP ---
Operative Note Operative Note PRE-OP DIAGNOSIS: Overactive bladder POST-OP DIAGNOSIS: same PROCEDURE: Cystoscopy with transurethral injection of Botox into the detrusor muscle SURGEON: Nicola Parekh ANESTHESIA TYPE: Local By Surgeon and General:No Airway Refer to Anesthesia Record ESTIMATED BLOOD LOSS: 5 PATHOLOGY: none sent COMPLICATIONS: None Patient was transported to: same day Patient's condition: stable Implants: 100 units of Botox mixed in 20 mL of dilutent Indications: This is an 84-year-old woman who has a history of mixed urinary incontinence. She is most bothered by her bladder spasms and urinary urgency incontinence. She had tried and failed behavioral modification and pelvic floor physical therapy. She had no improvement with beta 3 agonist. She was unable to tolerate anticholinergics due to the dry mouth side effect. She presents for an injection of Botox into the detrusor muscle. Findings: No bladder mass Procedure Description: The patient was brought to the operating room on 12/19/2024. She was given a dose of IV antibiotics. After successful induction of general anesthesia, she was placed in the dorsal lithotomy position. Her genitalia was prepped and draped. 2% Xylocaine jelly was instilled into the urethra to act as a local anesthetic. The 20 Tamazight urethrotome sheath was passed through the urethra into the bladder. The bladder was inspected with a 30 degree lens. The bladder appeared smooth-walled with no papillary or nodular lesions. Both ureteral orifices appeared normal with low blood coming from either side. Using a transurethral injection system we injected a total of 100 units of Botox into the detrusor muscle. The Botox was diluted in a total of 20 mL of dilute. We injected on the posterior bladder wall in a grid pattern of 4 horizontal rows and 5 vertical rows. We injected 1 mL in 20 different sites. We avoided the bladder neck and the trigone with our injections. The bladder was emptied and the scope was removed. The patient tolerated the procedure well with no complications. Date of Procedure: 12/19/24
--- NOTE | 2024-12-19 10:33 | W.ANESPOSTOP ---
Postoperative Evaluation Date, Time and Location Date Performed: 12/19/24 Time Performed: 10:33 Patient Location: Day Surgery Unit Vital Signs Most Recent Imported Vital Signs: Most Recent Vital Signs Temp Pulse Resp BP Pulse Ox 36.4 C L 78 19 189/85 H 96 12/19/24 07:16 12/19/24 07:16 12/19/24 07:16 12/19/24 07:16 12/19/24 07:16 Most Recent Manually Entered Vital Signs: Adult Blood Pressure: 115/55 Heart Rate: 80 Respirations: 16 Oxygen Saturation (%): 97 Temperature (C): 36.1 C Pain Score (0-10 Scale): 0 Pain Score Most Recent Pain Score: Most Recent Pain Score Pain Level 0 12/19/24 07:16 Assessment Mental Status: Awake (Alert & Oriented to Patient Baseline) Airway and Respiratory Function: Patent airway with normal (patient baseline) respiratory exam Cardiovascular Function: Hemodynamically Stable Hydration Status: Adequately Hydrated Nausea & Vomiting: No Nausea or Vomiting Pain: Pt. Denies Any Pain Peripheral Nerve Block: Patient did not receive a nerve block
[2024-12-19 10:35] VITALS: BP 115/55; PULSE 80; RESP 16; TEMPC 36.1; O2SAT 97
[2024-12-19 11:10] VITALS: BP 177/70; PULSE 64; RESP 17; TEMP 36.1; O2SAT 98
[2024-12-19] MEDS: Phenazopyridine 200 MG TAB PO (11:10)
== END 2024-12-19 11:30 | disposition home or self-care (01) ==
PROVIDERS: PCP Nurse Practitioner Family; Visit Provider Urology
PROC: (CPT 52287; principal; 2024-12-19 08:30)
DX: N32.81 Overactive bladder (principal); N39.46 Mixed incontinence; N32.89 Other specified disorders of bladder
CPT/HCPCS: 52287; J0585; J0690; J1100; J2003; J2405; J2704